=== PATIENT | male | born 1950 | race African-American/Black ===

== ENCOUNTER 2018-12-18 13:59 | Inpatient (IN) | payer MEDICARE ==
[2018-12-18] MEDS ORDERED: Zolpidem Tartrate 5 MG TAB PO PRN (15:23)
[2018-12-18] MEDS ORDERED: Acetaminophen 325 MG TAB PO PRN (15:23)
[2018-12-18] MEDS ORDERED: Ondansetron ODT 4 MG TAB PO PRN (15:23)
[2018-12-18] MEDS ORDERED: Ipratropium Bromide 2.5 ml Neb NEB PRN (15:23)
[2018-12-18] MEDS ORDERED: hydrALAZINE 20 MG/ML VIAL SLOW IVP PRN (15:59)
[2018-12-18] MEDS ORDERED: Labetalol HCl 100 MG/20 ML VIAL SLOW IVP PRN (15:59)
[2018-12-18 16:47] LABS: Troponin I 0.044 ng/mL (< 0.028)
[2018-12-18] MEDS: Mometasone/Formoterol 120 PUFF INHALER INH SCH (18:31)
[2018-12-18] MEDS: Azithromycin 500 MG in Sodium Chloride 0.9% 250 ML 250 ML IVPB SCH (19:15)
[2018-12-18] MEDS: methylPREDNISolone Sod Succ 40 MG VIAL IVP SCH ×2 (19:17→23:02)
[2018-12-18 20:06] LABS: Troponin I 0.029 ng/mL (< 0.028)
[2018-12-18] MEDS: traMADol HCl 50 MG TAB PO SCH (20:38)
[2018-12-18] MEDS ORDERED: traMADol HCl 50 MG TAB PO SCH (21:00)
[2018-12-18 21:27] VITALS: BMI 24.0
--- NOTE | 2018-12-18 22:44 | HP ---
PRIMARY CARE PHYSICIAN: Arabella Lacey MD HISTORY OF PRESENT ILLNESS: The patient was seen yesterday in [facility] when AMA went back today, was apparently treated there for shortness of breath, etc. referred here. He is very reluctant historian. He says he has no shortness of breath. He does have wheezing, chronic cough with white phlegm. No fever or chills. He does have some swelling in his ankles and that is the only history I can get out of him. He does have a history of hypertension, COPD, and there is a question of CHF on his history. CURRENT MEDICATIONS: 1. Losartan 25 mg, 12.5 mg a day. 2. Lasix 40 mg a day. 3. Tramadol 50 mg once a day. 4. Combivent Respimat inhaler p.r.n. 5. Albuterol inhaler p.r.n. ALLERGIES: NO KNOWN DRUG ALLERGIES. PAST SURGICAL HISTORY: Tonsillectomy. FAMILY HISTORY: When asked if there was any coronary artery disease in his family, said not that I know of. When I asked him if there was any hypertension in his family, he said "hell I guess." SOCIAL HISTORY: . He is full code status. He did not understand recuscitation. He has had no smoking in 10 years. He drinks socially. REVIEW OF SYSTEMS: GENERAL: No headaches, dizziness, fainting. EYES: States he has blurry vision. No double vision, flashing lights. EAR, NOSE, AND THROAT: No ear pain or drainage. No nasal bleeding. No trouble swallowing. CHEST: No chest pain, pressure chest, dyspnea on exertion. No orthopnea. RESPIRATIONS: See present illness. GASTROINTESTINAL: No nausea, vomiting, abdominal pain, diarrhea, or constipation. GENITOURINARY: No hematuria or dysuria. MUSCULOSKELETAL: No pain in his arms or legs. He does have some swelling in his legs. NEUROLOGICAL: No strokes, seizures, or focal weakness. PSYCHIATRIC: No anxiety or depression. SKIN: No bruising, bleeding, or rash. HEME/LYMPH: No tender or swollen lumps under his arms, neck, or groin. PHYSICAL EXAMINATION: GENERAL: He is an alert, appropriate, oriented. VITAL SIGNS: Blood pressure 125/71, pulse 88, respirations 18, and room air sat 89 on 2 L, 92, temperature 98. HEENT: Examination of his head, eyes, ears, nose, and throat reveals pupils equal and round with dense cataracts and bilateral arcus. Sclerae are white. Extraocular movements are intact. Tympanic membranes are clear. Nose is clear. Oral mucous membranes are wet with poor dental hygiene. CHEST: Hyper-resonant with wheezes expiratory in all lung ibrahim. HEART: Had a regular rate and rhythm without murmurs or gallops. ABDOMEN: Soft, bowel sounds are normal. There is no hepatosplenomegaly. No mass. No rebound. No bruits. EXTREMITIES reveal 1+ edema with no cyanosis or clubbing. He has pulses carotid radial femoral and dorsalis pedis pulses intact. SKIN: Warm and dry without bruises or rash. HEME/LYMPH: No tender or swollen lymph nodes in axilla, inguinal, or cervical area. NEUROLOGICAL: Cranial nerves 2 through 12 are intact. Deep tendon reflexes symmetric. IMAGING: Chest x-ray does show borderline cardiomegaly. No active infiltrates. He does have some diffuse reticulonodular things that could be pulmonary vascular congestion, reviewed by me. Radiologist mentions no evidence of heart failure. EKG, regular sinus rhythm, left ventricular hypertrophy with repolarization abnormality, reviewed by me. LABORATORY DATA: A 12/18/2018, hemoglobin 12.9, white count 6.7, and platelet count 316,000. Drug screen positive for cocaine and THC. Comprehensive metabolic profile; sodium and potassium normal, CO2 38, chloride 94, BUN 22, creatinine 1.43, blood sugar 136. Liver function tests normal. CK-MB 7.6, 7.02 separate days, CK is 377, BNP 592, 499, troponin I 0.03, 0.036. ADMITTING DIAGNOSES: 1. Acute respiratory failure with hypoxemia. 2. Chronic obstructive pulmonary disease exacerbation. 3. Demand ischemia. 4. Congestive heart failure. 5. Hypertension. 6. Cocaine and marijuana abuse. PLAN: Treatment for COPD with DuoNebs q.6 hours and q.2 p.r.n., Dulera twice a day, IV steroids, IV Zithromax. Treatment for heart failure, we will give Lasix IV now because of his edema. Order an echocardiogram. We will require further evaluation when that is available. He will be given aspirin of course. Blood pressure will require monitoring and control. Hopefully, start re-instituting his home medicines. Job ID: [id number] FRANKLYN
[2018-12-18] MEDS ORDERED: Sodium Chloride 0.9% 10 ML ONE (22:47)
[2018-12-19 05:28] LABS: #Lymphocytes 0.9 thou/uL (1.20-3.40); #Monocytes 0.2 thou/uL (0.11-0.59); #Neutrophils 5.7 thou/uL (1.40-6.50); %Basophils 0.1 % (0.0-1.0); %Eosinophils 0.2 % (0.0-10.0); %Lymphocytes 13.1 % (21.0-51.0); %Monocytes 2.2 % (0.0-10.0); %Neutrophils 84.4 % (42.0-75.0); Hemoglobin 13.6 g/dL (14.0-18.0); Mean Corpuscular HGB CONC 30.1 g/dL (32.0-36.0); Mean Corpuscular Hemoglobin 34.2 pg (27.0-31.0); Mean Platelet Volume 7.6 fL (7.4-10.4); Platelet Count 337 thou/uL (130-400); RBC Distribution Width 14.7 % (11.5-14.5); Red Blood Cell (RBC) Count 3.96 mill/uL (4.70-6.10); White Blood Cell (WBC) Count 6.7 thou/uL (4.8-10.8)
[2018-12-19 05:48] LABS: BUN (Urea Nitrogen) 24 mg/dL (8.4-25.7); Calc. Creatinine Clearance 63 mL/min (70-130); Calcium 8.7 mg/dL (7.8-10.44); Carbon Dioxide 29 mmol/L (23-31); Chloride 94 mmol/L (98-107); Estimated GFR-MDRD 62; Glucose 119 mg/dL (80-115); Potassium 5.1 mmol/L (3.5-5.1); Sodium 136 mmol/L (136-145)
[2018-12-19 05:58] LABS: Anion Gap 18 mmol/L (10-20)
[2018-12-19] MEDS: Furosemide 40 MG/4 ML VIAL SLOW IVP SCH ×2 (06:00→15:11)
[2018-12-19] MEDS: methylPREDNISolone Sod Succ 40 MG VIAL IVP SCH ×4 (06:00→23:46)
[2018-12-19] MEDS: Mometasone/Formoterol 120 PUFF INHALER INH SCH ×2 (07:19→19:24)
[2018-12-19] MEDS: Enoxaparin Sodium 40 MG/0.4 ML SYRINGE SC SCH (09:05)
[2018-12-19] MEDS: Aspirin 325 MG TAB PO SCH (09:05)
--- NOTE | 2018-12-19 13:15 | PDOC.PN ---
- Subjective Encounter Start Date: 12/19/18 Encounter Start Time: 09:30 Subjective: no chest pain, has sob and wheezing -: is amb in room on oxygen -: had to be placed back on oxygen this am - Objective Resuscitation Status - Order Detail: 12/18/18 15:08 Resuscitation Status Routine Resuscitation Status: FULL: Full Resuscitation Discussed with: did not understand question MAR Reviewed: Yes Vital Signs & Weight: Vital Signs (12 hours) Temp Pulse Resp BP Pulse Ox 12/19/18 11:45 97.8 F 90 18 128/66 100 12/19/18 07:50 98.0 F 85 20 123/67 94 L 12/19/18 07:19 89 16 12/19/18 07:08 89 16 12/19/18 04:00 98.0 F 89 20 140/80 92 L Weight Weight 187 lb 4.8 oz I&O: 12/18/18 12/19/18 12/20/18 06:59 06:59 06:59 Intake Total 320 Output Total 450 Balance -130 Result Diagrams: 12/19/18 04:44 12/19/18 04:44 Phys Exam - Physical Examination HEENT: PERRLA, moist MMs Neck: no JVD, supple Respiratory: no rales, wheezing present Cardiovascular: RRR, no significant murmur Gastrointestinal: soft, non-tender, positive bowel sounds Musculoskeletal: no edema, pulses present Neurological: non-focal, moves all 4 limbs Psychiatric: normal affect, A&O x 3 Dx/Plan (1) Acute exacerbation of CHF (congestive heart failure) Code(s): I50.9 - HEART FAILURE, UNSPECIFIED Status: Acute Qualifiers: Heart failure type: unspecified Qualified Code(s): I50.9 - Heart failure, unspecified (2) COPD exacerbation Code(s): J44.1 - CHRONIC OBSTRUCTIVE PULMONARY DISEASE W (ACUTE) EXACERBATION Status: Acute (3) Cocaine abuse Code(s): F14.10 - COCAINE ABUSE, UNCOMPLICATED Status: Acute (4) HTN (hypertension) Code(s): I10 - ESSENTIAL (PRIMARY) HYPERTENSION Status: Chronic Qualifiers: Hypertension type: essential hypertension Qualified Code(s): I10 - Essential (primary) hypertension (5) NSTEMI (non-ST elevated myocardial infarction) Code(s): I21.4 - NON-ST ELEVATION (NSTEMI) MYOCARDIAL INFARCTION Status: Acute - Plan await echo results -: is on asp, lasix, nebs, steroids, azithromycin -: cardio and pulm consultation -: says he has home oxygen but no extensions to use (nasal tongs etc) -: ambulate as tolerated in hallway, change status to inpatient * . Review of Systems - Medications/Allergies Allergies/Adverse Reactions: Allergies Allergy/AdvReac Type Severity Reaction Status Date / Time No Known Allergies Allergy Unverified 12/18/18 15:34 Medications: Current Medications Acetaminophen (Tylenol) 650 mg PO Q4H PRN PRN Reason: Headache/Fever/Mild Pain (1-3) Albuterol/Ipratropium (Duoneb) 3 ml NEB [id number] [facility] Last Admin: 12/19/18 07:08 Dose: 3 ml Aspirin (Aspirin) 325 mg PO DAILY [facility] Last Admin: 12/19/18 09:05 Dose: 325 mg Enoxaparin Sodium (Lovenox) 40 mg SC 0900 [facility] Last Admin: 12/19/18 09:05 Dose: 40 mg Furosemide (Lasix) 40 mg SLOW IVP 0600,1400 [facility] Last Admin: 12/19/18 06:00 Dose: 40 mg Hydralazine HCl (Apresoline) 10 mg SLOW IVP Q4H PRN PRN Reason: SBP > 180 and HR < 70 Azithromycin 500 mg/ Sodium (Chloride) 250 mls @ 250 mls/hr IVPB 1600 [facility] Last Admin: 12/18/18 19:15 Dose: Not Given Ipratropium [place] (Atrovent) 2.5 ml NEB Q2H PRN PRN Reason: SOB &/or Wheezing Labetalol HCl (Normodyne) 20 mg SLOW IVP Q4H PRN PRN Reason: SBP > 180 and HR >/= 70 Methylprednisolone Sodium Succinate (Solu-Medrol) 40 mg IVP Q6HR [facility] Last Admin: 12/19/18 11:48 Dose: 40 mg Mometasone Furoate/Formoterol Fumar (Dulera 100 Mcg/5 Mcg Inhaler) 0 puff INH BID-RT [facility] Last Admin: 12/19/18 07:19 Dose: 2 puff Ondansetron HCl (Zofran Odt) 4 mg PO Q6H PRN PRN Reason: Nausea/Vomiting Sodium Chloride (Flush - Normal Saline) 10 ml IVF PRN PRN PRN Reason: Saline Flush Last Admin: 12/19/18 06:00 Dose: 10 ml Tramadol HCl (Ultram) 100 mg PO HS [facility] Last Admin: 12/18/18 20:38 Dose: 100 mg Zolpidem Tartrate (Ambien) 5 mg PO HSPRN PRN PRN Reason: Insomnia
--- NOTE | 2018-12-19 13:38 | CON ---
DATE OF CONSULTATION: HISTORY OF PRESENT ILLNESS: Rei Soto is a 68-year-old gentleman, who was brought to the hospital with shortness of breath and lower extremity edema. He denies any chest pain, chills, or sweats. He has a longstanding history of tobacco abuse, quit smoking about 5 years ago of pack a day. He states on most days he is relatively active and can walk a fair distance without getting shortness of breath. 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 He has a history of asthma, congestive heart failure, and hypertension. PAST MEDICAL HISTORY: Otherwise, chronic asthma, chronic bronchitis, CHF, and hypertension. PAST SURGICAL HISTORY: Previous surgery: Tonsillectomy. SOCIAL HISTORY: The patient smokes marijuana, drinks socially. MEDICATIONS: Home medicines at this time include: 1. Nebulizer. 2. Combivent. 3. Albuterol inhaler. 4. Advair Diskus 250. 5. Cozaar 12.5. 6. Lasix 40. ALLERGIES: NONE. FAMILY HISTORY: Unremarkable. REVIEW OF SYSTEMS: Ten-point, negative. PHYSICAL EXAMINATION: VITAL SIGNS: His saturations are 100% on L, respiratory rate 18, temperature 97, pulse 98, blood pressure 120/66. He denies any difficulty breathing. CHEST: Minimal wheezing bilaterally. CARDIAC: Normal S1 and S2. No gallops. ABDOMEN: No masses. LABORATORY DATA: Creatinine is 1.38. His CK-MB is elevated. His troponin was elevated. BNP is 499. Chest x-ray shows cardiomegaly. White count 6000, H and H 13 and 43. He has cocaine and cannabinoids in his drug screen. IMPRESSION: 1. Chronic obstructive pulmonary disease exacerbation, bronchitis, asthma. 2. Congestive heart failure. 3. Cocaine and marijuana abuse. 4. Hypertension. PLAN: Pulmonary peña, he is on Dulera, which I would continue; empiric antibiotic; and steroids. Switch over to oral medication. Continue diuretics. Await input from Cardiology. Pulmonary will follow. Consultation note of 70 minutes, 50% in direct patient care. Job ID: [id number]
[2018-12-19] MEDS: Azithromycin 500 MG in Sodium Chloride 0.9% 250 ML 250 ML IVPB SCH (15:11)
--- NOTE | 2018-12-19 18:30 | NM ---
EXAM: Nuclear medicine VQ scan COMPARISON: Chest x-ray 12/18/2018 HISTORY: Shortness of breath TECHNIQUE: A VQ scan was attempted using 14.2 mCi of xenon-133. However, the patient was unable to ta ke a deeper breath. Perfusion images were obtained using 6 mCi of technetium 99m MAA. FINDINGS: Ventilation: Unable to be performed Perfusion: No small, medium, or large perfusion defects are seen. IMPRESSION: No perfusion defects seen. Low probability for pulmonary embolism.
[2018-12-19] MEDS: traMADol HCl 50 MG TAB PO SCH (20:47)
--- NOTE | 2018-12-19 21:27 | CON ---
DATE OF CONSULTATION: HISTORY OF PRESENT ILLNESS: The patient is a pleasant 68-year-old gentleman who presents for evaluation of increasing dyspnea. The patient states approximately 10 years ago in [place], he underwent a cardiac catheterization. The patient reports that he was found to have no significant coronary artery disease. The patient has a history of asthma and COPD. He has long history of tobacco abuse. The patient was in his usual state of health when he presented to his primary physician and was noted to have lower extremity swelling and increasing dyspnea. The patient denied having any chest discomfort. The patient has not had any palpitations or lightheadedness. The patient denies having PND or orthopnea. PAST MEDICAL HISTORY: Significant for; 1. COPD. 2. Asthma. 3. Hypertension. PAST SURGICAL HISTORY: He has had a tonsillectomy. SOCIAL HISTORY: He uses marijuana. He is a former smoker. He denies any use of illicit drugs. MEDICATIONS ON ADMISSION: 1. Cozaar 12.5 daily. 2. Lasix 40 daily. 3. Inhalers. ALLERGIES: NONE. FAMILY HISTORY: Unknown to the patient. REVIEW OF SYSTEMS: Ten-point system otherwise unremarkable. PHYSICAL EXAMINATION: GENERAL: This is an anxious gentleman. VITAL SIGNS: Blood pressure 128/66. NECK: Showed no jugular venous distention. LUNGS: Have diffuse wheezes throughout both lung ibrahim. HEART: Regular rate and rhythm. Normal S1, S2. No murmurs. ABDOMEN: Nondistended. EXTREMITIES: Show moderate edema. Vascular and radial pulses are 2+. LABORATORY DATA: White blood cell count 6.7, hemoglobin 13.6, hematocrit 45.1, platelets are 337. Sodium is 136, potassium 5.1, chloride 94, bicarbonate 29, BUN 24, creatinine 1.38. Troponin 0.044. His EKG revealed normal sinus rhythm with Q-waves suggestive of a previous inferior infarct and nonspecific ST-T wave abnormality. His echocardiogram reveals him to have normal left ventricular ejection fraction 50% to 55%, marked right atrial and right ventricular enlargement with evidence of pulmonary hypertension. IMPRESSION: 1. Chronic obstructive pulmonary disease. 2. Right-sided heart failure. 3. Pulmonary hypertension. 4. Type 2 myocardial infarction. 5. Hypertension. 6. Drug abuse. This gentleman presents with right-sided heart failure. The patient will undergo a V/Q scan to make sure there is no evidence of a pulmonary embolism for his elevated pulmonary pressures. I discussed the options of invasive evaluation and the patient prefers medical therapy. We will follow this patient with you through his hospitalization. Job ID: [id number]
[2018-12-20] MEDS: Furosemide 40 MG/4 ML VIAL SLOW IVP SCH (05:41)
[2018-12-20] MEDS: methylPREDNISolone Sod Succ 40 MG VIAL IVP SCH (05:42)
[2018-12-20] MEDS: Mometasone/Formoterol 120 PUFF INHALER INH SCH ×2 (06:57→18:34)
[2018-12-20 08:48] LABS: Anion Gap 13 mmol/L (10-20); BUN (Urea Nitrogen) 28 mg/dL (8.4-25.7); Calc. Creatinine Clearance 65 mL/min (70-130); Calcium 9.3 mg/dL (7.8-10.44); Carbon Dioxide 37 mmol/L (23-31); Chloride 90 mmol/L (98-107); Estimated GFR-MDRD 65; Glucose 121 mg/dL (80-115); Potassium 3.8 mmol/L (3.5-5.1); Sodium 136 mmol/L (136-145)
[2018-12-20] MEDS: Aspirin 325 MG TAB PO SCH (09:00)
[2018-12-20] MEDS ORDERED: predniSONE 20 MG TAB PO SCH (09:00)
[2018-12-20] MEDS: Enoxaparin Sodium 40 MG/0.4 ML SYRINGE SC SCH (09:00)
--- NOTE | 2018-12-20 09:45 | PDOC.PN ---
- Subjective Encounter Start Date: 12/20/18 Encounter Start Time: 09:42 Subjective: Admitted with worsening SOB and bilateral leg swelling. -: Feeling better. Off oxygen. - Objective Resuscitation Status - Order Detail: 12/18/18 15:08 Resuscitation Status Routine Resuscitation Status: FULL: Full Resuscitation Discussed with: did not understand question Vital Signs & Weight: Vital Signs (12 hours) Temp Pulse Resp BP BP Pulse Ox 12/20/18 08:55 98.1 F 97 18 136/69 97 12/20/18 06:57 92 16 12/20/18 06:46 92 16 12/20/18 04:00 98.5 F 87 18 131/70 93 L 12/20/18 00:59 89 16 92 L Weight Weight 187 lb 4.8 oz I&O: 12/19/18 12/20/18 12/21/18 06:59 06:59 06:59 Intake Total 320 1530 Output Total 450 2200 Balance -130 -670 Result Diagrams: 12/19/18 04:44 12/20/18 07:59 Phys Exam - Physical Examination Constitutional: NAD HEENT: PERRLA, moist MMs Neck: no JVD, supple Respiratory: no wheezing, no rhonchi fair air entry with some transmitted sound Cardiovascular: RRR, no rub Gastrointestinal: soft, non-tender, no distention, positive bowel sounds Musculoskeletal: pulses present moderate bilateral leg edema Neurological: non-focal, normal sensation, moves all 4 limbs Psychiatric: A&O x 3 Dx/Plan (1) Marijuana abuse Code(s): F12.10 - CANNABIS ABUSE, UNCOMPLICATED Status: Acute (2) Acute exacerbation of CHF (congestive heart failure) Code(s): I50.9 - HEART FAILURE, UNSPECIFIED Status: Acute Qualifiers: Heart failure type: right-sided Qualified Code(s): I50.813 - Acute on chronic right heart failure (3) COPD exacerbation Code(s): J44.1 - CHRONIC OBSTRUCTIVE PULMONARY DISEASE W (ACUTE) EXACERBATION Status: Acute (4) Cocaine abuse Code(s): F14.10 - COCAINE ABUSE, UNCOMPLICATED Status: Acute (5) NSTEMI (non-ST elevated myocardial infarction) Code(s): I21.4 - NON-ST ELEVATION (NSTEMI) MYOCARDIAL INFARCTION Status: Acute Comment: Type 2. (6) HTN (hypertension) Code(s): I10 - ESSENTIAL (PRIMARY) HYPERTENSION Status: Chronic Qualifiers: Hypertension type: essential hypertension Qualified Code(s): I10 - Essential (primary) hypertension (7) Moderate to severe pulmonary hypertension Code(s): I27.20 - PULMONARY HYPERTENSION, UNSPECIFIED Status: Acute (8) Moderate mitral regurgitation Code(s): I34.0 - NONRHEUMATIC MITRAL (VALVE) INSUFFICIENCY Status: Acute (9) Bilateral leg edema Code(s): R60.0 - LOCALIZED EDEMA Status: Acute - Plan Transition lasix and steroid to oral. -: Monitor patient off oxygen -: increase activity. -: Repeat renal function in the am. * .
--- NOTE | 2018-12-20 11:44 | PRG ---
DATE OF SERVICE: 12/20/2018 SUBJECTIVE: Rei Soto, this morning, is awake, alert, and responsive. He is better. OBJECTIVE: VITAL SIGNS: Saturations 97% on room air, temperature 98, pulse 97, respiratory rate 18, and blood pressure 130/69. CHEST: Decreased breath sounds. No wheezing. CARDIAC: Normal S1 and S2. . LABORATORY DATA: Creatinine is ASSESSMENT: 1. Chronic obstructive pulmonary disease. 2. Azotemia. I did not see any reason to suspect a pneumonia in this patient. Switch over to oral antibiotics. Continue PT, supportive care. Disposition as per primary care physician. Job ID: [id number]
[2018-12-20] MEDS ORDERED: Furosemide 20 MG TAB PO SCH (14:00)
[2018-12-20] MEDS ORDERED: Azithromycin 250 MG TAB PO SCH (14:45)
[2018-12-20] MEDS: traMADol HCl 50 MG TAB PO SCH (20:24)
[2018-12-21 06:10] LABS: BUN (Urea Nitrogen) 31 mg/dL (8.4-25.7); Calc. Creatinine Clearance 63 mL/min (70-130); Calcium 9.3 mg/dL (7.8-10.44); Estimated GFR-MDRD 63; Glucose 73 mg/dL (80-115)
[2018-12-21 06:19] LABS: Anion Gap 15 mmol/L (10-20); Carbon Dioxide 36 mmol/L (23-31); Chloride 92 mmol/L (98-107); Potassium 3.6 mmol/L (3.5-5.1); Sodium 139 mmol/L (136-145)
[2018-12-21] MEDS: Mometasone/Formoterol 120 PUFF INHALER INH SCH (07:36)
[2018-12-21 08:15] VITALS: BP 131/69; TEMP 98.4
[2018-12-21] MEDS: Enoxaparin Sodium 40 MG/0.4 ML SYRINGE SC SCH (08:16)
[2018-12-21] MEDS: Aspirin 325 MG TAB PO SCH (08:16)
[2018-12-21] MEDS ORDERED: Azithromycin 250 MG TAB PO SCH (09:00)
[2018-12-21] MEDS ORDERED: Furosemide 40 MG TAB PO SCH (09:00)
[2018-12-21] MEDS ORDERED: Furosemide 20 MG TAB PO SCH (09:00)
[2018-12-21] MEDS ORDERED: predniSONE 20 MG TAB PO SCH (09:00)
--- NOTE | 2018-12-22 08:14 | DIS ---
DATE OF ADMISSION: 12/19/2018 DATE OF DISCHARGE: 12/21/2018 PRIMARY CARE PHYSICIAN: Arabella Lacey MD DISCHARGE DIAGNOSES: 1. Acute respiratory failure with hypoxia. 2. Chronic obstructive pulmonary disease exacerbation. 3. Acute right heart failure. 4. Moderately severe pulmonary hypertension. 5. Moderate mitral regurgitation. 6. Bilateral leg edema. 7. Hypertension. 8. Marijuana abuse. 9. Cocaine abuse. 10. Type 2 non-ST elevation myocardial infarction. CONSULTS: 1. Pulmonology. 2. Cardiology. HOSPITAL COURSE: A 68-year-old male with known history of hypertension and COPD, who was admitted due to worsening shortness of breath and bilateral leg edema associated with cough with sputum production. The patient was found to have SpO2 of 89% on room air and subsequently was started on oxygen supplementation. Further evaluation with echocardiogram showed preserved systolic function with EF of 50 to 55. however, the patient was found to have a moderately enlarged right atrium and right ventricle as well as elevated right ventricular systolic pressure of 60, consistent with moderate pulmonary hypertension. He also was found to have moderate mitral regurgitation as well as [id number] tricuspid regurgitation. Impression of acute respiratory failure with hypoxia from CHF exacerbation and COPD exacerbation was made. The patient was treated with IV antibiotics, steroid, bronchodilators as well as diuretics with improvement in general condition. He was subsequently weaned off oxygen. Leg swelling improved. There was a concern for PE given pulmonary hypertension. The patient had a V/Q scan, which was however low probability for PE. He improved and was subsequently discharged to follow with PCP as well as Pulmonology and heat welder plastics. 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 PHYSICAL EXAMINATION: VITAL SIGNS: Temperature 98.4, pulse 95, respiratory rate 16, SpO2 of 93% on room air, and blood pressure is 131/69. GENERAL: Middle-age male, in no obvious distress. Afebrile. Anicteric. Acyanotic. HEENT: Normocephalic, atraumatic. Pupils are equal and reacting to light. Oral mucosa is moist. RESPIRATORY: Fair air entry bilaterally with some transmitted sounds. No obvious crackle or rhonchi was appreciated and there was no use of accessory muscles. CARDIOVASCULAR: Regular rhythm and rate with normal heart sounds 1 and 2. Soft systolic murmur was appreciated. GASTROINTESTINAL: Abdomen is full, soft, nontender, nondistended with normal bowel sounds. EXTREMITIES: Trace bilateral ankle edema noted. NEUROLOGIC: Conscious and alert and oriented x3 with appropriate mental status. Cranial nerves II through XII are intact. The patient is ambulant. DISCHARGE MEDICATIONS: 1. Advair Diskus 250/50 one inhalation b.i.d. 2. Lasix 40 mg p.o. daily. 3. Losartan 12.5 mg p.o. daily. 4. Tramadol 100 mg p.o. daily at bedtime. 5. Aspirin 325 mg p.o. daily. 6. Azithromycin 250 mg p.o. daily for 5 days. 7. Prednisone 40 mg p.o. daily for 5 days. 8. Albuterol sulfate ProAir 90 mcg p.r.n. for shortness of breath. 9. Ipratropium albuterol sulfate (Combivent) 1 puff inhalation q.i.d. p.r.n. for shortness of breath. 10. Acetaminophen 650 mg q.4 p.r.n. for pain. DISCHARGE DISPOSITION: Home. FOLLOWUP: 1. The patient is to follow with PCP in 5 days. 2. He is also to follow with heat welder plastics in 2 to 3 weeks and casting cleaner in 2 to 3 weeks. DISCHARGE CONDITION: Improved. TIME SPENT: This discharge took more than 35 minutes. Job ID: [id number]
== END 2018-12-21 10:56 | disposition home or self-care (01) | DRG 280 ==
LOC: ERS 13:59 → INTOOBSV 16:04 → 2NO 16:04 → OBSVTOIN 12-19 14:05
PROVIDERS: ADMIT Internal Medicine; ATTEND Internal Medicine
DX: I11.0 Hypertensive heart disease with heart failure (principal); J96.01 Acute respiratory failure with hypoxia; I21.A1 Myocardial infarction type 2; J44.1 Chronic obstructive pulmonary disease with (acute) exacerbation; I50.813 Acute on chronic right heart failure; F14.10 Cocaine abuse, uncomplicated; F12.10 Cannabis abuse, uncomplicated; I27.20 Pulmonary hypertension, unspecified; I08.1 Rheumatic disorders of both mitral and tricuspid valves; R79.89 Other specified abnormal findings of blood chemistry; Z79.899 Other long term (current) drug therapy; Z87.891 Personal history of nicotine dependence; Z79.51 Long term (current) use of inhaled steroids
CPT/HCPCS: 36415; 78582; 80048; 85025; 93306; 93798; 94640; 96365; A9540; A9558; J0456; J1650; J1940; J2920; J7050; J7512; J7620

== ENCOUNTER 2019-04-07 14:28 | Inpatient (IN) | payer MEDICARE ==
[2019-04-07] MEDS ORDERED: Dextrose 50% Abboject 50 ML SYRINGE SLOW IVP PRN (15:24)
[2019-04-07] MEDS ORDERED: Ondansetron PF 4 MG/2 ML Vial IVP PRN (15:24)
[2019-04-07] MEDS ORDERED: Dextrose 5% in Water 1,000 ML IV PRN (15:24)
[2019-04-07] MEDS ORDERED: Non-Formulary Item 1 EACH (Ipratropium/Albuterol Sulfate [Combivent Respimat] 1 PUFF) INH PRN (15:27)
[2019-04-07] MEDS ORDERED: Ketorolac Tromethamine 30 MG/ML VIAL IVP PRN (15:29)
[2019-04-07] MEDS ORDERED: Acetaminophen 1,000 MG in Premix Bag 1 BAG IVPB PRN (15:30)
[2019-04-07] MEDS ORDERED: Morphine 2 MG/ML SYRINGE SLOW IVP PRN ×2 (15:30→16:43)
[2019-04-07] MEDS ORDERED: Sodium Chloride 0.9% 1,000 ML IV SCH (15:30)
--- NOTE | 2019-04-07 15:31 | RAD ---
XR Chest 1 View Portable HISTORY: Right groin hernia COMPARISON: 12/18/2018 FINDINGS: The heart is enlarged but stable. The aorta is tortuous. There is evidence of old granuloma tous disease. No focal areas of consolidation, pneumothoraces, billy pulmonary edema or pleural effusions are seen. IMPRESSION: No radiographic evidence of acute cardiopulmonary process.
--- NOTE | 2019-04-07 15:55 | HP ---
HISTORY PRESENT ILLNESS: Mr. Soto is a 68-year-old gentleman, who come into the ER via transfer from [place] for right groin hernia. The patient reports to have right groin swelling for approximately 2 years. Swelling had not bothered him and he had not had any pain. He has been going to see doctor about right groin hernia, but because he is unfunded, so he cannot do elective surgery on right inguinal hernia. Last night, he developed right inguinal hernia pain. The pain is severe, come and go, sometimes pain shoot up to 10/10, but he denies any nausea, vomiting, or fever. He denies any shortness of breath. His last bowel was yesterday and his last meal was last night. PAST MEDICAL HISTORY: 1. Hypertension. 2. COPD. PAST SURGICAL HISTORY: Tonsillectomy. SOCIAL HISTORY: Drinks socially. Abuses marijuana daily, drug use. Smoking. The patient reports he quit smoking for 5-10 years. CURRENT MEDICATIONS: 1. Losartan 25 mg half daily. 2. Lasix 40 mg daily. 3. Tramadol 50 mg once a day. 4. Albuterol inhaler. 5. Combivent inhalation. PHYSICAL EXAMINATION: GENERAL: The patient is lying down in bed, alert and awake, in no acute distress. VITAL SIGNS: Pulse 88, blood pressure 155/94, respiratory rate 19, temperature 98.2, and O2 saturation 96% on 2L. LUNGS: Clear bilaterally. HEART: Regular rate and rhythm. ABDOMEN: Soft and nondistended. Bowel sounds present. Right inguinal hernia, incarcerated. Mild tender to palpation. Normal color. Irreducible. EXTREMITIES: Neurovascularly intact x4. NEUROLOGIC: No focal neurology deficits. DIAGNOSES: 1. Incarcerated right inguinal hernia. 2. History of hypertension. 3. Chronic obstructive pulmonary disease. PLAN: Patient's assessment and treatment plan was discussed with Dr Good. Dr. Good planned to take the patient to the OR for surgery. The patient will be n.p.o. Initiate pain control, IV fluid, and DVT and gastritis prophylaxis. Continue COPD treatment with inhaler Combivent , resume home med after surgery and after patient is on regular diet. Job ID: [id number] [facility]
[2019-04-07] MEDS ORDERED: Fentanyl 100 MCG/2 ML VIAL ONE (16:02)
[2019-04-07] MEDS ORDERED: Ondansetron PF 4 MG/2 ML Vial ONE (16:08)
[2019-04-07] MEDS ORDERED: Morphine 4 MG/ML VIAL ONE (16:08)
[2019-04-07] MEDS ORDERED: CEFAZOLIN 2 GM in Premix Bag 1 BAG IVPB SCH (16:15)
[2019-04-07] MEDS ORDERED: traMADol HCl 50 MG TAB PO PRN ×2 (16:41)
[2019-04-07] MEDS ORDERED: Ondansetron HCl/PF 4 MG/2 ML Vial IVP PRN (17:01)
[2019-04-07] MEDS: Acetaminophen 500 MG TAB PO SCH ×2 (21:37→23:32)
[2019-04-07 21:48] VITALS: BMI 24.3
[2019-04-07] MEDS: Famotidine/PF 20 mg/2ml Vial SLOW IVP SCH (21:58)
[2019-04-07] MEDS: Sodium Chloride 0.9% 1,000 ML IV SCH ×2 (21:58→23:34)
--- NOTE | 2019-04-08 00:27 | OP ---
DATE OF PROCEDURE: 04/07/2019 PREOPERATIVE DIAGNOSIS: Acute incarcerated large right inguinal hernia. POSTOPERATIVE DIAGNOSIS: Acute incarcerated right indirect inguinal hernia. OPERATION PERFORMED: Repair of large incarcerated indirect inguinal hernia with extra-large PerFix plug mesh. ANESTHESIA: General endotracheal. ESTIMATED BLOOD LOSS: Less than 10 mL. COUNTS: Sponge and instrument counts were verified as correct x2. COMPLICATIONS: None apparent at the time of operation. INDICATIONS FOR OPERATION: This is a 68-year-old man with a large right inguinal hernia, which has been present for the last 5 years. The patient reported worsening right groin pain since yesterday, which had become progressively worse to 10/10 prior to presenting to the emergency department. Clinical radiographic examination was consistent with acute incarcerated right inguinal hernia containing small and large bowel. The patient was brought to the operating room for repair of the hernia. FINDINGS: Consistent with incarcerated large indirect hernia with cecum and small bowel without any evidence of strangulation. No direct hernia was found. DESCRIPTION OF PROCEDURE: Informed consent was obtained. The patient was brought to the operating room and placed in supine position. Following general anesthesia, a Landa catheter was inserted and placed to bedside drain. Abdomen including the groin and scrotum were widely and sterilely prepped and draped in usual fashion. A right oblique incision was made using a 15 scalpel. Incision was carried through subcutaneous tissues maintaining hemostasis using cautery. The superficial vessels were divided between clamps and cauterized. Samy fascia was incised along the line of the incision. The dissection was carried down to the level of the external oblique aponeurosis. I opened the external oblique aponeurosis along the running fibers using a fresh scalpel. The cord as well as the hernia were dissected free from surrounding structures and encircled at the pubic tubercle using a Hadley drain. A large indirect hernia sac was then dissected off the cord and structures. The hernia sac was opened, and contents were reduced into the peritoneal cavity, noting no evidence of bowel ischemia. The sac was then excised circumferentially. The internal ring defect was closed using pursestring sutures of 2-0 silk under direct vision. The hernia sac was passed off the operative field for formal transmission to pathology. I then placed a plug mesh to close the internal ring, securing this to the internal oblique aponeurosis. The elliptical mesh was then brought to the operative field. The apex sutured to the pubic tubercle. The mesh was then secured to the shelving portion of the external oblique aponeurosis using a running stitch of 2-0 Prolene. The mesh was then secured medially to the internal oblique aponeurosis. Cord and structures remained under the mesh. The right testicle was pulled into the scrotal sac. Once the mesh was secured, external oblique aponeurosis was reapproximated using a running stitch of 2-0 Prolene. Deep tissues were closed in layers using interrupted sutures of 2-0 Vicryl. Skin incision was closed using a running stitch of 4-0 Monocryl suture in subcuticular fashion. Dermabond was applied over incisional closure. The patient tolerated the operation without any apparent complication and was returned to the recovery room in satisfactory condition. Job ID: [id number]
--- NOTE | 2019-04-08 03:00 | PRG ---
DATE OF SERVICE: 04/08/2019 SUBJECTIVE: The patient is currently on the surgical floor. He is postop from repair of a large incarcerated indirect inguinal hernia with extra-large PerFix plug mesh. The patient reportedly has no issues postoperatively. He tolerated a regular diet this afternoon. His pain is controlled, but has not passed gas yet. OBJECTIVE: VITAL SIGNS: Stable. The patient is afebrile. GENERAL: The patient is resting comfortably in bed. He was asleep when I entered the room, but he awakened to gentle verbal stimuli. His chief complaint is abdominal soreness. His postop dressing is clean, dry, and intact. Bowel sounds are hypoactive. ASSESSMENT AND PLAN: Status post repair of left incarcerated indirect inguinal hernia. Plan will be to continue supportive care. Transition to oral pain medications. Continue regular diet. Encourage out of bed. Continue to follow along as bowel function returns. Job ID: [id number]
[2019-04-08] MEDS: Acetaminophen 500 MG TAB PO SCH (05:08)
[2019-04-08] MEDS: Famotidine/PF 20 mg/2ml Vial SLOW IVP SCH (08:22)
[2019-04-08 08:32] VITALS: BP 115/68; TEMP 97.7
--- NOTE | 2019-04-08 11:57 | DIS ---
DATE OF ADMISSION: 04/07/2019 DATE OF DISCHARGE: 04/08/2019 DISCHARGING PHYSICIAN: Dr. Good. ADMITTING DIAGNOSIS: Acute incarcerated large right inguinal hernia. DISCHARGING DIAGNOSIS: Acute incarcerated large right inguinal hernia. OPERATION AND PROCEDURES: Repair of incarcerated large right inguinal hernia. The surgery was performed on 04/07/[address] Good. Please see separate dictation for operative report. HISTORY AND HOSPITAL COURSE: A 68-year-old man presented with long-standing large right inguinal hernia, which became painful almost 36 hours prior to presentation. Pain was progressively worse. As a result, the patient was evaluated in the emergency department. Clinical radiographic examination was consistent with acute incarcerated right large inguinal hernia, for which the patient underwent an uneventful right inguinal herniorrhaphy with mesh yesterday. Today, he is awake and alert. He denies any pain. He is tolerating diet. He has remained hemodynamically stable and afebrile since admission. He is ambulating with minimal difficulty. Examination of the wound today reveals wound, which is intact. On provocation with Valsalva maneuver, there is no evidence of hernia recurrence. Incision itself is intact, clean, and dry. He has no scrotal swelling or pain. DISCHARGE INSTRUCTIONS: The patient will be discharged home today with the following instructions; 1. He follows up with me in the Surgery [facility] in 2 weeks. 2. He is to avoid weight lifting in excess of 20 pounds until he has been seen by me. 3. He may take Tylenol 1000 mg p.o. q.6 hours p.r.n. pain alternating this with ibuprofen 400 mg p.o. q.8 hours p.r.n. pain. Additionally, he is given a prescription for tramadol 50 mg to be taken 1 to 2 p.o. q.6 hours p.r.n. pain. 4. He may apply ice pack to incisional wound as needed. 5. The patient is to avoid swimming or soaking himself in a bathtub until he has been seen by me. He may shower effective tomorrow. These instructions were given to the patient in the presence of his nurse. He indicates understanding of information given. I have answered his questions. The patient has expressed gratitude for the care rendered during this hospitalization and surgery. Job ID: [id number]
== END 2019-04-08 10:57 | disposition home or self-care (01) | DRG 352 ==
LOC: ERS 14:28 → SDC/OP 17:21 → SJJU 20:26
PROVIDERS: ADMIT Surgery; ATTEND Surgery
PROC: 0YU50JZ Supplement Right Inguinal Region with Synthetic Substitute, Open Approach (ICD-10-PCS; principal; 2019-04-07)
DX: K40.30 Unilateral inguinal hernia, with obstruction, without gangrene, not specified as recurrent (principal); I10 Essential (primary) hypertension; J44.9 Chronic obstructive pulmonary disease, unspecified; F12.10 Cannabis abuse, uncomplicated; Z79.899 Other long term (current) drug therapy
CPT/HCPCS: 36415; 71045; 86850; 86900; 86901; 88302; 93005; 94640; 96374; 96375; C1781; J2270; J2405; J3010; J7620; S0028

== ENCOUNTER 2019-06-12 18:42 | Inpatient (IN) | payer MEDICARE ==
[~2019-06-12 18:42] MED LIST: EPINEPHrine 1 MG/10 ML Abboject SYRINGE ONE
[2019-06-12 19:30] LABS: Actual Bicarbonate (HCO3a) 47.1 mEq/L (22-28); Analyzer IN Cardio ER; Base Excess (BEa) 13.8 mEq/L (-2.0 to +3.0); Calcium, Ionized 1.21 mmol/L (1.12-1.30); Carboxyhemoglobin (COHb) 1.7 gm% (0.0-3.0); Hemoglobin (Hb) 13.4 g/dL (14.0-18.0); O2 Tension (PaO2) 85.6 mmHg (> 80.0); Potassium - ABG Lab 4.19 mmol/L (3.70-5.30)
[2019-06-12 19:40] LABS: CO2 Tension 122.6 mmHg (35.0-45.0); Puncture Site RRA
[2019-06-12] MEDS ORDERED: Rocuronium Bromide 10 MG/ML (10ML VIAL) ONE (20:18)
[2019-06-12] MEDS ORDERED: Ketamine 50 MG/ML (10ML VIAL) ONE ×2 (20:18→22:39)
--- NOTE | 2019-06-12 20:49 | RAD ---
XR Chest 1 View Portable History: Intubated patient Comparison: Radiograph prior day Findings: Patient intubated endotracheal tube tip felt to be the level of the clavicles although not well seen. Enteric tube tip below diaphragm although out of field of view. Impression: Satisfactory position of the endotracheal tube.
--- NOTE | 2019-06-12 20:58 | CT ---
CT Brain WO Con History: Altered mental status Comparison: None. Findings: No acute hemorrhage or infarct. No midline shift or mass effect. Ventricular size and extra -axial CSF spaces are normal. Calvarium is intact. Paranasal sinuses and mastoids are clear. Impression: No acute intracranial abnormality.
[2019-06-12 22:48] LABS: Actual Bicarbonate (HCO3a) 42.2 mEq/L (22-28); Analyzer IN Cardio ER; Base Excess (BEa) 16.4 mEq/L (-2.0 to +3.0); CO2 Tension 55.8 mmHg (35.0-45.0); Calcium, Ionized 1.09 mmol/L (1.12-1.30); Hemoglobin (Hb) 12.6 g/dL (14.0-18.0); O2 Tension (PaO2) 291.3 mmHg (> 80.0); Potassium - ABG Lab 4.08 mmol/L (3.70-5.30)
[2019-06-12 22:51] LABS: Puncture Site RRA
[2019-06-12] MEDS ORDERED: Propofol 1,000 MG/100 ML VIAL IV ONE (23:01)
[2019-06-12] MEDS ORDERED: Norepinephrine 8 MG/0.9% NS 250 ML ONE (23:01)
[2019-06-12] MEDS ORDERED: Dextrose 5% in Water 1,000 ML IV PRN (23:18)
[2019-06-12] MEDS ORDERED: Dextrose 50% Abboject 50 ML SYRINGE SLOW IVP PRN (23:18)
--- NOTE | 2019-06-12 23:26 | RAD ---
XR Chest 1 View Portable History: Central line placement Comparison: Radiograph same day Findings: The central venous catheter with tip poorly seen although felt to be at the inferior SVC. N o pneumothorax. Endotracheal tube tip just below the level of clavicles. Enteric tube below diaphragm although out of field of view. Volume loss left lower lobe. Impression: Uncomplicated placement central venous catheter
--- NOTE | 2019-06-13 00:04 | HP ---
PRESENT COMPLAINT: Respiratory failure. HISTORY OF PRESENT ILLNESS: Charles Minaya is a 68-year-old male with past medical history of reported hypertension, presumed heart failure, COPD, who presented at [facility] emergency room because of worsening shortness of breath. Over the day, he was given Lasix as well as sublingual nitroglycerin and transferred to the emergency room here. On arrival, the patient was reportedly having worsening shortness of breath and becoming gradually somnolent. His ABG, initial, pCO2 was 55, but repeat was up to 122, requiring intubation. The patient is currently on vent. Unable to obtain history from the patient now. Sister has at bedside helping with history. They reported the patient was started on diuretics after being diagnosed with heart failure. The patient had stopped smoking after being diagnosed with COPD. He has not had any recent admission for COPD exacerbation. PAST MEDICAL HISTORY: Significant for hypertension, presumed diastolic CHF, and history of COPD. PAST SURGICAL HISTORY: None. SOCIAL HISTORY: Patient lives alone. He is . History of active tobacco use, but sister is unable to quantify amount. History of prior alcohol abuse, but currently now occasional drinker. No history of illicit drug use. FAMILY HISTORY: Significant for atrial fibrillation and coronary artery disease in the sisters. HOME MEDICATIONS: See list. ALLERGIES: NO KNOWN DRUG ALLERGIES. REVIEW OF SYSTEMS: Unable to obtain given the patient is intubated and sedated. PHYSICAL EXAMINATION: VITAL SIGNS: Current vitals, blood pressure of 115/70, pulse of 71, respiratory rate of 18, O2 saturation 96%, on vent, FiO2 of 26%. GENERAL: Average-built middle-aged male, intubated on vent and sedated, orally tubed. NECK: No JVD. No carotid bruit. RESPIRATORY: Bibasilar crepitations noted. No wheeze. CARDIOVASCULAR: S1, S2, and regular. GI: Abdomen is full, soft, and nontender. : Landa catheter in situ. EXTREMITIES: No calf tenderness. No pedal edema. NEUROLOGIC: The patient is sedated. LABORATORY DATA: Last ABG, pH of 7.2, pCO2 of 122, pO2 of 85, post Lasix dosage. IMAGING STUDIES: Head CT shows no acute intracranial abnormality. Chest x-ray shows satisfactory position of the ET tube, mild pulmonary congestive changes noted. Images reviewed by me. EKG shows normal sinus rhythm, no ST-segment changes. LVH pattern noted. Rest of lab from [facility] shows creatinine of 1.4, sodium of 140, potassium 4.1, ionized calcium of 1.2, and ammonia of 71. IMPRESSION: 1. Acute respiratory failure, likely due to combined congestive heart failure exacerbation and chronic obstructive pulmonary disease exacerbation. 2. Chronic obstructive pulmonary disease exacerbation. 3. Acute diastolic congestive heart failure exacerbation. 4. History of hypertension. 5. History of chronic tobacco use. PLAN: We will admit the patient to intensive care unit. We will manage the patient for the following; 1. Acute respiratory failure - currently on vent. We will consult Pulmonary/dockmaster. Continue vent management now. We will do fentanyl drip for sedation for now. We will obtain repeat ABG in a.m. We will do pulmonary toileting as tolerated. Adjust vent based on ABG findings. 2. COPD exacerbation. We will do DuoNeb q.4 hours for now. We will start the patient on Solu-Medrol q.6 as well as empirical antibiotics with Rocephin. 3. Presumed diastolic CHF exacerbation - start the patient on IV Lasix q.12. Follow BMP in a.m. Obtain an echocardiogram. 4. DVT prophylaxis with subcutaneous Lovenox. 5. History of chronic tobacco use. We will do nicotine patch. We will discuss cessation with the patient when more awake. 6. Advance directive discussed with sister, they wished the patient to remain full code. 7. Total time spent in review of record, discussion with patient and evaluation, greater than 70 minutes. We will do serial set of cardiac enzymes also. Job ID: [id number]
[2019-06-13] MEDS ORDERED: Propofol BOLUS 1,000 MG/100 ML VIAL IV PRN (00:06)
[2019-06-13] MEDS ORDERED: DISCONTINUE PREVIOUS NARCOTIC PAIN MEDICATIONS AND BENZODIAZEPINES FS SCH (00:06)
[2019-06-13] MEDS ORDERED: Lorazepam 2 MG/ML VIAL SLOW IVP PRN (00:06)
[2019-06-13] MEDS ORDERED: Fentanyl BOLUS 250 ML IVPB PRN (00:06)
[2019-06-13] MEDS ORDERED: Morphine 2 MG/ML SYRINGE SLOW IVP PRN (00:06)
[2019-06-13] MEDS ORDERED: Ondansetron PF 4 MG/2 ML Vial IVP PRN (00:22)
[2019-06-13] MEDS ORDERED: methylPREDNISolone Sod Succ 40 MG VIAL IVP SCH (00:30)
[2019-06-13] MEDS: cefTRIAXone\\ROCEPHIN 2 GM in Sodium Chloride 0.9% 100 ML IVPB SCH (01:08)
[2019-06-13] MEDS: Bacteriostatic Water 30 ML VIAL FS PRN ×2 (01:09→05:26)
[2019-06-13] MEDS: Nicotine 14 MG PATCH TD SCH (01:09)
[2019-06-13] MEDS: Propofol 1,000 MG/100 ML VIAL IV PRN ×4 (05:18→23:56)
[2019-06-13] MEDS: Furosemide 40 MG/4 ML VIAL SLOW IVP SCH ×2 (05:21→18:15)
[2019-06-13] MEDS: methylPREDNISolone Sod Succ 40 MG VIAL IVP SCH ×4 (05:26→23:48)
[2019-06-13 05:40] LABS: BUN (Urea Nitrogen) 33 mg/dL (8.4-25.7); Calc. Creatinine Clearance 73 mL/min (70-130); Calcium 8.7 mg/dL (7.8-10.44); Estimated GFR-MDRD 75; Glucose 96 mg/dL (80-115); Magnesium 1.6 mg/dL (1.6-2.6)
[2019-06-13 05:43] LABS: Troponin I 0.058 ng/mL (< 0.028)
[2019-06-13 05:49] LABS: Anion Gap 17 mmol/L (10-20); Carbon Dioxide 35 mmol/L (23-31); Chloride 94 mmol/L (98-107); Potassium 3.9 mmol/L (3.5-5.1); Sodium 142 mmol/L (136-145)
[2019-06-13 05:54] LABS: #Lymphocytes 0.6 thou/uL (1.20-3.40); #Monocytes 0.4 thou/uL (0.11-0.59); #Neutrophils 7.3 thou/uL (1.40-6.50); %Basophils 0.2 % (0.0-1.0); %Eosinophils 0.1 % (0.0-10.0); %Lymphocytes 7.1 % (21.0-51.0); %Monocytes 5.3 % (0.0-10.0); %Neutrophils 87.3 % (42.0-75.0); Hemoglobin 11.6 g/dL (14.0-18.0); MDiff Complete? YES; Macrocytosis SLIGHT = 6-15 cells (100X) (0-5/hpf); Mean Corpuscular HGB CONC 31.4 g/dL (32.0-36.0); Mean Corpuscular Hemoglobin 35.4 pg (27.0-31.0); Mean Platelet Volume 8.2 fL (7.4-10.4); Platelet Count 167 thou/uL (130-400); Platelet Morphology Comment Appears Adequate; Red Blood Cell (RBC) Count 3.28 mill/uL (4.70-6.10); White Blood Cell (WBC) Count 8.3 thou/uL (4.8-10.8)
[2019-06-13 07:29] LABS: Actual Bicarbonate (HCO3a) 35.1 mEq/L (22-28); Base Excess (BEa) 10.7 mEq/L (-2.0 to +3.0); CO2 Tension 45.4 mmHg (35.0-45.0); Calcium, Ionized 1.11 mmol/L (1.12-1.30); Hemoglobin (Hb) 12.8 g/dL (14.0-18.0); Potassium - ABG Lab 3.82 mmol/L (3.70-5.30); pH, Arterial 7.51 (7.35-7.45)
[2019-06-13 07:30] LABS: O2 Tension (PaO2) 50.7 mmHg (> 80.0); Puncture Site RRA
[2019-06-13] MEDS ORDERED: Prevnar 13-Val Conj/PF 0.5 ML SYRINGE IM ONE (09:00)
[2019-06-13] MEDS ORDERED: FLU VACC TS2019-20(65YR UP)/PF 180 MCG/0.5 ML SYRINGE IM ONE (09:00)
[2019-06-13] MEDS: Enoxaparin Sodium 40 MG/0.4 ML SYRINGE SC SCH (09:16)
[2019-06-13] MEDS: Famotidine/PF 20 mg/2ml Vial SLOW IVP SCH ×2 (09:17→20:39)
[2019-06-13] MEDS: Aspirin Chewable 81 MG TAB PO SCH (09:18)
--- NOTE | 2019-06-13 09:59 | PDOC.HOSPP ---
- Subjective Encounter Date: 06/13/19 - Objective Vital Signs & Weight: Vital Signs (12 hours) Temp Pulse Resp Pulse Ox 06/13/19 07:21 76 06/13/19 06:00 18 06/13/19 04:00 98.9 F 18 06/13/19 02:00 18 06/13/19 01:00 98.5 F 06/13/19 00:30 53 L 18 100 06/13/19 00:29 98.5 F 06/13/19 00:00 18 98 Weight Weight 186 lb 1.122 oz Most Recent Monitor Data Heart Rate from ECG 72 NIBP 110/60 NIBP BP-Mean 76 Respiration from ECG 10 SpO2 100 I&O: 06/12/19 06/13/19 06/14/19 06:59 06:59 06:59 Intake Total 218.6 Output Total 880 Balance -661.4 Result Diagrams: 06/13/19 05:00 06/13/19 05:00 Additional Labs: Accuchecks 06/13/19 06/13/19 05:09 00:31 POC Glucose 101 85 Hospitalist ROS - Medication Medications: Active Medications Generic Name Dose Route Start Last Admin Trade Name Freq PRN Reason Stop Dose Admin Albuterol/Ipratropium 3 ml 06/13/19 01:00 06/13/19 07:21 Duoneb NEB 3 ml [id number] LAURIE Administration Furosemide 40 mg 06/13/19 06:00 06/13/19 05:21 Lasix SLOW IVP 40 mg 0600,1400 LAURIE Administration Ceftriaxone Sodium 2 gm/ 100 mls @ 200 mls/hr 06/13/19 01:00 06/13/19 01:08 Sodium Chloride IVPB 100 mls 0100 LAURIE Administration Methylprednisolone Sodium Succinate 40 mg 06/13/19 06:00 06/13/19 05:26 Solu-Medrol IVP 40 mg Q6HR LAURIE Administration Nicotine 14 mg 06/13/19 01:00 06/13/19 01:09 Nicoderm Patch TD 14 mg Q24HR LAURIE Administration Propofol 1,000 mg 06/13/19 00:06 06/13/19 05:18 Diprivan IV 07/13/19 00:06 1,000 mg INF PRN Administration TO ACHIEVE GOAL RASS Protocol Sterile Water 1 ml 06/13/19 00:30 06/13/19 05:26 Bacteriostatic Water FS 1 ml PRN PRN Administration RECONSTITUTION - Exam ENT: normocephalic atraumatic Neck: no JVD Heart: no murmur Respiratory: CTAB, no rales Gastrointestinal: soft, non-tender, non-distended, normal bowel sounds Extremities: no cyanosis, no clubbing Skin: no rashes Neurological - other findings: NON-COMMUNICATIVE AND INTUBATED Hosp A/P (1) Acute respiratory failure Code(s): J96.00 - ACUTE RESPIRATORY FAILURE, UNSP W HYPOXIA OR HYPERCAPNIA Status: Acute Qualifiers: Respiratory failure complication: hypoxia and hypercapnia Qualified Code(s) : J96.01 - Acute respiratory failure with hypoxia; J96.02 - Acute respiratory failure with hypercapnia Plan: Continue iv steroids and nebulisations (2) Acute exacerbation of CHF (congestive heart failure) Code(s): I50.9 - HEART FAILURE, UNSPECIFIED Status: Acute Qualifiers: Heart failure type: diastolic Qualified Code(s): I50.33 - Acute on chronic diastolic (congestive) heart failure (3) COPD exacerbation Code(s): J44.1 - CHRONIC OBSTRUCTIVE PULMONARY DISEASE W (ACUTE) EXACERBATION Status: Acute (4) Cocaine abuse Code(s): F14.10 - COCAINE ABUSE, UNCOMPLICATED Status: Acute (5) Marijuana abuse Code(s): F12.10 - CANNABIS ABUSE, UNCOMPLICATED Status: Acute (6) Moderate mitral regurgitation Code(s): I34.0 - NONRHEUMATIC MITRAL (VALVE) INSUFFICIENCY Status: Acute (7) HTN (hypertension) Code(s): I10 - ESSENTIAL (PRIMARY) HYPERTENSION Status: Chronic Qualifiers: Hypertension type: essential hypertension Qualified Code(s): I10 - Essential (primary) hypertension - Plan old records reviewed/req, continue antibiotics, respiratory therapy 1.Continue respiratory support with pulmonary on board. 2.iv steroids and nebs with vent support for now. 3.Abstaining from recreational drug abuse once patient is extubated with education.
[2019-06-13] MEDS: fentaNYL Citrate/PF 2,000 MCG in Sodium Chloride 0.9% 60 ML IV SCH (12:24)
--- NOTE | 2019-06-13 23:51 | CON ---
DATE OF CONSULTATION: HISTORY OF PRESENT ILLNESS: Rei Soto is a 68-year-old male. According to the emergency department record, he presented with respiratory distress, requiring intubation. Hospital records are really quite poor regarding what happened in the emergency department. Apparently, he presented to [facility] and developed hypercarbia and somnolence, leading to intubation. PAST MEDICAL HISTORY: Remarkable for hypertension, heart failure, and COPD. SOCIAL HISTORY: He is a smoker, currently not a daily drinker. He has no history of drug use. FAMILY HISTORY: Positive for vascular disease. No reported drug. PHYSICAL EXAMINATION: VITAL SIGNS: Heart rate in the 60s, blood pressure 113/63, respiratory rates in the teens, oximetry is 98. HEAD AND NECK: Unremarkable. LUNGS: Distant clear. HEART: Regular rhythm. S1 and S2 are normal. ABDOMEN: Soft and nontender. EXTREMITIES: Without clubbing, cyanosis, or edema. LABORATORY DATA: White count 8.3, hemoglobin 11.6, platelets are 167. Sodium 142, potassium 3.9, chloride 94, bicarb 35, BUN 33, creatinine 1.18. PH 7.51, CO2 of 45, pO2 of 50. Blood gas yesterday at 7:23 p.m., 7.20, CO2 of 122 , pO2 of 85. Chest radiograph does not show much in the way of pulmonary edema. IMPRESSION: Chronic obstructive pulmonary disease exacerbation. I suspect he is chronically hypercarbic given his blood gas. I suspect most of this is a chronic obstructive pulmonary disease exacerbation. An echocardiogram was ordered, ejection fraction 40 to 45%. At this point in time, he is not weanable from mechanical ventilation. We will reassess him in the morning. CRITICAL CARE TIME: 30 minutes. Job ID: [id number] [facility]
[2019-06-14] MEDS: cefTRIAXone\\ROCEPHIN 2 GM in Sodium Chloride 0.9% 100 ML IVPB SCH (00:49)
[2019-06-14] MEDS: Nicotine 14 MG PATCH TD SCH (00:50)
[2019-06-14] MEDS: methylPREDNISolone Sod Succ 40 MG VIAL IVP SCH ×3 (05:28→17:38)
[2019-06-14] MEDS: Furosemide 40 MG/4 ML VIAL SLOW IVP SCH ×2 (05:28→13:14)
[2019-06-14] MEDS: fentaNYL Citrate/PF 2,000 MCG in Sodium Chloride 0.9% 60 ML IV SCH (05:30)
[2019-06-14] MEDS: Propofol 1,000 MG/100 ML VIAL IV PRN (07:12)
[2019-06-14 07:25] LABS: Actual Bicarbonate (HCO3a) 33.5 mEq/L (22-28); Base Excess (BEa) 7.5 mEq/L (-2.0 to +3.0); CO2 Tension 53.4 mmHg (35.0-45.0); Calcium, Ionized 1.13 mmol/L (1.12-1.30); Carboxyhemoglobin (COHb) 1.4 gm% (0.0-3.0); Hemoglobin (Hb) 12.7 g/dL (14.0-18.0); O2 Tension (PaO2) 84.8 mmHg (> 80.0); Potassium - ABG Lab 3.87 mmol/L (3.70-5.30); pH, Arterial 7.42 (7.35-7.45)
[2019-06-14 07:27] LABS: Puncture Site RRA
[2019-06-14] MEDS: Enoxaparin Sodium 40 MG/0.4 ML SYRINGE SC SCH (08:24)
[2019-06-14] MEDS: Aspirin Chewable 81 MG TAB PO SCH (08:25)
[2019-06-14] MEDS: Famotidine/PF 20 mg/2ml Vial SLOW IVP SCH ×2 (08:25→20:43)
--- NOTE | 2019-06-14 09:30 | PDOC.HOSPP ---
- Subjective Encounter Date: 06/14/19 Subjective: PATIENT NON VERBAL AND INTUBATED WITH SEDATION - Objective Vital Signs & Weight: Vital Signs (12 hours) Temp Pulse Resp Pulse Ox 06/14/19 08:00 98.1 F 15 06/14/19 07:49 97 06/14/19 07:16 56 L 06/14/19 06:00 12 06/14/19 04:00 97.7 F 12 06/14/19 02:00 12 06/14/19 00:00 97.7 F 12 06/13/19 23:24 65 12 98 06/13/19 21:57 12 Weight Admit Weight 183 lb 10.321 oz Weight 179 lb 0.246 oz Most Recent Monitor Data Heart Rate from ECG 58 NIBP 105/66 NIBP BP-Mean 79 Respiration from ECG 8 SpO2 97 I&O: 06/13/19 06/14/19 06/15/19 06:59 06:59 06:59 Intake Total 218.6 536.7 Output Total 880 3130 510 Balance -661.4 -2593.3 -510 Result Diagrams: 06/13/19 05:00 06/13/19 05:00 Additional Labs: Accuchecks 06/14/19 06/13/19 06/13/19 05:53 20:42 12:57 POC Glucose 146 H 117 H 123 H Hospitalist ROS - Review of Systems Other: PATIENT NON VERBAL AND SEDATED - Medication Medications: Active Medications Generic Name Dose Route Start Last Admin Trade Name Freq PRN Reason Stop Dose Admin Albuterol/Ipratropium 3 ml 06/13/19 01:00 06/14/19 07:15 Duoneb NEB 3 ml [id number] LAURIE Administration Aspirin 81 mg 06/13/19 09:00 06/14/19 08:25 Aspirin Chewable PO 81 mg DAILY LAURIE Administration Enoxaparin Sodium 40 mg 06/13/19 09:00 06/14/19 08:24 Lovenox SC 40 mg 0900 LAURIE Administration Famotidine 20 mg 06/13/19 09:00 06/14/19 08:25 Pepcid SLOW IVP 20 mg Q12HR LAURIE Administration Furosemide 40 mg 06/13/19 06:00 06/14/19 05:28 Lasix SLOW IVP 40 mg 0600,1400 LAURIE Administration Fentanyl Citrate 2,000 mcg/ 100 mls @ 0 mls/hr 06/12/19 20:40 06/14/19 05:30 Sodium Chloride IV 07/12/19 20:40 100 mls INF LAURIE Administration Protocol Per Protocol Ceftriaxone Sodium 2 gm/ 100 mls @ 200 mls/hr 06/13/19 01:00 06/14/19 00:49 Sodium Chloride IVPB 100 mls 0100 LAURIE Administration Lorazepam 2 mg 06/13/19 00:06 06/13/19 17:50 Ativan SLOW IVP 07/13/19 00:06 2 mg Q1H PRN Administration Breakthrough agitation Methylprednisolone Sodium Succinate 40 mg 06/13/19 06:00 06/14/19 05:28 Solu-Medrol IVP 40 mg Q6HR LAURIE Administration Nicotine 14 mg 06/13/19 01:00 06/14/19 00:50 Nicoderm Patch TD 14 mg Q24HR LAURIE Administration Propofol 1,000 mg 06/13/19 00:06 06/14/19 07:12 Diprivan IV 07/13/19 00:06 1,000 mg INF PRN Administration TO ACHIEVE GOAL RASS Protocol Sterile Water 1 ml 06/13/19 00:30 06/13/19 05:26 Bacteriostatic Water FS 1 ml PRN PRN Administration RECONSTITUTION - Exam ENT: normocephalic atraumatic Neck: symmetric, no JVD Heart: no murmur, no gallops Respiratory: no wheezes, no rales, no ronchi Gastrointestinal: soft, non-tender, non-distended, normal bowel sounds Extremities: no cyanosis, no clubbing, no edema Skin: no rashes Neurological - other findings: intubated and sedated Hosp A/P (1) Acute respiratory failure Code(s): J96.00 - ACUTE RESPIRATORY FAILURE, UNSP W HYPOXIA OR HYPERCAPNIA Status: Acute Qualifiers: Respiratory failure complication: hypoxia and hypercapnia Qualified Code(s) : J96.01 - Acute respiratory failure with hypoxia; J96.02 - Acute respiratory failure with hypercapnia Plan: awaiting weaning process per pulmonary.Fio2 of 50%.PEEP 5. (2) Acute exacerbation of CHF (congestive heart failure) Code(s): I50.9 - HEART FAILURE, UNSPECIFIED Status: Acute Qualifiers: Heart failure type: diastolic Qualified Code(s): I50.33 - Acute on chronic diastolic (congestive) heart failure Plan: awaiting ECHO evaluation. (3) COPD exacerbation Code(s): J44.1 - CHRONIC OBSTRUCTIVE PULMONARY DISEASE W (ACUTE) EXACERBATION Status: Acute Plan: Continue iv solumedrol and nebs with oxygen supplementation. (4) Cocaine abuse Code(s): F14.10 - COCAINE ABUSE, UNCOMPLICATED Status: Acute (5) Marijuana abuse Code(s): F12.10 - CANNABIS ABUSE, UNCOMPLICATED Status: Acute (6) Moderate mitral regurgitation Code(s): I34.0 - NONRHEUMATIC MITRAL (VALVE) INSUFFICIENCY Status: Acute (7) HTN (hypertension) Code(s): I10 - ESSENTIAL (PRIMARY) HYPERTENSION Status: Chronic Qualifiers: Hypertension type: essential hypertension Qualified Code(s): I10 - Essential (primary) hypertension - Plan old records reviewed/req 1.Continue respiratory support with pulmonary on board. 2.iv steroids and nebs with vent support for now. 3.Abstaining from recreational drug abuse once patient is extubated with education.Appreciate pulmonary follow up. 4.ECHO report awaited.
--- NOTE | 2019-06-14 10:40 | RAD ---
EXAM: Portable chest PROVIDED CLINICAL HISTORY: Respiratory insufficiency COMPARISON: 06/12/2019 FINDINGS: Development of patchy airspace disease in the right mid and lower lung zones. Additional significant interval change with respect to the prior examination is not apparent. IMPRESSION: As above.
--- NOTE | 2019-06-14 22:15 | PRG ---
DATE OF SERVICE: 06/14/2019 SUBJECTIVE: Rei Soto was clinically stable overnight. OBJECTIVE: VITAL SIGNS: His heart rate is in the 95 to 100 range. His respiratory rate is in the 20s, oximetry is 96, volume is 8 L a minute. Blood pressure is in the one teens systolic. LUNGS: Remarkable for distant breath sounds. HEART: Regular rhythm. ABDOMEN: Soft. EXTREMITIES: Without edema. Spontaneous breathing trial was done this morning. He tolerated this well. Chest radiograph showed no new infiltrates. LABORATORY DATA: Blood gas this morning showed a pH 7.42, CO2 of 53, and PO2 84. Sodium 137, potassium 3.8, calcium 1.13, chloride was 91. IMPRESSION: 1. Respiratory failure secondary to chronic obstructive pulmonary disease exacerbation. 2. Acute on chronic hypercarbic and hypoxemic respiratory failure. I recommended extubation. He has done well postextubation. Remained in the critical care unit for now. CRITICAL CARE TIME: 30 minutes. Job ID: [id number]
[2019-06-15] MEDS: cefTRIAXone\\ROCEPHIN 2 GM in Sodium Chloride 0.9% 100 ML IVPB SCH (00:17)
[2019-06-15] MEDS: methylPREDNISolone Sod Succ 40 MG VIAL IVP SCH ×2 (00:18→06:31)
[2019-06-15] MEDS: Nicotine 14 MG PATCH TD SCH ×2 (00:34→01:22)
[2019-06-15 06:21] LABS: Hemoglobin 12.3 g/dL (14.0-18.0); Lymphocytes 3 % (21-51); MDiff Complete? YES; Macrocytosis SLIGHT = 6-15 cells (100X) (0-5/hpf); Mean Corpuscular HGB CONC 31.8 g/dL (32.0-36.0); Mean Platelet Volume 8.3 fL (7.4-10.4); Monocytes 8 % (0-10); Neutrophil 89 % (42-75); Platelet Count 212 thou/uL (130-400); Red Blood Cell (RBC) Count 3.41 mill/uL (4.70-6.10); White Blood Cell (WBC) Count 13.7 thou/uL (4.8-10.8)
[2019-06-15 06:24] LABS: ALT (SGPT) 24 U/L (8-55); AST (SGOT) 24 U/L (5-34); Albumin 3.3 g/dL (3.4-4.8); Alkaline Phosphatase 73 U/L (40-110); BUN (Urea Nitrogen) 40 mg/dL (8.4-25.7); Bilirubin, Total 0.6 mg/dL (0.2-1.2); Calc. Creatinine Clearance 69 mL/min (70-130); Calcium 8.7 mg/dL (7.8-10.44); Estimated GFR-MDRD 74; Globulin 2.7 g/dL (2.4-3.5); Glucose 125 mg/dL (80-115)
[2019-06-15] MEDS: Furosemide 40 MG/4 ML VIAL SLOW IVP SCH (06:31)
[2019-06-15 06:33] LABS: Anion Gap 14 mmol/L (10-20); Carbon Dioxide 38 mmol/L (23-31); Chloride 93 mmol/L (98-107); Potassium 4.2 mmol/L (3.5-5.1); Sodium 141 mmol/L (136-145)
[2019-06-15] MEDS: Enoxaparin Sodium 40 MG/0.4 ML SYRINGE SC SCH (09:03)
[2019-06-15] MEDS: Aspirin Chewable 81 MG TAB PO SCH (09:03)
[2019-06-15] MEDS: Famotidine/PF 20 mg/2ml Vial SLOW IVP SCH ×2 (09:03→19:47)
--- NOTE | 2019-06-15 09:08 | PRG ---
DATE OF SERVICE: 06/15/2019 SUBJECTIVE: This morning, he is awake, alert, responsive, though appears to be somewhat encephalopathic. X-ray shows a small right-sided infiltrate, extubated yesterday. OBJECTIVE: VITAL SIGNS: His sats are 96% on 2 L, pulse 91, respiratory rate 18, and blood pressure 150/83. CHEST: Decreased breath sounds. No wheezing. CARDIAC: Normal S1, S2. No gallops. ABDOMEN: No masses. LABORATORY DATA: His white count 17,000. ASSESSMENT: 1. Respiratory failure. 2. Chronic obstructive pulmonary disease exacerbation. PLAN: To be transferred probably out of the ICU at a later time. Continue home medication. One-half hour of critical time. Job ID: [id number]
--- NOTE | 2019-06-15 09:44 | PDOC.HOSPP ---
- Subjective Encounter Date: 06/15/19 Subjective: Patient ambulating from bed to chair and on oxygen with c/o sob abd dry cough - Objective Vital Signs & Weight: Vital Signs (12 hours) Temp Pulse Resp Pulse Ox 06/15/19 07:41 96 06/15/19 07:26 91 23 H 96 06/15/19 04:00 97.6 F 06/15/19 00:00 98.2 F 06/14/19 23:04 116 H 20 98 Weight Admit Weight 183 lb 10.321 oz Weight 179 lb 7.3 oz Most Recent Monitor Data Heart Rate from ECG 84 NIBP 154/83 NIBP BP-Mean 106 Respiration from ECG 18 SpO2 97 I&O: 06/14/19 06/15/19 06/16/19 06:59 06:59 06:59 Intake Total 536.7 2217.7 60 Output Total 3130 3075 Balance -2593.3 -857.3 60 Result Diagrams: 06/15/19 05:48 06/15/19 05:48 Additional Labs: Accuchecks 06/15/19 06/14/19 06/14/19 06:03 21:37 16:09 POC Glucose 123 H 125 H 115 H 06/14/19 11:53 POC Glucose 110 Hospitalist ROS - Review of Systems Constitutional: reports: weakness Respiratory: reports: cough, shortness of breath - Medication Medications: Active Medications Generic Name Dose Route Start Last Admin Trade Name Freq PRN Reason Stop Dose Admin Albuterol/Ipratropium 3 ml 06/13/19 01:00 06/15/19 07:26 Duoneb NEB 3 ml [id number] LAURIE Administration Aspirin 81 mg 06/13/19 09:00 06/15/19 09:03 Aspirin Chewable PO 81 mg DAILY LAURIE Administration Enoxaparin Sodium 40 mg 06/13/19 09:00 06/15/19 09:03 Lovenox SC 40 mg 0900 LAURIE Administration Famotidine 20 mg 06/13/19 09:00 06/15/19 09:03 Pepcid SLOW IVP 20 mg Q12HR LAURIE Administration Levofloxacin 500 mg 06/15/19 09:00 06/15/19 09:06 Levaquin PO 06/15/19 11:00 500 mg NOW LAURIE Administration Nicotine 14 mg 06/13/19 01:00 06/15/19 01:22 Nicoderm Patch TD Not Given Q24HR LAURIE Sterile Water 1 ml 06/13/19 00:30 06/13/19 05:26 Bacteriostatic Water FS 1 ml PRN PRN Administration RECONSTITUTION - Exam Eye: PERRL, anicteric sclera ENT: normocephalic atraumatic, no oropharyngeal lesions, moist mucosa Neck: supple, symmetric, no JVD, no thyromegaly, no lymphadenopathy, no carotid bruit Heart: RRR, no murmur, no gallops, no rubs, normal peripheral pulses Respiratory: CTAB, no wheezes, no tachypnea Gastrointestinal: soft, non-tender, non-distended, normal bowel sounds, no palpable masses, no hepatomegaly, no splenomegaly, no bruit Extremities: no cyanosis, no clubbing, no edema Skin: no rashes Neurological: normal sensation to touch, no weakness, no focal deficits Musculoskeletal: no muscle wasting Psychiatric: normal affect, A&O x 3 Hosp A/P (1) Acute respiratory failure Code(s): J96.00 - ACUTE RESPIRATORY FAILURE, UNSP W HYPOXIA OR HYPERCAPNIA Status: Acute Qualifiers: Respiratory failure complication: hypoxia Qualified Code(s): J96.01 - Acute respiratory failure with hypoxia Plan: Patient s/p extubation on 06/14/2019.On [place] oxygen. (2) Acute exacerbation of CHF (congestive heart failure) Code(s): I50.9 - HEART FAILURE, UNSPECIFIED Status: Resolved Qualifiers: Heart failure type: diastolic Qualified Code(s): I50.33 - Acute on chronic diastolic (congestive) heart failure (3) COPD exacerbation Code(s): J44.1 - CHRONIC OBSTRUCTIVE PULMONARY DISEASE W (ACUTE) EXACERBATION Status: Acute (4) Cocaine abuse Code(s): F14.10 - COCAINE ABUSE, UNCOMPLICATED Status: Acute (5) Marijuana abuse Code(s): F12.10 - CANNABIS ABUSE, UNCOMPLICATED Status: Acute (6) Moderate mitral regurgitation Code(s): I34.0 - NONRHEUMATIC MITRAL (VALVE) INSUFFICIENCY Status: Acute (7) HTN (hypertension) Code(s): I10 - ESSENTIAL (PRIMARY) HYPERTENSION Status: Chronic Qualifiers: Hypertension type: essential hypertension Qualified Code(s): I10 - Essential (primary) hypertension - Plan old records reviewed/req, continue antibiotics, PT/OT, social service liaison, incentive spirometry 1.Patient s/p extubation.Ambulating from bed to chair. 2.Transitioned to oral steroids. 3.PT/OT to continue. 4.ECHO report awaited. 5.To tele when cleared by pulmonary.
--- NOTE | 2019-06-15 10:21 | RAD ---
PORTABLE CHEST: Date: 06/15/19 HISTORY: Shortness of breath, COPD. COMPARISON: Prior day's study. FINDINGS: Heart size is enlarged with atherosclerotic changes of the aorta. Some increased density in the right base since the prior exam suggesting a developing atelectasis. There has been interval removal of th e right subclavian line. The patient has been extubated with NG tube removed. This was discussed with the patient's nurse to confirm that we indeed have the correct patient as previous exam had shown al l these lines to be present. IMPRESSION: 1. Cardiomegaly. 2. Atelectatic changes in right lung base. POS: [facility]
[2019-06-15] MEDS: traMADol HCl 50 MG TAB PO PRN (19:47)
[2019-06-16] MEDS: Nicotine 14 MG PATCH TD SCH (02:47)
[2019-06-16] MEDS: predniSONE 20 MG TAB PO SCH (08:50)
[2019-06-16] MEDS: Famotidine/PF 20 mg/2ml Vial SLOW IVP SCH ×2 (08:50→21:03)
[2019-06-16] MEDS: Enoxaparin Sodium 40 MG/0.4 ML SYRINGE SC SCH (08:50)
[2019-06-16] MEDS: Aspirin Chewable 81 MG TAB PO SCH (08:50)
[2019-06-16] MEDS: Furosemide 40 MG TAB PO SCH (08:50)
[2019-06-16] MEDS: traMADol HCl 50 MG TAB PO PRN ×2 (08:59→18:32)
--- NOTE | 2019-06-16 09:52 | PRG ---
DATE OF SERVICE: 06/16/2019 SUBJECTIVE: This morning, he is better. He is complaining of leg pain. He takes tramadol at home for pain. OBJECTIVE: VITAL SIGNS: Temperature 98, pulse , respiratory rate 18, sats are 95% on 2 L, blood pressure . CHEST: No crackles. No wheezing. CARDIAC: Normal S1, S2. No gallops. NEUROLOGIC: Awake, alert, and responsive. IMPRESSION: 1. Respiratory failure. 2. Chronic obstructive pulmonary disease. 3. Diastolic dysfunction. 4. Chronic pain. PLAN: Continue PT, supportive care. Eventually home. We will follow. Job ID: [id number]
--- NOTE | 2019-06-16 12:30 | PDOC.HOSPP ---
- Subjective Encounter Date: 06/16/19 Subjective: SOB AND CONSTIPATION - Objective Vital Signs & Weight: Vital Signs (12 hours) Temp Pulse Resp BP Pulse Ox 06/16/19 11:04 97.5 F L 84 22 H 104/61 92 L 06/16/19 08:20 96.9 F L 85 18 102/55 L 98 06/16/19 07:51 81 14 95 06/16/19 03:17 98.0 F 97 18 103/59 L 92 L Weight Admit Weight 183 lb 10.321 oz Weight 183 lb 10.321 oz Most Recent Monitor Data Heart Rate from ECG 91 NIBP 122/69 NIBP BP-Mean 86 Respiration from ECG 22 SpO2 99 I&O: 06/15/19 06/16/19 06/17/19 06:59 06:59 06:59 Intake Total 2217.7 720 360 Output Total 3075 1975 Balance -857.3 -1255 360 Result Diagrams: 06/15/19 05:48 06/15/19 05:48 Additional Labs: Accuchecks 06/16/19 06/16/19 06/15/19 11:04 05:10 19:56 POC Glucose 103 76 97 06/15/19 16:15 POC Glucose 78 Hospitalist ROS - Review of Systems Respiratory: reports: shortness of breath Other: C/O CONSTIPATION - Medication Medications: Active Medications Generic Name Dose Route Start Last Admin Trade Name Freq PRN Reason Stop Dose Admin Albuterol/Ipratropium 3 ml 06/13/19 01:00 06/16/19 07:51 Duoneb NEB 3 ml [id number] LAURIE Administration Aspirin 81 mg 06/13/19 09:00 06/16/19 08:50 Aspirin Chewable PO 81 mg DAILY LAURIE Administration Enoxaparin Sodium 40 mg 06/13/19 09:00 06/16/19 08:50 Lovenox SC 40 mg 0900 LAURIE Administration Famotidine 20 mg 06/13/19 09:00 06/16/19 08:50 Pepcid SLOW IVP 20 mg Q12HR LAURIE Administration Furosemide 40 mg 06/16/19 07:30 06/16/19 08:50 Lasix PO 40 mg DAILY-AC LAURIE Administration Levofloxacin 500 mg 06/16/19 06:00 06/16/19 05:39 Levaquin PO 500 mg 0600 LAURIE Administration Nicotine 14 mg 06/13/19 01:00 06/16/19 02:47 Nicoderm Patch TD Not Given Q24HR LAURIE Prednisone 40 mg 06/16/19 08:00 06/16/19 08:50 Prednisone PO 40 mg QAM-WM LAURIE Administration Sterile Water 1 ml 06/13/19 00:30 06/13/19 05:26 Bacteriostatic Water FS 1 ml PRN PRN Administration RECONSTITUTION Tramadol HCl 50 mg 06/15/19 19:40 06/16/19 08:59 Ultram PO 50 mg Q6H PRN Administration Pain - Exam General Appearance: awake alert Eye: PERRL, anicteric sclera ENT: normocephalic atraumatic, no oropharyngeal lesions, moist mucosa Neck: supple, symmetric, no JVD, no thyromegaly, no lymphadenopathy, no carotid bruit Heart: RRR, no murmur, no gallops, no rubs, normal peripheral pulses Respiratory: CTAB, no wheezes, no rales, no ronchi, normal chest expansion, no tachypnea, normal percussion Gastrointestinal: soft, non-tender, non-distended, normal bowel sounds, no palpable masses, no hepatomegaly, no splenomegaly, no bruit Extremities: no cyanosis, no clubbing, no edema Skin: normal turgor, no lesions, no rashes Neurological: cranial nerve grossly intact, normal sensation to touch, no weakness, no focal deficits, no new deficit Musculoskeletal: normal tone, normal strength, no muscle wasting Psychiatric: normal behavior, A&O x 3 Hosp A/P (1) Acute respiratory failure Code(s): J96.00 - ACUTE RESPIRATORY FAILURE, UNSP W HYPOXIA OR HYPERCAPNIA Status: Resolved Qualifiers: Respiratory failure complication: hypoxia Qualified Code(s): J96.01 - Acute respiratory failure with hypoxia (2) Acute exacerbation of CHF (congestive heart failure) Code(s): I50.9 - HEART FAILURE, UNSPECIFIED Status: Acute Qualifiers: Heart failure type: diastolic Qualified Code(s): I50.33 - Acute on chronic diastolic (congestive) heart failure Plan: ECHO show both systolic with ef 40-45% and grade 3 diastolic dysfunction with exacerbation.have started on 2.5 mg of lisinopril today. (3) COPD exacerbation Code(s): J44.1 - CHRONIC OBSTRUCTIVE PULMONARY DISEASE W (ACUTE) EXACERBATION Status: Acute (4) Cocaine abuse Code(s): F14.10 - COCAINE ABUSE, UNCOMPLICATED Status: Acute (5) Marijuana abuse Code(s): F12.10 - CANNABIS ABUSE, UNCOMPLICATED Status: Acute (6) Moderate mitral regurgitation Code(s): I34.0 - NONRHEUMATIC MITRAL (VALVE) INSUFFICIENCY Status: Acute (7) HTN (hypertension) Code(s): I10 - ESSENTIAL (PRIMARY) HYPERTENSION Status: Chronic Qualifiers: Hypertension type: essential hypertension Qualified Code(s): I10 - Essential (primary) hypertension - Plan old records reviewed/req, respiratory therapy 1.Patient s/p extubation.Ambulating from bed to chair. 2.Transitioned to oral steroids. 3.PT/OT to continue. 4.ECHO report shows ef of 40-45% with grade diastolic dysfunction has been noted. 5.Extensive education for abstaining from recreational drugs has been given to patient.
[2019-06-16] MEDS: HumaLOG 300 UNITS/3 ML VIAL SC PRN (17:44)
[2019-06-16] MEDS: Acetaminophen 325 MG TAB PO PRN (21:04)
[2019-06-17] MEDS: traMADol HCl 50 MG TAB PO PRN ×2 (00:37→14:55)
[2019-06-17] MEDS: Nicotine 14 MG PATCH TD SCH ×2 (00:44→23:56)
--- NOTE | 2019-06-17 05:24 | PDOC.EVN ---
Event Note - Event Note Event Note: Pt had Vtach - Will check electrolytes
[2019-06-17] MEDS ORDERED: Magnesium 2 GM/50 ML 2 GM in Premix Bag 1 BAG IVPB SCH (05:45)
[2019-06-17 07:04] LABS: Albumin 3.2 g/dL (3.4-4.8); BUN (Urea Nitrogen) 29 mg/dL (8.4-25.7); BUN/Creatinine Ratio 33.33; Calc. Creatinine Clearance 96 mL/min (70-130); Calcium 8.5 mg/dL (7.8-10.44); Estimated GFR-MDRD Greater than 90; Glucose 97 mg/dL (80-115)
[2019-06-17 07:12] LABS: Phosphorus 1.8 mg/dL (2.3-4.7)
[2019-06-17 07:15] LABS: Anion Gap 12 mmol/L (10-20); Carbon Dioxide 39 mmol/L (23-31); Chloride 92 mmol/L (98-107); Potassium 3.5 mmol/L (3.5-5.1); Sodium 139 mmol/L (136-145)
[2019-06-17] MEDS: Aspirin Chewable 81 MG TAB PO SCH (08:29)
[2019-06-17] MEDS: Furosemide 40 MG TAB PO SCH (08:29)
[2019-06-17] MEDS: Enoxaparin Sodium 40 MG/0.4 ML SYRINGE SC SCH (08:29)
[2019-06-17] MEDS: predniSONE 20 MG TAB PO SCH (08:29)
[2019-06-17] MEDS: Lisinopril 2.5 MG TAB PO SCH (08:30)
[2019-06-17] MEDS ORDERED: PHOS-NAK 1 PKT PACK PO SCH ×2 (10:20→10:30)
--- NOTE | 2019-06-17 10:22 | PRG ---
DATE OF SERVICE: 06/17/2019 SUBJECTIVE: Rei Soto is doing better. OBJECTIVE: VITAL SIGNS: Temperature 98, pulse 59, saturations 98% on 2 L, blood pressure 127\76. GENERAL: He is still having significant leg pain. CHEST: Decreased breath sounds. No wheezing. CARDIAC: Normal S1, S2. No gallops. ABDOMEN: No masses. LABORATORY DATA: Lytes are normal. IMPRESSION: Status post respiratory failure, congestive heart failure, chronic pain. Continue diuretics. PT, supportive care. Disposition as per Cardiology. Job ID: [id number] MTDD
--- NOTE | 2019-06-17 10:49 | PDOC.HOSPP ---
- Subjective Encounter Date: 06/17/19 Encounter Time: 10:48 Subjective: Patient reports lightheadedness with ambulation. Denies CP, SOB, cough, N/V/D/ C. No fever or chills. States he is walking without SOB and without any oxygen. Denies History of CAD, CA, CHF or CVA. Never seen a hooker inspector before. Never had stress test or LHC. Eager to be discharged home. - Objective Vital Signs & Weight: Vital Signs (12 hours) Temp Pulse Resp BP Pulse Ox 06/17/19 08:30 89 06/17/19 08:00 98.2 F 89 18 109/64 93 L 06/17/19 07:27 82 16 84 L 06/17/19 03:23 98.8 F 86 18 110/72 92 L 06/17/19 01:24 86 16 95 Weight Admit Weight 183 lb 10.321 oz Weight 184 lb 11.2 oz Most Recent Monitor Data Heart Rate from ECG 91 NIBP 122/69 NIBP BP-Mean 86 Respiration from ECG 22 SpO2 99 I&O: 06/16/19 06/17/19 06/18/19 06:59 06:59 06:59 Intake Total 720 1340 Output Total 1975 100 Balance -1255 1240 Result Diagrams: 06/15/19 05:48 06/17/19 06:12 Additional Labs: Accuchecks 06/17/19 06/16/19 06/16/19 05:19 20:15 16:34 POC Glucose 103 89 202 H 06/16/19 11:04 POC Glucose 103 Hospitalist ROS - Medication Medications: Active Medications Generic Name Dose Route Start Last Admin Trade Name Dirk PRN Reason Stop Dose Admin Acetaminophen 650 mg 06/16/19 20:58 06/16/19 21:04 Tylenol PO 650 mg Q4H PRN Administration Headache/Fever/Mild Pain (1-3) Aspirin 81 mg 06/13/19 09:00 06/17/19 08:29 Aspirin Chewable PO 81 mg DAILY LAURIE Administration Enoxaparin Sodium 40 mg 06/13/19 09:00 06/17/19 08:29 Lovenox SC 40 mg 0900 LAURIE Administration Furosemide 40 mg 06/16/19 07:30 06/17/19 08:29 Lasix PO 40 mg DAILY-AC LAURIE Administration Insulin Human Lispro 0 units 06/12/19 23:18 06/16/19 17:44 Humalog SC 6 unit .AGGRESSIVE SLIDING PRN Administration Aggressive Correctional Scale Lactulose 30 gm 06/16/19 21:00 06/17/19 08:31 Lactulose PO Not Given BID LAURIE Levofloxacin 500 mg 06/16/19 06:00 06/17/19 05:17 Levaquin PO 500 mg 0600 LAURIE Administration Lisinopril 2.5 mg 06/17/19 09:00 06/17/19 08:30 Zestril PO 2.5 mg DAILY LAURIE Administration Nicotine 14 mg 06/13/19 01:00 06/17/19 00:44 Nicoderm Patch TD Not Given Q24HR LAURIE Sterile Water 1 ml 06/13/19 00:30 06/13/19 05:26 Bacteriostatic Water FS 1 ml PRN PRN Administration RECONSTITUTION Tramadol HCl 50 mg 06/15/19 19:40 06/17/19 00:37 Ultram PO 50 mg Q6H PRN Administration Pain - Exam General Appearance: NAD, awake alert Eye: PERRL, anicteric sclera Neck: supple Heart: RRR, no murmur, no gallops, no rubs, normal peripheral pulses Respiratory: CTAB, no wheezes, no rales, no ronchi, normal chest expansion Respiratory - other findings: Not using accessory muscles of respiration Gastrointestinal: soft, non-tender, non-distended, normal bowel sounds, no guarding, no rigidity Hosp A/P (1) Acute respiratory failure Code(s): J96.00 - ACUTE RESPIRATORY FAILURE, UNSP W HYPOXIA OR HYPERCAPNIA Status: Resolved Qualifiers: Respiratory failure complication: hypoxia and hypercapnia Qualified Code(s) : J96.01 - Acute respiratory failure with hypoxia; J96.02 - Acute respiratory failure with hypercapnia Plan: Now on room air Pulm. on board Appreciate input and assistance Pt. states he quit smoking 6 months ago and hasn't used cocaine in >4 months (2) CHF (congestive heart failure) Code(s): I50.9 - HEART FAILURE, UNSPECIFIED Status: Acute Qualifiers: Heart failure type: combined systolic and diastolic Heart failure chronicity: acute Qualified Code(s): I50.41 - Acute combined systolic ( congestive) and diastolic (congestive) heart failure Plan: ECHO with reduced EF and diastolic dysfunction with RV dysfunction Patient never had ischemia evaluation Will consult cardiology - inpatient vs outpatient ischemia eval If cleared by cardio, will DC home as patient eager to be home for Thanksgiving Has bilateral pedal edema Diuretics On lisinopril Add Toprol XL (3) Bilateral leg edema Code(s): R60.0 - LOCALIZED EDEMA Status: Acute Plan: Check venous dopplers to r/o dvt If dvt negative, compression stockings Continue diuretics (4) HTN (hypertension) Code(s): I10 - ESSENTIAL (PRIMARY) HYPERTENSION Status: Chronic Qualifiers: Hypertension type: essential hypertension Qualified Code(s): I10 - Essential (primary) hypertension Plan: Stable BP On low dose lisinopril (5) Hypophosphatemia Code(s): E83.39 - OTHER DISORDERS OF PHOSPHORUS METABOLISM Status: Acute Plan: Replace PO
[2019-06-17 12:23] LABS: #Lymphocytes 0.5 thou/uL (1.20-3.40); #Monocytes 0.5 thou/uL (0.11-0.59); #Neutrophils 7.1 thou/uL (1.40-6.50); %Basophils 0.1 % (0.0-1.0); %Eosinophils 0.3 % (0.0-10.0); %Lymphocytes 6.5 % (21.0-51.0); %Monocytes 6.6 % (0.0-10.0); %Neutrophils 86.5 % (42.0-75.0); Hemoglobin 12.2 g/dL (14.0-18.0); Mean Corpuscular HGB CONC 31.7 g/dL (32.0-36.0); Mean Corpuscular Hemoglobin 36.4 pg (27.0-31.0); Mean Platelet Volume 8.1 fL (7.4-10.4); Platelet Count 216 thou/uL (130-400); RBC Distribution Width 12.7 % (11.5-14.5); Red Blood Cell (RBC) Count 3.36 mill/uL (4.70-6.10); White Blood Cell (WBC) Count 8.2 thou/uL (4.8-10.8)
[2019-06-17 12:54] LABS: ALT (SGPT) 32 U/L (8-55); AST (SGOT) 26 U/L (5-34); Albumin 3.5 g/dL (3.4-4.8); Alkaline Phosphatase 135 U/L (40-110); BUN (Urea Nitrogen) 27 mg/dL (8.4-25.7); Bilirubin, Total 0.8 mg/dL (0.2-1.2); Calc. Creatinine Clearance 88 mL/min (70-130); Calcium 8.6 mg/dL (7.8-10.44); Estimated GFR-MDRD Greater than 90; Globulin 2.8 g/dL (2.4-3.5); Glucose 98 mg/dL (80-115); Protein, Total 6.3 g/dL (5.8-8.1)
[2019-06-17 13:04] LABS: Anion Gap 7 mmol/L (10-20); Chloride 92 mmol/L (98-107); Potassium 4.1 mmol/L (3.5-5.1); Sodium 140 mmol/L (136-145)
[2019-06-17 13:07] LABS: Carbon Dioxide 45 mmol/L (23-31)
[2019-06-17 13:19] LABS: Thyroid Stimulating Hormone 0.6759 uIU/mL (0.35-4.94)
--- NOTE | 2019-06-17 13:23 | ULT ---
Venous duplex sonogram bilateral lower extremity HISTORY: Bilateral leg pain and edema. FINDINGS: Each common femoral vein and greater saphenous junction were evaluated along with each femo ral, deep femoral, popliteal, and posterior tibial vein. There is good color and spectral Doppler flow, compression, and augmentation. IMPRESSION: No sonographic evidence of DVT within either lower extremity.
[2019-06-17] MEDS: PHOS-NAK 1 PKT PACK PO SCH (21:03)
[2019-06-17] MEDS: Acetaminophen 325 MG TAB PO PRN (21:04)
--- NOTE | 2019-06-18 00:59 | CON ---
DATE OF CONSULTATION: HISTORY OF PRESENT ILLNESS: Rei Soto is a 69-year-old black male who was evaluated in the hospital by Dr. Jones in November 2018. He had COPD exacerbation and it was felt that he had right-sided heart failure and diastolic dysfunction. He also had severe pulmonary artery hypertension. He now is admitted on 06/12, after presenting to [facility] because of worsening shortness of breath. He denies any chest discomfort. His initial pCO2 was 55, but increased to 122 requiring intubation. He eventually was weaned from the ventilator. Echocardiogram during this admission revealed ejection fraction of 40% to 45% with diastolic dysfunction. Moderately enlarged right ventricle, mild left atrial enlargement, mild right atrial enlargement, aortic sclerosis, trivial aortic regurgitation, trace tricuspid regurgitation. He also has had nonsustained ventricular tachycardia early this morning with 7 beats at approximately 180 to 190 per minute. He has episodes of paroxysmal atrial tachycardia as well. He does state that he approximately 10 years ago in [place], underwent cardiac catheterization and did not have any significant coronary artery disease. PAST MEDICAL HISTORY: Hypertension, COPD, diastolic heart failure. PAST SURGICAL HISTORY: Tonsillectomy and repair of incarcerated inguinal hernia in March 2019. MEDICATIONS: At home include: 1. Combivent one puff q.i.d. p.r.n. 2. Furosemide 40 daily. 3. Advair Diskus one inhalation b.i.d. 4. Aspirin 325 daily. 5. Albuterol p.r.n. 6. Tramadol 50 q.6 hours. 7. Cozaar 12.5 daily. ALLERGIES: NONE. SOCIAL HISTORY: He states he stopped smoking 6 to 7 months ago. In November 2018, he had a urine drug screen positive for cocaine and cannabinoids, but apparently he stopped that practice. REVIEW OF SYSTEMS: A 12-point review of systems unremarkable. PHYSICAL EXAMINATION: VITAL SIGNS: Blood pressure 115/67, pulse of 88. HEENT: PERRL. NECK: Supple. CHEST: Reveals distant breath sounds with late expiratory wheeze. CARDIOVASCULAR: S1 and S2 normal without any S3, S4, or murmurs. ABDOMEN: Normal bowel sounds without tenderness or organomegaly. EXTREMITIES: Reveal 1+ pretibial edema. NEUROLOGICAL: Grossly intact. SKIN: Warm and dry. LABORATORY DATA: EKG revealed normal sinus rhythm with left atrial enlargement. Echocardiogram during this admission as noted above revealed ejection fraction of 40% to 45%. Hemoglobin 12.2, hematocrit 38.5, white count 8200, platelets 216, 000. Most recent ABGs 3 days ago, pH 7.42, pCO2 of 53.4, pO2 of 84.8. Sodium 140, potassium 4.1, chloride 92, carbon dioxide 45, BUN 27, creatinine 0.95. BNP 580.7. TSH is normal. IMPRESSION: 1. Status post respiratory failure. 2. Chronic obstructive pulmonary disease exacerbation. 3. Drop in ejection fraction from 50%-55% to 40%-45%. 4. History of diastolic dysfunction. 5. History of pulmonary artery hypertension during last admission. 6. Hypertension. 7. Former smoker. 8. History of drug abuse with cocaine, which apparently he has stopped. 9. Nonsustained ventricular tachycardia. RECOMMENDATIONS: My biggest concern regarding Mr. Soto is his drop in ejection fraction from 50%-55% to 40%-45% and now the finding this morning of nonsustained ventricular tachycardia. With these findings, he needs to undergo cardiac catheterization. Risks of this were discussed with the patient including , myocardial infarction, dye reaction, vascular injury, CVA, transfusion, limb loss, renal loss, etc. Also risks of intervention with stent placement were discussed including , myocardial infarction, emergent CABG, restenosis, stent thrombosis, vessel perforation, etc. He has no history of gastrointestinal bleeding or stroke. He has no upcoming surgical procedures. Overall, it is recommended that a drug-eluting stent be placed if required. Would anticipate during right and left heart catheterization with question of pulmonary artery hypertension on previous noninvasive evaluation. Job ID: [id number] MTDD
[2019-06-18] MEDS: traMADol HCl 50 MG TAB PO PRN ×3 (01:00→14:52)
[2019-06-18] MEDS: AcetaZOLAMIDE 250 MG TAB PO SCH ×2 (08:30→08:49)
[2019-06-18] MEDS: Aspirin Chewable 81 MG TAB PO SCH (08:30)
[2019-06-18] MEDS: predniSONE 20 MG TAB PO SCH (08:32)
[2019-06-18] MEDS: PHOS-NAK 1 PKT PACK PO SCH (08:32)
[2019-06-18] MEDS: Enoxaparin Sodium 40 MG/0.4 ML SYRINGE SC SCH (08:32)
[2019-06-18 08:55] LABS: #Eosinphils 0.1 thou/uL (0.0-0.7); #Lymphocytes 1.5 thou/uL (1.20-3.40); #Monocytes 1.1 thou/uL (0.11-0.59); #Neutrophils 5.9 thou/uL (1.40-6.50); %Basophils 0.2 % (0.0-1.0); %Eosinophils 0.9 % (0.0-10.0); %Lymphocytes 17.5 % (21.0-51.0); %Monocytes 12.4 % (0.0-10.0); %Neutrophils 68.9 % (42.0-75.0); Hemoglobin 12.3 g/dL (14.0-18.0); Mean Corpuscular HGB CONC 30.9 g/dL (32.0-36.0); Mean Corpuscular Hemoglobin 35.8 pg (27.0-31.0); Mean Platelet Volume 8.2 fL (7.4-10.4); Platelet Count 228 thou/uL (130-400); RBC Distribution Width 12.6 % (11.5-14.5); Red Blood Cell (RBC) Count 3.44 mill/uL (4.70-6.10); White Blood Cell (WBC) Count 8.6 thou/uL (4.8-10.8)
[2019-06-18 09:17] LABS: ALT (SGPT) 31 U/L (8-55); AST (SGOT) 24 U/L (5-34); Albumin 3.5 g/dL (3.4-4.8); Alkaline Phosphatase 84 U/L (40-110); BUN (Urea Nitrogen) 26 mg/dL (8.4-25.7); Bilirubin, Total 1.2 mg/dL (0.2-1.2); Calc. Creatinine Clearance 83 mL/min (70-130); Calcium 8.6 mg/dL (7.8-10.44); Estimated GFR-MDRD Greater than 90; Globulin 2.5 g/dL (2.4-3.5); Glucose 102 mg/dL (80-115)
[2019-06-18 09:28] LABS: Anion Gap 13 mmol/L (10-20); Carbon Dioxide 39 mmol/L (23-31); Chloride 92 mmol/L (98-107); Potassium 3.9 mmol/L (3.5-5.1); Sodium 140 mmol/L (136-145)
--- NOTE | 2019-06-18 10:26 | PDOC.HOSPP ---
- Subjective Encounter Date: 06/18/19 Encounter Time: 10:00 Subjective: Patient was started on diamox this morning by Pulmonology for his bicarb level of 45. Patient reports that he is feeling extremely dizzy with the new medication and is requesting that the new medication be stopped. He also reports worsening shortness of breath. He was evaluated by cardiology yesterday and is scheduled for [facility] tomorrow. [place] CP, palpitations, cough or wheezing. No N/V/D/C. - Objective Vital Signs & Weight: Vital Signs (12 hours) Temp Pulse Resp BP BP Pulse Ox 06/18/19 07:36 97.8 F 77 20 112/63 100 06/18/19 03:22 98.4 F 83 17 118/56 L 92 L 06/17/19 23:12 82 104/60 Weight Admit Weight 183 lb 10.321 oz Weight 166 lb 1.6 oz Most Recent Monitor Data Heart Rate from ECG 91 NIBP 122/69 NIBP BP-Mean 86 Respiration from ECG 22 SpO2 99 I&O: 06/17/19 06/18/19 06/19/19 06:59 06:59 06:59 Intake Total 1340 2083 Output Total 100 Balance 1240 2083 Result Diagrams: 06/18/19 08:45 06/18/19 08:45 Additional Labs: Accuchecks 06/18/19 06/17/19 06/17/19 05:35 20:35 16:43 POC Glucose 134 H 153 H 101 06/17/19 10:48 POC Glucose 135 H Hospitalist ROS - Medication Medications: Active Medications Generic Name Dose Route Start Last Admin Trade Name Freq PRN Reason Stop Dose Admin Acetaminophen 650 mg 06/16/19 20:58 06/17/19 21:04 Tylenol PO 650 mg Q4H PRN Administration Headache/Fever/Mild Pain (1-3) Aspirin 81 mg 06/13/19 09:00 06/18/19 08:30 Aspirin Chewable PO 81 mg DAILY LAURIE Administration Enoxaparin Sodium 40 mg 06/13/19 09:00 06/18/19 08:32 Lovenox SC 40 mg 0900 LAURIE Administration Insulin Human Lispro 0 units 06/12/19 23:18 06/16/19 17:44 Humalog SC 6 unit .AGGRESSIVE SLIDING PRN Administration Aggressive Correctional Scale Levofloxacin 500 mg 06/16/19 06:00 06/18/19 05:35 Levaquin PO 500 mg 0600 LAURIE Administration Lisinopril 2.5 mg 06/17/19 09:00 06/17/19 08:30 Zestril PO 2.5 mg DAILY LAURIE Administration Metoprolol Succinate 25 mg 06/18/19 09:00 06/18/19 08:35 Toprol Xl PO 25 mg DAILY LAURIE Administration Prednisone 20 mg 06/18/19 08:00 06/18/19 08:32 Prednisone PO 20 mg QAM-WM LAURIE Administration Sodium Chloride 10 ml 06/17/19 21:00 06/18/19 08:33 Flush - Normal Saline IVF 10 ml Q12HR LAURIE Administration Sterile Water 1 ml 06/13/19 00:30 06/13/19 05:26 Bacteriostatic Water FS 1 ml PRN PRN Administration RECONSTITUTION Tramadol HCl 50 mg 06/15/19 19:40 06/18/19 01:00 Ultram PO 50 mg Q6H PRN Administration Pain - Exam General Appearance: awake alert (in mild distress) Eye: PERRL, anicteric sclera ENT: normocephalic atraumatic, no oropharyngeal lesions Neck: supple, symmetric, no thyromegaly Heart: RRR, no murmur, no gallops, normal peripheral pulses Respiratory: CTAB, no wheezes, normal chest expansion (using accessory muscles of respiration) Gastrointestinal: soft, non-tender, non-distended, normal bowel sounds Extremities: no cyanosis, no clubbing Hosp A/P (1) Acute respiratory failure Code(s): J96.00 - ACUTE RESPIRATORY FAILURE, UNSP W HYPOXIA OR HYPERCAPNIA Status: Resolved Qualifiers: Respiratory failure complication: hypoxia and hypercapnia Qualified Code(s) : J96.01 - Acute respiratory failure with hypoxia; J96.02 - Acute respiratory failure with hypercapnia (2) CHF (congestive heart failure) Code(s): I50.9 - HEART FAILURE, UNSPECIFIED Status: Acute Qualifiers: Heart failure type: combined systolic and diastolic Heart failure chronicity: acute Qualified Code(s): I50.41 - Acute combined systolic ( congestive) and diastolic (congestive) heart failure (3) Bilateral leg edema Code(s): R60.0 - LOCALIZED EDEMA Status: Acute (4) HTN (hypertension) Code(s): I10 - ESSENTIAL (PRIMARY) HYPERTENSION Status: Chronic Qualifiers: Hypertension type: essential hypertension Qualified Code(s): I10 - Essential (primary) hypertension (5) Hypophosphatemia Code(s): E83.39 - OTHER DISORDERS OF PHOSPHORUS METABOLISM Status: Acute - Plan out of bed/ambulate, DVT proph w/lovenox Hosp A/P (1) Acute respiratory failure Resolved Now on room air Pulm. on board DC Diamox due to side effects Will obtain STAT ABG If he has persistent hypercapnia, will place on NIPPV (2) CHF (congestive heart failure) ECHO with reduced EF and diastolic dysfunction with RV dysfunction Patient never had ischemia evaluation Case DW from cardiology. Patient to undergo LHC tomorrow. Appreciate input and assistance Hold lisinopril for LHC tomorrow DC diamox due to side effects Continue Toprol XL High risk due to need for inpatient LHC for new onset HFrEF (3) Bilateral leg edema Venous dopplers negative for DVT Start compression stockings (4) HTN (hypertension) Stable BP On low dose lisinopril. Hold this for LHC tomorrow. Toprol XL (5) Hypophosphatemia On PO replacement Repeat labs tomorrow
[2019-06-18 10:55] LABS: Actual Bicarbonate (HCO3a) 35.7 mEq/L (22-28); Base Excess (BEa) 7.9 mEq/L (-2.0 to +3.0); Calcium, Ionized 1.15 mmol/L (1.12-1.30); Carboxyhemoglobin (COHb) 2.1 gm% (0.0-3.0); Hemoglobin (Hb) 12.4 g/dL (14.0-18.0); O2 Tension (PaO2) 71.3 mmHg (> 80.0); Potassium - ABG Lab 3.69 mmol/L (3.70-5.30); pH, Arterial 7.35 (7.35-7.45)
[2019-06-18 10:57] LABS: CO2 Tension 66.7 mmHg (35.0-45.0)
[2019-06-18] MEDS ORDERED: Nicotine 14 MG PATCH TD PRN (11:00)
[2019-06-18 11:08] LABS: Hemoglobin 12.4 g/dL (14.0-18.0); Hypochromia SLIGHT = 6-15 cells (100X) (0-5/hpf); Lymphocytes 11 % (21-51); MDiff Complete? YES; Mean Corpuscular HGB CONC 30.8 g/dL (32.0-36.0); Mean Corpuscular Hemoglobin 35.6 pg (27.0-31.0); Mean Platelet Volume 8.1 fL (7.4-10.4); Monocytes 9 % (0-10); Neutrophil 79 % (42-75); Platelet Count 220 thou/uL (130-400); Platelet Morphology Comment Appears Adequate; RBC Distribution Width 12.6 % (11.5-14.5); Reactive Lymphocytes 1 % (0-10); Red Blood Cell (RBC) Count 3.48 mill/uL (4.70-6.10); White Blood Cell (WBC) Count 9.1 thou/uL (4.8-10.8)
[2019-06-18 12:58] LABS: Puncture Site RRA
[2019-06-18 12:59] LABS: ALV-art Gradient 44.965 (0-20)
[2019-06-18] MEDS: Acetaminophen 325 MG TAB PO PRN (13:06)
[2019-06-18] MEDS ORDERED: methylPREDNISolone Sod Succ 40 MG VIAL IVP SCH (13:39)
[2019-06-18] MEDS ORDERED: Ipratropium Bromide 2.5 ml Neb NEB SCH (14:30)
[2019-06-18] MEDS: Mag-Al 1200 mg/1200 mg/30 ML UDCUP PO PRN (14:52)
[2019-06-18] MEDS ORDERED: Furosemide 40 MG/4 ML VIAL SLOW IVP SCH (16:45)
--- NOTE | 2019-06-18 16:54 | PRG ---
DATE OF SERVICE: 06/18/2019 SUBJECTIVE: Rei Soto was transferred to the intermediate care unit today for blood gas abnormality. OBJECTIVE: VITAL SIGNS: He is afebrile. Heart rate is in the 60s, respiratory rate is 16, oximetry is 92, blood pressure 113/65. LUNGS: Distant, clear. HEART: Regular rhythm. ABDOMEN: Soft. EXTREMITIES: Without edema. LABORATORY DATA: White count 9.1, hemoglobin 12.4, platelets 220,000. Sodium 140, potassium 3.9, chloride 92, bicarb 39, BUN 26, creatinine 0.9. Blood gas; pH 7.35, CO2 of 66, PO2 71. IMPRESSION: Severe chronic obstructive pulmonary disease with recent exacerbation. He has developed a little bit of an alkalosis associated with diuresis and was given Diamox this morning. Other problems include a reduction in left ventricular systolic function with an EF of 40% to 45%. Aortic sclerosis and nonsustained ventricular tachycardia. He will remain in the intermediate care unit. He is stable at this time. There is no indication for noninvasive ventilatory support at this time. Job ID: [id number]
[2019-06-18] MEDS: methylPREDNISolone Sod Succ 40 MG VIAL IVP SCH ×2 (17:36→23:15)
[2019-06-18] MEDS: Mometasone/Formoterol 120 PUFF INHALER INH SCH (19:11)
[2019-06-18] MEDS: HumaLOG 300 UNITS/3 ML VIAL SC PRN (20:28)
[2019-06-19 04:45] LABS: #Lymphocytes 0.8 thou/uL (1.20-3.40); #Monocytes 0.2 thou/uL (0.11-0.59); #Neutrophils 7.9 thou/uL (1.40-6.50); %Basophils 0.2 % (0.0-1.0); %Eosinophils 0.1 % (0.0-10.0); %Lymphocytes 8.9 % (21.0-51.0); %Monocytes 1.8 % (0.0-10.0); Hemoglobin 12.3 g/dL (14.0-18.0); Mean Corpuscular HGB CONC 31.3 g/dL (32.0-36.0); Mean Corpuscular Hemoglobin 35.4 pg (27.0-31.0); Mean Platelet Volume 8.2 fL (7.4-10.4); Platelet Count 264 thou/uL (130-400); RBC Distribution Width 12.3 % (11.5-14.5); Red Blood Cell (RBC) Count 3.47 mill/uL (4.70-6.10); White Blood Cell (WBC) Count 8.8 thou/uL (4.8-10.8)
[2019-06-19 05:14] LABS: ALT (SGPT) 32 U/L (8-55); AST (SGOT) 20 U/L (5-34); Albumin 3.8 g/dL (3.4-4.8); Alkaline Phosphatase 96 U/L (40-110); Anion Gap 9 mmol/L (10-20); BUN (Urea Nitrogen) 31 mg/dL (8.4-25.7); Bilirubin, Total 0.6 mg/dL (0.2-1.2); Calc. Creatinine Clearance 69 mL/min (70-130); Calcium 9.2 mg/dL (7.8-10.44); Carbon Dioxide 37 mmol/L (23-31); Chloride 95 mmol/L (98-107); Estimated GFR-MDRD 82; Globulin 2.7 g/dL (2.4-3.5); Glucose 119 mg/dL (80-115); Potassium 4.6 mmol/L (3.5-5.1); Protein, Total 6.5 g/dL (5.8-8.1); Sodium 136 mmol/L (136-145)
[2019-06-19 05:15] LABS: Phosphorus 3.5 mg/dL (2.3-4.7)
[2019-06-19] MEDS: methylPREDNISolone Sod Succ 40 MG VIAL IVP SCH ×4 (06:37→23:45)
[2019-06-19] MEDS: Aspirin Chewable 81 MG TAB PO SCH (07:01)
[2019-06-19] MEDS: predniSONE 20 MG TAB PO SCH (07:05)
[2019-06-19] MEDS: Mometasone/Formoterol 120 PUFF INHALER INH SCH ×2 (07:19→19:23)
[2019-06-19] MEDS ORDERED: Heparin (Artline) 1,000 ML ONE (07:33)
[2019-06-19] MEDS ORDERED: Protamine Sulfate 50 MG/5 ML VIAL ONE (07:33)
[2019-06-19] MEDS ORDERED: Heparin 10,000 UNITS/1 ML VIAL ONE (07:33)
[2019-06-19 07:50] LABS: Actual Bicarbonate (HCO3a) 34.6 mEq/L (22-28); Base Excess (BEa) 7.1 mEq/L (-2.0 to +3.0); Calcium, Ionized 1.21 mmol/L (1.12-1.30); Carboxyhemoglobin (COHb) 1.4 gm% (0.0-3.0); Hemoglobin (Hb) 12.2 g/dL (14.0-18.0); Potassium - ABG Lab 4.38 mmol/L (3.70-5.30); pH, Arterial 7.35 (7.35-7.45)
[2019-06-19 07:53] LABS: CO2 Tension 64.2 mmHg (35.0-45.0); Puncture Site RRAD
--- NOTE | 2019-06-19 10:43 | PRG ---
DATE OF SERVICE: 06/19/2019 SUBJECTIVE: He is sitting up, feels well, has no acute complaints. OBJECTIVE: VITAL SIGNS: His temperature is 98.8, pulse 76, blood pressure 120/73, O2 saturation 92%. HEENT: Unremarkable. NECK: No adenopathy, JVD or bruits. LUNGS: Clear to auscultation. CARDIAC: S1, S2 regular. ABDOMEN: Soft. EXTREMITIES: No edema. LABORATORY DATA: White blood cell count 8.8, hematocrit 39, platelet count 264. ABG, pH of 7.35, pCO2 of 64, PO2 of 88 on 2 L. Sodium 136, potassium 4.6, chloride 95, CO2 of 37, BUN 31, creatinine 1.1, glucose 119. ASSESSMENT: 1. Severe chronic obstructive pulmonary disease with recent exacerbation. 2. Compensated respiratory acidosis. 3. Decreased left ventricular ejection fraction. PLAN: 1. From my standpoint, he can be transferred back out to the medical floor. Continue treatment of his COPD with nebulization treatments. 2. We will decrease his IV steroid dose and stop his oral prednisone for right now. Job ID: [id number]
[2019-06-19] MEDS ORDERED: Furosemide 20 MG TAB PO SCH (11:15)
--- NOTE | 2019-06-19 13:44 | PDOC.HOSPP ---
- Subjective Encounter Date: 06/19/19 Encounter Time: 12:15 Subjective: Patient reports feeling well. Reports that his dizziness is better today. His [facility] has been post poned to saturday due to his hypercapnia that is worsening. Denies headache, nausea or vomiting. He is tolerating his diet well. - Objective Vital Signs & Weight: Vital Signs (12 hours) Temp Pulse Resp Pulse Ox 06/19/19 11:17 98.7 F 06/19/19 10:42 68 17 98 06/19/19 07:34 92 L 06/19/19 07:20 98.8 F 06/19/19 07:19 61 18 97 06/19/19 03:24 97.5 F L Weight Admit Weight 183 lb 10.321 oz Weight 178 lb 8 oz Most Recent Monitor Data Heart Rate from ECG 85 NIBP 106/61 NIBP BP-Mean 76 Respiration from ECG 14 SpO2 93 I&O: 06/18/19 06/19/19 06/20/19 06:59 06:59 06:59 Intake Total 2083 848 Output Total 2300 150 Balance 2083 -1452 -150 Result Diagrams: 06/19/19 04:20 06/19/19 04:20 Additional Labs: Accuchecks 06/19/19 06/19/19 06/18/19 10:36 06:38 20:14 POC Glucose 181 H 116 H 190 H 06/18/19 16:24 POC Glucose 118 H Hospitalist ROS - Medication Medications: Active Medications Generic Name Dose Route Start Last Admin Trade Name Freq PRN Reason Stop Dose Admin Acetaminophen 650 mg 06/16/19 20:58 06/18/19 13:06 Tylenol PO 650 mg Q4H PRN Administration Headache/Fever/Mild Pain (1-3) Al Hydroxide/Mg Hydroxide 30 ml 06/18/19 14:34 06/18/19 14:52 Maalox PO 30 ml Q6H PRN Administration Gas Pain Albuterol/Ipratropium 3 ml 06/18/19 14:30 06/19/19 10:42 Duoneb NEB 3 ml [id number] LAURIE Administration Aspirin 81 mg 06/13/19 09:00 06/18/19 08:30 Aspirin Chewable PO 81 mg DAILY LAURIE Administration Enoxaparin Sodium 40 mg 06/13/19 09:00 06/18/19 08:32 Lovenox SC 40 mg 0900 LAURIE Administration Insulin Human Lispro 0 units 06/12/19 23:18 06/18/19 20:28 Humalog SC 3 unit .AGGRESSIVE SLIDING PRN Administration Aggressive Correctional Scale Levofloxacin 500 mg 06/16/19 06:00 06/19/19 06:36 Levaquin PO 500 mg 0600 LAURIE Administration Lisinopril 2.5 mg 06/17/19 09:00 06/17/19 08:30 Zestril PO 2.5 mg DAILY LAURIE Administration Methylprednisolone Sodium Succinate 20 mg 06/19/19 12:00 06/19/19 12:24 Solu-Medrol IVP 20 mg Q6HR LAURIE Administration Metoprolol Succinate 25 mg 06/18/19 09:00 06/19/19 07:03 Toprol Xl PO Not Given DAILY LAURIE Mometasone Furoate/Formoterol Fumar 2 puff 06/18/19 18:30 06/19/19 07:19 Dulera 200 Mcg/5 Mcg Inhaler INH 2 puff BID-RT LAURIE Administration Sodium Chloride 10 ml 06/17/19 21:00 06/19/19 07:22 Flush - Normal Saline IVF 10 ml Q12HR LAURIE Administration Sterile Water 1 ml 06/13/19 00:30 06/13/19 05:26 Bacteriostatic Water FS 1 ml PRN PRN Administration RECONSTITUTION Tramadol HCl 100 mg 06/18/19 14:34 06/18/19 14:52 Ultram PO 50 mg Q8H PRN Administration SEVERE pain - Exam Eye: PERRL, anicteric sclera ENT: normocephalic atraumatic, no oropharyngeal lesions Neck: supple, symmetric, no thyromegaly Heart: RRR, no murmur, no gallops, normal peripheral pulses Respiratory: CTAB, no wheezes, normal chest expansion Respiratory - other findings: reduced air entry bilaterally Gastrointestinal: soft, non-tender, non-distended, normal bowel sounds Hosp A/P (1) Acute respiratory failure Code(s): J96.00 - ACUTE RESPIRATORY FAILURE, UNSP W HYPOXIA OR HYPERCAPNIA Status: Resolved Qualifiers: Respiratory failure complication: hypoxia and hypercapnia Qualified Code(s) : J96.01 - Acute respiratory failure with hypoxia; J96.02 - Acute respiratory failure with hypercapnia (2) CHF (congestive heart failure) Code(s): I50.9 - HEART FAILURE, UNSPECIFIED Status: Acute Qualifiers: Heart failure type: combined systolic and diastolic Heart failure chronicity: acute Qualified Code(s): I50.41 - Acute combined systolic ( congestive) and diastolic (congestive) heart failure (3) Bilateral leg edema Code(s): R60.0 - LOCALIZED EDEMA Status: Acute (4) HTN (hypertension) Code(s): I10 - ESSENTIAL (PRIMARY) HYPERTENSION Status: Chronic Qualifiers: Hypertension type: essential hypertension Qualified Code(s): I10 - Essential (primary) hypertension (5) Hypophosphatemia Code(s): E83.39 - OTHER DISORDERS OF PHOSPHORUS METABOLISM Status: Resolved - Plan Hosp A/P (1)Chronic Hypercapnic respiratory failure Pulm. on board Patient being transferred out of the IMCU today per pulm. No further indication for NIPPV per pulm. Appreciate input and assistance (2) CHF (congestive heart failure) LHC on Saturday for ischemia evaluation given new onset HFrEF Continue Toprol XL Eventual ACEI/ARB High risk due to need for inpatient LHC for new onset HFrEF (3) Bilateral leg edema Venous dopplers negative for DVT Start compression stockings (4) HTN (hypertension) Stable BP Toprol XL (5) Hypophosphatemia Resolved
[2019-06-19] MEDS: Mag-Al 1200 mg/1200 mg/30 ML UDCUP PO PRN (17:31)
[2019-06-19] MEDS: traMADol HCl 50 MG TAB PO PRN (17:52)
[2019-06-20] MEDS: methylPREDNISolone Sod Succ 40 MG VIAL IVP SCH ×2 (05:39→12:16)
[2019-06-20] MEDS: Mometasone/Formoterol 120 PUFF INHALER INH SCH ×2 (07:50→18:35)
[2019-06-20] MEDS: Furosemide 40 MG TAB PO SCH (10:23)
[2019-06-20] MEDS: Aspirin Chewable 81 MG TAB PO SCH (10:24)
[2019-06-20] MEDS: Mag-Al 1200 mg/1200 mg/30 ML UDCUP PO PRN (10:34)
[2019-06-20] MEDS: Enoxaparin Sodium 40 MG/0.4 ML SYRINGE SC SCH (12:16)
[2019-06-20] MEDS: HumaLOG 300 UNITS/3 ML VIAL SC PRN (12:17)
--- NOTE | 2019-06-20 13:49 | PRG ---
DATE OF SERVICE: 06/20/2019 SUBJECTIVE: He is feeling fine, had no acute complaints. OBJECTIVE: VITAL SIGNS: Temperature 97.9, pulse 86, respirations 18, O2 saturation 92% on room air, and blood pressure 111/57. HEENT: Unremarkable. Neck: No adenopathy, JVD, or bruits. LUNGS: Clear anteriorly. CARDIAC: S1 and S2, regular. ABDOMEN: Soft. EXTREMITIES: No edema. ASSESSMENT: 1. Stable chronic obstructive pulmonary disease. 2. Decreased left ventricular ejection fraction. PLAN: I believe he is having cardiac catheterization on Saturday. His pulmonary status remains stable. We will see him less often. He will be cycled over to oral steroids. Job ID: [id number]
--- NOTE | 2019-06-20 14:55 | PDOC.HOSPP ---
- Subjective Encounter Date: 06/20/19 Encounter Time: 13:00 Subjective: Patient denies any acute events overnight. Awaiting [facility] on saturday. No CP, SOB. No N/V/D/C. - Objective Vital Signs & Weight: Vital Signs (12 hours) Temp Pulse Resp BP BP Pulse Ox 06/20/19 14:20 80 16 96 06/20/19 12:17 97.9 F 86 18 111/57 L 92 L 06/20/19 10:39 97 06/20/19 10:24 77 18 97 06/20/19 10:20 98.0 F 89 20 113/58 L 97 06/20/19 07:54 98 06/20/19 07:52 85 16 96 06/20/19 07:50 85 16 96 06/20/19 07:00 98.9 F 06/20/19 03:46 96 06/20/19 03:07 98.4 F 114/66 100 Weight Admit Weight 183 lb 10.321 oz Weight 181 lb 1 oz Most Recent Monitor Data Heart Rate from ECG 76 NIBP 114/66 NIBP BP-Mean 82 Respiration from ECG 17 SpO2 92 I&O: 06/19/19 06/20/19 06/21/19 06:59 06:59 06:59 Intake Total 848 1430 Output Total 2300 1750 Balance -1452 -320 Result Diagrams: 06/19/19 04:20 06/19/19 04:20 Additional Labs: Accuchecks 06/20/19 06/20/19 06/19/19 10:39 05:13 19:26 POC Glucose 212 H 165 H 176 H 06/19/19 16:50 POC Glucose 99 Hospitalist ROS - Medication Medications: Active Medications Generic Name Dose Route Start Last Admin Trade Name Freq PRN Reason Stop Dose Admin Acetaminophen 650 mg 06/16/19 20:58 06/18/19 13:06 Tylenol PO 650 mg Q4H PRN Administration Headache/Fever/Mild Pain (1-3) Al Hydroxide/Mg Hydroxide 30 ml 06/18/19 14:34 06/20/19 10:34 Maalox PO 30 ml Q6H PRN Administration Gas Pain Albuterol/Ipratropium 3 ml 06/18/19 14:30 06/20/19 14:20 Duoneb NEB 3 ml [id number] LAURIE Administration Aspirin 81 mg 06/13/19 09:00 06/20/19 10:24 Aspirin Chewable PO 81 mg DAILY LAURIE Administration Enoxaparin Sodium 40 mg 06/13/19 09:00 06/20/19 12:16 Lovenox SC 40 mg 0900 LAURIE Administration Furosemide 40 mg 06/20/19 07:30 06/20/19 10:23 Lasix PO 40 mg DAILY-AC LAURIE Administration Insulin Human Lispro 0 units 06/12/19 23:18 06/20/19 12:17 Humalog SC 6 unit .AGGRESSIVE SLIDING PRN Administration Aggressive Correctional Scale Levofloxacin 500 mg 06/16/19 06:00 06/20/19 05:39 Levaquin PO 500 mg 0600 LAURIE Administration Lisinopril 2.5 mg 06/17/19 09:00 06/17/19 08:30 Zestril PO 2.5 mg DAILY LAURIE Administration Metoprolol Succinate 25 mg 06/18/19 09:00 06/20/19 10:24 Toprol Xl PO 25 mg DAILY LAURIE Administration Mometasone Furoate/Formoterol Fumar 2 puff 06/18/19 18:30 06/20/19 07:50 Dulera 200 Mcg/5 Mcg Inhaler INH 2 puff BID-RT LAURIE Administration Sodium Chloride 10 ml 06/17/19 21:00 06/20/19 10:24 Flush - Normal Saline IVF 10 ml Q12HR LAURIE Administration Sodium Chloride 10 ml 06/17/19 10:23 06/20/19 12:21 Flush - Normal Saline IVF 10 ml PRN PRN Administration Saline Flush Sterile Water 1 ml 06/13/19 00:30 06/13/19 05:26 Bacteriostatic Water FS 1 ml PRN PRN Administration RECONSTITUTION Tramadol HCl 100 mg 06/18/19 14:34 06/19/19 17:52 Ultram PO 100 mg Q8H PRN Administration SEVERE pain - Exam General Appearance: NAD, awake alert ENT: normocephalic atraumatic, no oropharyngeal lesions Neck: supple, symmetric, no thyromegaly Heart: RRR, no murmur, normal peripheral pulses Respiratory: CTAB, no wheezes, no ronchi, normal chest expansion Respiratory - other findings: reduced air entry bilaterally Gastrointestinal: soft, non-tender, non-distended, normal bowel sounds Hosp A/P (1) Acute respiratory failure Code(s): J96.00 - ACUTE RESPIRATORY FAILURE, UNSP W HYPOXIA OR HYPERCAPNIA Status: Resolved Qualifiers: Respiratory failure complication: hypoxia and hypercapnia Qualified Code(s) : J96.01 - Acute respiratory failure with hypoxia; J96.02 - Acute respiratory failure with hypercapnia (2) CHF (congestive heart failure) Code(s): I50.9 - HEART FAILURE, UNSPECIFIED Status: Acute Qualifiers: Heart failure type: combined systolic and diastolic Heart failure chronicity: acute Qualified Code(s): I50.41 - Acute combined systolic ( congestive) and diastolic (congestive) heart failure (3) Bilateral leg edema Code(s): R60.0 - LOCALIZED EDEMA Status: Acute (4) HTN (hypertension) Code(s): I10 - ESSENTIAL (PRIMARY) HYPERTENSION Status: Chronic Qualifiers: Hypertension type: essential hypertension Qualified Code(s): I10 - Essential (primary) hypertension (5) Hypophosphatemia Code(s): E83.39 - OTHER DISORDERS OF PHOSPHORUS METABOLISM Status: Resolved - Plan Hosp A/P (1)Chronic Hypercapnic respiratory failure Pulm. on board No further indication for NIPPV per pulm. Appreciate input and assistance Would benefit from outpatient pulm. follow up (2) CHF (congestive heart failure) LHC on Saturday for ischemia evaluation given new onset HFrEF Continue Toprol XL Eventual ACEI/ARB High risk due to need for inpatient LHC for new onset HFrEF and risk of lethal arrhythmias (3) Bilateral leg edema Venous dopplers negative for DVT Start compression stockings Leg elevation On PO lasix (4) HTN (hypertension) Stable BP Toprol XL (5) Hypophosphatemia Resolved
--- NOTE | 2019-06-20 17:34 | PDOC.CPN ---
- Subjective Date: 06/20/19 Time: 15:00 Interval history: He is doing bete.r Breathing better. Able to lay down flat. - Review of Systems General: denies: fever/chills, weight/appetite/sleep changes, night sweats, fatigue Respiratory: denies: cough, congestion, shortness of breath, exercise intolerance Cardiovascular: denies: chest pain, palpitation, edema, paroxysmal nocturnal dyspnea, orthopnea Gastrointestinal: denies: nausea, vomiting, diarrhea, constipation, abd pain, GI bleeding Musculoskeletal: denies: pain, tenderness, stiffness, swelling, arthritis/ arthralgias Neurological: denies: numbness, syncope, seizure, weakness - Objective Allergies/Adverse Reactions: Allergies Allergy/AdvReac Type Severity Reaction Status Date / Time No Known Allergies Allergy Verified 04/07/19 21:42 Visit Medications: Current Medications Acetaminophen (Tylenol) 650 mg PO Q4H PRN PRN Reason: Headache/Fever/Mild Pain (1-3) Last Admin: 06/18/19 13:06 Dose: 650 mg Al Hydroxide/Mg Hydroxide (Maalox) 30 ml PO Q6H PRN PRN Reason: Gas Pain Last Admin: 06/20/19 10:34 Dose: 30 ml Albuterol/Ipratropium (Duoneb) 3 ml NEB [id number] PRN PRN Reason: SOB &/or Wheezing Albuterol/Ipratropium (Duoneb) 3 ml NEB [id number] LAURIE Last Admin: 06/20/19 14:20 Dose: 3 ml Aspirin (Aspirin Chewable) 81 mg PO DAILY [facility] Last Admin: 06/20/19 10:24 Dose: 81 mg Dextrose/Water (Dextrose 50%) 25 gm SLOW IVP PRN PRN PRN Reason: Hypoglycemia Enoxaparin Sodium (Lovenox) 40 mg SC 0900 [facility] Last Admin: 06/20/19 12:16 Dose: 40 mg Furosemide (Lasix) 40 mg PO DAILY-[facility] Last Admin: 06/20/19 10:23 Dose: 40 mg Glucagon (Glucagon) 1 mg IM PRN PRN PRN Reason: Hypoglycemia Dextrose/Water (D5w) 1,000 mls @ 0 mls/hr IV .Q0M PRN PRN Reason: Hypoglycemia Insulin Human Lispro (Humalog) 0 units SC .AGGRESSIVE SLIDING PRN PRN Reason: Aggressive Correctional Scale Last Admin: 06/20/19 12:17 Dose: 6 unit Levofloxacin (Levaquin) 500 mg PO 0600 [facility] Last Admin: 06/20/19 05:39 Dose: 500 mg Lisinopril (Zestril) 2.5 mg PO DAILY [facility] Last Admin: 06/17/19 08:30 Dose: 2.5 mg Metoprolol Succinate (Toprol Xl) 25 mg PO DAILY [facility] Last Admin: 06/20/19 10:24 Dose: 25 mg Mometasone Furoate/Formoterol Fumar (Dulera 200 Mcg/5 Mcg Inhaler) 2 puff INH BID-RT [facility] Last Admin: 06/20/19 07:50 Dose: 2 puff Nicotine (Nicoderm Patch) 14 mg TD Q24HR PRN PRN Reason: withdrawals Ondansetron HCl (Zofran) 4 mg IVP Q6H PRN PRN Reason: Nausea/Vomiting Prednisone (Prednisone) 20 mg PO BID [facility] Sodium Chloride (Flush - Normal Saline) 10 ml IVF Q12HR [facility] Last Admin: 06/20/19 10:24 Dose: 10 ml Sodium Chloride (Flush - Normal Saline) 10 ml IVF PRN PRN PRN Reason: Saline Flush Last Admin: 06/20/19 12:21 Dose: 10 ml Sterile Water (Bacteriostatic Water) 1 ml FS PRN PRN PRN Reason: RECONSTITUTION Last Admin: 06/13/19 05:26 Dose: 1 ml Tramadol HCl (Ultram) 100 mg PO Q8H PRN PRN Reason: SEVERE pain Last Admin: 06/19/19 17:52 Dose: 100 mg Vital Signs & Weight: Vital Signs Temp Pulse Resp BP BP Pulse Ox 06/20/19 16:00 97.9 F 73 16 131/60 93 L 06/20/19 14:20 80 16 96 06/20/19 12:17 97.9 F 86 18 111/57 L 92 L 06/20/19 10:39 97 06/20/19 10:24 77 18 97 06/20/19 10:20 98.0 F 89 20 113/58 L 97 06/20/19 07:54 98 06/20/19 07:52 85 16 96 06/20/19 07:50 85 16 96 06/20/19 07:00 98.9 F Admit Weight 183 lb 10.321 oz Weight 181 lb 1 oz - Physical Exam General: alert & oriented x3 HEENT: mucus membranes moist Neck: supple neck Cardiac: regular rate and rhythm Lungs: normal breath sounds Neuro: grossly intact Abdomen: active bowel sounds Extremities: no edema Skin: clear Musculoskeletal: no pain - Labs Result Diagrams: 06/19/19 04:20 06/19/19 04:20 Troponin/CKMB Troponin I 0.058 ng/mL (< 0.028) H 06/13/19 05:00 - Telemetry Sinus rhythms and dysrhythmias: sinus rhythm - Assessment/Plan Assessment/Plan: 1. Acute on chronic systolic heart failure. 2. COPD with acute exacerbation 3. Drop in EF now at 40-45% 4. Pulmonary HTN 5. Former smoker 6. Hx of drug use. 7. Non sustained VT PLAN: - Will need right and left heart catheterization. - Currenlty stable and should be able to undergo procedure Saturday.
[2019-06-20] MEDS: traMADol HCl 50 MG TAB PO PRN (20:08)
[2019-06-20] MEDS: predniSONE 20 MG TAB PO SCH (20:09)
[2019-06-21 04:40] LABS: Anion Gap 11 mmol/L (10-20); BUN (Urea Nitrogen) 29 mg/dL (8.4-25.7); Calc. Creatinine Clearance 80 mL/min (70-130); Carbon Dioxide 35 mmol/L (23-31); Chloride 96 mmol/L (98-107); Estimated GFR-MDRD 87; Glucose 152 mg/dL (80-115); Potassium 4.7 mmol/L (3.5-5.1); Sodium 137 mmol/L (136-145)
[2019-06-21 04:43] LABS: Mean Corpuscular HGB CONC 32.4 g/dL (32.0-36.0); Mean Corpuscular Hemoglobin 36.4 pg (27.0-31.0); Mean Platelet Volume 8.7 fL (7.4-10.4); Platelet Count 307 thou/uL (130-400); RBC Distribution Width 12.7 % (11.5-14.5); Red Blood Cell (RBC) Count 3.01 mill/uL (4.70-6.10); White Blood Cell (WBC) Count 13.3 thou/uL (4.8-10.8)
[2019-06-21 04:44] LABS: Band 3 % (5-11); Elliptocytes SLIGHT = 2-5 cells (100X) (0-1/hpf); Hypochromia SLIGHT = 6-15 cells (100X) (0-5/hpf); Lymphocytes 8 % (21-51); MDiff Complete? YES; Macrocytosis MODERATE=16-30 cells (100X) (0-5/hpf); Metamyelocyte 1 % (0-0); Monocytes 5 % (0-10); Neutrophil 81 % (42-75); Platelet Morphology Comment Appears Adequate; Reactive Lymphocytes 2 % (0-10)
[2019-06-21] MEDS: Mometasone/Formoterol 120 PUFF INHALER INH SCH ×2 (07:05→18:29)
[2019-06-21] MEDS: predniSONE 20 MG TAB PO SCH ×2 (08:11→20:13)
[2019-06-21] MEDS: Furosemide 40 MG TAB PO SCH (08:12)
[2019-06-21] MEDS: Enoxaparin Sodium 40 MG/0.4 ML SYRINGE SC SCH (08:12)
[2019-06-21] MEDS: Aspirin Chewable 81 MG TAB PO SCH (08:12)
--- NOTE | 2019-06-21 16:57 | PDOC.CPN ---
- Subjective Date: 06/21/19 Time: 16:55 Interval history: He is doing well. No chest pain, Able to lay flat. - Review of Systems General: denies: fever/chills, weight/appetite/sleep changes, night sweats, fatigue Respiratory: denies: cough, congestion, shortness of breath, exercise intolerance Cardiovascular: denies: chest pain, palpitation, edema, paroxysmal nocturnal dyspnea, orthopnea Gastrointestinal: denies: nausea, vomiting, diarrhea, constipation, abd pain, GI bleeding Musculoskeletal: denies: pain, tenderness, stiffness, swelling, arthritis/ arthralgias Neurological: denies: numbness, syncope, seizure, weakness - Objective Allergies/Adverse Reactions: Allergies Allergy/AdvReac Type Severity Reaction Status Date / Time No Known Allergies Allergy Verified 04/07/19 21:42 Visit Medications: Current Medications Acetaminophen (Tylenol) 650 mg PO Q4H PRN PRN Reason: Headache/Fever/Mild Pain (1-3) Last Admin: 06/18/19 13:06 Dose: 650 mg Al Hydroxide/Mg Hydroxide (Maalox) 30 ml PO Q6H PRN PRN Reason: Gas Pain Last Admin: 06/20/19 10:34 Dose: 30 ml Albuterol/Ipratropium (Duoneb) 3 ml NEB [id number] PRN PRN Reason: SOB &/or Wheezing Albuterol/Ipratropium (Duoneb) 3 ml NEB [id number] LAURIE Last Admin: 06/21/19 13:54 Dose: 3 ml Aspirin (Aspirin Chewable) 81 mg PO DAILY [facility] Last Admin: 06/21/19 08:12 Dose: 81 mg Dextrose/Water (Dextrose 50%) 25 gm SLOW IVP PRN PRN PRN Reason: Hypoglycemia Enoxaparin Sodium (Lovenox) 40 mg SC 0900 [facility] Last Admin: 06/21/19 08:12 Dose: 40 mg Furosemide (Lasix) 40 mg PO DAILY-AC [facility] Last Admin: 06/21/19 08:12 Dose: 40 mg Glucagon (Glucagon) 1 mg IM PRN PRN PRN Reason: Hypoglycemia Dextrose/Water (D5w) 1,000 mls @ 0 mls/hr IV .Q0M PRN PRN Reason: Hypoglycemia Insulin Human Lispro (Humalog) 0 units SC .AGGRESSIVE SLIDING PRN PRN Reason: Aggressive Correctional Scale Last Admin: 06/20/19 12:17 Dose: 6 unit Levofloxacin (Levaquin) 500 mg PO 0600 [facility] Last Admin: 06/21/19 05:28 Dose: 500 mg Lisinopril (Zestril) 2.5 mg PO DAILY [facility] Last Admin: 06/17/19 08:30 Dose: 2.5 mg Metoprolol Succinate (Toprol Xl) 25 mg PO DAILY [facility] Last Admin: 06/21/19 08:10 Dose: 25 mg Mometasone Furoate/Formoterol Fumar (Dulera 200 Mcg/5 Mcg Inhaler) 2 puff INH BID-RT [facility] Last Admin: 06/21/19 07:05 Dose: 2 puff Nicotine (Nicoderm Patch) 14 mg TD Q24HR PRN PRN Reason: withdrawals Ondansetron HCl (Zofran) 4 mg IVP Q6H PRN PRN Reason: Nausea/Vomiting Prednisone (Prednisone) 20 mg PO BID [facility] Last Admin: 06/21/19 08:11 Dose: 20 mg Sodium Chloride (Flush - Normal Saline) 10 ml IVF Q12HR [facility] Last Admin: 06/21/19 08:10 Dose: 10 ml Sodium Chloride (Flush - Normal Saline) 10 ml IVF PRN PRN PRN Reason: Saline Flush Last Admin: 06/20/19 12:21 Dose: 10 ml Sterile Water (Bacteriostatic Water) 1 ml FS PRN PRN PRN Reason: RECONSTITUTION Last Admin: 06/13/19 05:26 Dose: 1 ml Tramadol HCl (Ultram) 100 mg PO Q8H PRN PRN Reason: SEVERE pain Last Admin: 06/20/19 20:08 Dose: 100 mg Vital Signs & Weight: Vital Signs Temp Pulse Resp BP Pulse Ox 06/21/19 15:30 97.5 F L 65 20 114/60 93 L 06/21/19 13:54 73 16 95 06/21/19 12:00 98.7 F 78 27 H 103/57 L 98 06/21/19 10:23 70 18 97 06/21/19 07:04 81 18 95 Admit Weight 183 lb 10.321 oz Weight 178 lb 9.6 oz - Physical Exam General: alert & oriented x3 HEENT: mucus membranes moist Neck: supple neck Cardiac: regular rate and rhythm, no murmur Lungs: normal breath sounds Neuro: grossly intact Abdomen: active bowel sounds Extremities: no edema Skin: clear Musculoskeletal: no pain - Labs Result Diagrams: 06/21/19 03:54 06/21/19 03:54 Troponin/CKMB Troponin I 0.058 ng/mL (< 0.028) H 06/13/19 05:00 - Telemetry Sinus rhythms and dysrhythmias: sinus rhythm - Assessment/Plan Assessment/Plan: 1. Acute on chronic systolic heart failure. 2. COPD with acute exacerbation 3. Drop in EF now at 40-45% 4. Pulmonary HTN 5. Former smoker 6. Hx of drug use. 7. Non sustained VT PLAN: - Plan for right and left heart catheterization tomorrow by Dr. Jones. - Procedure discussed, risks and benefits discussed, he agrees to proceed.
[2019-06-21] MEDS ORDERED: Communication Order-Pharmacy FS SCH (17:00)
--- NOTE | 2019-06-21 19:01 | PDOC.HOSPP ---
- Subjective Encounter Date: 06/21/19 Encounter Time: 18:00 Subjective: f/u for A/C combined CHF on Lasix po. Current plan for LHC on 06/22/19. No new issues. - Objective Vital Signs & Weight: Vital Signs (12 hours) Temp Pulse Resp BP Pulse Ox 06/21/19 18:28 78 16 96 06/21/19 15:30 97.5 F L 65 20 114/60 93 L 06/21/19 13:54 73 16 95 06/21/19 12:00 98.7 F 78 27 H 103/57 L 98 06/21/19 10:23 70 18 97 06/21/19 07:04 81 18 95 Weight Admit Weight 183 lb 10.321 oz Weight 178 lb 9.6 oz Most Recent Monitor Data Heart Rate from ECG 76 NIBP 114/66 NIBP BP-Mean 82 Respiration from ECG 17 SpO2 92 I&O: 06/20/19 06/21/19 06/22/19 06:59 06:59 06:59 Intake Total 2044 945 8211 Output Total 1750 Balance -763 622 7678 Result Diagrams: 06/21/19 03:54 06/21/19 03:54 Additional Labs: Accuchecks 06/21/19 06/21/19 06/21/19 16:50 10:27 05:41 POC Glucose 155 H 102 96 06/20/19 20:10 POC Glucose 142 H Laboratory Tests 12/18/18 06/12/19 06/13/19 12:23 16:00 01:06 WBC B-Natriuretic Peptide 499.0 H 1181.7 H TSH 3rd Generation 0.6491 06/13/19 06/17/19 06/18/19 05:00 11:58 08:45 WBC 8.6 B-Natriuretic Peptide 580.7 H TSH 3rd Generation 0.6759 06/18/19 06/19/19 08:45 04:20 WBC 9.1 8.8 B-Natriuretic Peptide TSH 3rd Generation EKG Reviewed by me: Yes (Tele - SR) Hospitalist ROS - Medication Medications: Active Medications Generic Name Dose Route Start Last Admin Trade Name Freq PRN Reason Stop Dose Admin Acetaminophen 650 mg 06/16/19 20:58 06/18/19 13:06 Tylenol PO 650 mg Q4H PRN Administration Headache/Fever/Mild Pain (1-3) Al Hydroxide/Mg Hydroxide 30 ml 06/18/19 14:34 06/20/19 10:34 Maalox PO 30 ml Q6H PRN Administration Gas Pain Albuterol/Ipratropium 3 ml 06/18/19 14:30 06/21/19 18:28 Duoneb NEB 3 ml [id number] LAURIE Administration Aspirin 81 mg 06/13/19 09:00 06/21/19 08:12 Aspirin Chewable PO 81 mg DAILY LAURIE Administration Enoxaparin Sodium 40 mg 06/13/19 09:00 06/21/19 08:12 Lovenox SC 40 mg 0900 LAURIE Administration Furosemide 40 mg 06/20/19 07:30 06/21/19 08:12 Lasix PO 40 mg DAILY-AC LAURIE Administration Insulin Human Lispro 0 units 06/12/19 23:18 06/20/19 12:17 Humalog SC 6 unit .AGGRESSIVE SLIDING PRN Administration Aggressive Correctional Scale Levofloxacin 500 mg 06/16/19 06:00 06/21/19 05:28 Levaquin PO 500 mg 0600 LAURIE Administration Lisinopril 2.5 mg 06/17/19 09:00 06/17/19 08:30 Zestril PO 2.5 mg DAILY LAURIE Administration Metoprolol Succinate 25 mg 06/18/19 09:00 06/21/19 08:10 Toprol Xl PO 25 mg DAILY LAURIE Administration Mometasone Furoate/Formoterol Fumar 2 puff 06/18/19 18:30 06/21/19 18:29 Dulera 200 Mcg/5 Mcg Inhaler INH 2 puff BID-RT LAURIE Administration Prednisone 20 mg 06/20/19 21:00 06/21/19 08:11 Prednisone PO 20 mg BID LAURIE Administration Sodium Chloride 10 ml 06/17/19 21:00 06/21/19 08:10 Flush - Normal Saline IVF 10 ml Q12HR LAURIE Administration Sodium Chloride 10 ml 06/17/19 10:23 06/20/19 12:21 Flush - Normal Saline IVF 10 ml PRN PRN Administration Saline Flush Sterile Water 1 ml 06/13/19 00:30 06/13/19 05:26 Bacteriostatic Water FS 1 ml PRN PRN Administration RECONSTITUTION Tramadol HCl 100 mg 06/18/19 14:34 06/20/19 20:08 Ultram PO 100 mg Q8H PRN Administration SEVERE pain - Exam General Appearance: NAD, awake alert Eye: PERRL, anicteric sclera ENT: normocephalic atraumatic, no oropharyngeal lesions Neck: supple, symmetric, no JVD, no thyromegaly, no lymphadenopathy Heart: RRR, no murmur, no gallops, no rubs, normal peripheral pulses Respiratory: CTAB, no wheezes, no rales, no ronchi, normal chest expansion Gastrointestinal: soft, non-tender, non-distended, normal bowel sounds, no palpable masses Extremities: no cyanosis, no clubbing, no edema Skin: normal turgor, no lesions Neurological: cranial nerve grossly intact, no new deficit Musculoskeletal: normal tone, normal strength, no muscle wasting Psychiatric: normal affect, A&O x 3 Hosp A/P (1) Acute on chronic combined systolic (congestive) and diastolic (congestive) heart failure Code(s): I50.43 - ACUTE ON CHRONIC COMBINED SYSTOLIC AND DIASTOLIC HRT FAIL Status: Acute Plan: Continue Lasix 40mg po daily, plan for LHC in am to ascertain underlying cororary dz, continue Lisinopril, Metoprolol (2) Acute respiratory failure Code(s): J96.00 - ACUTE RESPIRATORY FAILURE, UNSP W HYPOXIA OR HYPERCAPNIA Status: Acute Qualifiers: Respiratory failure complication: hypoxia Qualified Code(s): J96.01 - Acute respiratory failure with hypoxia Plan: Resolving, continue O2 supplementation as clinically indicated (3) COPD exacerbation Code(s): J44.1 - CHRONIC OBSTRUCTIVE PULMONARY DISEASE W (ACUTE) EXACERBATION Status: Acute Plan: Continue Duonebs, Levaquin, Prednisone, O2 prn (4) Moderate to severe pulmonary hypertension Code(s): I27.20 - PULMONARY HYPERTENSION, UNSPECIFIED Status: Chronic Plan: LHC in am - Plan continue antibiotics, PT/OT, 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
[2019-06-21] MEDS: traMADol HCl 50 MG TAB PO PRN (20:12)
[2019-06-22] MEDS ORDERED: Sodium Chloride 0.9% 500 ML IV SCH (00:01)
[2019-06-22] MEDS: Aspirin Chewable 81 MG TAB PO SCH (05:10)
[2019-06-22] MEDS: predniSONE 20 MG TAB PO SCH ×2 (05:10→20:00)
[2019-06-22] MEDS: traMADol HCl 50 MG TAB PO PRN ×2 (05:13→19:59)
[2019-06-22] MEDS: Enoxaparin Sodium 40 MG/0.4 ML SYRINGE SC SCH (07:05)
[2019-06-22] MEDS: Mometasone/Formoterol 120 PUFF INHALER INH SCH ×2 (07:12→18:39)
[2019-06-22] MEDS: Lisinopril 2.5 MG TAB PO SCH (07:44)
[2019-06-22] MEDS: Acetaminophen 325 MG TAB PO PRN (07:58)
[2019-06-22] MEDS ORDERED: Heparin (Artline) 1,000 ML ONE (08:08)
[2019-06-22] MEDS ORDERED: Lidocaine 1% (PF) 30 ML VIAL ONE (08:08)
[2019-06-22] MEDS ORDERED: Midazolam HCl 2 mg/2 ml Vial ONE (08:49)
[2019-06-22] MEDS ORDERED: Sodium Chloride 0.9% 200 ML IV PRN (09:38)
[2019-06-22] MEDS ORDERED: Acetaminophen/Codeine 30-300mg Tablet PO PRN ×2 (09:38)
[2019-06-22] MEDS ORDERED: Nitroglycerin 0.4 MG TAB (25 Tab Bottle) SL PRN (09:38)
[2019-06-22] MEDS: Furosemide 40 MG TAB PO SCH (10:21)
--- NOTE | 2019-06-22 10:30 | PRG ---
DATE OF SERVICE: 06/22/2019 SUBJECTIVE: This morning, he is awake, alert, responsive, status post cath. No shortness of breath. OBJECTIVE: VITAL SIGNS: Sats are 97% on 2 L, temperature 97, pulse 71, respirations 13, blood pressure 122/68. CHEST: No wheezing, crackles. CARDIAC: Normal S1, S2. No gallops. ABDOMEN: No masses. IMPRESSION: 1. Congestive heart failure. 2. Coronary artery disease. 3. Asthma. PLAN: Pulmonary peña, nothing additional to offer. Continue PT, supportive care. Disposition as per Cardiology. Job ID: [id number]
[2019-06-22] MEDS ORDERED: Iopamidol 370 76% 100 ML VIAL ONE (15:05)
[2019-06-22] MEDS ORDERED: Iopamidol 370 76% 50 ML VIAL FS ONE (15:05)
--- NOTE | 2019-06-22 17:03 | PDOC.HOSPP ---
- Subjective Encounter Date: 06/22/19 Encounter Time: 17:00 Subjective: f/u s/p LHC showing occlusion of Cx with recommendations for med mgmt. Also noted EF 30-35% down from prior Echo in 06/09. No new complaints. - Objective Vital Signs & Weight: Vital Signs (12 hours) Temp Pulse Resp BP BP Pulse Ox 06/22/19 15:27 98 F 81 19 115/59 L 97 06/22/19 11:01 71 06/22/19 10:15 97.6 F 75 22 H 143/83 H 96 06/22/19 07:44 97.6 F 71 13 122/68 96 Weight Admit Weight 183 lb 10.321 oz Weight 178 lb 12.8 oz Most Recent Monitor Data Heart Rate from ECG 76 NIBP 114/66 NIBP BP-Mean 82 Respiration from ECG 17 SpO2 92 I&O: 06/21/19 06/22/19 06/23/19 06:59 06:59 06:59 Intake Total 960 2660 Output Total 500 Balance 960 2160 Result Diagrams: 06/21/19 03:54 06/21/19 03:54 Additional Labs: Accuchecks 06/22/19 06/22/19 06/22/19 16:41 10:16 07:57 POC Glucose 145 H 97 94 06/22/19 06/21/19 06/21/19 05:48 20:26 16:50 POC Glucose 84 143 H 155 H Laboratory Tests 12/18/18 06/12/19 06/13/19 12:23 16:00 01:06 WBC B-Natriuretic Peptide 499.0 H 1181.7 H TSH 3rd Generation 0.6491 06/13/19 06/17/19 06/18/19 05:00 11:58 08:45 WBC 8.6 B-Natriuretic Peptide 580.7 H TSH 3rd Generation 0.6759 06/18/19 06/19/19 08:45 04:20 WBC 9.1 8.8 B-Natriuretic Peptide TSH 3rd Generation EKG Reviewed by me: Yes (Tele - SR) Hospitalist ROS - Medication Medications: Active Medications Generic Name Dose Route Start Last Admin Trade Name Freq PRN Reason Stop Dose Admin Acetaminophen 650 mg 06/16/19 20:58 06/22/19 07:58 Tylenol PO 650 mg Q4H PRN Administration Headache/Fever/Mild Pain (1-3) Al Hydroxide/Mg Hydroxide 30 ml 06/18/19 14:34 06/20/19 10:34 Maalox PO 30 ml Q6H PRN Administration Gas Pain Albuterol/Ipratropium 3 ml 06/18/19 14:30 06/22/19 16:16 Duoneb NEB Not Given [id number] LAURIE Aspirin 81 mg 06/13/19 09:00 06/22/19 05:10 Aspirin Chewable PO 81 mg DAILY LAURIE Administration Enoxaparin Sodium 40 mg 06/13/19 09:00 06/22/19 07:05 Lovenox SC Not Given 0900 [facility] Furosemide 40 mg 06/20/19 07:30 06/22/19 10:21 Lasix PO 40 mg DAILY-AC LAURIE Administration Insulin Human Lispro 0 units 06/12/19 23:18 06/20/19 12:17 Humalog SC 6 unit .AGGRESSIVE SLIDING PRN Administration Aggressive Correctional Scale Levofloxacin 500 mg 06/16/19 06:00 06/22/19 05:09 Levaquin PO 500 mg 0600 LAURIE Administration Mometasone Furoate/Formoterol Fumar 2 puff 06/18/19 18:30 06/22/19 07:12 Dulera 200 Mcg/5 Mcg Inhaler INH 2 puff BID-RT LAURIE Administration Prednisone 20 mg 06/20/19 21:00 06/22/19 05:10 Prednisone PO 20 mg BID LAURIE Administration Sodium Chloride 10 ml 06/17/19 21:00 06/22/19 07:04 Flush - Normal Saline IVF Not Given Q12HR LAURIE Sodium Chloride 10 ml 06/17/19 10:23 06/20/19 12:21 Flush - Normal Saline IVF 10 ml PRN PRN Administration Saline Flush Sterile Water 1 ml 06/13/19 00:30 06/13/19 05:26 Bacteriostatic Water FS 1 ml PRN PRN Administration RECONSTITUTION Tramadol HCl 100 mg 06/18/19 14:34 06/22/19 05:13 Ultram PO 100 mg Q8H PRN Administration SEVERE pain - Exam General Appearance: NAD, awake alert Eye: PERRL, anicteric sclera ENT: normocephalic atraumatic, no oropharyngeal lesions Neck: supple, symmetric, no JVD, no thyromegaly Heart: RRR, no murmur, no gallops, no rubs, normal peripheral pulses Respiratory: CTAB, no wheezes, no rales, no ronchi Gastrointestinal: soft, non-tender, non-distended, normal bowel sounds, no palpable masses Extremities: no cyanosis, no clubbing, no edema Skin: normal turgor, no lesions Neurological: cranial nerve grossly intact, no new deficit Musculoskeletal: normal tone, normal strength, no muscle wasting Psychiatric: normal affect, A&O x 3 Hosp A/P (1) Acute on chronic combined systolic (congestive) and diastolic (congestive) heart failure Code(s): I50.43 - ACUTE ON CHRONIC COMBINED SYSTOLIC AND DIASTOLIC HRT FAIL Status: Acute Plan: CAD noted on C with recommendations for med mgmt, Lasix 40mg po daily, Lisinopril 5mg BID (2) Acute respiratory failure Code(s): J96.00 - ACUTE RESPIRATORY FAILURE, UNSP W HYPOXIA OR HYPERCAPNIA Status: Acute Qualifiers: Respiratory failure complication: hypoxia Qualified Code(s): J96.01 - Acute respiratory failure with hypoxia Plan: Improved, continue O2 support (3) COPD exacerbation Code(s): J44.1 - CHRONIC OBSTRUCTIVE PULMONARY DISEASE W (ACUTE) EXACERBATION Status: Acute Plan: Improved, continue Prednisone, O2, Duonebs (4) Ischemic cardiomyopathy Code(s): I25.5 - ISCHEMIC CARDIOMYOPATHY Status: Chronic Plan: EF 30-35%, LifeVest application (5) CAD (coronary artery disease) Code(s): I25.10 - ATHSCL HEART DISEASE OF [place] CORONARY ARTERY W/O ANG PCTRS Status: Chronic Plan: Continue ASA/Coreg/Lipitor (6) Moderate to severe pulmonary hypertension Code(s): I27.20 - PULMONARY HYPERTENSION, UNSPECIFIED Status: Chronic Plan: No acute surgical intervention recommended - Plan PT/OT, clinical social worker, respiratory therapy, out of bed/ambulate, DVT proph w/ SCDs Stable currently Continue O2 prn LifeVest application OOB/ambulate Continue Lasix 40mg daily
[2019-06-22] MEDS: Carvedilol 3.125 MG TAB PO SCH (17:53)
[2019-06-22] MEDS: Lisinopril 5 MG TAB PO SCH (20:00)
[2019-06-22] MEDS: Atorvastatin Calcium 40 MG TAB PO SCH (20:01)
[2019-06-22] MEDS ORDERED: Lisinopril 2.5 MG TAB PO SCH (21:00)
[2019-06-23] MEDS: Mometasone/Formoterol 120 PUFF INHALER INH SCH ×2 (06:59→19:04)
[2019-06-23] MEDS: predniSONE 20 MG TAB PO SCH ×2 (08:02→21:04)
[2019-06-23] MEDS: Spironolactone 25 MG TAB PO SCH (08:03)
[2019-06-23] MEDS: Enoxaparin Sodium 40 MG/0.4 ML SYRINGE SC SCH (08:03)
[2019-06-23] MEDS: Aspirin Chewable 81 MG TAB PO SCH (08:03)
[2019-06-23] MEDS: Carvedilol 3.125 MG TAB PO SCH ×2 (08:03→17:13)
[2019-06-23] MEDS: Furosemide 40 MG TAB PO SCH (08:03)
[2019-06-23] MEDS: Lisinopril 5 MG TAB PO SCH ×2 (08:03→21:07)
[2019-06-23] MEDS: traMADol HCl 50 MG TAB PO PRN ×2 (08:44→21:05)
[2019-06-23] MEDS: Acetaminophen 325 MG TAB PO PRN (09:11)
--- NOTE | 2019-06-23 13:40 | PRG ---
DATE OF SERVICE: 06/23/2019 SUBJECTIVE: Mr. Soto is in no distress. OBJECTIVE: VITAL SIGNS: He is afebrile. Heart rate clear. HEART: Regular ABDOMEN: Soft. IMPRESSION: 1. Coronary artery disease and congestive heart failure. He tells me LifeVest. 2. Asthma, stable. PLAN: followup. Job ID: [id number]
--- NOTE | 2019-06-23 15:53 | PDOC.HOSPP ---
- Subjective Encounter Date: 06/23/19 Encounter Time: 15:30 Subjective: f/u for CAD med mgmt. Repeat Echo showing EF 40-45% and tele showed short-run NSVT. No complaints. - Objective Vital Signs & Weight: Vital Signs (12 hours) Temp Pulse Resp BP BP Pulse Ox 06/23/19 15:20 97.9 F 76 96 H 103/55 L 96 06/23/19 14:38 80 14 06/23/19 11:21 98.0 F 66 17 112/66 97 06/23/19 10:28 80 16 06/23/19 08:03 98 98 06/23/19 08:00 98 18 06/23/19 07:52 98.1 F 76 18 123/79 98 06/23/19 07:00 70 14 Weight Admit Weight 183 lb 10.321 oz Weight 179 lb 3.2 oz Most Recent Monitor Data Heart Rate from ECG 76 NIBP 114/66 NIBP BP-Mean 82 Respiration from ECG 17 SpO2 92 I&O: 06/22/19 06/23/19 06/24/19 06:59 06:59 06:59 Intake Total 2660 2300 1000 Output Total 500 2150 1350 Balance 2160 150 -350 Result Diagrams: 06/21/19 03:54 06/21/19 03:54 Additional Labs: Accuchecks 06/23/19 06/23/19 06/22/19 10:58 05:56 20:27 POC Glucose 101 141 H 105 06/22/19 16:41 POC Glucose 145 H Laboratory Tests 12/18/18 06/12/19 06/13/19 12:23 16:00 01:06 WBC B-Natriuretic Peptide 499.0 H 1181.7 H TSH 3rd Generation 0.6491 06/13/19 06/17/19 06/18/19 05:00 11:58 08:45 WBC 8.6 B-Natriuretic Peptide 580.7 H TSH 3rd Generation 0.6759 06/18/19 06/19/19 08:45 04:20 WBC 9.1 8.8 B-Natriuretic Peptide TSH 3rd Generation Radiology Reviewed by me: Yes (Echo - EF 40-45%) EKG Reviewed by me: Yes (Tele - SR) Hospitalist ROS - Medication Medications: Active Medications Generic Name Dose Route Start Last Admin Trade Name Freq PRN Reason Stop Dose Admin Acetaminophen 650 mg 06/16/19 20:58 06/23/19 09:11 Tylenol PO 650 mg Q4H PRN Administration Headache/Fever/Mild Pain (1-3) Al Hydroxide/Mg Hydroxide 30 ml 06/18/19 14:34 06/20/19 10:34 Maalox PO 30 ml Q6H PRN Administration Gas Pain Albuterol/Ipratropium 3 ml 06/18/19 14:30 06/23/19 14:38 Duoneb NEB 3 ml [id number] LAURIE Administration Aspirin 81 mg 06/13/19 09:00 06/23/19 08:03 Aspirin Chewable PO 81 mg DAILY LAURIE Administration Atorvastatin Calcium 40 mg 06/22/19 21:00 06/22/19 20:01 Lipitor PO 40 mg HS LAURIE Administration Carvedilol 3.125 mg 06/22/19 17:00 06/23/19 08:03 Coreg PO 3.125 mg BID-WM LAURIE Administration Enoxaparin Sodium 40 mg 06/13/19 09:00 06/23/19 08:03 Lovenox SC 40 mg 0900 LAURIE Administration Insulin Human Lispro 0 units 06/12/19 23:18 06/20/19 12:17 Humalog SC 6 unit .AGGRESSIVE SLIDING PRN Administration Aggressive Correctional Scale Levofloxacin 500 mg 06/16/19 06:00 06/23/19 06:29 Levaquin PO 500 mg 0600 LAURIE Administration Lisinopril 5 mg 06/22/19 21:00 06/23/19 08:03 Zestril PO 5 mg BID LAURIE Administration Mometasone Furoate/Formoterol Fumar 2 puff 06/18/19 18:30 06/23/19 06:59 Dulera 200 Mcg/5 Mcg Inhaler INH 2 puff BID-RT LAURIE Administration Prednisone 20 mg 06/20/19 21:00 06/23/19 08:02 Prednisone PO 20 mg BID LAURIE Administration Sodium Chloride 10 ml 06/17/19 21:00 06/23/19 08:03 Flush - Normal Saline IVF 10 ml Q12HR LAURIE Administration Sodium Chloride 10 ml 06/17/19 10:23 06/20/19 12:21 Flush - Normal Saline IVF 10 ml PRN PRN Administration Saline Flush Spironolactone 25 mg 06/23/19 08:00 06/23/19 08:03 Aldactone PO 25 mg QAM-WM LAURIE Administration Sterile Water 1 ml 06/13/19 00:30 06/13/19 05:26 Bacteriostatic Water FS 1 ml PRN PRN Administration RECONSTITUTION Tramadol HCl 100 mg 06/18/19 14:34 06/23/19 08:44 Ultram PO 100 mg Q8H PRN Administration SEVERE pain - Exam General Appearance: NAD, awake alert Eye: PERRL, anicteric sclera ENT: normocephalic atraumatic, no oropharyngeal lesions Neck: supple, symmetric, no JVD, no thyromegaly, no lymphadenopathy Heart: RRR, no gallops, no rubs, normal peripheral pulses Respiratory: CTAB, no wheezes, no rales, no ronchi, normal chest expansion Gastrointestinal: soft, non-tender, non-distended, normal bowel sounds Extremities: no cyanosis, no clubbing, no edema Skin: normal turgor, no lesions Neurological: cranial nerve grossly intact, no new deficit Musculoskeletal: normal tone, normal strength Psychiatric: normal affect, A&O x 3 Hosp A/P (1) Acute on chronic combined systolic (congestive) and diastolic (congestive) heart failure Code(s): I50.43 - ACUTE ON CHRONIC COMBINED SYSTOLIC AND DIASTOLIC HRT FAIL Status: Acute Plan: Stable currently, supportive mgmt, daily weight and I/O's (2) Acute respiratory failure Code(s): J96.00 - ACUTE RESPIRATORY FAILURE, UNSP W HYPOXIA OR HYPERCAPNIA Status: Acute Qualifiers: Respiratory failure complication: hypoxia Qualified Code(s): J96.01 - Acute respiratory failure with hypoxia Plan: Resolved, continue O2 supplementation, Prednisone (3) COPD exacerbation Code(s): J44.1 - CHRONIC OBSTRUCTIVE PULMONARY DISEASE W (ACUTE) EXACERBATION Status: Acute Plan: See above, stable currently (4) Ischemic cardiomyopathy Code(s): I25.5 - ISCHEMIC CARDIOMYOPATHY Status: Chronic Plan: EF 40-45%, continue Coreg, ASA, Lisinopril (5) CAD (coronary artery disease) Code(s): I25.10 - ATHSCL HEART DISEASE OF [place] CORONARY ARTERY W/O ANG PCTRS Status: Chronic Plan: Med mgmt (6) Moderate to severe pulmonary hypertension Code(s): I27.20 - PULMONARY HYPERTENSION, UNSPECIFIED Status: Chronic - Plan social insurance analyst, respiratory therapy, out of bed/ambulate, DVT proph w/SCDs Stable currently Continue O2 prn EP evaluation pending OOB/ambulate Continue Coreg/Lisinopril Likely home in 24h
[2019-06-23] MEDS: Atorvastatin Calcium 40 MG TAB PO SCH (21:05)
[2019-06-24] MEDS ORDERED: Mometasone/Formoterol 120 PUFF INHALER ONE (07:25)
[2019-06-24] MEDS: Mometasone/Formoterol 120 PUFF INHALER INH SCH (07:50)
[2019-06-24] MEDS: Carvedilol 3.125 MG TAB PO SCH ×3 (10:15→16:44)
[2019-06-24] MEDS: predniSONE 20 MG TAB PO SCH ×2 (10:15→12:55)
[2019-06-24] MEDS: Lisinopril 5 MG TAB PO SCH ×2 (10:15→12:55)
[2019-06-24] MEDS: Spironolactone 25 MG TAB PO SCH ×2 (10:15→12:54)
[2019-06-24] MEDS: Aspirin Chewable 81 MG TAB PO SCH ×2 (10:15→12:55)
[2019-06-24 12:56] VITALS: TEMP 98
[2019-06-24] MEDS: Enoxaparin Sodium 40 MG/0.4 ML SYRINGE SC SCH (14:02)
[2019-06-24 14:15] VITALS: BMI 24.3
[2019-06-24 16:44] VITALS: BP 118/69
[2019-06-24 19:14] LABS: BUN (Urea Nitrogen) 28 mg/dL (8.4-25.7); Calc. Creatinine Clearance 80 mL/min (70-130); Chloride 95 mmol/L (98-107); Estimated GFR-MDRD 88; Glucose 185 mg/dL (80-115); Potassium 4.7 mmol/L (3.5-5.1); Sodium 138 mmol/L (136-145)
--- NOTE | 2019-06-25 06:07 | DIS ---
DATE OF ADMISSION: 06/12/2019 DATE OF DISCHARGE: 06/24/2019 DISCHARGE DIAGNOSES: 1. Acute on chronic combined systolic and diastolic congestive heart failure with ejection fraction of 40% to 45%. 2. Acute hypoxic respiratory failure, multifactorial, resolved. 3. Acute chronic obstructive pulmonary disease exacerbation, improved. 4. Ischemic cardiomyopathy with ejection fraction of 40% to 45%. 5. Coronary artery disease, medical management. 6. Moderate to severe pulmonary hypertension. CONSULTATIONS: 1. Dr. Infante with Pulmonology Service. 2. Dr. You and Dr. Bella with Cardiology Service. 3. Electrophysiology Service. PERTINENT LABORATORY AND X-RAY FINDINGS: Carbon dioxide level ranged between 35 to 45. Ammonia level 71. BNP ranged between 581 to 1182. Troponin I 0.058. Vitamin B12 level 574, folate 11, TSH 0.68. CBC showed a white blood cell count ranging between 8.6 to 13.7, hemoglobin ranged between 11.[address] of the brain without contrast dated 06/12/2019, showed no acute intracranial process. Left heart catheterization dated 06/12/2019, showed 100% stenosis of the mid circumflex and 20% stenosis of the proximal RCA. Estimated ejection fraction of 30%. 2D transthoracic echocardiogram dated 06/13/2019 showed ejection fraction of 40% to 45% with grade 2/3 diastolic dysfunction. Repeat 2D transthoracic echocardiogram dated 06/23/2019, showed ejection fraction of 40% to 45%. Diastolic dysfunction noted. Moderate to severe tricuspid regurgitation. HOSPITAL COURSE: The patient was initially admitted after presenting with increasing shortness of breath and respiratory failure in the context of chronic obstructive pulmonary disease exacerbation in conjunction with acute on chronic congestive heart failure exacerbation. The patient was placed on mechanical ventilation and admitted to the Critical Care Unit. The patient was monitored by the Pulmonology Critical Care Service remaining on mechanical ventilation for approximately 1 week. The patient was successfully extubated transitioning to the telemetry floor. The patient underwent extensive evaluation during the hospital course including cardiac evaluation with left heart catheterization, showing evidence of 100% occlusion of the circumflex with recommendations for aggressive medical therapy. The patient was also noted with depressed ejection fraction in the 40% to 45% range and placed on JOHN inhibitor and Coreg. Due to discrepancy in the overall ejection fraction, the patient was evaluated by the Electrophysiology Service after patient experienced a short run of ventricular tachycardia. Current recommendations per Electrophysiology Service are for aggressive medical management and monitor clinically on an outpatient basis. Overall, the patient has remained clinically stable during the hospital course, tolerating regular oral intake and ambulating without assistance or difficulty. I have examined the patient at the time of discharge and discussed followup instructions. The patient verbalized understanding and agreement, ready for discharge 06/24/2019. DISCHARGE MEDICATIONS: 1. ProAir Respiclick 90 mcg inhaled daily p.r.n. 2. Advair Diskus 250/50 one inhalation b.i.d. 3. Lasix 40 mg p.o. daily. 4. Combivent Respimat one puff inhaled q.i.d. p.r.n. 5. Aspirin 81 mg p.o. daily. 6. Lipitor 40 mg p.o. at bedtime. 7. Coreg 3.125 mg p.o. b.i.d. 8. Zestril 5 mg p.o. b.i.d. 9. Prednisone 20 mg p.o. daily x3 days, followed by half a tablet p.o. daily x5 days. 10. Tramadol 50 mg p.o. q.6 hours p.r.n. pain. FOLLOWUP: The patient will follow up with his primary care provider, Dr. Lacey on 06/26/2019, at 11:15 a.m. The patient will follow up with Dr. Dirk Jones and to call his office for appointment time and date. The patient will follow up with cardiac rehabilitation at [place] on 06/30/2019 at 2 p.m. CONDITION ON DISCHARGE: Stable. ACTIVITY: Ad-massiel. DIET: Heart healthy. CODE STATUS: Full. DISPOSITION: To home, 06/24/2019. TIME SPENT: Total time preparing and coordinating discharge, 32 minutes. Job ID: [id number]
--- NOTE | 2019-06-25 08:08 | CON ---
DATE OF CONSULTATION: REQUESTING PHYSICIAN: Dr. Jones. REASON FOR REQUEST: Nonsustained ventricular tachycardia. HISTORY OF PRESENT ILLNESS: Mr. Soto is a 69-year-old gentleman with a history of coronary artery disease, COPD, and hypertension, admitted to the hospital with respiratory distress. He underwent a cardiac catheterization, and during that received no particular intervention. On monitoring, he has been noted to have episodes of nonsustained ventricular tachycardia. He reports that he does not have any significant palpitations. He has had no episodes of syncope. PAST MEDICAL HISTORY: Significant for; 1. Coronary artery disease. 2. Pulmonary arterial hypertension. 3. COPD, on chronic O2. 4. History of cocaine abuse. 5. Combined systolic and diastolic congestive heart failure. MEDICATIONS: Include; 1. Losartan. 2. Lasix. 3. Tramadol. 4. Combivent inhaler. ALLERGIES: HE HAS NO ALLERGIES. FAMILY HISTORY: No early coronary artery disease or sudden cardiac . SOCIAL HISTORY: He drinks socially. He has used marijuana and cocaine in the past. REVIEW OF SYSTEMS: Reviewed. He denies nausea, vomiting, diarrhea, fever, chills, change in vision or hearing. All others were negative other than included in the HPI. PHYSICAL EXAMINATION: VITAL SIGNS: He is afebrile, pulse is 76, and blood pressure is 136/75. HEENT: Pupils are equal, round, and reactive to light and accommodation. Extraocular movements are intact. Nose has midline septums. No rhinorrhea or epistaxis. Throat is moist without erythema or exudate. NECK: Supple without lymphadenopathy or goiter. JVD at 12 cm at 50 degrees. HEART: Regular rate and rhythm without murmur, gallop, or rub. LUNGS: End-expiratory wheezes bilaterally. ABDOMEN: Soft, nontender, nondistended. Present bowel sounds. EXTREMITIES: Without cyanosis, clubbing, or edema. NEUROLOGIC: Cranial nerves 2 through 12 are grossly intact. Motor strength 5/5 throughout. DIAGNOSTIC STUDIES: Electrocardiogram, sinus rhythm with possible old inferior infarct. Cardiac catheterization revealed occluded circumflex. Previous echocardiogram revealed estimated ejection fraction of 40%. Telemetry reveals only a single episode of nonsustained ventricular tachycardia available in the chart. IMPRESSION: 1. Nonsustained ventricular tachycardia. 2. Coronary artery disease. 3. Chronic obstructive pulmonary disease. RECOMMENDATIONS: Mr. Soto has nonsustained ventricular tachycardia, estimated ejection fraction of 40% on the echo. I recommend he undergo optimization medical therapy including beta-sofia and JOHN inhibitor. He should also have his echocardiogram repeated after 3 months. If he ever has a reduction of ejection fraction to 30%, consideration can be given for ICD. Job ID: [id number]
== END 2019-06-24 17:40 | disposition home or self-care (01) | DRG 208 ==
LOC: ERS 18:42 → CCU 20:38 → 2SE 06-15 16:14 → 2NO 06-15 21:05 → IMCU/EMU 06-18 13:18 → 2NO 06-20 08:42
PROVIDERS: ADMIT Internal Medicine; ATTEND Internal Medicine
PROC: 05H533Z Insertion of Infusion Device into Right Subclavian Vein, Percutaneous Approach (ICD-10-PCS; principal; 2019-06-12)
PROC: 5A1945Z Respiratory Ventilation, 24-96 Consecutive Hours (ICD-10-PCS; 2019-06-12)
PROC: 0BH17EZ Insertion of Endotracheal Airway into Trachea, Via Natural or Artificial Opening (ICD-10-PCS; 2019-06-12)
PROC: 4A023N8 Measurement of Cardiac Sampling and Pressure, Bilateral, Percutaneous Approach (ICD-10-PCS; 2019-06-22)
PROC: B2111ZZ Fluoroscopy of Multiple Coronary Arteries using Low Osmolar Contrast (ICD-10-PCS; 2019-06-22)
PROC: B2151ZZ Fluoroscopy of Left Heart using Low Osmolar Contrast (ICD-10-PCS; 2019-06-22)
DX: J44.1 Chronic obstructive pulmonary disease with (acute) exacerbation (principal); J96.01 Acute respiratory failure with hypoxia; J96.02 Acute respiratory failure with hypercapnia; I50.43 Acute on chronic combined systolic (congestive) and diastolic (congestive) heart failure; I47.2 Ventricular tachycardia; I11.0 Hypertensive heart disease with heart failure; Z79.899 Other long term (current) drug therapy; I34.0 Nonrheumatic mitral (valve) insufficiency; F14.10 Cocaine abuse, uncomplicated; F12.10 Cannabis abuse, uncomplicated; Z87.891 Personal history of nicotine dependence; E83.39 Other disorders of phosphorus metabolism; I25.10 Atherosclerotic heart disease of native coronary artery without angina pectoris; I27.20 Pulmonary hypertension, unspecified; I25.5 Ischemic cardiomyopathy
CPT/HCPCS: 31500; 36415; 36416; 36556; 51702; 70450; 71045; 80048; 80053; 80069; 82140; 82607; 82746; 82805; 83735; 83880; 84100; 84443; 84484; 85025; 85060; 90471; 90670; 93005; 93306; 93460; 93798; 93970; 94003; 94640; 94760; 96361; 96365; 96366; 96368; 96374; 96375; 99152; 99292; C1769; G0009; J0171; J0696; J1644; J1650; J1940; J2001; J2060; J2250; J2704; J2720; J2920; J3010; J3475; J3490; J7512; J7620; Q9967; S0028

== ENCOUNTER 2019-08-05 18:26 | Inpatient (IN) | payer MEDICARE, MEDICAID ==
[2019-08-05 18:32] VITALS: BMI 25.8
[2019-08-05 19:31] LABS: Troponin I Less than 0.010 ng/mL (< 0.028)
[2019-08-05] MEDS ORDERED: Non-Formulary Item 1 EACH (Ipratropium/Albuterol Sulfate [Combivent Respimat] 1 PUFF) INH PRN (21:04)
[2019-08-05] MEDS ORDERED: Carvedilol 3.125 MG TAB PO SCH (21:15)
[2019-08-05] MEDS ORDERED: Lisinopril 5 MG TAB PO SCH (21:15)
[2019-08-05] MEDS: traMADol HCl 50 MG TAB PO PRN (21:19)
--- NOTE | 2019-08-05 21:19 | PDOC.HHP ---
Hospitalist HPI - History of Present Illness Lower extremity swelling History of Present Illness: 69/M PMH CHF, COPD (home oxygen), CAD, HTN presents for lower extremity swelling x 3-4 days. Reports feeling chills today, denies any fever. Reports chronic cough, productive at times, clear phlegm, Denies any increased SOB, TERRELL , chest pain, heart palpitations, orthopnea or PND. He was discharged from this hospital on 06/24/2019 for acute respiratory failure and COPD and CHF exacerbation, he was intubated, echocardiogram EF 40-45%, Cardiac Cath showed L CX 100% occlusion, and EP consulted for episode of Vtach. Recommendations for aggressive medical therapy, with BB and JOHN-I. Reports compliant with medications since discharge. Reports he ran out of his medications for BP today, but was able to take his morning doses. ED Course: VS BP 147/80, HR 82, RR 24, 93% RA, placed on 3L NC spO2 99-100% BNP 902 Trop negative x 2 Na 144, K 3.8, BUN 17, Creatinine 1.06 WBC 8, Hgb 11.7, Hct 40.6, Plat 253 LA 0.9 EKG NSR, PACs CXR unremarkable Given Lasix 40mg IVP Nitropaste 1" ASA 324mg Hospitalist ROS - Review of Systems Constitutional: reports: chills Respiratory: reports: cough, sputum Cardiovascular: reports: edema All other systems reviewed; all pertinent +/- noted in HPI/Subj - Medication Medications: Active Medications Generic Name Dose Route Start Last Admin Trade Name Freq PRN Reason Stop Dose Admin Albuterol/Ipratropium 3 ml 08/05/19 19:20 08/05/19 20:12 Duoneb NEB 3 ml Q2H PRN Administration SOB &/or Wheezing Hospitalist History - Past Medical History Source: patient Cardiac: reports: CAD, CHF, HTN, Hyperlipidemia Pulmonary: reports: COPD (home oxygen) Heme/Onc: reports: no pertinent history Psych: reports: Addictions (marijuana) - Past Surgical History Past Surgical History: reports: Hernia Repair, Tonsillectomy, Other (Cardiac cath 07/09) - Family History Family History: reports: cardiac disorder (atrial fibrillation and CAD) - Social History Smoking Status: Former smoker (quit 10-15 years ago) Alcohol: reports: None Drugs: reports: marijuana (daily) Living Situation: Alone Domestic Violence: Negative 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 Activity level: independent ambulation - Exam General Appearance: NAD Eye: PERRL ENT: normocephalic atraumatic Neck: supple, no JVD, no thyromegaly Heart: RRR, no murmur, no gallops, no rubs, normal peripheral pulses Respiratory: no rales, rhonchi, wheezes Gastrointestinal: soft, non-tender, non-distended, normal bowel sounds, no guarding, no rigidity Extremities - other findings: non pitting BLE edema, taught Skin: no lesions, no rashes Neurological: cranial nerve grossly intact, no focal deficits Musculoskeletal: normal tone, normal strength Psychiatric: normal affect, A&O x 3 Hospitalist Results - Labs Lab results: Troponin I Less than 0.010 ng/mL (< 0.028) 08/05/19 19:01 - EKG Interpretation EKG: NSR PACs - Radiology Interpretation Chest x-ray Status: report reviewed by wi Hospitalist H&P A/P - Problem (1) Bilateral leg edema Code(s): R60.0 - LOCALIZED EDEMA Status: Acute (2) Acute on chronic combined systolic (congestive) and diastolic (congestive) heart failure Code(s): I50.43 - ACUTE ON CHRONIC COMBINED SYSTOLIC AND DIASTOLIC HRT FAIL Status: Acute (3) CAD (coronary artery disease) Code(s): I25.10 - ATHSCL HEART DISEASE OF [place] CORONARY ARTERY W/O ANG PCTRS Status: Chronic (4) HTN (hypertension) Code(s): I10 - ESSENTIAL (PRIMARY) HYPERTENSION Status: Chronic Qualifiers: Hypertension type: essential hypertension Qualified Code(s): I10 - Essential (primary) hypertension (5) Marijuana abuse Code(s): F12.10 - CANNABIS ABUSE, UNCOMPLICATED Status: Acute - Plan Plan: Patient reports significant improvement of symptoms after IV lasix youth nutritional monitor continue IV lasix Nebs prn Supplemental oxygen NC trend troponins Daily weights. Restart home medications Consult HF disease management. Consult walking program DVT prophylaxis Check labs in AM Full Code
[2019-08-05] MEDS ORDERED: PROVENTIL INHALER 6.7 G (200 INHALATIONS) INH PRN (21:30)
[2019-08-05] MEDS ORDERED: traMADol HCl 50 MG TAB PO SCH (21:30)
[2019-08-05 23:28] LABS: Troponin I 0.032 ng/mL (< 0.028)
[2019-08-06 05:34] LABS: Anion Gap 14 mmol/L (10-20); BUN (Urea Nitrogen) 15 mg/dL (8.4-25.7); Calc. Creatinine Clearance 84 mL/min (70-130); Calcium 8.5 mg/dL (7.8-10.44); Carbon Dioxide 32 mmol/L (23-31); Chloride 99 mmol/L (98-107); Estimated GFR-MDRD 82; Glucose 144 mg/dL (80-115); Potassium 4.7 mmol/L (3.5-5.1); Sodium 140 mmol/L (136-145)
[2019-08-06 05:57] LABS: Hemoglobin 11.9 g/dL (14.0-18.0); Lymphocytes 23 % (21-51); MDiff Complete? YES; Mean Corpuscular HGB CONC 30.4 g/dL (32.0-36.0); Mean Platelet Volume 7.5 fL (7.4-10.4); Monocytes 13 % (0-10); Neutrophil 64 % (42-75); Platelet Count 295 thou/uL (130-400); Platelet Morphology Comment Appears Adequate; RBC Distribution Width 14.7 % (11.5-14.5); Red Blood Cell (RBC) Count 3.49 mill/uL (4.70-6.10); White Blood Cell (WBC) Count 8.6 thou/uL (4.8-10.8)
[2019-08-06] MEDS ORDERED: Furosemide 20 MG/2 ML VIAL SLOW IVP SCH ×2 (06:00→10:30)
[2019-08-06] MEDS ORDERED: Mometasone/Formoterol 120 PUFF INHALER INH SCH (06:30)
[2019-08-06] MEDS ORDERED: FLU VACC TS2019-20(65YR UP)/PF 180 MCG/0.5 ML SYRINGE IM ONE (09:00)
[2019-08-06] MEDS: Aspirin Chewable 81 MG TAB PO SCH (09:03)
[2019-08-06] MEDS: Lisinopril 5 MG TAB PO SCH ×2 (09:03→20:56)
[2019-08-06] MEDS: Carvedilol 3.125 MG TAB PO SCH ×2 (09:04→17:27)
[2019-08-06] MEDS: Enoxaparin Sodium 40 MG/0.4 ML SYRINGE SC SCH (09:04)
[2019-08-06 09:23] LABS: Actual Bicarbonate (HCO3a) 40.7 mEq/L (22-28); Analyzer IN Cardio OR; Base Excess (BEa) 11.5 mEq/L (-2.0 to +3.0); Calcium, Ionized 1.13 mmol/L (1.12-1.30); Carboxyhemoglobin (COHb) 1.6 gm% (0.0-3.0); Hemoglobin (Hb) 11.8 g/dL (14.0-18.0); O2 Tension (PaO2) 72.6 mmHg (> 80.0); Potassium - ABG Lab 3.59 mmol/L (3.70-5.30); pH, Arterial 7.31 (7.35-7.45)
[2019-08-06 09:52] LABS: CO2 Tension 81.9 mmHg (35.0-45.0)
[2019-08-06 09:53] LABS: Puncture Site LR
--- NOTE | 2019-08-06 10:15 | RAD ---
CHEST ONE VIEW: INDICATIONS: History of shortness of breath. COMPARISON: Prior exam dated 08/05/2019. FINDINGS: The patient is rotated, limiting the exam. There is moderate cardiomegaly and moderate pulmonary vasc ular congestion, which is stable. There is worsening air space opacity within the right infrahilar re gion, which may reflect developing pneumonia or edema. Recommend correlation. No billy pleural effusi on is evident. Calcified granuloma of the right upper lobe is stable appearing. IMPRESSION: Cardiomegaly with mild pulmonary vascular congestion persists. There is new right infrahilar air spac e opacity, which may reflect air space edema or pneumonia. Recommend correlation. Radiographic follow up to resolution is recommended. POS: TPC
--- NOTE | 2019-08-06 11:15 | CON ---
DATE OF CONSULTATION: 08/06/2019 REASON FOR CONSULTATION: Congestive heart failure and COPD. HISTORY OF PRESENT ILLNESS: Mr. Soto is a delightful 69-year-old gentleman, a patient of Dr. Rick Jones. The patient has a history of COPD and congestive heart failure. He underwent cardiac catheterization on 06/12/2019, found to have single-vessel disease with a mid occlusion of the circumflex, otherwise no obstructive stenosis. The ejection fraction was found to be 45% during that admission. The patient was admitted to the hospital this occasion with progressive trouble breathing and he was moved to the intermediate care unit due to decompensation of his pulmonary status and increasing pCO2. The patient is receiving inhaled bronchodilators, doing somewhat better now. MEDICATIONS AT HOME: 1. Furosemide 40 mg a day. 2. Carvedilol 3.125 mg twice a day. 3. Lisinopril 5 mg a day. 4. Atorvastatin 40 mg a day. 5. Aspirin 81 mg a day. REVIEW OF SYSTEMS: Really unable to give a full review of systems as he is very short of breath, receiving breathing treatments. ALLERGIES: NONE KNOWN. FAMILY HISTORY: Noncontributory. Negative for heart disease at a young age. PHYSICAL EXAMINATION: GENERAL: This is a pleasant 69-year-old gentleman, feeling somewhat better. VITAL SIGNS: Blood pressure 145/86 and pulse 84 and regular. LUNGS: Expiratory wheezing, some few rhonchi. No rales. CARDIAC: Normal S1 and normal S2. Hard to hear heart sounds. ABDOMEN: Soft and nontender. EXTREMITIES: 1 to 2+ edema, looks chronic. PERTINENT LABORATORY DATA: Hemoglobin is 11.9. Creatinine is 1.08. Chest x-ray shows mild cardiomegaly. BNP was 902.9. ASSESSMENT: 1. Difficulty breathing with combination of congestive heart failure and chronic obstructive pulmonary disease. 2. Congestive heart failure, systolic and diastolic mixed. 3. Mildly volume overloaded. 4. Chronic obstructive pulmonary disease. 5. Metabolic alkalosis, actually had a pCO2 of 81.9. PLAN: 1. Received a dose of Diamox. 2. We will hold off on Lasix the rest of the day, I just give him q.a.m. Lasix. 3. Check back to the patient later today. 4. Dr. Preciado to see him from a pulmonary standpoint. Job ID: [id number]
[2019-08-06] MEDS: methylPREDNISolone Sod Succ/PF 125 MG/2 ML VIAL IVP SCH ×2 (11:21→17:27)
[2019-08-06 14:04] LABS: Medtox Reader # READER 4; THC/Cannabinoid Screen Detected (NotDetected)
[2019-08-06 14:05] LABS: Amphetamine Not Detected (NotDetected); Barbiturates Screen Not Detected (NotDetected); Benzodiazepine Screen Not Detected (NotDetected); Cocaine Metabolite Screen Not Detected (NotDetected); Medtox Control Line Valid? VALID (VALID); Methadone Not Detected (NotDetected); Methamphetamine Not Detected (NotDetected); Opiate Screen Not Detected (NotDetected); Oxycodone Screen Not Detected (NotDetected); Phencyclidine (PCP) Not Detected (NotDetected); Tricyclic Screen Not Detected (NotDetected)
[2019-08-06] MEDS ORDERED: ALPRAZolam 0.25 MG TAB SL PRN (15:47)
--- NOTE | 2019-08-06 16:34 | CON ---
DATE OF CONSULTATION: HISTORY OF PRESENT ILLNESS: Rei Soto is a 69-year-old gentleman, who has been in this hospital several times with respiratory failure. He presents with lower extremity swelling to [place] on 08/05. Saturations are 90% on room air. His blood pressure 147/80, temperature 97, and respiratory rate 24. He became somnolent today and apparently was transferred to the MICU. On arrival, he was awake, alert, and responsive. He said he apparently ran off his medication. He wears O2 at home. Former smoker as outlined in his previous chart. Denies any chest pain, chills, or sweats. On a good day, he can barely walk 50 feet without getting markedly short of breath. PAST MEDICAL HISTORY: Diastolic dysfunction, right-sided failure, lower extremity swelling, and pulmonary hypertension. SOCIAL HISTORY: Former smoker, pack a day, quit 5 years ago. Uses marijuana from time to time. PAST SURGICAL HISTORY: Previous surgeries, previous catheterization. Surgeries , none recently. HOME MEDICATIONS: Includes; 1. Tramadol. 2. Lisinopril 5 twice a day. 3. DuoNeb. 4. Lasix 40. 5. Advair. 6. Coreg 3.125. 7. Lipitor. 8. Aspirin. ALLERGIES: NONE. REVIEW OF SYSTEMS: Ten-point negative. PHYSICAL EXAMINATION: GENERAL: Awake, alert, and responsive in the MICU. VITAL SIGNS: Temperature 98, pulse 80, respiratory rate 18, saturations are 100 % on 1 L, and blood pressure 140/85. Trace edema. CHEST: Decreased breath sounds. No wheezing. CARDIAC: Normal S1 and S2. No gallops. ABDOMEN: No masses. LABORATORY DATA: White count 8000, H and H 11 and 34, and platelet count 295. A pO2 of 72, pCO2 of 81, and pH 7.31 on 2 L. His bicarb was 32. Troponin was normal and BNP 902. ASSESSMENT: 1. Diastolic dysfunction, right-sided failure. 2. Tobacco abuse, chronic obstructive pulmonary disease. 3. encephalopathy_. PLAN: I agree with present treatment. Avoid antianxiety medication. Started steroids, neb treatment, and Diamox. We will follow. Consultation note of 70 minutes, 50% in direct patient care. Job ID: [id number] [facility]
[2019-08-06] MEDS: Mometasone/Formoterol 120 PUFF INHALER INH SCH (18:56)
[2019-08-06] MEDS: Atorvastatin Calcium 40 MG TAB PO SCH (20:55)
[2019-08-06] MEDS: traMADol HCl 50 MG TAB PO PRN ×2 (21:09→21:44)
[2019-08-07] MEDS: methylPREDNISolone Sod Succ/PF 125 MG/2 ML VIAL IVP SCH ×2 (00:58→06:42)
[2019-08-07 04:18] LABS: BUN (Urea Nitrogen) 16 mg/dL (8.4-25.7); Calc. Creatinine Clearance 96 mL/min (70-130); Calcium 8.5 mg/dL (7.8-10.44); Estimated GFR-MDRD Greater than 90; Glucose 167 mg/dL (80-115)
[2019-08-07 04:28] LABS: Anion Gap 12 mmol/L (10-20); Carbon Dioxide 37 mmol/L (23-31); Chloride 97 mmol/L (98-107); Potassium 4.4 mmol/L (3.5-5.1); Sodium 142 mmol/L (136-145)
[2019-08-07] MEDS ORDERED: PROVENTIL INHALER 6.7 G (200 INHALATIONS) INH PRN (07:00)
[2019-08-07] MEDS: Mometasone/Formoterol 120 PUFF INHALER INH SCH ×2 (07:03→19:10)
[2019-08-07] MEDS: Carvedilol 3.125 MG TAB PO SCH (08:34)
[2019-08-07] MEDS: Aspirin Chewable 81 MG TAB PO SCH (08:34)
[2019-08-07] MEDS: Lisinopril 5 MG TAB PO SCH ×2 (08:35→21:24)
[2019-08-07] MEDS: Enoxaparin Sodium 40 MG/0.4 ML SYRINGE SC SCH (08:36)
[2019-08-07] MEDS ORDERED: Furosemide 20 MG/2 ML VIAL SLOW IVP SCH (09:00)
[2019-08-07] MEDS ORDERED: methylPREDNISolone Sod Succ/PF 125 MG/2 ML VIAL IVP SCH (09:00)
[2019-08-07] MEDS ORDERED: acetaZOLAMIDE Sodium 500 MG in Sodium Chloride 0.9% 50 ML IVPB SCH (09:00)
--- NOTE | 2019-08-07 09:09 | PRG ---
DATE OF SERVICE: 08/07/2019 SUBJECTIVE: Rei Soto is a 69-year-old gentleman. This morning, he is much more awake and responsive. OBJECTIVE: VITAL SIGNS: Temperature 98.7, pulse 76, blood pressure 138/79, respiratory rate 22, saturations 91% on 1 L. GENERAL: He tried the high-flow last night. He refused to wear nasal or the facial CPAP/BiPAP mask. CHEST: Decreased breath sounds. No wheezing. CARDIAC: Normal S1, S2. No gallops. ABDOMEN: No masses. LABORATORY DATA: His bicarb on his chemistry profile is 37. I still think is due to volume contraction. ASSESSMENT: 1. Chronic obstructive pulmonary disease. 2. Hypoventilation. 3. Metabolic alkalosis. 4. Diastolic dysfunction. PLAN: His Diamox was discontinued. He is started on Lasix by Cardiology. Pulmonary will follow. He may still require intubation and vent supportive, if his condition is not improved. Long-term prognosis is guarded. Job ID: [id number]
[2019-08-07] MEDS ORDERED: Bacteriostatic Water 30 ML VIAL FS PRN (09:17)
--- NOTE | 2019-08-07 09:27 | PDOC.HOSPP ---
- Subjective Encounter Date: 08/06/19 Encounter Time: 09:00 Subjective: Patient seen and examined for SOB. Somnolent with resp distress. No new complaints. No overnight events - Objective Vital Signs & Weight: Vital Signs (12 hours) Temp Pulse Resp BP Pulse Ox 08/07/19 08:35 86 138/79 08/07/19 07:21 97 F L 08/07/19 07:05 92 L 08/07/19 07:04 86 22 H 08/07/19 04:00 98.4 F 08/07/19 03:19 94 L 08/07/19 03:15 94 L 08/07/19 00:00 98.6 F 08/06/19 22:36 92 L Weight Weight 199 lb 6.4 oz Most Recent Monitor Data Heart Rate from ECG 75 NIBP 148/80 NIBP BP-Mean 102 Respiration from ECG 13 SpO2 99 I&O: 08/06/19 08/07/19 08/08/19 06:59 06:59 06:59 Intake Total 493 1000 640 Output Total 1220 650 500 Balance -727 350 140 Result Diagrams: 08/06/19 05:39 08/07/19 03:28 Additional Labs: Laboratory Tests 08/05/19 08/06/19 22:50 09:15 Bicarbonate Actual 40.7 H ABG pH 7.31 L ABG pCO2 81.9 H* ABG O2 Sat Calc/Lissette 93.4 L Troponin I 0.032 H Radiology Reviewed by me: Yes (CXR - CHF) EKG Reviewed by me: Yes (Tele SR) Hospitalist ROS - Review of Systems ROS unobtainable: due to mental status - Medication Medications: Active Medications Generic Name Dose Route Start Last Admin Trade Name Freq PRN Reason Stop Dose Admin Albuterol/Ipratropium 3 ml 08/05/19 19:20 08/05/19 20:12 Duoneb NEB 3 ml Q2H PRN Administration SOB &/or Wheezing Albuterol/Ipratropium 3 ml 08/07/19 07:00 08/07/19 07:04 Duoneb NEB 3 ml [id number] LAURIE Administration Aspirin 81 mg 08/06/19 09:00 08/07/19 08:34 Aspirin Chewable PO 81 mg DAILY LAURIE Administration Atorvastatin Calcium 40 mg 08/06/19 21:00 08/06/19 20:55 Lipitor PO 40 mg HS LAURIE Administration Carvedilol 3.125 mg 08/06/19 08:00 08/07/19 08:34 Coreg PO 3.125 mg BID-WM LAURIE Administration Enoxaparin Sodium 40 mg 08/06/19 09:00 08/07/19 08:36 Lovenox SC Not Given 0900 LAURIE Furosemide 20 mg 08/07/19 09:00 08/07/19 08:34 Lasix SLOW IVP 20 mg DAILY LAURIE Administration Acetazolamide Sodium 500 mg/ 50 mls @ 100 mls/hr 08/07/19 09:00 08/07/19 08: 38 Sodium Chloride IVPB 08/07/19 12:00 50 mls DAILY LAURIE Administration Lisinopril 5 mg 08/06/19 09:00 08/07/19 08:35 Zestril PO 5 mg BID LAURIE Administration Mometasone Furoate/Formoterol Fumar 2 puff 08/06/19 18:30 08/07/19 07:03 Dulera 200 Mcg/5 Mcg Inhaler INH 2 puff BID-RT LAURIE Administration Sodium Chloride 10 ml 08/05/19 20:49 08/07/19 08:35 Flush - Normal Saline IVF 10 ml Q12HR PRN Administration Saline Flush Tramadol HCl 50 mg 08/05/19 21:04 08/05/19 21:19 Ultram PO 50 mg Q6H PRN Administration Moderate Pain (4-6) Tramadol HCl 100 mg 08/06/19 21:19 08/06/19 21:44 Ultram PO 100 mg HSPRN PRN Administration Pain - Exam General Appearance: NAD Heart: RRR, no gallops, no rubs, normal peripheral pulses Respiratory: no rales, normal chest expansion, rhonchi, wheezes Gastrointestinal: soft, non-tender, non-distended, normal bowel sounds Neurological: no new deficit Psychiatric: somnolent Psychiatric - other findings: Psych/Neuro - Cannot assess due to current mentation Hosp A/P - Plan DVT proph w/SCDs Acute on chronic hypoxic/hypercapneic resp failure (POA) Acute on chronic systolic/diastolic HF exacerbation COPD exacerbation (POA) CAD Type 2 RI (POA) - resolved Cannabuse abuse h/o Cocaine abuse (positive in 12/07) PLAN: Transfer to [facility] for NIPPV Cont IV Diuretics Cont Nebs Pulm/Cardio consult AM labs Cont other meds Check drug screen Change to inpt
[2019-08-07] MEDS ORDERED: Furosemide 40 MG/4 ML VIAL SLOW IVP SCH (10:15)
[2019-08-07] MEDS: methylPREDNISolone Sod Succ 40 MG VIAL IVP SCH (17:24)
[2019-08-07] MEDS: traMADol HCl 50 MG TAB PO PRN (17:35)
--- NOTE | 2019-08-07 17:44 | PDOC.HOSPP ---
- Subjective Encounter Date: 08/07/19 Encounter Time: 17:00 Subjective: Patient seen and examined for Resp failure. Refusing NIPPV. SOB improving. Mild dry cough. No other complaints. No overnight events - Objective Vital Signs & Weight: Vital Signs (12 hours) Temp Pulse Resp BP Pulse Ox 08/07/19 16:00 97.6 F 87 14 08/07/19 15:00 87 16 90 L 08/07/19 14:26 96 14 08/07/19 14:00 90 15 08/07/19 13:00 89 14 08/07/19 12:00 97.6 F 90 14 08/07/19 10:40 92 18 08/07/19 10:14 93 15 08/07/19 08:35 86 138/79 08/07/19 08:00 90 L 08/07/19 07:21 97 F L 08/07/19 07:05 92 L 08/07/19 07:04 86 22 H Weight Weight 199 lb 6.4 oz Most Recent Monitor Data Heart Rate from ECG 89 NIBP 141/79 NIBP BP-Mean 99 Respiration from ECG 0 SpO2 90 I&O: 08/06/19 08/07/19 08/08/19 06:59 06:59 06:59 Intake Total 493 1000 640 Output Total 1220 650 500 Balance -727 350 140 Result Diagrams: 08/06/19 05:39 08/07/19 03:28 Additional Labs: Laboratory Tests 08/06/19 13:35 U Cannabinoids Screen Detected H EKG Reviewed by me: Yes (Tele SR) Hospitalist ROS - Review of Systems Constitutional: denies: fever, chills, sweats, weakness, malaise, other Gastrointestinal: denies: nausea, vomiting, abdominal pain, diarrhea, constipation, melena, hematochezia, other - Medication Medications: Active Medications Generic Name Dose Route Start Last Admin Trade Name Freq PRN Reason Stop Dose Admin Albuterol/Ipratropium 3 ml 08/05/19 19:20 08/05/19 20:12 Duoneb NEB 3 ml Q2H PRN Administration SOB &/or Wheezing Albuterol/Ipratropium 3 ml 08/07/19 07:00 08/07/19 14:26 Duoneb NEB 3 ml [id number] LAURIE Administration Aspirin 81 mg 08/06/19 09:00 08/07/19 08:34 Aspirin Chewable PO 81 mg DAILY LAURIE Administration Atorvastatin Calcium 40 mg 08/06/19 21:00 08/06/19 20:55 Lipitor PO 40 mg HS LAURIE Administration Enoxaparin Sodium 40 mg 08/06/19 09:00 08/07/19 08:36 Lovenox SC Not Given 0900 LAURIE Methylprednisolone Sodium Succinate 40 mg 08/07/19 18:00 08/07/19 17:24 Solu-Medrol IVP 40 mg 0600,1800 LAURIE Administration Mometasone Furoate/Formoterol Fumar 2 puff 08/06/19 18:30 08/07/19 07:03 Dulera 200 Mcg/5 Mcg Inhaler INH 2 puff BID-RT LAURIE Administration Sodium Chloride 10 ml 08/05/19 20:49 08/07/19 08:35 Flush - Normal Saline IVF 10 ml Q12HR PRN Administration Saline Flush Tramadol HCl 50 mg 08/05/19 21:04 08/05/19 21:19 Ultram PO 50 mg Q6H PRN Administration Moderate Pain (4-6) Tramadol HCl 100 mg 08/06/19 21:19 08/07/19 17:35 Ultram PO 100 mg HSPRN PRN Administration Pain - Exam General Appearance: NAD Heart: RRR, no gallops, no rubs Respiratory: rales, rhonchi, wheezes Gastrointestinal: non-tender, non-distended Extremities: no cyanosis, no clubbing Hosp A/P - Plan DVT proph w/lovenox Acute on chronic hypoxic/hypercapneic resp failure Acute on chronic systolic/diastolic HF exacerbation COPD exacerbation CAD Type 2 [place] - resolved Cannabuse abuse h/o Cocaine abuse (positive in 12/07) PLAN: Coreg dced per Cardiology Cont IV Diuretics per Cardiology Cont Nebs Lisinopril dose increased AM labs Cont other meds HHC eval
[2019-08-07] MEDS: Atorvastatin Calcium 40 MG TAB PO SCH (21:24)
[2019-08-07] MEDS: Famotidine 20 MG TAB PO SCH (21:24)
[2019-08-08 03:50] LABS: #Basophils 0.1 thou/uL (0.0-0.2); #Lymphocytes 1.1 thou/uL (1.20-3.40); #Monocytes 0.8 thou/uL (0.11-0.59); #Neutrophils 17.8 thou/uL (1.40-6.50); %Basophils 0.3 % (0.0-1.0); %Eosinophils 0.1 % (0.0-10.0); %Lymphocytes 5.3 % (21.0-51.0); %Monocytes 3.9 % (0.0-10.0); %Neutrophils 90.5 % (42.0-75.0); Hemoglobin 10.7 g/dL (14.0-18.0); Mean Platelet Volume 7.9 fL (7.4-10.4); Platelet Count 303 thou/uL (130-400); RBC Distribution Width 14.8 % (11.5-14.5); Red Blood Cell (RBC) Count 3.07 mill/uL (4.70-6.10); White Blood Cell (WBC) Count 19.7 thou/uL (4.8-10.8)
[2019-08-08 04:13] LABS: Albumin 3.4 g/dL (3.4-4.8); Anion Gap 12 mmol/L (10-20); BUN (Urea Nitrogen) 19 mg/dL (8.4-25.7); BUN/Creatinine Ratio 17.76; Calc. Creatinine Clearance 85 mL/min (70-130); Calcium 8.8 mg/dL (7.8-10.44); Carbon Dioxide 32 mmol/L (23-31); Chloride 98 mmol/L (98-107); Estimated GFR-MDRD 83; Glucose 159 mg/dL (80-115); Phosphorus 3.2 mg/dL (2.3-4.7); Potassium 4.2 mmol/L (3.5-5.1); Sodium 138 mmol/L (136-145)
[2019-08-08] MEDS: methylPREDNISolone Sod Succ 40 MG VIAL IVP SCH (05:17)
[2019-08-08] MEDS: Mometasone/Formoterol 120 PUFF INHALER INH SCH ×2 (08:21→19:52)
[2019-08-08] MEDS: Aspirin Chewable 81 MG TAB PO SCH (09:33)
[2019-08-08] MEDS: Lisinopril 5 MG TAB PO SCH ×2 (09:33→21:00)
[2019-08-08] MEDS: Famotidine 20 MG TAB PO SCH ×2 (09:33→20:58)
[2019-08-08] MEDS: Furosemide 20 MG/2 ML VIAL SLOW IVP SCH (09:34)
[2019-08-08] MEDS: Enoxaparin Sodium 40 MG/0.4 ML SYRINGE SC SCH (09:34)
--- NOTE | 2019-08-08 15:24 | PRG ---
DATE OF SERVICE: 08/08/2019 SUBJECTIVE: Mr. Soto says he has no complaints. He is actually walking in the mchugh with Physical therapy. OBJECTIVE: VITAL SIGNS: He is afebrile. Heart rate is 72, respiratory rate 16, oximetry is 92%. LUNGS: Free of wheezes. HEART: Regular rhythm. ABDOMEN: Soft, nontender. EXTREMITIES: With only trace edema. LABORATORY DATA: White count 19.7, hemoglobin 10.7, platelets 303. Sodium 138, potassium 4.2, chloride 98, bicarb is down from 37 to 32, BUN 19, creatinine 1.07. IMPRESSION: Chronic obstructive pulmonary disease, currently clinically stable. I will take him off his IV steroids and put him on prednisone. Job ID: [id number]
[2019-08-08] MEDS: traMADol HCl 50 MG TAB PO PRN (20:59)
[2019-08-08] MEDS: Atorvastatin Calcium 40 MG TAB PO SCH (20:59)
[2019-08-09 03:59] LABS: Albumin 3.3 g/dL (3.4-4.8); Anion Gap 11 mmol/L (10-20); BUN (Urea Nitrogen) 21 mg/dL (8.4-25.7); Calc. Creatinine Clearance 85 mL/min (70-130); Calcium 8.9 mg/dL (7.8-10.44); Carbon Dioxide 31 mmol/L (23-31); Chloride 100 mmol/L (98-107); Estimated GFR-MDRD 85; Glucose 115 mg/dL (80-115); Magnesium 2.1 mg/dL (1.6-2.6); Phosphorus 3.4 mg/dL (2.3-4.7); Potassium 4.2 mmol/L (3.5-5.1); Sodium 138 mmol/L (136-145)
[2019-08-09] MEDS: Mometasone/Formoterol 120 PUFF INHALER INH SCH ×2 (08:05→19:02)
--- NOTE | 2019-08-09 08:41 | PDOC.HOSPP ---
- Subjective Encounter Date: 08/08/19 Encounter Time: 17:30 Subjective: Patient seen and examined for Resp failure. SOB improving. No new complaints. No overnight events - Objective Vital Signs & Weight: Vital Signs (12 hours) Temp Pulse Resp BP Pulse Ox 08/09/19 08:06 95 14 08/09/19 07:42 98.2 F 08/09/19 04:00 98.6 F 08/09/19 01:25 99 08/09/19 00:00 98.3 F 08/08/19 21:00 82 145/84 H Weight Weight 195 lb 14.4 oz Most Recent Monitor Data Heart Rate from ECG 91 NIBP 121/69 NIBP BP-Mean 86 Respiration from ECG 16 SpO2 93 I&O: 08/08/19 08/09/19 08/10/19 06:59 06:59 06:59 Intake Total 1540 1290 Output Total 1825 3590 150 Balance -285 -1170 -150 Result Diagrams: 08/08/19 03:12 08/09/19 03:33 EKG Reviewed by me: Yes (Tele SR) Hospitalist ROS - Review of Systems Respiratory: denies: cough, dry, shortness of breath, hemoptysis, SOB with excertion, pleuritic pain, sputum, wheezing, other Cardiovascular: denies: chest pain, palpitations, orthopnea, paroxysmal noc. dyspnea, edema, light headedness, other - Medication Medications: Active Medications Generic Name Dose Route Start Last Admin Trade Name Freq PRN Reason Stop Dose Admin Albuterol/Ipratropium 3 ml 08/05/19 19:20 08/05/19 20:12 Duoneb NEB 3 ml Q2H PRN Administration SOB &/or Wheezing Albuterol/Ipratropium 3 ml 08/07/19 07:00 08/09/19 08:06 Duoneb NEB 3 ml [id number] LAURIE Administration Aspirin 81 mg 08/06/19 09:00 08/08/19 09:33 Aspirin Chewable PO 81 mg DAILY LAURIE Administration Atorvastatin Calcium 40 mg 08/06/19 21:00 08/08/19 20:59 Lipitor PO 40 mg HS LAURIE Administration Enoxaparin Sodium 40 mg 08/06/19 09:00 08/08/19 09:34 Lovenox SC Not Given 0900 LAURIE Famotidine 20 mg 08/07/19 21:00 08/08/19 20:58 Pepcid PO 20 mg BID LAURIE Administration Furosemide 40 mg 08/08/19 09:00 08/08/19 09:34 Lasix SLOW IVP 40 mg DAILY LAURIE Administration Lisinopril 10 mg 08/07/19 21:00 08/08/19 21:00 Zestril PO 10 mg BID LAURIE Administration Mometasone Furoate/Formoterol Fumar 2 puff 08/06/19 18:30 08/09/19 08:05 Dulera 200 Mcg/5 Mcg Inhaler INH 2 puff BID-RT LAURIE Administration Sodium Chloride 10 ml 08/05/19 20:49 08/07/19 08:35 Flush - Normal Saline IVF 10 ml Q12HR PRN Administration Saline Flush Tramadol HCl 50 mg 08/05/19 21:04 08/05/19 21:19 Ultram PO 50 mg Q6H PRN Administration Moderate Pain (4-6) Tramadol HCl 100 mg 08/06/19 21:19 08/08/19 20:59 Ultram PO 100 mg HSPRN PRN Administration Pain - Exam General Appearance: NAD Heart: RRR, no gallops Respiratory: no wheezes, no rales Gastrointestinal: non-tender, non-distended Extremities: no cyanosis Neurological: no new deficit Hosp A/P - Plan DVT proph w/SCDs Acute on chronic hypoxic/hypercapneic resp failure Acute on chronic systolic/diastolic HF exacerbation COPD exacerbation CAD Type 2 [place] - resolved Cannabuse abuse h/o Cocaine abuse (positive in 12/07) PLAN: Cont IV Diuretics Cont Steroids Cont Nebs Cont Lisinopril AM labs
[2019-08-09] MEDS: predniSONE 20 MG TAB PO SCH (09:49)
[2019-08-09] MEDS: Lisinopril 5 MG TAB PO SCH ×2 (09:49→19:55)
[2019-08-09] MEDS: Furosemide 20 MG/2 ML VIAL SLOW IVP SCH ×2 (09:49→14:34)
[2019-08-09] MEDS: Aspirin Chewable 81 MG TAB PO SCH (09:50)
[2019-08-09] MEDS: Famotidine 20 MG TAB PO SCH ×2 (09:50→19:55)
[2019-08-09] MEDS: Enoxaparin Sodium 40 MG/0.4 ML SYRINGE SC SCH (09:50)
--- NOTE | 2019-08-09 12:21 | PDOC.HOSPP ---
- Subjective Encounter Date: 08/09/19 Encounter Time: 10:15 Subjective: Patient seen and examined for Resp failure. SOB improving. No CP/palpitations or syncope. No new complaints. No overnight events - Objective Vital Signs & Weight: Vital Signs (12 hours) Temp Pulse Resp Pulse Ox 08/09/19 11:14 94 16 08/09/19 11:10 98.6 F 08/09/19 09:49 95 08/09/19 08:06 95 14 08/09/19 08:00 97 08/09/19 07:42 98.2 F 08/09/19 04:00 98.6 F 08/09/19 01:25 99 Weight Weight 195 lb 14.4 oz Most Recent Monitor Data Heart Rate from ECG 91 NIBP 152/78 NIBP BP-Mean 102 Respiration from ECG 16 SpO2 93 I&O: 08/08/19 08/09/19 08/10/19 06:59 06:59 06:59 Intake Total 1540 1290 Output Total 1829 8343 873 Balance -285 -1170 -875 Result Diagrams: 08/08/19 03:12 08/09/19 03:33 EKG Reviewed by me: Yes (Tele SR) Hospitalist ROS - Review of Systems Constitutional: denies: fever, chills, sweats, weakness, malaise, other Gastrointestinal: denies: nausea, vomiting, abdominal pain, diarrhea, constipation, melena, hematochezia, other - Medication Medications: Active Medications Generic Name Dose Route Start Last Admin Trade Name Freq PRN Reason Stop Dose Admin Albuterol/Ipratropium 3 ml 08/05/19 19:20 08/05/19 20:12 Duoneb NEB 3 ml Q2H PRN Administration SOB &/or Wheezing Albuterol/Ipratropium 3 ml 08/07/19 07:00 08/09/19 11:14 Duoneb NEB 3 ml [id number] LAURIE Administration Aspirin 81 mg 08/06/19 09:00 08/09/19 09:50 Aspirin Chewable PO 81 mg DAILY LAURIE Administration Atorvastatin Calcium 40 mg 08/06/19 21:00 08/08/19 20:59 Lipitor PO 40 mg HS LAURIE Administration Enoxaparin Sodium 40 mg 08/06/19 09:00 08/09/19 09:50 Lovenox SC Not Given 0900 LAURIE Famotidine 20 mg 08/07/19 21:00 08/09/19 09:50 Pepcid PO 20 mg BID LAURIE Administration Lisinopril 10 mg 08/07/19 21:00 08/09/19 09:49 Zestril PO 10 mg BID LAURIE Administration Mometasone Furoate/Formoterol Fumar 2 puff 08/06/19 18:30 08/09/19 08:05 Dulera 200 Mcg/5 Mcg Inhaler INH 2 puff BID-RT LAURIE Administration Prednisone 40 mg 08/09/19 08:00 08/09/19 09:49 Prednisone PO 40 mg QAM-WM LAURIE Administration Sodium Chloride 10 ml 08/05/19 20:49 08/07/19 08:35 Flush - Normal Saline IVF 10 ml Q12HR PRN Administration Saline Flush Tramadol HCl 50 mg 08/05/19 21:04 08/05/19 21:19 Ultram PO 50 mg Q6H PRN Administration Moderate Pain (4-6) Tramadol HCl 100 mg 08/06/19 21:19 08/08/19 20:59 Ultram PO 100 mg HSPRN PRN Administration Pain - Exam Heart: RRR, no gallops Respiratory: no wheezes, no rales, rhonchi Gastrointestinal: soft, non-tender, normal bowel sounds Extremities: no cyanosis Hosp A/P - Plan DVT proph w/lovenox Acute on chronic hypoxic/hypercapneic resp failure Acute on chronic systolic/diastolic HF exacerbation COPD exacerbation CAD Type 2 [place] - resolved Cannabuse abuse h/o Cocaine abuse (positive in 12/07) PLAN: Cont IV Lasix - dose increased to 40 mg BID Cont Prednisone Cont Nebs Cont Lisinopril/Statins/ASA AM labs
--- NOTE | 2019-08-09 14:03 | PRG ---
DATE OF SERVICE: 08/09/2019 SUBJECTIVE: Rei Soto has no complaints. He is ambulating in the room and in the hallways without difficulty. OBJECTIVE: VITAL SIGNS: He is afebrile. Heart rate 94, respiratory rate 16, blood pressure 152/78. LUNGS: Clear. HEART: Regular rhythm. ABDOMEN: Soft. EXTREMITIES: He still has some lower extremity edema. LABORATORY DATA: Intake and outputs, negative 1170. IMPRESSION: 1. Chronic obstructive pulmonary disease, clinically stable. 2. Congestive heart failure, also clinically stable. Still with some extravascular volume in his lower extremities. PLAN: We will continue to follow as long as he is in the hospital. Job ID: [id number]
[2019-08-09] MEDS: Acetaminophen 325 MG TAB PO PRN (17:26)
[2019-08-09] MEDS: Atorvastatin Calcium 40 MG TAB PO SCH (19:55)
[2019-08-09] MEDS: traMADol HCl 50 MG TAB PO PRN (19:55)
[2019-08-10 05:32] LABS: Anion Gap 15 mmol/L (10-20); BUN (Urea Nitrogen) 26 mg/dL (8.4-25.7); Calc. Creatinine Clearance 79 mL/min (70-130); Calcium 8.8 mg/dL (7.8-10.44); Carbon Dioxide 31 mmol/L (23-31); Chloride 99 mmol/L (98-107); Estimated GFR-MDRD 78; Glucose 96 mg/dL (80-115); Sodium 141 mmol/L (136-145)
[2019-08-10] MEDS: Furosemide 20 MG/2 ML VIAL SLOW IVP SCH ×2 (06:20→13:42)
[2019-08-10] MEDS: Mometasone/Formoterol 120 PUFF INHALER INH SCH ×2 (07:34→18:33)
[2019-08-10] MEDS: Lisinopril 5 MG TAB PO SCH ×2 (07:42→19:20)
[2019-08-10] MEDS: predniSONE 20 MG TAB PO SCH (07:43)
[2019-08-10] MEDS: Multivit, Therapeutic 1 TAB PO SCH (07:43)
[2019-08-10] MEDS: Famotidine 20 MG TAB PO SCH ×2 (07:43→19:20)
[2019-08-10] MEDS: Aspirin Chewable 81 MG TAB PO SCH (07:44)
[2019-08-10] MEDS: Enoxaparin Sodium 40 MG/0.4 ML SYRINGE SC SCH (07:44)
--- NOTE | 2019-08-10 10:20 | PRG ---
DATE OF SERVICE: 08/10/2019 SUBJECTIVE: Rei Soto is a 69-year-old gentleman. This morning, he is better, awake, alert, responsive, walking in the halls. OBJECTIVE: VITAL SIGNS: Temperature 98, pulse 88, blood pressure 120/61, respirations 15, and sats are 92% on 2 L. EXTREMITIES: Trace edema. CHEST: Denies any coughing or wheezing. Decreased breath sounds. CARDIAC: Normal S1 and S2. No gallops. ABDOMEN: No masses. LABORATORY DATA: Creatinine 1.13 and bicarb is 31. ASSESSMENT: 1. Chronic obstructive pulmonary disease. 2. Right-sided congestive heart failure. PLAN: Disposition home any time. PT, supportive care. We will follow. Job ID: [id number]
[2019-08-10] MEDS: Acetaminophen 325 MG TAB PO PRN (16:54)
--- NOTE | 2019-08-10 17:51 | PDOC.HOSPP ---
- Subjective Encounter Date: 08/10/19 Encounter Time: 08:30 Subjective: Patient seen and examined for resp failure. SOB improving. No fever/chills or cough. No new complaints. No overnight events - Objective Vital Signs & Weight: Vital Signs (12 hours) Temp Pulse Resp BP BP BP Pulse Ox 08/10/19 16:00 98.2 F 82 16 110/59 L 92 L 08/10/19 11:20 97.9 F 88 16 141/64 H 96 08/10/19 11:07 88 16 08/10/19 08:00 92 L 08/10/19 07:42 98 127/61 08/10/19 07:33 88 15 08/10/19 07:30 98.0 F 98 16 127/61 92 L Weight Weight 197 lb 6.4 oz Most Recent Monitor Data Heart Rate from ECG 91 NIBP 152/78 NIBP BP-Mean 102 Respiration from ECG 16 SpO2 93 I&O: 08/09/19 08/10/19 08/11/19 06:59 06:59 06:59 Intake Total 1290 1500 Output Total 2460 3625 Balance -1170 -2125 Result Diagrams: 08/08/19 03:12 08/10/19 04:00 Hospitalist ROS - Review of Systems Eyes: denies: pain, vision change, conjunctivae inflammation, eyelid inflammation, redness, other Gastrointestinal: denies: nausea, vomiting, abdominal pain, diarrhea, constipation, melena, hematochezia, other - Medication Medications: Active Medications Generic Name Dose Route Start Last Admin Trade Name Freq PRN Reason Stop Dose Admin Acetaminophen 650 mg 08/05/19 20:49 08/10/19 16:54 Tylenol PO 650 mg Q4H PRN Administration Headache/Fever/Mild Pain (1-3) Albuterol/Ipratropium 3 ml 08/05/19 19:20 08/05/19 20:12 Duoneb NEB 3 ml Q2H PRN Administration SOB &/or Wheezing Albuterol/Ipratropium 3 ml 08/07/19 07:00 08/10/19 16:40 Duoneb NEB Not Given [id number] LAURIE Aspirin 81 mg 08/06/19 09:00 08/10/19 07:44 Aspirin Chewable PO 81 mg DAILY LAURIE Administration Atorvastatin Calcium 40 mg 08/06/19 21:00 08/09/19 19:55 Lipitor PO 40 mg HS LAURIE Administration Enoxaparin Sodium 40 mg 08/06/19 09:00 08/10/19 07:44 Lovenox SC Not Given 0900 [facility] Famotidine 20 mg 08/07/19 21:00 08/10/19 07:43 Pepcid PO 20 mg BID LAURIE Administration Furosemide 40 mg 08/09/19 14:00 08/10/19 13:42 Lasix SLOW IVP 40 mg 0600,1400 LAURIE Administration Lisinopril 10 mg 08/07/19 21:00 08/10/19 07:42 Zestril PO 10 mg BID LAURIE Administration Mometasone Furoate/Formoterol Fumar 2 puff 08/06/19 18:30 08/10/19 07:34 Dulera 200 Mcg/5 Mcg Inhaler INH 2 puff BID-RT LAURIE Administration Multivitamins 1 tab 08/10/19 09:00 08/10/19 07:43 Theragran PO 1 tab DAILY LAURIE Administration Prednisone 40 mg 08/09/19 08:00 08/10/19 07:43 Prednisone PO 40 mg QAM-WM LAURIE Administration Sodium Chloride 10 ml 08/05/19 20:49 08/07/19 08:35 Flush - Normal Saline IVF 10 ml Q12HR PRN Administration Saline Flush Tramadol HCl 50 mg 08/05/19 21:04 08/05/19 21:19 Ultram PO 50 mg Q6H PRN Administration Moderate Pain (4-6) Tramadol HCl 100 mg 08/06/19 21:19 08/09/19 19:55 Ultram PO 100 mg HSPRN PRN Administration Pain - Exam Neck: supple, no JVD Heart: RRR, no gallops Respiratory: no wheezes, rales, rhonchi Gastrointestinal: non-tender, non-distended Extremities: no cyanosis Hosp A/P - Plan DVT proph w/lovenox, DVT proph w/SCDs Acute on chronic hypoxic/hypercapneic resp failure Acute on chronic systolic/diastolic HF exacerbation COPD exacerbation CAD Type 2 OH - resolved Cannabuse abuse h/o Cocaine abuse (positive in 12/07) PLAN: Cont IV Lasix 40 mg BID Cont fluid restriction Cont Prednisone/Rachel/O2 Cont ASA/Lisinopril/Statins CBC/BMP in AM
[2019-08-10] MEDS: Atorvastatin Calcium 40 MG TAB PO SCH (19:20)
[2019-08-10] MEDS: traMADol HCl 50 MG TAB PO PRN (19:20)
[2019-08-11 04:18] LABS: #Eosinphils 0.1 thou/uL (0.0-0.7); #Lymphocytes 2.2 thou/uL (1.20-3.40); #Monocytes 1.9 thou/uL (0.11-0.59); #Neutrophils 11.3 thou/uL (1.40-6.50); %Basophils 0.1 % (0.0-1.0); %Eosinophils 0.6 % (0.0-10.0); %Lymphocytes 14.3 % (21.0-51.0); %Monocytes 11.9 % (0.0-10.0); %Neutrophils 73.1 % (42.0-75.0); Hemoglobin 10.5 g/dL (14.0-18.0); Mean Corpuscular HGB CONC 30.5 g/dL (32.0-36.0); Mean Corpuscular Hemoglobin 34.1 pg (27.0-31.0); Platelet Count 327 thou/uL (130-400); RBC Distribution Width 14.4 % (11.5-14.5); White Blood Cell (WBC) Count 15.5 thou/uL (4.8-10.8)
[2019-08-11 04:20] LABS: BUN (Urea Nitrogen) 22 mg/dL (8.4-25.7); Calc. Creatinine Clearance 92 mL/min (70-130); Calcium 8.8 mg/dL (7.8-10.44); Estimated GFR-MDRD Greater than 90; Glucose 101 mg/dL (80-115)
[2019-08-11 04:31] LABS: Chloride 96 mmol/L (98-107); Potassium 3.7 mmol/L (3.5-5.1); Sodium 142 mmol/L (136-145)
[2019-08-11 04:34] LABS: Anion Gap 14 mmol/L (10-20); Carbon Dioxide 36 mmol/L (23-31)
[2019-08-11] MEDS: Furosemide 20 MG/2 ML VIAL SLOW IVP SCH (05:44)
[2019-08-11] MEDS: Mometasone/Formoterol 120 PUFF INHALER INH SCH (07:17)
[2019-08-11 07:58] VITALS: TEMP 97.5
[2019-08-11] MEDS: Lisinopril 5 MG TAB PO SCH (08:16)
[2019-08-11] MEDS: predniSONE 20 MG TAB PO SCH (08:16)
[2019-08-11] MEDS: Aspirin Chewable 81 MG TAB PO SCH (08:17)
[2019-08-11] MEDS: Multivit, Therapeutic 1 TAB PO SCH (08:17)
[2019-08-11] MEDS: Famotidine 20 MG TAB PO SCH (08:17)
[2019-08-11] MEDS: Enoxaparin Sodium 40 MG/0.4 ML SYRINGE SC SCH (08:20)
[2019-08-11] MEDS ORDERED: AcetaZOLAMIDE 250 MG TAB PO SCH (09:00)
--- NOTE | 2019-08-11 09:04 | PRG ---
DATE OF SERVICE: 08/11/2019 SUBJECTIVE: He is awake, alert, and responsive. OBJECTIVE: VITAL SIGNS: His sats are 94% on 2 L, temperature 97, pulse 93, respirations 20, blood pressure 130/77. GENERAL: He is awake, responsive. CHEST: Decreased breath sounds. No wheezing. HEART: Normal S1, S2. No gallops. ABDOMEN: No masses. LABORATORY DATA: White count 15,000. Lytes are normal. Bicarb is 36. ASSESSMENT: 1. Acute on chronic respiratory failure. 2. Metabolic alkalosis. PLAN: Continue PT, supportive care, eventually placement. Avoid higher flow O2, maybe 1 L, at most to 1.5. He may benefit from outpatient sleep study. Job ID: [id number]
[2019-08-11] MEDS ORDERED: predniSONE 20 MG TAB PO SCH (09:15)
[2019-08-11 11:45] VITALS: BP 138/80
--- NOTE | 2019-08-11 22:17 | DIS ---
DATE OF ADMISSION: 08/06/2019 DATE OF DISCHARGE: 08/11/2019 DISCHARGE DISPOSITION: Home. The patient declined home health care. FOLLOWUP: 1. Follow up with primary care physician, Dr. Arabella Lacey in 1 week. 2. Follow up with Dr. Rick Jones in 2 weeks. 3. Follow up with Pulmonary, Dr. Preciado in 1 week. ALLERGIES: NO KNOWN DRUG ALLERGIES. DISCHARGE MEDICATIONS: 1. Prednisone taper. 2. Acetazolamide 250 mg daily for next 5 days. 3. The patient will continue all other home medications including 40 mg Lasix. INPATIENT BEVELER: 1. Cardiology, Dr. Rick Jones. 2. Pulmonary, Dr. Preciado. BRIEF HOSPITAL COURSE: The patient is a 69-year-old male with chronic hypoxic respiratory failure, on home oxygen, congestive heart failure, coronary artery disease and COPD, presented to the emergency room with shortness of breath as well as lower extremity swelling. Please refer to the history and physical for further details. The patient was admitted to the hospital with a diagnosis of acute respiratory failure secondary to CHF and COPD exacerbation. He showed good improvement with IV diuretics along with nebulizer treatment and steroids. He was evaluated by Cardiology as well as Pulmonary. His weight significantly improved to 192 pounds from 201 pounds. He has been extensively counseled on fluid restriction. His urine drug screen was positive for cannabinoid. Lifestyle modification was emphasized. He has been cleared by Pulmonary and Cardiology for discharge. LABORATORY DATA: Significant labs ABGs on 06 August 2019 showed pH of 7.31 with pCO2 81.9, pO2 of 72.6 with bicarbonate of 40.7. FINAL DIAGNOSES: 1. Ozjra-tl-iypbxix hypoxic/hypercapnic respiratory failure. 2. Oylzc-da-edkiaxn systolic/diastolic heart failure exacerbation. 3. Chronic obstructive pulmonary disease exacerbation. 4. Coronary artery disease. 5. Type 2 myocardial infarction present on admission, resolved. 6. Cannabis abuse. 7. History of cocaine abuse. 8. Metabolic alkalosis. 9. Chronic anemia. PLAN: Plan was discussed with the patient in detail. He stated understanding. Job ID: [id number]
[2019-08-12] MEDS ORDERED: Furosemide 40 MG TAB PO SCH (07:30)
[2019-08-12] MEDS ORDERED: predniSONE 20 MG TAB PO SCH (08:00)
== END 2019-08-11 15:49 | disposition home or self-care (01) | DRG 280 ==
LOC: 2SW 18:26 → OBSVTOIN 08-06 09:32 → IMCU/EMU 08-06 10:16 → ONC 08-09 15:31
PROVIDERS: ADMIT Internal Medicine; ATTEND Internal Medicine
DX: I11.0 Hypertensive heart disease with heart failure (principal); I21.A1 Myocardial infarction type 2; J96.21 Acute and chronic respiratory failure with hypoxia; J96.22 Acute and chronic respiratory failure with hypercapnia; J44.1 Chronic obstructive pulmonary disease with (acute) exacerbation; E87.3 Alkalosis; G93.40 Encephalopathy, unspecified; I50.43 Acute on chronic combined systolic (congestive) and diastolic (congestive) heart failure; I25.10 Atherosclerotic heart disease of native coronary artery without angina pectoris; F12.10 Cannabis abuse, uncomplicated; D64.9 Anemia, unspecified; Z99.81 Dependence on supplemental oxygen; Z87.891 Personal history of nicotine dependence; Z79.899 Other long term (current) drug therapy; Z79.82 Long term (current) use of aspirin; Z28.21 Immunization not carried out because of patient refusal
CPT/HCPCS: 36415; 71045; 80048; 80069; 80306; 82805; 83735; 84484; 85025; 87804; 94640; J1120; J1650; J1940; J2920; J2930; J7512; J7620

== ENCOUNTER 2019-12-29 14:41 | Inpatient (IN) | payer MEDICARE, MEDICAID, OTHER ==
[~2019-12-29 14:41] MED LIST changes: -EPINEPHrine 1 MG/10 ML Abboject SYRINGE ONE; +Iopamidol-370 76% 500 ML 1 ML ONE
[2019-12-29] MEDS ORDERED: Nitroglycerin 2% Ointment 1 INCH/1 GM Packet ONE (15:18)
[2019-12-29] MEDS ORDERED: Furosemide 40 MG/4 ML VIAL ONE (15:18)
[2019-12-29 15:44] LABS: Actual Bicarbonate (HCO3a) 35.7 mEq/L (22-28); Analyzer IN Cardio ER; Base Excess (BEa) 4.6 mEq/L (-2.0 to +3.0); Calcium, Ionized (arterial) 1.15 mmol/L (1.12-1.30); Carboxyhemoglobin (COHb) 1.4 gm% (0.0-3.0); Hemoglobin (Hb) 13.7 g/dL (14.0-18.0); O2 Tension (PaO2), arterial 82.1 mmHg (> 80.0); Potassium - ABG Lab 5.66 mmol/L (3.70-5.30)
[2019-12-29 15:46] LABS: #Lymphocytes 1.2 thou/uL (1.20-3.40); #Neutrophils 15.1 thou/uL (1.40-6.50); %Basophils 0.1 % (0.0-1.0); %Eosinophils 0.2 % (0.0-10.0); %Lymphocytes 6.4 % (21.0-51.0); %Monocytes 11.1 % (0.0-10.0); %Neutrophils 82.3 % (42.0-75.0); Hemoglobin 13.4 g/dL (14.0-18.0); Mean Corpuscular HGB CONC 29.8 g/dL (32.0-36.0); Mean Corpuscular Hemoglobin 33.5 pg (27.0-31.0); Mean Platelet Volume 8.5 fL (7.4-10.4); Platelet Count 282 thou/uL (130-400); RBC Distribution Width 14.7 % (11.5-14.5); Red Blood Cell (RBC) Count 4.01 mill/uL (4.70-6.10); White Blood Cell (WBC) Count 18.4 thou/uL (4.8-10.8)
[2019-12-29 16:00] LABS: CO2 Tension 91.5 mmHg (35.0-45.0); Puncture Site RR; pH, Arterial 7.21 (7.35-7.45)
[2019-12-29 16:07] LABS: ALT (SGPT) 132 U/L (8-55); AST (SGOT) 235 U/L (5-34); Acetaminophen Less than 6.0 mcg/mL (10.0-30.0); Albumin 3.6 g/dL (3.4-4.8); Alcohol Less than 10 mg/dL (Less than 10); Alkaline Phosphatase 195 U/L (40-110); Anion Gap 19 mmol/L (10-20); BUN (Urea Nitrogen) 67 mg/dL (8.4-25.7); Bilirubin, Total 2.4 mg/dL (0.2-1.2); CK (CPK) 279 U/L (30-200); Calc. Creatinine Clearance 0 mL/min (70-130); Calcium 8.9 mg/dL (7.8-10.44); Carbon Dioxide 28 mmol/L (23-31); Chloride 96 mmol/L (98-107); Estimated GFR-MDRD 48; Globulin 3.5 g/dL (2.4-3.5); Glucose 84 mg/dL (80-115); Lipase 50 U/L (8-78); Potassium 5.9 mmol/L (3.5-5.1); Protein, Total 7.1 g/dL (5.8-8.1); Salicylate Less than 8.0 mg/dL (15.0-30.0); Sodium 137 mmol/L (136-145)
[2019-12-29 16:10] LABS: Hypochromia SLIGHT = 6-15 cells (100X) (0-5/hpf); MDiff Complete? YES; Platelet Morphology Comment Appears Adequate; Polychromasia MODERATE = 3-4 cells (100X) (0-2/hpf); Schistocytes SLIGHT = 2-5 cells (100X) (0-1/hpf); Target Cells SLIGHT = 2-5 cells (100X) (0-1/hpf)
[2019-12-29] MEDS ORDERED: Rocuronium Bromide 10 MG/ML (10ML VIAL) ONE (16:23)
[2019-12-29 16:30] LABS: CKMB 9.2 ng/mL (0-6.6)
[2019-12-29 16:53] LABS: Actual Bicarbonate (HCO3a) 31.4 mEq/L (22-28); Analyzer IN Cardio ER; Base Excess (BEa) 3.9 mEq/L (-2.0 to +3.0); CO2 Tension 59.8 mmHg (35.0-45.0); Calcium, Ionized (arterial) 1.13 mmol/L (1.12-1.30); Carboxyhemoglobin (COHb) 1.6 gm% (0.0-3.0); Hemoglobin (Hb) 13.8 g/dL (14.0-18.0); Potassium - ABG Lab 5.05 mmol/L (3.70-5.30); pH, Arterial 7.34 (7.35-7.45)
[2019-12-29] MEDS ORDERED: Aspirin 300 MG Suppository ONE (17:11)
[2019-12-29] MEDS ORDERED: Propofol 1,000 MG/100 ML VIAL IV ONE (17:11)
--- NOTE | 2019-12-29 17:56 | CT ---
CT BRAIN WITHOUT IV CONTRAST: HISTORY: Altered mental status COMPARISON: 06/12/2019 FINDINGS: No evidence of infarct, hemorrhage, midline shift or abnormal extra axial fluid collections is seen. The ventricular size is normal and the basilar cisterns are patent. The bony calvarium is intact. There is mild mucosal disease in the paranasal sinuses. There is suggestion of a extra-axial mass in the left medial temporal lobe region. IMPRESSION: No CT evidence of acute intracranial process. Recommendation: Further evaluation with contrast-enhanced MRI of the brain would be helpful on noneme rgent basis to evaluate mass.
[2019-12-29 18:04] LABS: Bacteria/HPF None Seen HPF (None Seen); Bilirubin Negative (Negative); Blood, Urine Trace (Negative); Clarity Clear (Clear); Glucose, Urine (Dipstick) Normal (Negative); Leukocyte Negative Leu/uL (Negative); Nitrite Negative (Negative); Protein, Urine (Dipstick) Negative (Neg-Trace); RBC/HPF None Seen HPF (0-3); Squamous Epithelial 0-3 HPF (0-3); Urobilinogen Normal mg/dL (Less than 2); WBC/HPF 0-3 HPF (0-3)
[2019-12-29] MEDS ORDERED: Ventilator Sedation Protocol 1 EACH FS ONE (18:19)
[2019-12-29] MEDS ORDERED: Ondansetron PF 4 MG/2 ML Vial IVP PRN (18:19)
[2019-12-29] MEDS ORDERED: Acetaminophen 325 MG TAB PO PRN (18:19)
[2019-12-29] MEDS ORDERED: Guaifenesin DM 100-10/5 ML UDCUP PO PRN (18:19)
[2019-12-29] MEDS ORDERED: Acetaminophen 650 MG Suppository PR PRN (18:19)
[2019-12-29] MEDS ORDERED: Bisacodyl 10 MG SUPP PR PRN (18:19)
[2019-12-29 18:20] LABS: Amphetamine Not Detected (NotDetected); Barbiturates Screen Not Detected (NotDetected); Benzodiazepine Screen Not Detected (NotDetected); Cocaine Metabolite Screen Not Detected (NotDetected); Medtox Control Line Valid? VALID (VALID); Medtox Reader # READER 4; Methadone Not Detected (NotDetected); Methamphetamine Not Detected (NotDetected); Opiate Screen Not Detected (NotDetected); Oxycodone Screen Not Detected (NotDetected); Phencyclidine (PCP) Not Detected (NotDetected); THC/Cannabinoid Screen Detected (NotDetected); Tricyclic Screen Not Detected (NotDetected)
--- NOTE | 2019-12-29 18:25 | RAD ---
EXAM: CHEST ONE VIEW PORTABLE: 12/29/19 HISTORY: Hypoxemia, dyspnea. COMPARISON: 08/06/19. FINDINGS: Cardiomegaly with bilateral vascular congestion. Old granulomatous disease. Little change from 0. IMPRESSION: Stable appearing cardiomegaly and vascular congestion. Some blunting of the left costophrenic angle, possibly some left pleural effusion. No significant new process. Consider follow-up short term study. POS: RRE
[2019-12-29] MEDS ORDERED: DISCONTINUE PREVIOUS NARCOTIC PAIN MEDICATIONS AND BENZODIAZEPINES FS SCH (18:32)
[2019-12-29] MEDS ORDERED: Fentanyl BOLUS 250 ML IVPB PRN (18:32)
[2019-12-29] MEDS ORDERED: Propofol BOLUS 1,000 MG/100 ML VIAL IV PRN (18:32)
[2019-12-29] MEDS ORDERED: Morphine 2 MG/ML SYRINGE SLOW IVP PRN (18:32)
[2019-12-29] MEDS ORDERED: Levofloxacin 750 mg/D5W 250 MG in Premix Bag 1 BAG IVPB SCH (19:00)
[2019-12-29] MEDS: Lorazepam 2 MG/ML VIAL SLOW IVP PRN (19:47)
[2019-12-29] MEDS: Carvedilol 3.125 MG TAB PO SCH (19:53)
[2019-12-29] MEDS: Atorvastatin Calcium 40 MG TAB PO SCH (19:54)
[2019-12-29] MEDS: Cefepime 1 GM in Sodium Chloride 0.9% 100 ML IVPB SCH (19:54)
[2019-12-29 20:00] LABS: Puncture Site R RADIAL
[2019-12-29] MEDS: fentaNYL Citrate/PF 2,000 MCG in Sodium Chloride 0.9% 60 ML IV SCH (20:09)
--- NOTE | 2019-12-29 20:33 | RAD ---
EXAM: CHEST ONE VIEW: 12/29/19 HISTORY: Dyspnea and hypoxia. COMPARISON: 12/29/19. FINDINGS: Gastric tube place with the tip in the stomach. Cardiomegaly. Mild vascular congestion. Old granuloma tous disease. IMPRESSION: Gastric tube in place. Cardiomegaly with mild vascular congestion. POS: RRE
--- NOTE | 2019-12-29 20:47 | HP ---
REASON FOR ADMISSION: Acute respiratory failure with hypoxia and hypercarbia, severe dehydration, acute kidney injury, acute CHF exacerbation, possible sepsis , and acute metabolic encephalopathy. HISTORY OF PRESENTING ILLNESS: Please note majority of this history is obtained by talking to Dr. Oates, ER physician and the patient's sister, Ms. Fide Soto, as the patient is not oriented and is on the ventilator. The patient apparently was not himself for the last 3 days now. He has been talking out of his head per sister. He was seeing things that were not there; in fact, the patient was saying that he was staying with three other people in the house, which was not true. He thought a lady was locked up in his car, which again is not true and finally his son when he saw him this morning, he was on the floor. The patient also has been sitting in his car from 4:00 a.m. doing nothing, which was noticed on two different occasions by his granddaughter. On arrival in the ER, the patient was saturating around 90% on 4 L nasal cannula. He is not oriented and was not a candidate for noninvasive ventilation and eventually was intubated due to respiratory acidosis and acute respiratory failure to maintain airway. As far as family knows, there is no exposure to COVID-19. He had not complained of any cough or expectoration. No complaints of fever at home. PAST MEDICAL AND SURGICAL HISTORY: History of asthma, CHF, hypertension, prior cardiac catheterization, tonsillectomy. He was intubated in June of last year for something similar per sister, marijuana abuse, chronic respiratory failure on 3 L nasal cannula, likely from COPD. No history of obstructive sleep apnea. CURRENT MEDICATIONS: The patient is on; 1. Lasix 40 mg daily. 2. Ultram p.r.n. daily. 3. Combivent inhaler q.6 hourly p.r.n. 4. Lisinopril 20 mg daily. 5. Colace 100 mg daily. 6. Aspirin 81 mg daily. ALLERGIES: NO KNOWN DRUG ALLERGIES. PERSONAL HISTORY: The patient smokes marijuana and does not abuse alcohol or other drugs per sister. He ambulates by himself. He is on 3 L nasal cannula at home. FAMILY HISTORY: Mother at the age [place] 72 [place]. Father at the age of 63 [place]. CODE STATUS: Full. Power of circle beveler is his sister, Ms. Tita Soto; number to reach her is [phone]. REVIEW OF SYSTEMS: Cannot be obtained as the patient is not oriented and is currently intubated. PHYSICAL EXAMINATION: GENERAL: The patient is a 69-year-old male, who is currently on the ventilator and is intubated. He is not oriented. VITAL SIGNS: Blood pressure on arrival 160/99, pulse 120 per minute, respiratory rate 30 per minute. Pulse was 114 per minute. Saturation is 90% on 3 L nasal cannula, 100% on 30% FiO2 on the ventilator. NECK: Supple. There is elevated JVD. HEENT: Eyes; pupils are 4 mm and very sluggishly reacting to light. Oral cavity, mucous membranes are dry. He is orally intubated at present. CARDIOVASCULAR: S1 and S2 heard, S3 plus. RESPIRATORY: Air entry 1+ bilateral rales plus bilateral rhonchi plus no wheezes. ABDOMEN: Soft. Bowel sounds heard. No tenderness, rigidity, or guarding. EXTREMITIES: There is 1+ peripheral edema. There is a laceration on the right fish. VASCULAR: Peripheral pulses 1+ bilateral. No ischemic ulcerations or gangrene. CENTRAL NERVOUS SYSTEM: No gross focal deficits noted. The patient was confused on arrival and was not oriented. PSYCHIATRIC: Cannot be accurately assessed as the patient is sedated and is intubated on the ventilator. LABORATORY DATA: White count of 18, H and H 13 and 45, platelet count 282 with 82% neutrophils, 6.4% lymphocytes. D-dimer is 7.7. Blood gas on arrival showed a pH of 7.21, pCO2 of 91, pO2 82, bicarb is 35 on the blood gas, potassium 5.9, serum bicarb 28, BUN 67, creatinine 1.7. Total bilirubin 2.4. Lactic acid was 2.7. AST 235 , ALT 132, alkaline phosphatase 195. Ammonia was 41. CK level is 279, CK-MB 9.2, troponin I 0.04. BNP of 2143. Albumin is 3.6. TSH 0.45. Lipase is 50. Urine drug screen is positive for cannabinoids. Plasma alcohol less than 10. CT brain shows no acute intracranial process. There is a suggestion of extra-axial mass in the left medial temporal lobe region. Chest x-ray done shows cardiomegaly, pulmonary vascular congestion. CLINICAL IMPRESSION AND PLAN: The patient will be admitted to ICU for acute respiratory failure with hypoxia and hypercarbia, acute congestive heart failure exacerbation, acute metabolic encephalopathy, acute kidney injury, and possible sepsis. A COVID-19 PCR has been obtained in the ER. Blood cultures and urine cultures will be obtained. He will be empirically placed on cefepime and Levaquin. He will be on Lasix 40 mg IV at 6:00 a.m. and 2:00 p.m. he will be closely monitored for further worsening of his renal function. He will be on steroids and DuoNeb q.6 hourly. We will continue his aspirin and Coreg on a small dose. I have spoken to Dr. Preciado for Pulmonology consultation. The patient had a CT angio chest done. We will follow up on that. Echo with 2D Doppler for LV function will be obtained. We will also obtain COVID-19 markers and serial troponins as well. I have given complete updates to the patient's sister, Ms. Fide Soto. Job ID: [id number] [facility]
--- NOTE | 2019-12-29 20:51 | CT ---
CTA OF THE CHEST WITH CONTRAST: 12/29/19 HISTORY: Patient was found sitting on the floor with altered mental status. Swollen left eye. Amnesia of event s. TECHNIQUE: Multiple contiguous axial images were obtained in a CTA of the chest with contrast per pulmonary embo lism protocol. 3D oblique MIP reformats and direct coronal reformats were performed. FINDINGS: Global cardiomegaly is seen. The pulmonary arteries are well opacified without filling defects to sug gest pulmonary emboli. No hilar or mediastinal lymphadenopathy are seen. There is an endotracheal tube with tip in the position above the sage. An NG tube is seen in the st omach. Emphysematous changes are seen in the lungs. This is more prominent in the lung apices. Scattered gra nulomas are seen in the right lung. No suspicious pulmonary nodules or focal infiltrates are seen. No pneumothorax or pleural effusion are seen. Diffuse soft tissue anasarca is seen. The visualized subdiaphragmatic structures are unremarkable. A small amount of ascites is seen adjacent to the liver. The bones are unremarkable. IMPRESSION: 1. No evidence of acute intrathoracic abnormality. 2. Emphysema. 3. No evidence of pulmonary thromboembolism. POS: EAA
[2019-12-29 21:13] LABS: Troponin I 0.059 ng/mL (< 0.028)
[2019-12-29 22:43] LABS: Lactic Acid 2.8 mmol/L (0.5-2.2)
[2019-12-29] MEDS: Propofol 1,000 MG/100 ML VIAL IV PRN (23:33)
[2019-12-29] MEDS ORDERED: methylPREDNISolone Sod Succ/PF 125 MG/2 ML VIAL IVP SCH (23:59)
[2019-12-30 02:00] LABS: Troponin I 0.177 ng/mL (< 0.028)
[2019-12-30 04:43] LABS: ALT (SGPT) 109 U/L (8-55); AST (SGOT) 137 U/L (5-34); Albumin 2.9 g/dL (3.4-4.8); Alkaline Phosphatase 145 U/L (40-110); Anion Gap 16 mmol/L (10-20); BUN (Urea Nitrogen) 67 mg/dL (8.4-25.7); Bilirubin, Total 1.3 mg/dL (0.2-1.2); Calc. Creatinine Clearance 54 mL/min (70-130); Calcium 8.5 mg/dL (7.8-10.44); Carbon Dioxide 33 mmol/L (23-31); Chloride 96 mmol/L (98-107); Estimated GFR-MDRD 55; Globulin 3.1 g/dL (2.4-3.5); Glucose 98 mg/dL (80-115); Magnesium 2.1 mg/dL (1.6-2.6); Sodium 140 mmol/L (136-145)
[2019-12-30 05:02] LABS: Band 3 % (5-11); Hemoglobin 13.1 g/dL (14.0-18.0); Lymphocytes 4 % (21-51); MDiff Complete? YES; Macrocytosis SLIGHT = 6-15 cells (100X) (0-5/hpf); Mean Corpuscular Hemoglobin 33.4 pg (27.0-31.0); Mean Platelet Volume 8.3 fL (7.4-10.4); Monocytes 2 % (0-10); Myelocyte 1 % (0-0); Neutrophil 90 % (42-75); Platelet Count 260 thou/uL (130-400); Polychromasia SLIGHT = 2-3 cells (100X) (0-2/hpf); RBC Distribution Width 14.7 % (11.5-14.5); Red Blood Cell (RBC) Count 3.92 mill/uL (4.70-6.10); Schistocytes SLIGHT = 2-5 cells (100X) (0-1/hpf); Target Cells SLIGHT = 2-5 cells (100X) (0-1/hpf); White Blood Cell (WBC) Count 13.9 thou/uL (4.8-10.8)
[2019-12-30] MEDS: methylPREDNISolone Sod Succ 40 MG VIAL IVP SCH ×5 (05:24→23:29)
[2019-12-30] MEDS: Propofol 1,000 MG/100 ML VIAL IV PRN ×2 (05:38→18:20)
[2019-12-30] MEDS ORDERED: Furosemide 40 MG/4 ML VIAL SLOW IVP SCH (06:00)
[2019-12-30 08:01] LABS: Actual Bicarbonate (HCO3a) 31.9 mEq/L (22-28); Base Excess (BEa) 8.1 mEq/L (-2.0 to +3.0); CO2 Tension 41.1 mmHg (35.0-45.0); Calcium, Ionized (arterial) 1.12 mmol/L (1.12-1.30); Hemoglobin (Hb) 13.6 g/dL (14.0-18.0); O2 Tension (PaO2), arterial 66.6 mmHg (> 80.0); Potassium - ABG Lab 4.82 mmol/L (3.70-5.30); pH, Arterial 7.51 (7.35-7.45)
[2019-12-30] MEDS: Mometasone 200 MCG/Formoterol 5 MCG 120 PUFF INHALER INH SCH ×2 (08:01→19:13)
[2019-12-30 08:02] LABS: Puncture Site RRA
[2019-12-30 08:03] LABS: ALV-art Gradient 95.925 (0-20)
[2019-12-30] MEDS: Carvedilol 3.125 MG TAB PO SCH ×2 (08:20→20:26)
[2019-12-30] MEDS: Cefepime 1 GM in Sodium Chloride 0.9% 100 ML IVPB SCH ×2 (08:20→20:27)
[2019-12-30] MEDS: Aspirin Chewable 81 MG TAB PO SCH (08:20)
[2019-12-30] MEDS: Enoxaparin Sodium 30 MG/0.3 ML SYRINGE SC SCH (08:20)
[2019-12-30] MEDS ORDERED: Prevnar 13-Val Conj/PF 0.5 ML SYRINGE IM ONE (09:00)
[2019-12-30] MEDS: Sodium Chloride 0.9% 1,000 ML IV SCH (09:29)
[2019-12-30] MEDS: Albumin 25% 25 GM/100 ML BOT IVPB SCH ×3 (11:57→23:29)
--- NOTE | 2019-12-30 12:24 | CON ---
DATE OF CONSULTATION: HISTORY OF PRESENT ILLNESS: Mr. Soto is a 69-year-old black male, who was admitted for acute respiratory failure. He was noted to be hypoxemic and was subsequently intubated and placed on ventilator support. We are now being consulted for his acute kidney injury. REVIEW OF SYSTEMS: Per history, the patient with confusion and shortness of breath. Denies any fever or chills at that time. PAST MEDICAL HISTORY: Includes COPD, history of systolic/diastolic dysfunction, longstanding hypertension. Chronic pain. History of hyperlipidemia. PAST SURGICAL HISTORY: Included recent status post intubation, status post cardiac cath. SOCIAL HISTORY: The patient has occasional alcohol intake. He lives in the [place] area. He is a smoker. No IV drug abuse. Sedentary lifestyle. History of occasional marijuana use. FAMILY HISTORY: No family history of ESRD. History of peripheral vascular disease. ALLERGIES: NO KNOWN DRUG ALLERGIES. TRAUMA: None. IMMUNIZATION: Up-to-date. HOSPITALIZATIONS: Please see past medical history. PHYSICAL EXAMINATION: VITAL SIGNS: Blood pressure is noted at 137/70, heart rate 96, respiratory rate 16, O2 saturation 95%. GENERAL: The patient is sedated and intubated on ventilator support. SKIN: Adequate turgor. HEENT: He has a pinkish conjunctivae. Anicteric sclerae. NECK: No neck mass. No carotid bruits. No JVD. CHEST: No deformities. LUNGS: Decreased breath sounds. HEART: Normal sinus rhythm. No murmur. No gallops or rubs. ABDOMEN: Globular, soft, nontender. No masses. EXTREMITIES: No edema. No deformities. NEUROLOGIC: The patient is sedated. No tremors noted. MEDICATIONS: Medications of December 30, 2019; 1. Atorvastatin 40 mg tablet at bedtime. 2. Aspirin 81 mg tablet once a day. 3. Carvedilol 3.125 mg p.o. b.i.d. 4. Cefepime 1 g IV q.12 hours. 5. Lovenox 30 mg subcu daily. 6. Fentanyl drip. 7. Levaquin 250 mg IV daily. 8. Methylprednisolone 20 mg IV q.6. Normal saline at 50 mL/h. LABORATORY DATA: Laboratories of December 30, 2019; the white count is 13.9 with hemoglobin 13.1. The sodium is 140, potassium 5, chloride 96, carbon dioxide 33, BUN 67, creatinine 1.53, glucose 98, calcium 8.5. AST 137, ALT 109, alkaline phosphatase 145. Chest x-ray, increased lung markings. CT scan of the chest and thorax-no acute intrathoracic abnormality noted. ASSESSMENT AND PLAN: 1. Acute respiratory failure-consider the possibility of chronic obstructive pulmonary disease exacerbation. Currently intubated. Pulmonary is following. 2. Acute kidney injury, consider hemodynamically-mediated dysfunction. Please note that urinalysis done on December 29, 2019, was relatively benign. My bias is to at least give some albumin infusion at 25 g IV q.6 hours for one day. In addition, I would suggest we continue to hold off his lisinopril. I do not see any indication for any emergent hemodialysis. Overall continue supportive care. Please note, this patient is also being ruled out for COVID-19 infection. Thank you for the consult. We will continue to follow. Job ID: [id number]
--- NOTE | 2019-12-30 12:32 | CON ---
DATE OF CONSULTATION: HISTORY OF PRESENT ILLNESS: Rei Soto is a 69-year-old gentleman, who apparently had some mental status change falling down with longstanding history of respiratory failure, CHF. Apparently, he had a history of head injury. His CT of head was negative. CT of chest was also negative. Sats on 2 L is 94%. PCO2 is 91, pH 7.2. He is placed on BiPAP fell again, not mentally able to tolerate BiPAP so he was intubated to protect his airways. PAST MEDICAL HISTORY: 1. Hypertension. 2. COPD. 3. Asthma. 4. CHF. 5. Hernia. 6. Probably sleep apnea. PAST SURGICAL HISTORY: Cath, tonsils, appendix. In previous medical records, he was seen by us in early July with a diagnosis of [id number] respiratory failure. SOCIAL HISTORY: He is a pack a day smoker, quit 5 years ago, marijuana abuse. HOME MEDICATIONS: Include; 1. Tramadol. 2. Prednisone. 3. Vitamin. 4. Zestril 5. 5. DuoNeb. 6. Lasix 40. 7. Advair. 8. Pepcid. 9. . 10. Lipitor 40. 11. Aspirin. 12. Diamox. He is now on Dulera, steroids, Lasix, neb treatments. PHYSICAL EXAMINATION: CHEST: No wheezing. No crackles. CARDIAC: Normal S1, S2. No gallops. ABDOMEN: No masses. NEUROLOGIC: He is sedated. LABORATORY DATA: His white count is 13,000, H and H of 13 and 43, platelet count is normal. PO2 is 66, pCO2 (marker 1:49 - accidentally removed QA marker) , 16, 30%. Creatinine is 1.53, slightly elevated. BUN is 67. ASSESSMENT AND PLAN: Diastolic dysfunction, respiratory failure, chronic obstructive pulmonary disease, hypoventilation syndrome. Hold diuretics for the time being in order. Minimize sedation. Empiric antibiotics. We will try and wean off in the next 24 to 48 hours. TIME SPENT: This is a 45-minute critical care time. Job ID: [id number]
[2019-12-30] MEDS ORDERED: Sodium Chloride 0.9% (PF) 10 ML VIAL FS PRN (12:59)
--- NOTE | 2019-12-30 13:16 | PDOC.HOSPP ---
- Subjective Encounter Date: 12/30/19 Encounter Time: 11:15 Subjective: on vent, is off sedation and trying to wean - Objective Vital Signs & Weight: Vital Signs (12 hours) Temp Pulse Resp BP Pulse Ox 12/30/19 12:00 98.6 F 14 12/30/19 10:00 98.6 F 15 12/30/19 09:54 93 12/30/19 08:01 94 12/30/19 08:00 93 L 12/30/19 06:00 16 12/30/19 04:07 91 118/62 12/30/19 04:00 98.8 F 16 12/30/19 02:00 16 Weight Admit Weight 180 lb Weight 180 lb 3.2 oz Most Recent Monitor Data Heart Rate from ECG 94 NIBP 142/85 NIBP BP-Mean 104 Respiration from ECG 17 SpO2 94 I&O: 12/29/19 12/30/19 12/31/19 06:59 06:59 06:59 Intake Total 345 200 Output Total 1125 1420 Balance -780 -1220 Result Diagrams: 12/30/19 04:11 12/30/19 04:11 Additional Labs: Accuchecks 12/29/19 15:22 POC Glucose 90 Hospitalist ROS - Medication Medications: Active Medications Generic Name Dose Route Start Last Admin Trade Name Freq PRN Reason Stop Dose Admin Albumin Human 25 gm 12/30/19 12:00 12/30/19 11:57 Albumin 25% IVPB 12/31/19 12:01 25 gm Q6HR LAURIE Administration Albuterol/Ipratropium 3 ml 12/29/19 19:00 12/30/19 08:01 Duoneb NEB 3 ml [id number] LAURIE Administration Aspirin 81 mg 12/30/19 09:00 12/30/19 08:20 Aspirin Chewable PO 81 mg DAILY LAURIE Administration Atorvastatin Calcium 40 mg 12/29/19 21:00 12/29/19 19:54 Lipitor PO 40 mg HS LAURIE Administration Carvedilol 3.125 mg 12/29/19 21:00 12/30/19 08:20 Coreg PO 3.125 mg BID LAURIE Administration Enoxaparin Sodium 30 mg 12/30/19 09:00 12/30/19 08:20 Lovenox SC 30 mg 0900 LAURIE Administration Cefepime HCl 1 gm/ Sodium 100 mls @ 200 mls/hr 12/29/19 21:00 12/30/19 08:20 Chloride IVPB 100 mls Q12HR LAURIE Administration Fentanyl Citrate 2,000 mcg/ 100 mls @ 0 mls/hr 12/29/19 18:32 12/29/19 20:09 Sodium Chloride IV 01/28/20 18:32 100 mls INF LAURIE Administration Protocol Per Protocol Levofloxacin 250 mg/ Device 50 mls @ 33.333 mls/hr 12/29/19 20:00 12/29/19 19 :47 IVPB 50 mls 2000 LAURIE Administration Sodium Chloride 1,000 mls @ 50 mls/hr 12/30/19 09:30 12/30/19 09:29 Normal Saline 0.9% IV 1,000 mls .Q20H LAURIE Administration Lorazepam 2 mg 12/29/19 18:32 12/29/19 19:47 Ativan SLOW IVP 01/28/20 18:32 2 mg Q1H PRN Administration Breakthrough agitation Methylprednisolone Sodium Succinate 20 mg 12/29/19 23:59 12/30/19 11:57 Solu-Medrol IVP 20 mg Q6HR LAURIE Administration Mometasone Furoate/Formoterol Fumar 2 puff 12/30/19 06:30 12/30/19 08:01 Dulera 200 Mcg/5 Mcg Inhaler INH 2 puff BID-RT LAURIE Administration Propofol 1,000 mg 12/29/19 18:32 12/30/19 05:38 Diprivan IV 01/28/20 18:32 1,000 mg INF PRN Administration TO ACHIEVE GOAL RASS Protocol - Exam Eye: PERRL, anicteric sclera ENT: no oropharyngeal lesions, dry oral mucosa Neck: supple, no JVD Heart: RRR, no gallops Respiratory: no wheezes, rales, rhonchi Gastrointestinal: soft, non-tender, non-distended, normal bowel sounds Extremities: no cyanosis, no edema Neurological: cranial nerve grossly intact, no focal deficits Hosp A/P (1) Acute respiratory failure Code(s): J96.00 - ACUTE RESPIRATORY FAILURE, UNSP W HYPOXIA OR HYPERCAPNIA Status: Acute Qualifiers: Respiratory failure complication: hypoxia and hypercapnia Qualified Code(s) : J96.01 - Acute respiratory failure with hypoxia; J96.02 - Acute respiratory failure with hypercapnia (2) Acute on chronic combined systolic (congestive) and diastolic (congestive) heart failure Code(s): I50.43 - ACUTE ON CHRONIC COMBINED SYSTOLIC AND DIASTOLIC HRT FAIL Status: Acute (3) Acute metabolic encephalopathy Code(s): G93.41 - METABOLIC ENCEPHALOPATHY Status: Acute (4) ARASELI (acute kidney injury) Code(s): N17.9 - ACUTE KIDNEY FAILURE, UNSPECIFIED Status: Acute (5) Marijuana abuse Code(s): F12.10 - CANNABIS ABUSE, UNCOMPLICATED Status: Chronic (6) CAD (coronary artery disease) Code(s): I25.10 - ATHSCL HEART DISEASE OF [place] CORONARY ARTERY W/O ANG PCTRS Status: Chronic Qualifiers: Coronary Disease-Associated Artery/Lesion type: [place] artery [place] vs. transplanted heart: [place] heart (7) HTN (hypertension) Code(s): I10 - ESSENTIAL (PRIMARY) HYPERTENSION Status: Chronic Qualifiers: Hypertension type: essential hypertension - Plan await covid 19 pcr resut is weaning, off sedation, need to see if he wakes up fully on cefepime, levaquin, nebs, steroids is off lasix now, getting alb infusions hemostable
[2019-12-30] MEDS: Lorazepam 2 MG/ML VIAL SLOW IVP PRN (16:22)
[2019-12-30] MEDS: Pantoprazole 40 MG VIAL IVP SCH (20:26)
[2019-12-30] MEDS: Atorvastatin Calcium 40 MG TAB PO SCH (20:26)
[2019-12-31 03:42] LABS: #Lymphocytes 0.6 thou/uL (1.20-3.40); #Monocytes 0.6 thou/uL (0.11-0.59); #Neutrophils 10.6 thou/uL (1.40-6.50); %Eosinophils 0.2 % (0.0-10.0); %Monocytes 5.1 % (0.0-10.0); %Neutrophils 89.6 % (42.0-75.0); Hemoglobin 12.6 g/dL (14.0-18.0); Mean Corpuscular Hemoglobin 33.8 pg (27.0-31.0); Mean Platelet Volume 8.7 fL (7.4-10.4); Platelet Count 261 thou/uL (130-400); RBC Distribution Width 15.2 % (11.5-14.5); Red Blood Cell (RBC) Count 3.74 mill/uL (4.70-6.10); White Blood Cell (WBC) Count 11.8 thou/uL (4.8-10.8)
[2019-12-31 04:07] LABS: ALT (SGPT) 74 U/L (8-55); AST (SGOT) 60 U/L (5-34); Albumin 3.6 g/dL (3.4-4.8); Alkaline Phosphatase 118 U/L (40-110); Anion Gap 12 mmol/L (10-20); BUN (Urea Nitrogen) 54 mg/dL (8.4-25.7); Bilirubin, Total 1.4 mg/dL (0.2-1.2); Calc. Creatinine Clearance 61 mL/min (70-130); Carbon Dioxide 34 mmol/L (23-31); Chloride 100 mmol/L (98-107); Estimated GFR-MDRD 64; Globulin 2.9 g/dL (2.4-3.5); Glucose 136 mg/dL (80-115); Potassium 4.6 mmol/L (3.5-5.1); Protein, Total 6.5 g/dL (5.8-8.1); Sodium 141 mmol/L (136-145)
[2019-12-31] MEDS: Sodium Chloride 0.9% 1,000 ML IV SCH (05:28)
[2019-12-31] MEDS: fentaNYL Citrate/PF 2,000 MCG in Sodium Chloride 0.9% 60 ML IV SCH (05:28)
[2019-12-31] MEDS: Albumin 25% 25 GM/100 ML BOT IVPB SCH ×4 (05:34→23:59)
[2019-12-31] MEDS: methylPREDNISolone Sod Succ 40 MG VIAL IVP SCH ×4 (05:34→23:59)
[2019-12-31] MEDS: Propofol 1,000 MG/100 ML VIAL IV PRN (06:46)
[2019-12-31] MEDS: Mometasone 200 MCG/Formoterol 5 MCG 120 PUFF INHALER INH SCH ×2 (07:28→18:44)
--- NOTE | 2019-12-31 07:43 | RAD ---
Chest one view HISTORY: Dyspnea. Intubated. Follow-up. COMPARISON: 12/29/2019. FINDINGS: Cardiac silhouette is now partially obscured by dense opacity throughout the collapsed left lower lobe. There is leftward shift of mediastinum and hyperinflation of the left upper lobe and right lung. Endotracheal catheter and nasogastric tube are in good radiographic position. No evidence of pneumothorax. Calcified granulomata are consistent with healed granulomatous disease. IMPRESSION : Interval complete collapse left lower lobe. Other findings are stable.
[2019-12-31 08:02] LABS: Actual Bicarbonate (HCO3a) 34.7 mEq/L (22-28); Calcium, Ionized (arterial) 1.16 mmol/L (1.12-1.30); Carboxyhemoglobin (COHb) 1.5 gm% (0.0-3.0); Hemoglobin (Hb) 11.7 g/dL (14.0-18.0); Potassium - ABG Lab 4.31 mmol/L (3.70-5.30); pH, Arterial 7.43 (7.35-7.45)
[2019-12-31 08:08] LABS: O2 Tension (PaO2), arterial 58.7 mmHg (> 80.0); Puncture Site L.R
[2019-12-31] MEDS: Enoxaparin Sodium 30 MG/0.3 ML SYRINGE SC SCH (08:34)
[2019-12-31] MEDS: Aspirin Chewable 81 MG TAB PO SCH (08:34)
[2019-12-31] MEDS: Carvedilol 3.125 MG TAB PO SCH (08:34)
[2019-12-31] MEDS: Cefepime 1 GM in Sodium Chloride 0.9% 100 ML IVPB SCH ×2 (08:34→21:37)
[2019-12-31] MEDS ORDERED: DC Sedation Protocol FS ONE (09:03)
--- NOTE | 2019-12-31 09:56 | PRG ---
DATE OF SERVICE: 12/31/2019 SUBJECTIVE: This morning, the patient's sedation was withheld, a little bit more responsive, still slightly encephalopathic. OBJECTIVE: VITAL SIGNS: Temperature 98, blood pressure 150/84, pulse respiratory rate 18. CHEST: Bilateral rhonchi, crackles. CARDIAC: Normal S1, S2. No gallops. ABDOMEN: No masses. LABORATORY DATA: White count 11,000, H and H 12 and 40, platelet count 261. His pO2 was only 58, pCO2 rate 10, 30%, PEEP of 5. Creatinine 1.3, BUN 54. Liver function slightly elevated, bilirubin 1.4, AST 60. X-ray shows cardiomegaly, but no obvious acute infiltrates were seen. IMPRESSION: 1. Respiratory failure, encephalopathy, underlying chronic obstructive pulmonary disease. 2. Advanced age. 3. Echo, 6 months ago, showed his ejection fraction was mildly decreased. 4. Probably, has underlying sleep apnea, we think. PLAN: Hold sedation. We will probably wean and extubate. Aggressive neb treatments. Supportive care, PT. Eventually, he may need placement. Job ID: [id number]
[2019-12-31] MEDS ORDERED: Albumin 25% 25 GM/100 ML BOT IVPB ONE (10:13)
[2019-12-31] MEDS ORDERED: Diltiazem HCl 125 MG, Admixture Fee 1 EACH in Sodium Chloride 0.9% 100 ML IVPB SCH (12:45)
--- NOTE | 2019-12-31 12:51 | PDOC.HOSPP ---
- Subjective Encounter Date: 12/31/19 Encounter Time: 11:20 Subjective: got extubated this am not oriented, a bit somnolent - Objective Vital Signs & Weight: Vital Signs (12 hours) Temp Pulse Resp BP Pulse Ox 12/31/19 12:43 152 H 12/31/19 12:00 98.7 F 12/31/19 10:36 92 29 H 95 12/31/19 08:00 98.6 F 12/31/19 07:50 15 98 12/31/19 07:29 78 141/78 H 12/31/19 07:28 77 15 95 12/31/19 06:00 15 12/31/19 04:00 98.7 F 15 12/31/19 02:11 78 140/77 12/31/19 02:00 15 Weight Admit Weight 180 lb Weight 178 lb 1.6 oz Most Recent Monitor Data Heart Rate from ECG 152 NIBP 146/117 NIBP BP-Mean 126 Respiration from ECG 21 SpO2 85 I&O: 12/30/19 12/31/19 01/01/20 06:59 06:59 06:59 Intake Total 345 2046 594 Output Total 1125 3340 395 Balance -780 -1294 199 Result Diagrams: 12/31/19 03:18 12/31/19 03:18 Hospitalist ROS - Medication Medications: Active Medications Generic Name Dose Route Start Last Admin Trade Name Freq PRN Reason Stop Dose Admin Albumin Human 25 gm 12/31/19 12:00 12/31/19 10:50 Albumin 25% IVPB 01/01/20 12:01 25 gm Q6HR LAURIE Administration Albuterol/Ipratropium 3 ml 12/31/19 11:00 12/31/19 10:36 Duoneb NEB 3 ml [id number] LAURIE Administration Aspirin 81 mg 12/30/19 09:00 12/31/19 08:34 Aspirin Chewable PO 81 mg DAILY LAURIE Administration Atorvastatin Calcium 40 mg 12/29/19 21:00 12/30/19 20:26 Lipitor PO 40 mg HS LAURIE Administration Diltiazem HCl 10 mg 12/31/19 12:45 12/31/19 12:43 Cardizem Inj SLOW IVP 12/31/19 15:00 10 mg NOW LAURIE Administration Enoxaparin Sodium 30 mg 12/30/19 09:00 12/31/19 08:34 Lovenox SC 30 mg 0900 LAURIE Administration Cefepime HCl 1 gm/ Sodium 100 mls @ 200 mls/hr 12/29/19 21:00 12/31/19 08:34 Chloride IVPB 100 mls Q12HR LAURIE Administration Levofloxacin 250 mg/ Device 50 mls @ 33.333 mls/hr 12/29/19 20:00 12/30/19 19 :43 IVPB 50 mls 2000 LAURIE Administration Sodium Chloride 1,000 mls @ 50 mls/hr 12/30/19 09:30 12/31/19 05:28 Normal Saline 0.9% IV 1,000 mls .Q20H LAURIE Administration Methylprednisolone Sodium Succinate 20 mg 12/29/19 23:59 12/31/19 10:59 Solu-Medrol IVP 20 mg Q6HR LAURIE Administration Mometasone Furoate/Formoterol Fumar 2 puff 12/30/19 06:30 12/31/19 07:28 Dulera 200 Mcg/5 Mcg Inhaler INH 2 puff BID-RT LAURIE Administration Pantoprazole Sodium 40 mg 12/30/19 21:00 12/30/19 20:26 Protonix IVP 40 mg 2100 LAURIE Administration - Exam General Appearance: ill appearing Eye: PERRL, anicteric sclera ENT: no oropharyngeal lesions, dry oral mucosa Neck: supple, no JVD Heart: RRR, no murmur Respiratory: no wheezes, no rales, rhonchi Gastrointestinal: soft, non-tender, non-distended, normal bowel sounds Extremities: no cyanosis, no edema Hosp A/P (1) Acute respiratory failure Code(s): J96.00 - ACUTE RESPIRATORY FAILURE, UNSP W HYPOXIA OR HYPERCAPNIA Status: Acute Qualifiers: Respiratory failure complication: hypoxia and hypercapnia Qualified Code(s) : J96.01 - Acute respiratory failure with hypoxia; J96.02 - Acute respiratory failure with hypercapnia (2) Acute on chronic combined systolic (congestive) and diastolic (congestive) heart failure Code(s): I50.43 - ACUTE ON CHRONIC COMBINED SYSTOLIC AND DIASTOLIC HRT FAIL Status: Acute (3) Acute metabolic encephalopathy Code(s): G93.41 - METABOLIC ENCEPHALOPATHY Status: Acute (4) ARASELI (acute kidney injury) Code(s): N17.9 - ACUTE KIDNEY FAILURE, UNSPECIFIED Status: Acute (5) Marijuana abuse Code(s): F12.10 - CANNABIS ABUSE, UNCOMPLICATED Status: Chronic (6) CAD (coronary artery disease) Code(s): I25.10 - ATHSCL HEART DISEASE OF [place] CORONARY ARTERY W/O ANG PCTRS Status: Chronic Qualifiers: Coronary Disease-Associated Artery/Lesion type: [place] artery [place] vs. transplanted heart: [place] heart (7) HTN (hypertension) Code(s): I10 - ESSENTIAL (PRIMARY) HYPERTENSION Status: Chronic Qualifiers: Hypertension type: essential hypertension - Plan covid 19 pcr is -ve still encephalopathic, watch for airway on cefepime, levaquin, nebs, steroids is off lasix now, getting alb infusions prelim cultures are -ve hemostable
[2019-12-31] MEDS ORDERED: Amiodarone HCl 150 MG in Dextrose 5% in Water 100 ML IVPB SCH (15:45)
[2019-12-31] MEDS: Amiodarone HCl 450 MG in Dextrose 5% in Water 250 ML IVPB SCH (15:55)
[2019-12-31] MEDS ORDERED: Lorazepam 2 MG/ML VIAL ONE (16:40)
[2019-12-31] MEDS ORDERED: Lorazepam 2 MG/ML VIAL SLOW IVP SCH (17:15)
[2019-12-31] MEDS ORDERED: ALPRAZolam 0.5 MG TAB PO PRN (17:30)
[2019-12-31] MEDS ORDERED: ALPRAZolam 0.5 MG TAB PO SCH (17:30)
[2019-12-31] MEDS ORDERED: Digoxin 0.5 MG/2 ML AMP SLOW IVP SCH ×2 (18:30→19:30)
--- NOTE | 2019-12-31 21:10 | PRG ---
DATE OF SERVICE: 12/31/2019 SUBJECTIVE: Mr. [place] is a 69-year-old black male, who was admitted for acute respiratory failure secondary to COPD exacerbation. He was ruled out for COVID- 19 infection. We are following him up for his acute kidney injury. He has been extubated. In addition, a cardiac echo was done today on December 31, 2019, and an EF of 40-45% was noted. We are following up this patient for the acute kidney injury. He has received albumin infusion with slight improvement of the creatinine from 1.53 to most recent value of 1.35. I will continue the albumin infusion for another day or for another four doses. OBJECTIVE: VITAL SIGNS: Blood pressure is 108/79, heart rate is 102, respiratory rate 20, O2 saturation 97%. GENERAL: The patient is awake, but somewhat confused, but not in distress. SKIN: Adequate turgor. HEENT: He has pinkish conjunctivae. Anicteric sclerae. NECK: No neck mass. No carotid bruits. No JVD. CHEST: No deformities. LUNGS: Decreased breath sounds. HEART: Normal sinus rhythm. No murmur. No gallops or rubs. ABDOMEN: Globular, soft, nontender. No masses. EXTREMITIES: No edema. No deformities. MEDICATIONS: Medications of December 31, 2019, reviewed. LABORATORY DATA: December 31, 2019, white count 11.8, hemoglobin 12.6, sodium 141, potassium 4.6, chloride 100, carbon dioxide 34, BUN 54, creatinine 1.35, glucose 136, AST 60, ALT 74, alkaline phosphatase 118. Albumin 3.6. ASSESSMENT AND PLAN: Acute kidney injury - superimposed hemodynamically- mediated dysfunction, improving renal function with volume repletion. We will continue one more day of albumin infusion at 25 g IV q.6. Creatinine is improving. There is no indication for any emergent hemodialysis with this patient. We will recheck basic metabolic panel and CBC in a.m. Agree with current management. Job ID: [id number] MTDD
[2019-12-31] MEDS ORDERED: Digoxin 0.25 MG TAB PO SCH (21:30)
[2019-12-31] MEDS: Amlodipine 5 MG TAB PO SCH (21:36)
[2019-12-31] MEDS: Atorvastatin Calcium 40 MG TAB PO SCH (21:36)
[2019-12-31] MEDS: Pantoprazole 40 MG VIAL IVP SCH (21:37)
[2020-01-01] MEDS: Amiodarone HCl 450 MG in Dextrose 5% in Water 250 ML IVPB SCH ×2 (00:08→14:41)
[2020-01-01] MEDS: methylPREDNISolone Sod Succ 40 MG VIAL IVP SCH ×3 (05:07→20:28)
[2020-01-01] MEDS: Albumin 25% 25 GM/100 ML BOT IVPB SCH ×2 (05:07→12:55)
[2020-01-01] MEDS: Sodium Chloride 0.9% 1,000 ML IV SCH ×2 (05:09→20:29)
[2020-01-01 05:51] LABS: Band 2 % (5-11); Hemoglobin 11.7 g/dL (14.0-18.0); Hypochromia SLIGHT = 6-15 cells (100X) (0-5/hpf); Lymphocytes 5 % (21-51); MDiff Complete? YES; Macrocytosis SLIGHT = 6-15 cells (100X) (0-5/hpf); Mean Corpuscular HGB CONC 29.2 g/dL (32.0-36.0); Mean Corpuscular Hemoglobin 32.8 pg (27.0-31.0); Mean Platelet Volume 7.9 fL (7.4-10.4); Monocytes 5 % (0-10); Neutrophil 88 % (42-75); Platelet Count 280 thou/uL (130-400); Platelet Morphology Comment Appears Adequate; RBC Distribution Width 14.5 % (11.5-14.5); Red Blood Cell (RBC) Count 3.58 mill/uL (4.70-6.10)
[2020-01-01 05:55] LABS: ALT (SGPT) 63 U/L (8-55); AST (SGOT) 40 U/L (5-34); Albumin 4.3 g/dL (3.4-4.8); Alkaline Phosphatase 94 U/L (40-110); BUN (Urea Nitrogen) 51 mg/dL (8.4-25.7); Bilirubin, Total 1.6 mg/dL (0.2-1.2); Calc. Creatinine Clearance 65 mL/min (70-130); Calcium 9.1 mg/dL (7.8-10.44); Estimated GFR-MDRD 67; Globulin 2.8 g/dL (2.4-3.5); Glucose 143 mg/dL (80-115); Protein, Total 7.1 g/dL (5.8-8.1)
[2020-01-01 06:04] LABS: Anion Gap 13 mmol/L (10-20); Carbon Dioxide 35 mmol/L (23-31); Chloride 97 mmol/L (98-107); Sodium 140 mmol/L (136-145)
[2020-01-01] MEDS: Mometasone 200 MCG/Formoterol 5 MCG 120 PUFF INHALER INH SCH ×2 (07:12→18:46)
--- NOTE | 2020-01-01 08:18 | RAD ---
SINGLE VIEW OF THE CHEST: COMPARISON: 12/31/2019. HISTORY: Ventilated patient with respiratory failure. FINDINGS: A single view of the chest shows an enlarged but stable cardiomediastinal silhouette. The endotrache al tube and NG tube have been removed. There is slight opacity above the right hemidiaphragm which m ay represent atelectasis or an infiltrate. Retrocardiac opacity is stable. IMPRESSION: Bibasilar atelectasis versus infiltrates. POS: EAA
[2020-01-01] MEDS: Digoxin 0.125 MG TAB PO SCH (08:57)
[2020-01-01] MEDS: Enoxaparin Sodium 30 MG/0.3 ML SYRINGE SC SCH (08:57)
[2020-01-01] MEDS: Aspirin Chewable 81 MG TAB PO SCH (08:57)
[2020-01-01] MEDS: Cefepime 1 GM in Sodium Chloride 0.9% 100 ML IVPB SCH ×2 (09:00→20:28)
--- NOTE | 2020-01-01 09:24 | PRG ---
DATE OF SERVICE: 01/01/2020 SUBJECTIVE: This morning, he remains in the ICU, is still very encephalopathic. OBJECTIVE: VITAL SIGNS: Pulse 87, respiratory rate 25, saturations 95% on 4 L, and blood pressure . CHEST: Bilateral rhonchi and crackles. CARDIAC: Normal S1, S2. No gallops. ABDOMEN: No masses. LABORATORY DATA: White count 17,000. Creatinine is 1.29, BUN 51. ASSESSMENT: Respiratory failure, congestive heart failure, encephalopathy, renal failure. We are trying to minimize any sedative medication. X-rays show bilateral pleural effusions, left greater than right. He is still full code, getting steroid and neb treatments and amiodarone. Empiric antibiotics and steroids. I am concerned about the deescalate antibiotics. One-half hour of critical care time. Job ID: [id number]
--- NOTE | 2020-01-01 12:04 | PDOC.HOSPP ---
- Subjective Encounter Date: 01/01/20 Encounter Time: 08:45 Subjective: awakens to touch, not oriented is on precedex drip to keep him calm - Objective Vital Signs & Weight: Vital Signs (12 hours) Temp Pulse Resp Pulse Ox 01/01/20 10:33 89 30 H 94 L 01/01/20 08:57 87 01/01/20 08:00 97.7 F 98 01/01/20 07:11 87 25 H 94 L 01/01/20 04:00 97.5 F L Weight Admit Weight 180 lb Weight 184 lb 1.376 oz Most Recent Monitor Data Heart Rate from ECG 83 NIBP 123/77 NIBP BP-Mean 82 Respiration from ECG 20 SpO2 69 I&O: 12/31/19 01/01/20 01/02/20 06:59 06:59 06:59 Intake Total 2046 3626.7 90 Output Total 3340 1572 290 Balance -1294 2054.7 -200 Result Diagrams: 01/01/20 05:15 01/01/20 05:15 Hospitalist ROS - Medication Medications: Active Medications Generic Name Dose Route Start Last Admin Trade Name Freq PRN Reason Stop Dose Admin Albuterol/Ipratropium 3 ml 12/31/19 11:00 01/01/20 10:33 Duoneb NEB 3 ml [id number] LAURIE Administration Amlodipine Besylate 5 mg 12/31/19 21:00 12/31/19 21:36 Norvasc PO 5 mg HS LAURIE Administration Aspirin 81 mg 12/30/19 09:00 01/01/20 08:57 Aspirin Chewable PO 81 mg DAILY LAURIE Administration Atorvastatin Calcium 40 mg 12/29/19 21:00 12/31/19 21:36 Lipitor PO 40 mg HS LAURIE Administration Digoxin 0.125 mg 01/01/20 09:00 01/01/20 08:57 Lanoxin PO 0.125 mg QAM LAURIE Administration Enoxaparin Sodium 30 mg 12/30/19 09:00 01/01/20 08:57 Lovenox SC 30 mg 0900 LAURIE Administration Cefepime HCl 1 gm/ Sodium 100 mls @ 200 mls/hr 12/29/19 21:00 01/01/20 09:00 Chloride IVPB 100 mls Q12HR LAURIE Administration Sodium Chloride 1,000 mls @ 50 mls/hr 12/30/19 09:30 01/01/20 05:09 Normal Saline 0.9% IV 1,000 mls .Q20H LAURIE Administration Amiodarone HCl 450 mg/ 259 mls @ 0 mls/hr 12/31/19 15:45 01/01/20 00:08 Miscellaneous Medication 1 IVPB 259 mls each/ Dextrose/Water INF LAURIE Administration Protocol As Directed Dexmedetomidine HCl 200 mcg/ 50 mls @ 0 mls/hr 12/31/19 17:30 01/01/20 07:25 Sodium Chloride IVPB 50 mls INF LAURIE Administration Protocol Titrate Methylprednisolone Sodium Succinate 20 mg 01/01/20 09:00 01/01/20 09:01 Solu-Medrol IVP 20 mg BID LAURIE Administration Mometasone Furoate/Formoterol Fumar 2 puff 12/30/19 06:30 01/01/20 07:12 Dulera 200 Mcg/5 Mcg Inhaler INH 2 puff BID-RT LAURIE Administration Pantoprazole Sodium 40 mg 12/30/19 21:00 12/31/19 21:37 Protonix IVP 40 mg 2100 LAURIE Administration - Exam General Appearance: ill appearing Eye: PERRL, anicteric sclera ENT: no oropharyngeal lesions, dry oral mucosa Neck: supple, no JVD Heart: RRR, no murmur Respiratory: no wheezes, no rales, rhonchi Gastrointestinal: soft, non-tender, non-distended, normal bowel sounds Extremities: no cyanosis, no edema Neurological: cranial nerve grossly intact, no focal deficits Hosp A/P (1) Acute respiratory failure Code(s): J96.00 - ACUTE RESPIRATORY FAILURE, UNSP W HYPOXIA OR HYPERCAPNIA Status: Acute Qualifiers: Respiratory failure complication: hypoxia and hypercapnia Qualified Code(s) : J96.01 - Acute respiratory failure with hypoxia; J96.02 - Acute respiratory failure with hypercapnia (2) Acute on chronic combined systolic (congestive) and diastolic (congestive) heart failure Code(s): I50.43 - ACUTE ON CHRONIC COMBINED SYSTOLIC AND DIASTOLIC HRT FAIL Status: Acute (3) Acute metabolic encephalopathy Code(s): G93.41 - METABOLIC ENCEPHALOPATHY Status: Acute (4) ARASELI (acute kidney injury) Code(s): N17.9 - ACUTE KIDNEY FAILURE, UNSPECIFIED Status: Acute (5) Marijuana abuse Code(s): F12.10 - CANNABIS ABUSE, UNCOMPLICATED Status: Chronic (6) CAD (coronary artery disease) Code(s): I25.10 - ATHSCL HEART DISEASE OF [place] CORONARY ARTERY W/O ANG PCTRS Status: Chronic Qualifiers: Coronary Disease-Associated Artery/Lesion type: [place] artery [place] vs. transplanted heart: [place] heart (7) HTN (hypertension) Code(s): I10 - ESSENTIAL (PRIMARY) HYPERTENSION Status: Chronic Qualifiers: Hypertension type: essential hypertension - Plan covid 19 pcr is -ve still encephalopathic, watch for airway on cefepime, nebs, steroids is off lasix, got alb infusions yesterday prelim blood cultures are -ve, sputum is growing strep pneumo hemostable, prognosis guarded
[2020-01-01 13:13] VITALS: BMI 24.3
[2020-01-01] MEDS: Pantoprazole 40 MG VIAL IVP SCH (20:28)
[2020-01-01] MEDS: Amlodipine 5 MG TAB PO SCH (20:28)
[2020-01-01] MEDS: Atorvastatin Calcium 40 MG TAB PO SCH (20:29)
[2020-01-02 05:01] LABS: #Lymphocytes 0.8 thou/uL (1.20-3.40); #Monocytes 0.7 thou/uL (0.11-0.59); #Neutrophils 10.5 thou/uL (1.40-6.50); %Basophils 0.1 % (0.0-1.0); %Eosinophils 0.4 % (0.0-10.0); %Lymphocytes 6.7 % (21.0-51.0); %Monocytes 5.6 % (0.0-10.0); %Neutrophils 87.2 % (42.0-75.0); Hemoglobin 12.7 g/dL (14.0-18.0); Mean Corpuscular HGB CONC 29.1 g/dL (32.0-36.0); Mean Corpuscular Hemoglobin 32.8 pg (27.0-31.0); Mean Platelet Volume 8.1 fL (7.4-10.4); Platelet Count 266 thou/uL (130-400); RBC Distribution Width 14.2 % (11.5-14.5); Red Blood Cell (RBC) Count 3.88 mill/uL (4.70-6.10); White Blood Cell (WBC) Count 12.1 thou/uL (4.8-10.8)
[2020-01-02 05:08] LABS: BUN (Urea Nitrogen) 47 mg/dL (8.4-25.7); Calc. Creatinine Clearance 78 mL/min (70-130); Calcium 9.2 mg/dL (7.8-10.44); Estimated GFR-MDRD 83; Glucose 133 mg/dL (80-115)
[2020-01-02] MEDS: Amiodarone HCl 450 MG in Dextrose 5% in Water 250 ML IVPB SCH (05:14)
[2020-01-02 05:19] LABS: Anion Gap 12 mmol/L (10-20); Carbon Dioxide 33 mmol/L (23-31); Chloride 101 mmol/L (98-107); Potassium 5.4 mmol/L (3.5-5.1); Sodium 141 mmol/L (136-145)
[2020-01-02] MEDS: Mometasone 200 MCG/Formoterol 5 MCG 120 PUFF INHALER INH SCH ×2 (08:06→18:37)
--- NOTE | 2020-01-02 08:23 | RAD ---
Exam: Chest one view HISTORY:Respiratory distress. Ventilated patient. Comparison: 01/01/2020 FINDINGS: Cardiac silhouette:Persistent cardiomegaly Aorta: Unremarkable Pulmonary vessels: Normal Costophrenic angles: Clear LUNGS: Persistent parenchymal changes the lung bases. Stable emphysematous changes lung apices. Pneumothorax: None Osseous abnormalities: None IMPRESSION: No significant interval change.
[2020-01-02] MEDS: methylPREDNISolone Sod Succ 40 MG VIAL IVP SCH ×2 (08:57→21:08)
[2020-01-02] MEDS: Cefepime 1 GM in Sodium Chloride 0.9% 100 ML IVPB SCH ×2 (08:57→21:05)
[2020-01-02] MEDS: Enoxaparin Sodium 30 MG/0.3 ML SYRINGE SC SCH (08:58)
[2020-01-02] MEDS: Digoxin 0.125 MG TAB PO SCH (08:58)
[2020-01-02] MEDS: Aspirin Chewable 81 MG TAB PO SCH (08:58)
--- NOTE | 2020-01-02 09:18 | PDOC.CPN ---
- Subjective Date: 01/02/20 Time: 11:00 Interval history: No complaints He woudl like to go home Still on IV CCB No CP and improved SOB present - Objective Allergies/Adverse Reactions: Allergies Allergy/AdvReac Type Severity Reaction Status Date / Time No Known Allergies Allergy Verified 08/05/19 19:29 Visit Medications: Current Medications Acetaminophen (Tylenol) 650 mg PO Q4H PRN PRN Reason: Headache/Fever/Mild Pain (1-3) Acetaminophen (Tylenol) 650 mg [place] Q4H PRN PRN Reason: Headache/Fever/Mild Pain (1-3) Albuterol/Ipratropium (Duoneb) 3 ml NEB [id number] [facility] Last Admin: 01/02/20 08:06 Dose: 3 ml Amlodipine Besylate (Norvasc) 5 mg PO HS [facility] Last Admin: 01/01/20 20:28 Dose: 5 mg Aspirin (Aspirin Chewable) 81 mg PO DAILY [facility] Last Admin: 01/02/20 08:58 Dose: 81 mg Atorvastatin Calcium (Lipitor) 40 mg PO HS [facility] Last Admin: 01/01/20 20:29 Dose: 40 mg Bisacodyl (Dulcolax) 10 mg [place] DAILYPRN PRN PRN Reason: Constipation Digoxin (Lanoxin) 0.125 mg PO QAM [facility] Last Admin: 01/02/20 08:58 Dose: 0.125 mg Enoxaparin Sodium (Lovenox) 30 mg SC 0900 [facility] Last Admin: 01/02/20 08:58 Dose: 30 mg Guaifenesin/Dextromethorphan (Robitussin Dm) 15 ml PO Q4H PRN PRN Reason: Cough Cefepime HCl 1 gm/ Sodium (Chloride) 100 mls @ 200 mls/hr IVPB Q12HR [facility] Last Admin: 01/02/20 08:57 Dose: 100 mls Sodium Chloride (Normal Saline 0.9%) 1,000 mls @ 50 mls/hr IV .Q20H [facility] Last Admin: 01/01/20 20:29 Dose: 1,000 mls Amiodarone HCl 450 mg/Miscellaneous Medication 1 each/ Dextrose/Water 259 mls @ 0 mls/hr IVPB INF LAURIE; Protocol Last Admin: 01/02/20 05:14 Dose: 259 mls Dexmedetomidine HCl 200 mcg/ (Sodium Chloride) 50 mls @ 0 mls/hr IVPB INF LAURIE; Protocol Last Admin: 01/02/20 00:11 Dose: 50 mls Methylprednisolone Sodium Succinate (Solu-Medrol) 20 mg IVP BID LAURIE Last Admin: 01/02/20 08:57 Dose: 20 mg Mometasone Furoate/Formoterol Fumar (Dulera 200 Mcg/5 Mcg Inhaler) 2 puff INH BID-RT LAURIE Last Admin: 01/02/20 08:06 Dose: 2 puff Ondansetron HCl (Zofran) 4 mg IVP Q6H PRN PRN Reason: Nausea/Vomiting Pantoprazole Sodium (Protonix) 40 mg IVP 2100 LAURIE Last Admin: 01/01/20 20:28 Dose: 40 mg Sodium Chloride (Normal Saline Pf) 10 ml FS PRN PRN PRN Reason: RECONSTITUTION Vital Signs & Weight: Vital Signs Temp Pulse Resp Pulse Ox 01/02/20 08:58 85 01/02/20 08:06 109 H 20 100 01/02/20 08:00 97.7 F 01/02/20 04:00 98.1 F 01/02/20 00:00 98.0 F Admit Weight 180 lb Weight 183 lb 6.793 oz - Physical Exam General: alert & oriented x3 Neck: no masses Cardiac: regular rate, regular rhythm, tachycardia Lungs: normal exam Neuro: grossly intact - Labs Result Diagrams: 01/03/20 03:43 01/03/20 03:43 Troponin/CKMB CK-MB (CK-2) 9.2 ng/mL (0-6.6) H* 12/29/19 15:25 Troponin I 0.177 ng/mL (< 0.028) H 12/30/19 01:21 - Assessment/Plan Assessment/Plan: CHF Respiratory failure encephalopathy CAD HTN Aflutter 01/01 REC Sputum (+ strep pneumon) off IV CCB Contiue digoxin EP consult next week? Pt remains tachycardic
--- NOTE | 2020-01-02 11:55 | PDOC.HOSPP ---
- Subjective Encounter Date: 01/02/20 Encounter Time: 08:45 Subjective: awakens easily, is off precedex this am not oriented - Objective Vital Signs & Weight: Vital Signs (12 hours) Temp Pulse Resp Pulse Ox 01/02/20 08:58 85 01/02/20 08:06 109 H 20 100 01/02/20 08:00 97.7 F 100 01/02/20 04:00 98.1 F 01/02/20 00:00 98.0 F Weight Admit Weight 180 lb Weight 183 lb 6.793 oz Most Recent Monitor Data Heart Rate from ECG 115 NIBP 104/84 NIBP BP-Mean 90 Respiration from ECG 15 SpO2 97 I&O: 01/01/20 01/02/20 01/03/20 06:59 06:59 06:59 Intake Total 3626.7 2497.4 Output Total 1572 1820 240 Balance 2054.7 677.4 -240 Result Diagrams: 01/02/20 04:24 01/02/20 03:30 Hospitalist ROS - Medication Medications: Active Medications Generic Name Dose Route Start Last Admin Trade Name Freq PRN Reason Stop Dose Admin Albuterol/Ipratropium 3 ml 12/31/19 11:00 01/02/20 08:06 Duoneb NEB 3 ml [id number] LAURIE Administration Amlodipine Besylate 5 mg 12/31/19 21:00 01/01/20 20:28 Norvasc PO 5 mg HS LAURIE Administration Aspirin 81 mg 12/30/19 09:00 01/02/20 08:58 Aspirin Chewable PO 81 mg DAILY LAURIE Administration Atorvastatin Calcium 40 mg 12/29/19 21:00 01/01/20 20:29 Lipitor PO 40 mg HS LAURIE Administration Digoxin 0.125 mg 01/01/20 09:00 01/02/20 08:58 Lanoxin PO 0.125 mg QAM LAURIE Administration Enoxaparin Sodium 30 mg 12/30/19 09:00 01/02/20 08:58 Lovenox SC 30 mg 0900 LAURIE Administration Cefepime HCl 1 gm/ Sodium 100 mls @ 200 mls/hr 12/29/19 21:00 01/02/20 08:57 Chloride IVPB 100 mls Q12HR LAURIE Administration Sodium Chloride 1,000 mls @ 50 mls/hr 12/30/19 09:30 01/01/20 20:29 Normal Saline 0.9% IV 1,000 mls .Q20H LAURIE Administration Amiodarone HCl 450 mg/ 259 mls @ 0 mls/hr 12/31/19 15:45 01/02/20 05:14 Miscellaneous Medication 1 IVPB 259 mls each/ Dextrose/Water INF LAURIE Administration Protocol As Directed Dexmedetomidine HCl 200 mcg/ 50 mls @ 0 mls/hr 12/31/19 17:30 01/02/20 00:11 Sodium Chloride IVPB 50 mls INF LAURIE Administration Protocol Titrate Methylprednisolone Sodium Succinate 20 mg 01/01/20 09:00 01/02/20 08:57 Solu-Medrol IVP 20 mg BID LAURIE Administration Mometasone Furoate/Formoterol Fumar 2 puff 12/30/19 06:30 01/02/20 08:06 Dulera 200 Mcg/5 Mcg Inhaler INH 2 puff BID-RT LAURIE Administration Pantoprazole Sodium 40 mg 12/30/19 21:00 01/01/20 20:28 Protonix IVP 40 mg 2100 LAURIE Administration - Exam General Appearance: ill appearing Eye: PERRL, anicteric sclera ENT: no oropharyngeal lesions, moist mucosa Neck: supple, no JVD Heart: RRR, no murmur Respiratory: no wheezes, no rales, rhonchi Gastrointestinal: soft, non-tender, non-distended, normal bowel sounds Extremities: no cyanosis, 1+ LE edema Neurological: cranial nerve grossly intact, no focal deficits Hosp A/P (1) Acute respiratory failure Code(s): J96.00 - ACUTE RESPIRATORY FAILURE, UNSP W HYPOXIA OR HYPERCAPNIA Status: Acute Qualifiers: Respiratory failure complication: hypoxia and hypercapnia Qualified Code(s) : J96.01 - Acute respiratory failure with hypoxia; J96.02 - Acute respiratory failure with hypercapnia (2) Acute on chronic combined systolic (congestive) and diastolic (congestive) heart failure Code(s): I50.43 - ACUTE ON CHRONIC COMBINED SYSTOLIC AND DIASTOLIC HRT FAIL Status: Acute (3) Acute metabolic encephalopathy Code(s): G93.41 - METABOLIC ENCEPHALOPATHY Status: Acute (4) ARASELI (acute kidney injury) Code(s): N17.9 - ACUTE KIDNEY FAILURE, UNSPECIFIED Status: Acute (5) Marijuana abuse Code(s): F12.10 - CANNABIS ABUSE, UNCOMPLICATED Status: Chronic (6) CAD (coronary artery disease) Code(s): I25.10 - ATHSCL HEART DISEASE OF [place] CORONARY ARTERY W/O ANG PCTRS Status: Chronic Qualifiers: Coronary Disease-Associated Artery/Lesion type: [place] artery [place] vs. transplanted heart: [place] heart (7) HTN (hypertension) Code(s): I10 - ESSENTIAL (PRIMARY) HYPERTENSION Status: Chronic Qualifiers: Hypertension type: essential hypertension (8) Atrial fibrillation with RVR Code(s): I48.91 - UNSPECIFIED ATRIAL FIBRILLATION Status: Acute - Plan covid 19 pcr is -ve still encephalopathic, watch for airway got extubated on 12/31/2019 on cefepime, nebs, steroids, amiodarone drip is off lasix, got alb infusions 12/31/2019 blood cultures are -ve, sputum is growing strep pneumo hemostable, prognosis guarded
--- NOTE | 2020-01-02 12:49 | PRG ---
DATE OF SERVICE: 01/02/2020 SUBJECTIVE: Rei Soto does not remember the last 4 days. He is much more cooperative today. OBJECTIVE: VITAL SIGNS: Heart rate is 111, blood pressure 113/76, respiratory rates in the teens, and oximetry is in the high 90s. LUNGS: Clear. HEART: Regular rhythm. S1 and S2 are normal. ABDOMEN: Soft and nontender. EXTREMITIES: Without edema. IMAGING STUDIES: Chest radiograph still shows mild edema at the lung bases. IMPRESSION: 1. Encephalopathy, improved. 2. Congestive heart failure. 3. [id number] kidney disease. He is very weak and apparently has been falling at home. If he is transferred to the ICU, he probably needs a sitter to make sure he does not climb out of bed. I am not sure he is reliable enough to operate a call button at this point. We will continue to follow. Job ID: [id number]
[2020-01-02] MEDS: Sodium Chloride 0.9% 1,000 ML IV SCH (18:56)
[2020-01-02] MEDS: Amlodipine 5 MG TAB PO SCH (21:05)
[2020-01-02] MEDS: Atorvastatin Calcium 40 MG TAB PO SCH (21:05)
[2020-01-02] MEDS: Pantoprazole 40 MG VIAL IVP SCH (22:40)
[2020-01-03 04:24] LABS: Anion Gap 13 mmol/L (10-20); BUN (Urea Nitrogen) 53 mg/dL (8.4-25.7); Calc. Creatinine Clearance 72 mL/min (70-130); Calcium 9.1 mg/dL (7.8-10.44); Carbon Dioxide 26 mmol/L (23-31); Chloride 101 mmol/L (98-107); Estimated GFR-MDRD 77; Glucose 106 mg/dL (80-115); Potassium 5.1 mmol/L (3.5-5.1); Sodium 135 mmol/L (136-145)
[2020-01-03 04:39] LABS: Band 3 % (5-11); Elliptocytes SLIGHT = 2-5 cells (100X) (0-1/hpf); Hemoglobin 12.9 g/dL (14.0-18.0); Hypochromia SLIGHT = 6-15 cells (100X) (0-5/hpf); Lymphocytes 5 % (21-51); MDiff Complete? YES; Macrocytosis MODERATE=16-30 cells (100X) (0-5/hpf); Mean Corpuscular HGB CONC 29.6 g/dL (32.0-36.0); Mean Corpuscular Hemoglobin 32.6 pg (27.0-31.0); Metamyelocyte 2 % (0-0); Monocytes 4 % (0-10); Neutrophil 86 % (42-75); Platelet Count 268 thou/uL (130-400); Platelet Morphology Comment Appears Adequate; RBC Distribution Width 14.4 % (11.5-14.5); Red Blood Cell (RBC) Count 3.95 mill/uL (4.70-6.10); White Blood Cell (WBC) Count 15.9 thou/uL (4.8-10.8)
[2020-01-03] MEDS: Mometasone 200 MCG/Formoterol 5 MCG 120 PUFF INHALER INH SCH ×2 (06:45→19:14)
[2020-01-03] MEDS: methylPREDNISolone Sod Succ 40 MG VIAL IVP SCH ×2 (09:06→20:17)
[2020-01-03] MEDS: Cefepime 1 GM in Sodium Chloride 0.9% 100 ML IVPB SCH ×2 (09:07→20:45)
[2020-01-03] MEDS: Enoxaparin Sodium 30 MG/0.3 ML SYRINGE SC SCH (09:07)
[2020-01-03] MEDS: Digoxin 0.125 MG TAB PO SCH (09:07)
[2020-01-03] MEDS: Aspirin Chewable 81 MG TAB PO SCH (09:08)
--- NOTE | 2020-01-03 10:32 | PDOC.HOSPP ---
- Subjective Encounter Date: 01/03/20 Encounter Time: 09:45 Subjective: awake, oriented well this morning ate his breakfast has cough - Objective Vital Signs & Weight: Vital Signs (12 hours) Temp Pulse Resp BP Pulse Ox 01/03/20 09:07 117 H 01/03/20 08:55 113 H 121/59 L 93 L 01/03/20 08:10 97.1 F L 117 H 18 134/80 92 L 01/03/20 06:45 103 H 18 01/03/20 06:35 103 H 18 01/03/20 04:00 99.1 F 114 H 16 129/81 92 L 01/03/20 00:00 119 H 106/64 Weight Admit Weight 180 lb Weight 189 lb 13.088 oz Most Recent Monitor Data Heart Rate from ECG 122 NIBP 106/67 NIBP BP-Mean 80 Respiration from ECG 26 SpO2 100 I&O: 01/02/20 01/03/20 01/04/20 06:59 06:59 06:59 Intake Total 2497.4 1200 Output Total 1820 1570 Balance 677.4 -370 Result Diagrams: 01/03/20 03:43 01/03/20 03:43 Hospitalist ROS - Medication Medications: Active Medications Generic Name Dose Route Start Last Admin Trade Name Freq PRN Reason Stop Dose Admin Albuterol/Ipratropium 3 ml 12/31/19 11:00 01/03/20 06:35 Duoneb NEB 3 ml [id number] LAURIE Administration Amlodipine Besylate 5 mg 12/31/19 21:00 01/02/20 21:05 Norvasc PO 5 mg HS LAURIE Administration Aspirin 81 mg 12/30/19 09:00 01/03/20 09:08 Aspirin Chewable PO 81 mg DAILY LAURIE Administration Atorvastatin Calcium 40 mg 12/29/19 21:00 01/02/20 21:05 Lipitor PO 40 mg HS LAURIE Administration Digoxin 0.125 mg 01/01/20 09:00 01/03/20 09:07 Lanoxin PO 0.125 mg QAM LAURIE Administration Enoxaparin Sodium 30 mg 12/30/19 09:00 01/03/20 09:07 Lovenox SC 30 mg 0900 LAURIE Administration Cefepime HCl 1 gm/ Sodium 100 mls @ 200 mls/hr 12/29/19 21:00 01/03/20 09:07 Chloride IVPB 100 mls Q12HR LAURIE Administration Sodium Chloride 1,000 mls @ 50 mls/hr 12/30/19 09:30 01/02/20 18:56 Normal Saline 0.9% IV Not Given .Q20H LAURIE Amiodarone HCl 450 mg/ 259 mls @ 0 mls/hr 12/31/19 15:45 01/02/20 05:14 Miscellaneous Medication 1 IVPB 259 mls each/ Dextrose/Water INF LAURIE Administration Protocol As Directed Methylprednisolone Sodium Succinate 20 mg 01/01/20 09:00 01/03/20 09:06 Solu-Medrol IVP 20 mg BID LAURIE Administration Mometasone Furoate/Formoterol Fumar 2 puff 12/30/19 06:30 01/03/20 06:45 Dulera 200 Mcg/5 Mcg Inhaler INH 2 puff BID-RT LAURIE Administration Pantoprazole Sodium 40 mg 12/30/19 21:00 01/02/20 22:40 Protonix IVP Not Given 2100 LAURIE - Exam General Appearance: awake alert Eye: PERRL, anicteric sclera ENT: no oropharyngeal lesions, moist mucosa Neck: supple, no JVD Heart: no murmur, irregular Respiratory: no wheezes, no rales, rhonchi Gastrointestinal: soft, non-tender, non-distended, normal bowel sounds Extremities: no cyanosis, no edema Neurological: cranial nerve grossly intact, no focal deficits Hosp A/P (1) Acute respiratory failure Code(s): J96.00 - ACUTE RESPIRATORY FAILURE, UNSP W HYPOXIA OR HYPERCAPNIA Status: Acute Qualifiers: Respiratory failure complication: hypoxia and hypercapnia Qualified Code(s) : J96.01 - Acute respiratory failure with hypoxia; J96.02 - Acute respiratory failure with hypercapnia (2) Acute on chronic combined systolic (congestive) and diastolic (congestive) heart failure Code(s): I50.43 - ACUTE ON CHRONIC COMBINED SYSTOLIC AND DIASTOLIC HRT FAIL Status: Acute (3) Acute metabolic encephalopathy Code(s): G93.41 - METABOLIC ENCEPHALOPATHY Status: Acute (4) ARASELI (acute kidney injury) Code(s): N17.9 - ACUTE KIDNEY FAILURE, UNSPECIFIED Status: Acute (5) Marijuana abuse Code(s): F12.10 - CANNABIS ABUSE, UNCOMPLICATED Status: Chronic (6) CAD (coronary artery disease) Code(s): I25.10 - ATHSCL HEART DISEASE OF [place] CORONARY ARTERY W/O ANG PCTRS Status: Chronic Qualifiers: Coronary Disease-Associated Artery/Lesion type: [place] artery [place] vs. transplanted heart: [place] heart (7) HTN (hypertension) Code(s): I10 - ESSENTIAL (PRIMARY) HYPERTENSION Status: Chronic Qualifiers: Hypertension type: essential hypertension (8) Atrial fibrillation with RVR Code(s): I48.91 - UNSPECIFIED ATRIAL FIBRILLATION Status: Acute - Plan covid 19 pcr is -ve encephalopathy is clearing up, is almost fully oriented this am got extubated on 12/31/2019 on cefepime, nebs, steroids, amiodarone drip is off lasix, got alb infusions 12/31/2019 blood cultures are -ve, sputum is growing strep pneumo hemostable, prognosis guarded deconditioning, PT eval and ambulate as tolerated incentive spirometry, humidified O2.
[2020-01-03] MEDS ORDERED: Furosemide 40 MG/4 ML VIAL SLOW IVP SCH (10:45)
[2020-01-03] MEDS: Amiodarone HCl 450 MG in Dextrose 5% in Water 250 ML IVPB SCH (11:01)
--- NOTE | 2020-01-03 11:26 | PDOC.CPN ---
- Subjective Date: 01/03/20 Time: 11:21 Interval history: Remains tachy. No overnight events. - Review of Systems General: denies: fever/chills, weight/appetite/sleep changes, night sweats, fatigue - Objective Allergies/Adverse Reactions: Allergies Allergy/AdvReac Type Severity Reaction Status Date / Time No Known Allergies Allergy Verified 08/05/19 19:29 Visit Medications: Current Medications Acetaminophen (Tylenol) 650 mg PO Q4H PRN PRN Reason: Headache/Fever/Mild Pain (1-3) Acetaminophen (Tylenol) 650 mg [place] Q4H PRN PRN Reason: Headache/Fever/Mild Pain (1-3) Albuterol/Ipratropium (Duoneb) 3 ml NEB [id number] [facility] Last Admin: 01/03/20 10:10 Dose: 3 ml Amlodipine Besylate (Norvasc) 5 mg PO HS [facility] Last Admin: 01/02/20 21:05 Dose: 5 mg Aspirin (Aspirin Chewable) 81 mg PO DAILY [facility] Last Admin: 01/03/20 09:08 Dose: 81 mg Atorvastatin Calcium (Lipitor) 40 mg PO HS [facility] Last Admin: 01/02/20 21:05 Dose: 40 mg Bisacodyl (Dulcolax) 10 mg [place] DAILYPRN PRN PRN Reason: Constipation Digoxin (Lanoxin) 0.125 mg PO QAM [facility] Last Admin: 01/03/20 09:07 Dose: 0.125 mg Enoxaparin Sodium (Lovenox) 30 mg SC 0900 [facility] Last Admin: 01/03/20 09:07 Dose: 30 mg Furosemide (Lasix) 40 mg SLOW IVP NOW [facility] Stop: 01/03/20 12:45 Last Admin: 01/03/20 11:01 Dose: 40 mg Guaifenesin/Dextromethorphan (Robitussin Dm) 15 ml PO Q4H PRN PRN Reason: Cough Cefepime HCl 1 gm/ Sodium (Chloride) 100 mls @ 200 mls/hr IVPB Q12HR [facility] Last Admin: 01/03/20 09:07 Dose: 100 mls Amiodarone HCl 450 mg/Miscellaneous Medication 1 each/ Dextrose/Water 259 mls @ 0 mls/hr IVPB INF LAURIE; Protocol Last Admin: 01/03/20 11:01 Dose: 259 mls Methylprednisolone Sodium Succinate (Solu-Medrol) 20 mg IVP BID [facility] Last Admin: 01/03/20 09:06 Dose: 20 mg Mometasone Furoate/Formoterol Fumar (Dulera 200 Mcg/5 Mcg Inhaler) 2 puff INH BID-RT [facility] Last Admin: 01/03/20 06:45 Dose: 2 puff Ondansetron HCl (Zofran) 4 mg IVP Q6H PRN PRN Reason: Nausea/Vomiting Pantoprazole Sodium (Protonix) 40 mg IVP 2100 [facility] Last Admin: 01/02/20 22:40 Dose: Not Given Sodium Chloride (Normal Saline Pf) 10 ml FS PRN PRN PRN Reason: RECONSTITUTION Vital Signs & Weight: Vital Signs Temp Pulse Resp BP Pulse Ox 01/03/20 10:10 110 H 20 01/03/20 09:07 117 H 01/03/20 08:55 113 H 121/59 L 93 L 01/03/20 08:10 97.1 F L 117 H 18 134/80 92 L 01/03/20 06:45 103 H 18 01/03/20 06:35 103 H 18 01/03/20 04:00 99.1 F 114 H 16 129/81 92 L 01/03/20 00:00 119 H 106/64 Admit Weight 180 lb Weight 189 lb 13.088 oz - Labs Result Diagrams: 01/03/20 03:43 01/03/20 03:43 Troponin/CKMB CK-MB (CK-2) 9.2 ng/mL (0-6.6) H* 12/29/19 15:25 Troponin I 0.177 ng/mL (< 0.028) H 12/30/19 01:21
--- NOTE | 2020-01-03 15:11 | PRG ---
DATE OF SERVICE: 01/03/2020 SUBJECTIVE: Rei Stoo is in no distress. He says he is doing better. He is finishing his lunch. OBJECTIVE: VITAL SIGNS: He is afebrile, heart rate is 94, respiratory rate is 18, oximetry is 97, and blood pressure 130/62. LUNGS: Clear. HEART: Regular rhythm. ABDOMEN: Soft. IMPRESSION: Overall, he is stable on the telemetry unit. Job ID: [id number]
[2020-01-03] MEDS: Pantoprazole 40 MG VIAL IVP SCH (20:16)
[2020-01-03] MEDS: Enoxaparin Sodium 80 MG/0.8 ML SYRINGE SC SCH (20:16)
[2020-01-03] MEDS: Amlodipine 5 MG TAB PO SCH (20:17)
[2020-01-03] MEDS: Atorvastatin Calcium 40 MG TAB PO SCH (20:18)
[2020-01-04] MEDS: Amiodarone HCl 450 MG in Dextrose 5% in Water 250 ML IVPB SCH ×2 (01:13→15:43)
[2020-01-04 03:58] LABS: Band 7 % (5-11); Hemoglobin 13.7 g/dL (14.0-18.0); Lymphocytes 7 % (21-51); MDiff Complete? YES; Mean Corpuscular HGB CONC 32.1 g/dL (32.0-36.0); Metamyelocyte 3 % (0-0); Monocytes 5 % (0-10); Neutrophil 78 % (42-75); Platelet Count 199 thou/uL (130-400); Platelet Morphology Comment Appears Adequate; RBC Distribution Width 14.4 % (11.5-14.5); Red Blood Cell (RBC) Count 3.92 mill/uL (4.70-6.10); White Blood Cell (WBC) Count 17.5 thou/uL (4.8-10.8)
[2020-01-04 04:08] LABS: Anion Gap 13 mmol/L (10-20); BUN (Urea Nitrogen) 45 mg/dL (8.4-25.7); Calc. Creatinine Clearance 76 mL/min (70-130); Calcium 8.8 mg/dL (7.8-10.44); Carbon Dioxide 28 mmol/L (23-31); Chloride 101 mmol/L (98-107); Estimated GFR-MDRD 78; Glucose 120 mg/dL (80-115); Potassium 5.2 mmol/L (3.5-5.1); Sodium 137 mmol/L (136-145)
[2020-01-04] MEDS: Mometasone 200 MCG/Formoterol 5 MCG 120 PUFF INHALER INH SCH ×2 (06:58→18:13)
[2020-01-04] MEDS: Aspirin Chewable 81 MG TAB PO SCH (08:08)
[2020-01-04] MEDS: Digoxin 0.125 MG TAB PO SCH (08:09)
[2020-01-04] MEDS: methylPREDNISolone Sod Succ 40 MG VIAL IVP SCH (08:09)
[2020-01-04] MEDS: Enoxaparin Sodium 80 MG/0.8 ML SYRINGE SC SCH ×2 (08:10→20:57)
[2020-01-04] MEDS: Cefepime 1 GM in Sodium Chloride 0.9% 100 ML IVPB SCH (08:10)
--- NOTE | 2020-01-04 11:18 | PRG ---
DATE OF SERVICE: 01/04/2020 SUBJECTIVE: Rei Soto is a 69-year-old gentleman, this morning is no longer encephalopathic. He is less short of breath. OBJECTIVE: VITAL SIGNS: Temperature 98, pulse rate 103, saturations are 92% on 3L, and blood pressure 163/79. CHEST: Decreased breath sounds bilaterally. CARDIAC: Normal S1 and S2. No gallops. ABDOMEN: No masses. LABORATORY DATA: His creatinine is 1.13, BUN is 45. White count 17,000. His sputum grew Streptococcus pneumoniae, sensitive to all antibiotics. ASSESSMENT: 1. Streptococcus pneumoniae, probably colonization. 2. Congestive heart failure. 3. Severe deconditioning. 4. Cardiomyopathy. 5. Bilateral pleural effusion. 6. Azotemia. PLAN: He appears to have improved renal peña. Switch him to po__ steroids. Eventually placement. Job ID: [id number] [facility]
[2020-01-04] MEDS: traMADol HCl 50 MG TAB PO PRN ×2 (13:37→21:02)
--- NOTE | 2020-01-04 13:37 | PDOC.HOSPP ---
- Subjective Encounter Date: 01/04/20 Encounter Time: 11:30 Subjective: Patient seen and examined for resp failure. No CP or SOB. No new complaints. No overnight events - Objective Vital Signs & Weight: Vital Signs (12 hours) Temp Pulse Resp BP Pulse Ox 01/04/20 12:23 88 18 98 01/04/20 08:10 147/70 H 01/04/20 08:09 103 H 01/04/20 08:00 95 01/04/20 07:10 97.6 F 103 H 18 178/86 H 95 01/04/20 06:59 92 L 01/04/20 06:58 60 20 92 L 01/04/20 03:28 98.4 F 89 18 163/79 H 95 Weight Admit Weight 180 lb Weight 184 lb 12.8 oz Most Recent Monitor Data Heart Rate from ECG 122 NIBP 106/67 NIBP BP-Mean 80 Respiration from ECG 26 SpO2 100 I&O: 01/03/20 01/04/20 01/05/20 06:59 06:59 06:59 Intake Total 1200 1076 Output Total 1570 4900 Balance -370 -5384 Result Diagrams: 01/04/20 03:38 01/04/20 03:38 Additional Labs: Accuchecks 01/03/20 16:48 POC Glucose 96 EKG Reviewed by me: Yes (Layla santiago) Hospitalist ROS - Review of Systems Respiratory: denies: cough, dry, shortness of breath, hemoptysis, SOB with excertion, pleuritic pain, sputum, wheezing, other Cardiovascular: denies: chest pain, palpitations, orthopnea, paroxysmal noc. dyspnea, edema, light headedness, other - Medication Medications: Active Medications Generic Name Dose Route Start Last Admin Trade Name Freq PRN Reason Stop Dose Admin Albuterol/Ipratropium 3 ml 12/31/19 11:00 01/04/20 12:23 Duoneb NEB 3 ml [id number] LAURIE Administration Amlodipine Besylate 5 mg 12/31/19 21:00 01/03/20 20:17 Norvasc PO 5 mg HS LAURIE Administration Aspirin 81 mg 12/30/19 09:00 01/04/20 08:08 Aspirin Chewable PO 81 mg DAILY LAURIE Administration Atorvastatin Calcium 40 mg 12/29/19 21:00 01/03/20 20:18 Lipitor PO 40 mg HS LAURIE Administration Digoxin 0.125 mg 01/01/20 09:00 01/04/20 08:09 Lanoxin PO 0.125 mg QAM LAURIE Administration Enoxaparin Sodium 80 mg 01/03/20 20:00 01/04/20 08:10 Lovenox SC 80 mg 899,1999 LAURIE Administration Amiodarone HCl 450 mg/ 259 mls @ 0 mls/hr 12/31/19 15:45 01/04/20 01:13 Miscellaneous Medication 1 IVPB 259 mls each/ Dextrose/Water INF LAURIE Administration Protocol As Directed Mometasone Furoate/Formoterol Fumar 2 puff 12/30/19 06:30 01/04/20 06:58 Dulera 200 Mcg/5 Mcg Inhaler INH 2 puff BID-RT LAURIE Administration - Exam General Appearance: NAD Neck: supple, no JVD Heart: RRR, no gallops Respiratory: no wheezes, rhonchi Gastrointestinal: non-tender, non-distended, normal bowel sounds Extremities: no cyanosis, no clubbing Hosp A/P - Plan DVT proph w/lovenox Acute on chronic hypoxic hypercapneic resp failure - POA Acute on chronic systolic/diastolic HF - POA COPD exacerbation - POA ARASELI on CKD 3 with hyperkalemia - POA Toxic Metabolic Encephalopathy - POA Aflutter with RVR - on Amiodarone drip Abn LFTs prob due to passive hepatic congestion B/L Pleural effusion CAD HTN GERD Cannabis abuse Physical deconditioning Chronic low back pain PLAN: PT/OT Cont Digoxin/Amio drip Cont Nebs PRN Prednisone taper AM labs Check LFTs in AM Change PPI to PO Cont other meds as above
[2020-01-04] MEDS: Atorvastatin Calcium 40 MG TAB PO SCH (20:57)
[2020-01-04] MEDS: Amlodipine 5 MG TAB PO SCH (20:58)
--- NOTE | 2020-01-04 21:00 | CON ---
DATE OF CONSULTATION: 01/04/2020 REASON FOR CONSULTATION: Atrial arrhythmia management. HISTORY OF PRESENT ILLNESS: Mr. Soto is a 69-year-old gentleman, who presented to [facility] and was having altered mental status for at least 3 days. He was found to be in acute respiratory failure with hypoxia and hypercarbia. He was also severely dehydrated and acute kidney injury was seen. He was intubated transiently due to his respiratory failure. He was admitted on December 28. On December 30, he was seen to go into atrial fibrillation and was started on an IV amiodarone drip, which has subsequently organized his arrhythmia into atrial flutter. He was on DVT prophylactic Lovenox until January 02 and then was transitioned to weight based Lovenox dosing as CVA prophylaxis for atrial arrhythmias. He was also extubated on 12/30. He is being treated for pneumonia with cultures growing Streptococcus pneumoniae. Blood cultures have been negative. Urine culture was negative. The patient has since been transferred to telemetry, where he is required continued IV amiodarone and digoxin for management of his atrial fibrillation and flutter. LFTs were elevated, likely due to congestion, and are being tracked, but do trend downward. Mr. Soto is sitting comfortably in the edge of his bed, in no apparent distress at the time of the exam, he is alert and oriented, but a very poor historian of recent events. He denies any heart racing, palpitations, chest pain, chest pressure, syncope, near syncope, stroke, or stroke-like symptoms. His biggest complaint currently is arthritic knee pain. REVIEW OF SYSTEMS: A 12-point review of systems is otherwise unremarkable and as per HPI. HOME MEDICATION LIST: 1. Advair b.i.d. 2. Pepcid 20 mg b.i.d. 3. Coreg 3.125 mg b.i.d. 4. Lipitor 40 mg at bedtime. 5. Aspirin 81 mg daily. 6. Albuterol inhaler p.r.n. 7. Tylenol 650 mg p.r.n. 8. Diamox 250 mg daily. 9. Ultram 50 mg q.6 p.r.n. 10. Prednisone 20 mg q.a.m. 11. Multivitamin daily. 12. Lisinopril 5 mg b.i.d. 13. Combivent q.i.d. p.r.n. 14. Lasix 40 mg daily. ALLERGIES: NO KNOWN DRUG ALLERGIES. PAST MEDICAL HISTORY: 1. COPD. 2. Cardiomyopathy. 3. Coronary artery disease, single vessel with mild occlusion of the circumflex by left heart catheterization on 06/12/2019, LVEF was 30% by left heart catheterization. 4. Nonsustained ventricular tachycardia. 5. Echocardiogram following heart catheterization in May 2019 showed EF 40% to 45%. FAMILY HISTORY: Positive for atrial fibrillation. Negative for sudden cardiac . SOCIAL HISTORY: Denies alcohol or tobacco. Positive for marijuana. Power of managing attorney is his sister, Ms. Tita Soto, phone #[phone]. OBJECTIVE: VITAL SIGNS: Heart rate is 97, blood pressure 147/70, respirations 18, oxygen 98% on 3 L via nasal cannula, temperature 97.6. GENERAL: The patient is alert and oriented to person and place. He is a poor historian and does not appear to have a good grasp on the recent events that have transpired or what brought him into the hospital. HEENT: He is normocephalic and atraumatic. Sclerae are anicteric. EOMs are intact. Oral mucosa is moist and pink with poor dentition. NECK: Supple without jugular venous distention. CARDIOVASCULAR: Heart rate is irregularly irregular, slightly rapid. LUNGS: Clear in the upper ibrahim, diminished in the bases. Respirations are even and unlabored with good bilateral excursion. ABDOMEN: Soft and nontender without palpable masses. EXTREMITIES: Warm and dry to touch, well perfused without clubbing, cyanosis, or edema. NEUROLOGIC: Grossly intact. Nonfocal. Gait was not assessed, though the patient was sitting independently at the of the bed. Hepatojugular reflux is negative. DATABASE: Hematology; WBC 17.5, hemoglobin 13.7, platelet count is 199. Chemistry; potassium 5.2, creatinine 1.13. Liver enzymes at high limit of normal, but trending down. TSH 0.3. Magnesium 2.1 on 12/29. Echocardiogram on 12/31/2019, EF 40% to 45%, moderately dilated left atrium, markedly enlarged right atrium, severely enlarged right ventricle. Left ventricular size is normal. Moderate to severe tricuspid regurgitation. Right ventricular systolic pressure is markedly elevated with dilation of the IVC. Telemetry and EKGs initially show sinus rhythm. On 12/30, he converted into atrial fibrillation. IV amiodarone was initiated and rhythm appears to have organized into atrial flutter, which is typical appearing at times, possibly has multiple atrial circuits. Chest x-ray on 01/02/2020, cardiomegaly, no pneumothorax. Costophrenic angles are clear. No significant findings. IMPRESSION: 1. Atrial fibrillation and atrial flutter, newly diagnosed, rate controlled on IV amiodarone and digoxin. 2. Acute respiratory failure with recent intubation, extubated on 12/31/2019. 3. Congestive heart failure with a mildly reduced ejection fraction of 40% to 45%. 4. Mild coronary artery disease, nonobstructive by left heart catheterization in May 2019. 5. Chronic kidney disease, stage 3 with hyperkalemia. 6. Anticoagulation on weight-based Lovenox, starting 01/03/2020. 7. Acute on chronic systolic/diastolic heart failure. 8. Bilateral pleural effusions. 9. Hypertension. PLAN AND RECOMMENDATIONS: Mr. Soto, I find is in atrial flutter currently with variable AV conduction. At times, it does appear to have a typical cavotricuspid isthmus dependent morphology to its waveform. At other times, it is less organized and initially presented as atrial fibrillation. It is very likely that he has multiple atrial arrhythmia circuits present. He is on amiodarone. He does not appear to be horribly symptomatic and he is not reporting any shortness of breath, fatigue, or dyspnea on exertion, though it is not clear if he has been out of bed, walking, or moving very much. He is a poor historian overall at this point. We discussed treatment options for atrial fibrillation including rate control, antiarrhythmic therapy, cardioversion, and/or ablation. We discussed how these can be used in combinations for short-term and long-term management of atrial arrhythmias. He appears to be recovering fairly well from his recent events. He does not appear to be in significant fluid overload by physical exam. His BNP from 6 days ago was over 2000 and no repeat has been checked. It would not be unreasonable to consider a TATIANA-guided cardioversion or possibly a flutter ablation during this hospitalization to restore sinus rhythm. His anticoagulation is just recently started and a TATIANA would be required to rule out intracardiac thrombus prior to buddhist of sinus rhythm. Long-term, he may require continued antiarrhythmic therapy. He does have some degree of cardiomyopathy and coronary artery disease, and class 1C medications would not be a good option for him. With his chronic kidney disease, sotalol and Tikosyn are not options. Multaq or amiodarone could be a consideration long-term. He will also require continued oral anticoagulation. Mr. Soto is considering these options. Thank you for allowing me to participate in the care of this patient. Job ID: [id number]
[2020-01-05 04:32] LABS: Hemoglobin 13.3 g/dL (14.0-18.0); Hypochromia SLIGHT = 6-15 cells (100X) (0-5/hpf); Lymphocytes 8 % (21-51); MDiff Complete? YES; Mean Corpuscular HGB CONC 30.8 g/dL (32.0-36.0); Mean Corpuscular Hemoglobin 33.7 pg (27.0-31.0); Mean Platelet Volume 8.2 fL (7.4-10.4); Monocytes 14 % (0-10); Neutrophil 78 % (42-75); Platelet Count 251 thou/uL (130-400); Platelet Morphology Comment Appears Adequate; RBC Distribution Width 14.1 % (11.5-14.5); Red Blood Cell (RBC) Count 3.94 mill/uL (4.70-6.10); White Blood Cell (WBC) Count 18.2 thou/uL (4.8-10.8)
[2020-01-05 04:33] LABS: ALT (SGPT) 40 U/L (8-55); AST (SGOT) 21 U/L (5-34); Albumin 3.8 g/dL (3.4-4.8); Alkaline Phosphatase 110 U/L (40-110); Anion Gap 10 mmol/L (10-20); BUN (Urea Nitrogen) 33 mg/dL (8.4-25.7); Bilirubin, Total 1.1 mg/dL (0.2-1.2); Calc. Creatinine Clearance 83 mL/min (70-130); Calcium 9.1 mg/dL (7.8-10.44); Carbon Dioxide 34 mmol/L (23-31); Chloride 99 mmol/L (98-107); Estimated GFR-MDRD 89; Globulin 2.7 g/dL (2.4-3.5); Glucose 80 mg/dL (80-115); Potassium 4.7 mmol/L (3.5-5.1); Protein, Total 6.5 g/dL (5.8-8.1); Sodium 138 mmol/L (136-145)
[2020-01-05] MEDS: Amiodarone HCl 450 MG in Dextrose 5% in Water 250 ML IVPB SCH (06:28)
[2020-01-05] MEDS: Mometasone 200 MCG/Formoterol 5 MCG 120 PUFF INHALER INH SCH ×2 (06:41→19:10)
[2020-01-05] MEDS: Aspirin Chewable 81 MG TAB PO SCH (07:55)
[2020-01-05] MEDS: predniSONE 20 MG TAB PO SCH (07:55)
[2020-01-05] MEDS: Enoxaparin Sodium 80 MG/0.8 ML SYRINGE SC SCH (07:56)
--- NOTE | 2020-01-05 10:14 | PDOC.EP ---
- Subjective Date: 01/05/20 Time: 08:00 Interval History: asymptomatic with atrial fibrillation. Has been ambulating in the room with a cyst. Denies any heart racing, palpitations, shortness of breath, dyspnea on exertion, fatigue, or near-syncope. He feels well - Objective Allergies/Adverse Reactions: Allergies Allergy/AdvReac Type Severity Reaction Status Date / Time No Known Allergies Allergy Verified 08/05/19 19:29 Current Medications Acetaminophen (Tylenol) 650 mg PO Q4H PRN PRN Reason: Headache/Fever/Mild Pain (1-3) Last Admin: 01/04/20 14:53 Dose: 650 mg Acetaminophen (Tylenol) 650 mg [place] Q4H PRN PRN Reason: Headache/Fever/Mild Pain (1-3) Albuterol/Ipratropium (Duoneb) 3 ml NEB [id number] Last Admin: 01/05/20 06:39 Dose: 3 ml Amiodarone HCl (Cordarone) 400 mg PO BID [facility] Amlodipine Besylate (Norvasc) 5 mg PO HS [facility] Last Admin: 01/04/20 20:58 Dose: 5 mg Apixaban (Eliquis) 5 mg PO BID [facility] Aspirin (Aspirin Chewable) 81 mg PO DAILY [facility] Last Admin: 01/05/20 07:55 Dose: 81 mg Atorvastatin Calcium (Lipitor) 40 mg PO HS [facility] Last Admin: 01/04/20 20:57 Dose: 40 mg Bisacodyl (Dulcolax) 10 mg [place] DAILYPRN PRN PRN Reason: Constipation Guaifenesin/Dextromethorphan (Robitussin Dm) 15 ml PO Q4H PRN PRN Reason: Cough Levofloxacin (Levaquin) 500 mg PO 0600 [facility] Stop: 01/10/20 06:01 Last Admin: 01/05/20 06:28 Dose: 500 mg Mometasone Furoate/Formoterol Fumar (Dulera 200 Mcg/5 Mcg Inhaler) 2 puff INH BID-RT [facility] Last Admin: 01/05/20 06:41 Dose: 2 puff Ondansetron HCl (Zofran) 4 mg IVP Q6H PRN PRN Reason: Nausea/Vomiting Pantoprazole Sodium (Protonix) 40 mg PO DAILY [facility] Last Admin: 01/05/20 07:56 Dose: 40 mg Prednisone (Prednisone) 20 mg PO QAM-WM LAURIE Last Admin: 01/05/20 07:55 Dose: 20 mg Sodium Chloride (Normal Saline Pf) 10 ml FS PRN PRN PRN Reason: RECONSTITUTION Sodium Chloride (Flush - Normal Saline) 10 ml IVF PRN PRN PRN Reason: Saline Flush Tramadol HCl (Ultram) 50 mg PO Q6H PRN PRN Reason: Moderate Pain (4-6) Last Admin: 01/04/20 21:02 Dose: 50 mg Vitamin A/Vitamin D (Vitamin A & D Ointment) 0 gm TOP PRN PRN PRN Reason: Rash/Topical Irritation Vital Signs & Weight: Vital Signs Temp Pulse Resp BP Pulse Ox 01/05/20 07:10 97.9 F 93 16 161/79 H 94 L 01/05/20 06:42 94 L 01/05/20 06:41 104 H 20 94 L 01/05/20 06:39 105 H 20 94 L 01/05/20 04:00 98.0 F 80 18 143/85 H 97 01/05/20 00:00 100 20 134/89 Admit Weight 180 lb Weight 184 lb 1.376 oz I/O: I/O 01/04/20 01/05/20 01/06/20 06:59 06:59 06:59 Intake Total 1076 1412 Output Total 4900 2970 Balance -7044 -0625 - Quality Measures Condition: Atrial Fibrillation/Flutter (hx or current) - Physical Exam General: alert & oriented x3, appears well, no apparent distress, speech clear, affect appropriate HEENT: mucus membranes moist, normocephaly Neck: supple neck, midline trachea, no JVD/HJR, no masses, no bruit, no lymphadenopathy, no thromegaly Cardiology: PMI nondisplaced, irregularly irregular Lungs: clear to auscultation, no wheeze, rales, rhonchi Neurology: cranial nerve 2-12 intact, grossly intact, no lateralizing findings Abdomen: unremarkable, no pulsations/bruits Extremities: dry, strong pulses, warm - Chadsvasc Risk factors Congestive heart failure: 1 Age 65-74: 1 Vascular disease: 1 Risk Score: 3 - Labs Result Diagrams: 01/05/20 03:56 01/05/20 03:56 - EKG Interpretation EKG Method: Telemetry EKG shows: Atrial fibrillation, Typical atrial flutter - Assessment/Plan Assessment/Plan: 1. atrial arrhythmias, starting 12/31/2019 2. cardiomyopathy, mildly reduced ejection fraction 40- 45% 3. recent respiratory failure 4. leukocytosis 5. elevated chads Vasc score, Lovenox started 01/03/2020 Continue Oral amiodarone loading taper. digoxin was discontinued for rate control and to avoid potentiating affects with amiodarone. appears to have both typical CTI dependent flutter as well as left atrial circuit by review of telemetry and EKGs. Ablation of his right-sided atrial flutter was offered which she declined. He prefers medical management at this time. He is agreeable to a TATIANA guided cardioversion which was discussed with his photographer assistant. long-term he will require oral anticoagulation as well. If novel agents are financially not an option I would recommend beginning warfarin loading while he is still hospitalized and on Lovenox.
--- NOTE | 2020-01-05 11:11 | PRG ---
DATE OF SERVICE: SUBJECTIVE: This morning, he is awake, alert, and responsive. He was seen by EPS today. OBJECTIVE: VITAL SIGNS: Temperature 97, pulse 93, respirations 16, sats 93% on room air, blood pressure 160/79. CHEST: Decreased breath sounds without any wheezing. CARDIAC: Normal S1 and S2. No gallops. ABDOMEN: No masses. ASSESSMENT: Bilateral pleural effusion, congestive heart failure, cardiomyopathy. PLAN: Continue cardiac care, PT and supportive care. Avoid sedation. We will follow. Job ID: [id number] [id number]
--- NOTE | 2020-01-05 12:35 | PQF ---
KARRIE ORTIZ MALIK MD [id number] CLINICAL DOCUMENTATION IMPROVEMENT CLARIFICATION FORM: ICD-10 Updated PLEASE DO AN ADDENDUM TO THE PROGRESS NOTE WITH ANY DOCUMENTATION UPDATES OR ADDITIONS AND CARRY THROUGH TO DC SUMMARY. THANK YOU. DATE: 01/05/2020 ATTN: Dr. Mobley Please exercise your independent, professional judgment in responding to the clarification form. Clinical indicators are provided on the bottom of this form for your review Please check appropriate box(s) to clarify if the following diagnosis has been ruled in or ruled out: PNEUMONIA [ ] Ruled in diagnosis [ ] Continue to treat [ ] Resolved [ x ] Ruled out diagnosis [ ] Improving [ ] Cannot rule out diagnosis [ ] Other diagnosis [ ] Unable to determine In addition, please specify: Present on Admission (POA): [ ] Yes [ ] No [ ] Unable to determine For continuity of documentation, please document condition throughout progress notes and discharge summary. Thank You. CLINICAL INDICATORS - SIGNS / SYMPTOMS / LABS / RESULTS AND LOCATION IN MR *H&P 12/28 ([facility]): * Acute respiratory failure with hypoxia and hypercarbia ... acute CHF exacerbation, possible sepsis, and acute metabolic encephalopathy. * Vital signs: BP on arrival 160/99, pulse 120 per minute, RR 30 per minute, Pulse was 114 per minute. Saturation is 90% on 3L NC, 100% on 30% FiO2 on the ventilator * White count of 18 ... Lactic acid was 2.7 * Chest x-ray done shows cardiomegaly, pulmonary vascular congestion. * He will be empirically placed on cefepime and Levaquin. *Chest X-ray 12/30 ([facility]): Impression Interval collapse left lower lobe. Other findings stable. *Chest X-ray 12/31 ([facility]): Impression: Bibasilar atelectasis versus infiltrates *Chest X-ray 01/01 ([facility]): Impression: No significant interval change. *PN 12/31 ([facility]): COVID 19 pcr is -ve ... still encephalopathic, watch for airway ... on cefepime, nebs, steroids ... prelim blood cultures are -ve, sputum is growing strep pneumo. *PN 01/03 ([facility]): Streptococcus pneumoniae, probably colonization. *Consultation 01/03 ([facility]): He is being treated for pneumonia with cultures growing Streptococcus pneumoniae. RISK FACTORS / RESULTS AND LOCATION IN MR *H&P 12/28 ([facility]): History of asthma ... Chronic respiratory failure on 3 L NC, likely from COPD. TREATMENTS / RESULTS AND LOCATION IN MR *Microbiology ([facility]): Sputum Culture 12/29, Blood Culture x2 12/28 *H&P 12/28 ([facility]): ICU ... empirically placed on cefepime and Levaquin. .... steroids and DuoNeb q.6 hourly. ... Pulmonary Consultation ... COVID-19 markers *Chest X-Ray ([facility]): 12/28, 12/30, 12/31, 01/01 ThanksLourdes (This form is maintained as a part of the permanent medical record) 2015 [employer]. All Rights Reserved Lourdes Still RN, CDS [email or web address] cell phone: [phone] [facility]
--- NOTE | 2020-01-05 15:09 | PDOC.HOSPP ---
- Subjective Encounter Date: 01/05/20 Encounter Time: 13:00 Subjective: Patient seen and examined for resp failure. No CP/SOB/wheezing. No new complaints. No overnight events - Objective Vital Signs & Weight: Vital Signs (12 hours) Temp Pulse Pulse Pulse Resp BP BP 01/05/20 14:38 96 20 01/05/20 11:25 106 H 123 H 145/80 H 01/05/20 11:10 98.1 F 91 16 145/80 H 01/05/20 10:40 121 H 20 01/05/20 08:00 01/05/20 07:10 97.9 F 93 16 161/79 H 01/05/20 06:42 01/05/20 06:41 104 H 20 01/05/20 06:39 105 H 20 01/05/20 04:00 98.0 F 80 18 143/85 H Pulse Ox Pulse Ox Pulse Ox 01/05/20 14:38 93 L 01/05/20 11:25 81 L 92 L 01/05/20 11:10 95 01/05/20 10:40 75 L 01/05/20 08:00 94 L 01/05/20 07:10 94 L 01/05/20 06:42 94 L 01/05/20 06:41 94 L 01/05/20 06:39 94 L 01/05/20 04:00 97 Weight Admit Weight 180 lb Weight 184 lb 1.376 oz Most Recent Monitor Data Heart Rate from ECG 122 NIBP 106/67 NIBP BP-Mean 80 Respiration from ECG 26 SpO2 100 I&O: 01/04/20 01/05/20 01/06/20 06:59 06:59 06:59 Intake Total 1076 1412 Output Total 3597 2240 Balance -3505 -5776 Result Diagrams: 01/05/20 03:56 01/05/20 03:56 EKG Reviewed by me: Yes (Tele Aflutter) Hospitalist ROS - Review of Systems Constitutional: denies: fever, chills, sweats, weakness, malaise, other - Medication Medications: Active Medications Generic Name Dose Route Start Last Admin Trade Name Freq PRN Reason Stop Dose Admin Acetaminophen 650 mg 12/29/19 18:19 01/04/20 14:53 Tylenol PO 650 mg Q4H PRN Administration Headache/Fever/Mild Pain (1-3) Albuterol/Ipratropium 3 ml 12/31/19 11:00 01/05/20 14:38 Duoneb NEB 3 ml [id number] LAUIRE Administration Amlodipine Besylate 5 mg 12/31/19 21:00 01/04/20 20:58 Norvasc PO 5 mg HS LAURIE Administration Aspirin 81 mg 12/30/19 09:00 01/05/20 07:55 Aspirin Chewable PO 81 mg DAILY LAURIE Administration Atorvastatin Calcium 40 mg 12/29/19 21:00 01/04/20 20:57 Lipitor PO 40 mg HS LAURIE Administration Levofloxacin 500 mg 01/05/20 06:00 01/05/20 06:28 Levaquin PO 01/10/20 06:01 500 mg 0600 LAURIE Administration Mometasone Furoate/Formoterol Fumar 2 puff 12/30/19 06:30 01/05/20 06:41 Dulera 200 Mcg/5 Mcg Inhaler INH 2 puff BID-RT LAURIE Administration Pantoprazole Sodium 40 mg 01/05/20 09:00 01/05/20 07:56 Protonix PO 40 mg DAILY LAURIE Administration Prednisone 20 mg 01/05/20 08:00 01/05/20 07:55 Prednisone PO 20 mg QAM-WM LAURIE Administration Tramadol HCl 50 mg 01/04/20 13:09 01/04/20 21:02 Ultram PO 50 mg Q6H PRN Administration Moderate Pain (4-6) - Exam General Appearance: NAD Heart: RRR, no gallops Respiratory: no rales, rhonchi Gastrointestinal: soft, non-tender, normal bowel sounds Extremities: no cyanosis, no clubbing Hosp A/P - Plan Acute on chronic hypoxic hypercapneic resp failure Acute on chronic systolic/diastolic HF COPD exacerbation ARASELI on CKD 3 with hyperkalemia Toxic Metabolic Encephalopathy Aflutter with RVR - on Amiodarone loading Abn LFTs prob due to passive hepatic congestion B/L Pleural effusion CAD HTN GERD Cannabis abuse Physical deconditioning Chronic low back pain PLAN: Cont Amio loading started on Eliquis Cont Prednisone taper Cont other meds as above Cont Nebs TATIANA-CV in AM AM labs
--- NOTE | 2020-01-05 17:41 | EKG ---
Test Reason : ROUTINE Blood Pressure : / mmHG Vent. Rate : 101 BPM Atrial Rate : 242 BPM P-R Int : 000 ms QRS Dur : 096 ms QT Int : 344 ms P-R-T Axes : 000 036 110 degrees QTc Int : 446 ms Atrial flutter with variable A-V block with premature ventricular or aberrantly conducted complexes Nonspecific ST and T wave abnormality Abnormal ECG When compared with ECG of 01-JAN-2020 09:14, Atrial flutter has replaced Atrial fibrillation Non-specific change in ST segment in Lateral leads Nonspecific T wave abnormality, worse in Inferior leads Confirmed by DR. Isaak JC (3) on 01/05/2020 5:40:49 PM Referred By: PEYMAN RODRIGUEZ Confirmed By:DR. Isaak JC
[2020-01-05 18:08] LABS: Hemoglobin 13.3 g/dL (14.0-18.0); Platelet Count 245 thou/uL (130-400)
[2020-01-05] MEDS: traMADol HCl 50 MG TAB PO PRN (18:17)
[2020-01-05 18:34] LABS: Calc. Creatinine Clearance 85 mL/min (70-130); Estimated GFR-MDRD Greater than 90
[2020-01-05] MEDS: Amlodipine 5 MG TAB PO SCH (21:44)
[2020-01-05] MEDS: Amiodarone 200 MG TAB PO SCH (21:45)
[2020-01-05] MEDS: Apixaban 5 MG TAB PO SCH (21:45)
[2020-01-05] MEDS: Atorvastatin Calcium 40 MG TAB PO SCH (21:45)
[2020-01-06 05:26] LABS: Anion Gap 10 mmol/L (10-20); BUN (Urea Nitrogen) 29 mg/dL (8.4-25.7); Calc. Creatinine Clearance 80 mL/min (70-130); Calcium 9.4 mg/dL (7.8-10.44); Carbon Dioxide 37 mmol/L (23-31); Chloride 98 mmol/L (98-107); Estimated GFR-MDRD 86; Glucose 80 mg/dL (80-115); Potassium 4.4 mmol/L (3.5-5.1); Sodium 141 mmol/L (136-145)
[2020-01-06 05:45] LABS: #Lymphocytes 1.1 thou/uL (1.20-3.40); #Monocytes 1.3 thou/uL (0.11-0.59); %Basophils 0.2 % (0.0-1.0); %Eosinophils 0.3 % (0.0-10.0); %Lymphocytes 7.9 % (21.0-51.0); %Monocytes 9.5 % (0.0-10.0); %Neutrophils 82.1 % (42.0-75.0); Mean Corpuscular HGB CONC 29.9 g/dL (32.0-36.0); Mean Corpuscular Hemoglobin 33.4 pg (27.0-31.0); Mean Platelet Volume 8.6 fL (7.4-10.4); Platelet Count 232 thou/uL (130-400); RBC Distribution Width 14.1 % (11.5-14.5); Red Blood Cell (RBC) Count 3.58 mill/uL (4.70-6.10); White Blood Cell (WBC) Count 13.3 thou/uL (4.8-10.8)
[2020-01-06] MEDS: Mometasone 200 MCG/Formoterol 5 MCG 120 PUFF INHALER INH SCH ×2 (06:57→18:42)
[2020-01-06] MEDS ORDERED: PROPOFOL 0 ML ONE (08:04)
[2020-01-06] MEDS: Apixaban 5 MG TAB PO SCH ×2 (10:19→21:53)
[2020-01-06] MEDS: Amiodarone 200 MG TAB PO SCH ×2 (10:19→21:52)
[2020-01-06] MEDS: predniSONE 20 MG TAB PO SCH (10:19)
[2020-01-06] MEDS: Aspirin Chewable 81 MG TAB PO SCH (10:20)
--- NOTE | 2020-01-06 10:26 | PRG ---
DATE OF SERVICE: 01/06/2020 SUBJECTIVE: This morning, he is awake, responsive. He went for TATIANA and cardioversion, malfunctioning machine, he is to go back later. OBJECTIVE: VITAL SIGNS: Temperature 97, pulse 101, respirations 17, saturations 96% on nasal O2, blood pressure 131/68. CHEST: Decreased breath sounds. No wheezing. CARDIAC: Normal S1, S2. No gallops. ABDOMEN: No masses. LABORATORY DATA: Unremarkable. White count is normal. ASSESSMENT: Supraventricular tachycardia, congestive heart failure, chronic obstructive pulmonary disease, encephalopathy. PLAN: Continue PT, cardiac care, neb treatments. We will follow. Job ID: [id number]
--- NOTE | 2020-01-06 10:39 | PDOC.EP ---
- Subjective Date: 01/06/20 Time: 10:37 Interval History: Follow up for atrial fibrillation management. NPO for TATIANA/CV today. Transitioned to eliquis. no evident bleeding reported by patient. - Review of Systems Constitutional: denies: chills, fever, weakness Respiratory: denies: cough, shortness of breath, wheezing Cardiology: denies: chest pain, edema, heart racing, light headedness, palpitations, passing out Gastrointestinal: denies: abdominal pain, constipation, diarrhea - Objective Allergies/Adverse Reactions: Allergies Allergy/AdvReac Type Severity Reaction Status Date / Time No Known Allergies Allergy Verified 08/05/19 19:29 Current Medications Acetaminophen (Tylenol) 650 mg PO Q4H PRN PRN Reason: Headache/Fever/Mild Pain (1-3) Last Admin: 01/04/20 14:53 Dose: 650 mg Acetaminophen (Tylenol) 650 mg OK Q4H PRN PRN Reason: Headache/Fever/Mild Pain (1-3) Albuterol/Ipratropium (Duoneb) 3 ml NEB [id number] COUNTS INCLUDE 234 BEDS AT THE [facility] Last Admin: 01/06/20 10:26 Dose: 3 ml Amiodarone HCl (Cordarone) 400 mg PO BID COUNTS INCLUDE 234 BEDS AT THE [facility] Last Admin: 01/06/20 10:19 Dose: 400 mg Amlodipine Besylate (Norvasc) 5 mg PO [facility] Last Admin: 01/05/20 21:44 Dose: 5 mg Apixaban (Eliquis) 5 mg PO BID COUNTS INCLUDE 234 BEDS AT THE [facility] Last Admin: 01/06/20 10:19 Dose: 5 mg Aspirin (Aspirin Chewable) 81 mg PO DAILY COUNTS INCLUDE 234 BEDS AT THE [facility] Last Admin: 01/06/20 10:20 Dose: 81 mg Atorvastatin Calcium (Lipitor) 40 mg PO HS COUNTS INCLUDE 234 BEDS AT THE [facility] Last Admin: 01/05/20 21:45 Dose: 40 mg Bisacodyl (Dulcolax) 10 mg OK DAILYPRN PRN PRN Reason: Constipation Guaifenesin/Dextromethorphan (Robitussin Dm) 15 ml PO Q4H PRN PRN Reason: Cough Levofloxacin (Levaquin) 500 mg PO 0600 COUNTS INCLUDE 234 BEDS AT THE [facility] Stop: 01/10/20 06:01 Last Admin: 01/06/20 05:57 Dose: 500 mg Mometasone Furoate/Formoterol Fumar (Dulera 200 Mcg/5 Mcg Inhaler) 2 puff INH BID-RT COUNTS INCLUDE 234 BEDS AT THE [facility] Last Admin: 01/06/20 06:57 Dose: 2 puff Ondansetron HCl (Zofran) 4 mg IVP Q6H PRN PRN Reason: Nausea/Vomiting Pantoprazole Sodium (Protonix) 40 mg PO DAILY COUNTS INCLUDE 234 BEDS AT THE [facility] Last Admin: 01/06/20 10:19 Dose: 40 mg Prednisone (Prednisone) 20 mg PO QAM-WM COUNTS INCLUDE 234 BEDS AT THE [facility] Last Admin: 01/06/20 10:19 Dose: 20 mg Sodium Chloride (Normal Saline Pf) 10 ml FS PRN PRN PRN Reason: RECONSTITUTION Sodium Chloride (Flush - Normal Saline) 10 ml IVF PRN PRN PRN Reason: Saline Flush Tramadol HCl (Ultram) 50 mg PO Q6H PRN PRN Reason: Moderate Pain (4-6) Last Admin: 01/05/20 18:17 Dose: 50 mg Vitamin A/Vitamin D (Vitamin A & D Ointment) 0 gm TOP PRN PRN PRN Reason: Rash/Topical Irritation Vital Signs & Weight: Vital Signs Temp Pulse Resp BP Pulse Ox 01/06/20 10:26 89 20 89 L 01/06/20 10:10 98.1 F 93 16 131/71 97 01/06/20 07:42 97.3 F L 101 H 17 131/68 96 01/06/20 07:00 87 L 01/06/20 06:59 107 H 20 87 L 01/06/20 06:57 107 H 20 86 L 01/06/20 04:00 97.8 F 99 20 130/73 94 L 01/06/20 00:00 90 20 Admit Weight 180 lb Weight 184 lb 4.903 oz I/O: I/O 01/05/20 01/06/20 01/07/20 06:59 06:59 06:59 Intake Total 1412 1008 Output Total 0110 700 Balance -2338 308 - Quality Measures Condition: Atrial Fibrillation/Flutter (hx or current) CV meds: Eliquis: Yes - Physical Exam General: alert & oriented x3, appears well, no apparent distress, speech clear, affect appropriate HEENT: mucus membranes moist, normocephaly, EOMI, PERRL Neck: supple neck, midline trachea, no thromegaly Cardiology: irregularly irregular Lungs: clear to auscultation, normal breath sounds, no wheeze, rales, rhonchi Neurology: cranial nerve 2-12 intact, grossly intact Abdomen: unremarkable, active bowel sounds, no hepatosplenomegaly Extremities: dry, strong pulses, warm - Labs Result Diagrams: 01/06/20 04:32 01/06/20 04:32 - EKG Interpretation EKG Method: Telemetry EKG shows: Typical atrial flutter - Assessment/Plan Assessment/Plan: 1. atrial arrhythmias, starting 12/31/2019 - AFib and typical atrial flutter seen 2. cardiomyopathy, mildly reduced ejection fraction 40- 45% 3. recent respiratory failure 4. leukocytosis 5. elevated chads Vasc score - Lovenox started 01/03/2020 then transitioned to eliquis 5mg BID on 01/04 Remains in typical atrial flutter, rate controlled 80-100bpm. Plan for TATIANA/CV today. Patient declines flutter ablation and prefers medication for treatment. Continue OAC. Continue amiodarone loading taper. LFTs stable on 01/04. Monitor for bradycardia post CV Possible taper: 400bid x 7 days or until DC, then 200mg BID x 7 days, then 200mg po daily thereafter.
[2020-01-06] MEDS ORDERED: Mag-Al Plus 1200 MG/1200 MG/120 MG/30 ML UDCUP PO PRN (15:06)
--- NOTE | 2020-01-06 19:30 | EKG ---
Test Reason : RHYTHM COMFIRMATION Blood Pressure : / mmHG Vent. Rate : 088 BPM Atrial Rate : 238 BPM P-R Int : 000 ms QRS Dur : 088 ms QT Int : 328 ms P-R-T Axes : 090 048 088 degrees QTc Int : 396 ms Atrial flutter with variable A-V block Inferior infarct possible Nonspecific ST-T changes Abnormal ECG When compared with ECG of 04-JAN-2020 22:54, ST elevation now present in Inferior leads Confirmed by DR. Isaak JC (3) on 01/06/2020 7:30:43 PM Referred By: MILA Confirmed By:DR. Isaak JC
[2020-01-06] MEDS: traMADol HCl 50 MG TAB PO PRN (21:50)
[2020-01-06] MEDS: Simethicone Chewable 80 MG TAB PO SCH ×2 (21:51)
[2020-01-06] MEDS: Atorvastatin Calcium 40 MG TAB PO SCH (21:53)
[2020-01-06] MEDS: Amlodipine 5 MG TAB PO SCH (21:53)
--- NOTE | 2020-01-06 23:42 | PDOC.HOSPP ---
- Subjective Encounter Date: 01/06/20 Encounter Time: 11:30 Subjective: Patient seen and examined for resp failure/atrial arrhythmia. No CP. No new complaints. No overnight events - Objective Vital Signs & Weight: Vital Signs (12 hours) Temp Pulse Resp BP BP Pulse Ox 01/06/20 21:53 98 123/70 01/06/20 18:42 100 20 92 L 01/06/20 18:41 100 16 92 L 01/06/20 16:00 98.8 F 92 24 H 125/65 94 L 01/06/20 15:38 98.8 F 92 24 H 125/65 94 L 01/06/20 15:03 94 20 92 L Weight Admit Weight 181 lb 1.6 oz Weight 184 lb 4.903 oz Most Recent Monitor Data Heart Rate from ECG 122 NIBP 106/67 NIBP BP-Mean 80 Respiration from ECG 26 SpO2 100 I&O: 01/05/20 01/06/20 01/07/20 06:59 06:59 06:59 Intake Total 1412 1008 594 Output Total 3750 700 300 Balance -2338 308 294 Result Diagrams: 01/07/20 04:08 01/06/20 04:32 EKG Reviewed by me: Yes (Tele Aflutter) Hospitalist ROS - Review of Systems Respiratory: denies: cough, dry, shortness of breath, hemoptysis, SOB with excertion, pleuritic pain, sputum, wheezing, other Cardiovascular: denies: chest pain, palpitations, orthopnea, paroxysmal noc. dyspnea, edema, light headedness, other Gastrointestinal: denies: nausea, vomiting, abdominal pain, diarrhea, constipation, melena, hematochezia, other - Medication Medications: Active Medications Generic Name Dose Route Start Last Admin Trade Name Freq PRN Reason Stop Dose Admin Acetaminophen 650 mg 12/29/19 18:19 01/04/20 14:53 Tylenol PO 650 mg Q4H PRN Administration Headache/Fever/Mild Pain (1-3) Al Hydroxide/Mg Hydroxide 30 ml 01/06/20 15:06 01/06/20 16:50 Maalox Plus PO 30 ml DAILY PRN Administration Dyspepsia Albuterol/Ipratropium 3 ml 12/31/19 11:00 01/06/20 18:41 Duoneb NEB 3 ml [id number] LAURIE Administration Amiodarone HCl 400 mg 01/05/20 21:00 01/06/20 21:52 Cordarone PO 400 mg BID LAURIE Administration Amlodipine Besylate 5 mg 12/31/19 21:00 01/06/20 21:53 Norvasc PO 5 mg HS LAURIE Administration Apixaban 5 mg 01/05/20 21:00 01/06/20 21:53 Eliquis PO 5 mg BID LAURIE Administration Aspirin 81 mg 12/30/19 09:00 01/06/20 10:20 Aspirin Chewable PO 81 mg DAILY LAURIE Administration Atorvastatin Calcium 40 mg 12/29/19 21:00 01/06/20 21:53 Lipitor PO 40 mg HS LAURIE Administration Levofloxacin 500 mg 01/05/20 06:00 01/06/20 05:57 Levaquin PO 01/10/20 06:01 500 mg 0600 LAURIE Administration Mometasone Furoate/Formoterol Fumar 2 puff 12/30/19 06:30 01/06/20 18:42 Dulera 200 Mcg/5 Mcg Inhaler INH 2 puff BID-RT LAURIE Administration Pantoprazole Sodium 40 mg 01/05/20 09:00 01/06/20 10:19 Protonix PO 40 mg DAILY LAURIE Administration Prednisone 20 mg 01/05/20 08:00 01/06/20 10:19 Prednisone PO 20 mg QAM-WM LAURIE Administration Simethicone 80 mg 01/06/20 19:00 01/06/20 21:51 Mylicon Chewable PO 80 mg PCHS LAURIE Administration Tramadol HCl 50 mg 01/04/20 13:09 01/06/20 21:50 Ultram PO 50 mg Q6H PRN Administration Moderate Pain (4-6) - Exam General Appearance: NAD Heart: no gallops, no rubs, irregular Respiratory: no wheezes, no ronchi Gastrointestinal: non-tender, non-distended, normal bowel sounds Extremities: no cyanosis, no clubbing Neurological: no new deficit Hosp A/P - Plan DVT proph w/SCDs Acute on chronic hypoxic hypercapneic resp failure Acute on chronic systolic/diastolic HF COPD exacerbation ARASELI on CKD 3 with hyperkalemia Toxic Metabolic Encephalopathy Aflutter with RVR - on Amiodarone loading Abn LFTs prob due to passive hepatic congestion B/L Pleural effusion CAD HTN GERD Cannabis abuse Physical deconditioning Chronic low back pain PLAN: Cont oral Amiodarone with Eliquis - no evidence of bleeding Cont Prednisone with nebs Cont other meds as above TATIANA-CV scheduled for AM - not done today due to technical issues AM labs
[2020-01-07 04:49] LABS: #Eosinphils 0.1 thou/uL (0.0-0.7); #Lymphocytes 0.9 thou/uL (1.20-3.40); #Monocytes 1.2 thou/uL (0.11-0.59); %Basophils 0.1 % (0.0-1.0); %Eosinophils 0.4 % (0.0-10.0); %Lymphocytes 5.9 % (21.0-51.0); %Monocytes 8.1 % (0.0-10.0); %Neutrophils 85.4 % (42.0-75.0); Hemoglobin 11.7 g/dL (14.0-18.0); Mean Corpuscular HGB CONC 30.9 g/dL (32.0-36.0); Mean Corpuscular Hemoglobin 34.2 pg (27.0-31.0); Mean Platelet Volume 8.8 fL (7.4-10.4); Platelet Count 210 thou/uL (130-400); White Blood Cell (WBC) Count 15.2 thou/uL (4.8-10.8)
[2020-01-07] MEDS: Mometasone 200 MCG/Formoterol 5 MCG 120 PUFF INHALER INH SCH (06:51)
[2020-01-07] MEDS: Apixaban 5 MG TAB PO SCH (09:20)
[2020-01-07] MEDS: Amiodarone 200 MG TAB PO SCH (09:20)
[2020-01-07] MEDS: Aspirin Chewable 81 MG TAB PO SCH (09:21)
[2020-01-07] MEDS: predniSONE 20 MG TAB PO SCH (09:21)
[2020-01-07] MEDS: Simethicone Chewable 80 MG TAB PO SCH ×2 (09:21→14:44)
--- NOTE | 2020-01-07 09:50 | PRG ---
DATE OF SERVICE: 01/07/2020 SUBJECTIVE: Rei Soto this morning still remains confused but less short of breath. OBJECTIVE: VITAL SIGNS: Temperature 97, pulse 85, respiratory rate 20, saturations are 92% on 2 L, blood pressure 134/80. CHEST: No wheezing, no crackles. CARDIAC: Normal S1, S2. No gallops. ABDOMEN: No masses. LABORATORY DATA: White count . ASSESSMENT: Supraventricular tachycardia, scheduled for TATIANA and cardioversion; chronic obstructive pulmonary disease; bilateral pleural effusion; encephalopathy. PLAN: From pulmonary standpoint of view, he is stable. Once his cardiac status is stabilized, he could be discharged home any time. Job ID: [id number]
[2020-01-07] MEDS ORDERED: PROPOFOL 40 ML ONE (11:57)
--- NOTE | 2020-01-07 12:51 | OP ---
DATE OF PROCEDURE: 01/07/2020 PROCEDURE PERFORMED: Electrical cardioversion. INDICATION: A 69-year-old gentleman with atrial flutter. DESCRIPTION OF PROCEDURE: The patient was taken to the PACU. The patient was sedated by Anesthesiology. The patient was shocked with 50 joules synchronized electricity. The patient converted to normal sinus rhythm. IMPRESSION: Successful electrical cardioversion. Job ID: [id number]
--- NOTE | 2020-01-07 12:52 | PDOC.EP ---
- Subjective Date: 01/07/20 Time: 08:00 Interval History: follow-up for atrial fibrillation. Javier guided cardioversion was postponed yesterday but is once again scheduled for today. Patient voices no complaints despite ongoing arrhythmias. At this point he is asymptomatic reporting no shortness of breath, heart racing, palpitations, fatigue, dyspnea on exertion, and or fluid retention/edema - Objective Allergies/Adverse Reactions: Allergies Allergy/AdvReac Type Severity Reaction Status Date / Time No Known Allergies Allergy Verified 08/05/19 19:29 Current Medications Vital Signs & Weight: Vital Signs Temp Pulse Resp BP BP Pulse Ox 01/07/20 11:24 88 18 01/07/20 10:54 97.3 F L 91 23 H 120/73 93 L 01/07/20 08:00 92 L 01/07/20 07:30 97.6 F 85 20 134/83 92 L 01/07/20 06:53 97 01/07/20 06:52 84 16 97 01/07/20 04:15 97.7 F 99 16 141/62 H 95 Admit Weight 181 lb 1.6 oz Weight 184 lb 1.376 oz I/O: I/O 01/06/20 01/07/20 01/08/20 06:59 06:59 06:59 Intake Total 1008 944 Output Total 700 975 Balance 308 -31 - Quality Measures Condition: Atrial Fibrillation/Flutter (hx or current) CV meds: Eliquis: Yes - Physical Exam General: alert & oriented x3, appears well, no apparent distress, speech clear, affect appropriate HEENT: mucus membranes moist, normocephaly Neck: supple neck, midline trachea, no JVD/HJR Cardiology: no murmur, irregularly irregular Lungs: clear to auscultation Neurology: cranial nerve 2-12 intact, grossly intact, no lateralizing findings Abdomen: unremarkable, active bowel sounds, HJR negative - Chadsvasc Risk factors Congestive heart failure: 1 Hypertension: 1 Age 65-74: 1 Vascular disease: 1 Risk Score: 4 - Labs Result Diagrams: 01/07/20 04:08 01/06/20 04:32 - EKG Interpretation EKG Method: Telemetry EKG shows: Atypical atrial flutter - Assessment/Plan Assessment/Plan: 1. atrial arrhythmias, starting 12/31/2019 - AFib and typical atrial flutter seen 2. cardiomyopathy, mildly reduced ejection fraction 40- 45% 3. recent respiratory failure 4. leukocytosis 5. elevated chads Vasc score - Lovenox started 01/03/2020 then transitioned to eliquis 5mg BID on 01/04 Remains in atrial flutter , rate controlled 80-100bpm. JAVIER/CV couldn't be done yesterday but is planned for today. Patient declines flutter ablation and prefers medication for treatment. Continue OAC. Continue amiodarone loading taper. LFTs stable on 01/04. Monitor for bradycardia post CV
[2020-01-07] MEDS ORDERED: PROPOFOL 200 MG/20 ML VIAL ONE (15:45)
[2020-01-07 16:00] VITALS: BP 120/57; TEMP 97.8
--- NOTE | 2020-01-07 16:59 | OP ---
DATE OF PROCEDURE: 01/07/2020 PROCEDURE PERFORMED: Transesophageal echocardiogram. INDICATION: Typical atrial flutter. DESCRIPTION OF PROCEDURE: The patient was taken to the PACU. The patient was sedated by Anesthesiology. Transesophageal probe was placed into the distal esophagus and stomach. Echocardiographic images were obtained. The transesophageal probe was removed. FINDINGS: 1. Normal left ventricular systolic function. 2. Moderate left atrial enlargement. 3. Severe right atrial enlargement. 4. The right ventricle is markedly enlarged. 5. Wlopekis-tv-dksgew tricuspid regurgitation. 6. Moderate mitral regurgitation. 7. Mild tricuspid regurgitation. 8. No thrombus noted in the left atrium or left atrial appendage. 9. Atherosclerotic debris in the descending aorta. IMPRESSION: No formed thrombus in the left atrium or left atrial appendage. Job ID: [id number]
--- NOTE | 2020-01-07 18:12 | EKG ---
Test Reason : POST TATIANA CARDIOVERSI Blood Pressure : / mmHG Vent. Rate : 079 BPM Atrial Rate : 079 BPM P-R Int : 146 ms QRS Dur : 098 ms QT Int : 386 ms P-R-T Axes : 082 052 059 degrees QTc Int : 442 ms Normal sinus rhythm Possible Left atrial enlargement Possible Inferior infarct (cited on or before 06-JAN-2020) Nonspecific ST-T changes Abnormal ECG When compared with ECG of 06-JAN-2020 09:28, Sinus rhythm has replaced Atrial flutter Serial changes of evolving Inferior infarct Present Confirmed by DR. Isaak JC ([id number]) on 01/07/2020 6:12:11 PM Referred By: MILA Confirmed By:DR. Isaak JC
--- NOTE | 2020-01-07 20:23 | DIS ---
DATE OF ADMISSION: 12/29/2019 DATE OF DISCHARGE: 01/07/2020 DISCHARGE DISPOSITION: To group home facility. ALLERGIES: NO KNOWN DRUG ALLERGIES. FOLLOWUP: 1. Follow up with primary care physician, Dr. Lacey in 1 week. 2. Follow up with Cardiology, Dr. Jones, and Electrophysiology, Dr. Andrea as scheduled. 3. Basic metabolic profile after 1 week is recommended. 4. Primary care physician advised to follow. The patient was seen and examined on the day of discharge. Denies any new complaints. No chest pain, shortness of breath, or palpitations reported. DISCHARGE MEDICATIONS: 1. Levaquin 500 mg daily for next 3 more days. 2. Prednisone taper. 3. Amiodarone taper. 4. Amlodipine 5 mg at bedtime. 5. Eliquis 5 mg b.i.d. 6. All other home medications were left unchanged. The patient was seen and examined on the day of discharge. Denies any new complaints. Vital signs showed temperature 97.3, pulse rate of 91, respiration of 18, O2 saturation 97% on 2 L nasal cannula, blood pressure of 120/73. BRIEF HOSPITAL COURSE: The patient is a 69-year-old male with congestive heart failure, chronic respiratory failure, on home oxygen, presented to the hospital with shortness of breath. He was placed on mechanical ventilation. His O2 saturation was around 90% on 4 L nasal cannula. He was confused and failed noninvasive positive-pressure ventilation. His COVID-19 was negative. He showed good improvement with diuretics, with antibiotics, and nebulizer treatment. He was evaluated by multiple consultants including Cardiology, Pulmonary, Electrophysiology. He was found to have atrial flutter for which he was placed on Cardizem drip. He also received digoxin. Later on, he was started on amiodarone drip. Amiodarone drip has been changed to oral taper. He underwent TATIANA cardioversion today. The patient has been cleared by Cardiology and Electrophysiology for discharge. FINAL DIAGNOSES: 1. Teogt-cx-wyudnhv hypoxic and hypercapnic respiratory failure, requiring mechanical ventilation. 2. Fspaw-at-lgkgqeb systolic/diastolic heart failure. 3. Chronic obstructive pulmonary disease exacerbation. 4. Acute kidney injury on chronic kidney disease stage 3 with hyperkalemia. 5. Toxic metabolic encephalopathy on admission. 6. Atrial flutter with rapid ventricular response, status post TATIANA cardioversion. 7. Abnormal LFTs secondary to passive hepatic congestion. 8. Bilateral pleural effusion. 9. Coronary artery disease. 10. Hypertension. 11. Gastroesophageal reflux disease. 12. Cannabis abuse. 13. Physical deconditioning. 14. Chronic low back pain. DIAGNOSTIC TESTS: ABGs showed pH of 7.21 with pCO2 of 91.5, bicarbonate 35.7 with pO2 of 82.1. Creatinine on admission was 1.71 and at discharge was 1.04. Potassium on admission was 5.9, and at discharge was 4.4. COVID-19 was negative. Urine drug screen was positive for cannabinoid. LFTs on admission showed total bilirubin 2.4 with AST 235, ALT 132, alkaline phosphatase 195. BNP was 2143. TIME SPENT: Time coordinating the discharge of this patient was 36 minutes. Job ID: [id number]
--- NOTE | 2020-01-09 14:48 | EKG ---
Test Reason : HYPOXIA Blood Pressure : / mmHG Vent. Rate : 094 BPM Atrial Rate : 094 BPM P-R Int : 138 ms QRS Dur : 098 ms QT Int : 374 ms P-R-T Axes : 081 056 031 degrees QTc Int : 467 ms Normal sinus rhythm Possible Left atrial enlargement Possible Inferior infarct , age undetermined Abnormal ECG Confirmed by HUMBERTO TURPIN, DESTINEY ([id number]), food expeditor SHMUEL MCKEON ([id number]) on 01/09/2020 2:47:49 PM Referred By: HUMBERTO Confirmed By:DESTINEY PAUL MD
== END 2020-01-07 18:01 | DRG 208 ==
LOC: ERS 14:41 → CCU 18:39 → 2NO 01-02 16:02
PROVIDERS: ADMIT Internal Medicine; ATTEND Internal Medicine
PROC: 5A1945Z Respiratory Ventilation, 24-96 Consecutive Hours (ICD-10-PCS; principal; 2019-12-29)
PROC: 0BH18EZ Insertion of Endotracheal Airway into Trachea, Via Natural or Artificial Opening Endoscopic (ICD-10-PCS; 2019-12-29)
PROC: 5A2204Z Restoration of Cardiac Rhythm, Single (ICD-10-PCS; 2020-01-07)
PROC: B24BZZ4 Ultrasonography of Heart with Aorta, Transesophageal (ICD-10-PCS; 2020-01-07)
DX: J96.21 Acute and chronic respiratory failure with hypoxia (principal); I50.43 Acute on chronic combined systolic (congestive) and diastolic (congestive) heart failure; G92 Toxic encephalopathy; N17.9 Acute kidney failure, unspecified; I42.9 Cardiomyopathy, unspecified; J44.1 Chronic obstructive pulmonary disease with (acute) exacerbation; I13.0 Hypertensive heart and chronic kidney disease with heart failure and stage 1 through stage 4 chronic kidney disease, or unspecified chronic kidney disease; I47.1 Supraventricular tachycardia; I48.3 Typical atrial flutter; J96.22 Acute and chronic respiratory failure with hypercapnia; Z20.828 Contact with and (suspected) exposure to other viral communicable diseases; E86.0 Dehydration; F12.10 Cannabis abuse, uncomplicated; N18.3 Chronic kidney disease, stage 3 (moderate); R53.81 Other malaise; K76.1 Chronic passive congestion of liver; I25.10 Atherosclerotic heart disease of native coronary artery without angina pectoris; G89.29 Other chronic pain; M54.5 Low back pain; K21.9 Gastro-esophageal reflux disease without esophagitis; I48.91 Unspecified atrial fibrillation; E87.5 Hyperkalemia; Z90.89 Acquired absence of other organs; Z79.82 Long term (current) use of aspirin; Z87.891 Personal history of nicotine dependence
CPT/HCPCS: 31500; 36415; 36416; 70450; 71045; 71275; 80048; 80053; 80306; 80307; 81003; 81015; 82140; 82550; 82553; 82728; 82805; 83605; 83615; 83690; 83735; 83880; 84443; 84484; 85025; 85379; 86140; 87040; 87070; 87077; 87086; 87186; 87205; 87635; 92960; 93005; 93010; 93312; 93798; 94002; 94003; 94640; 94660; 94760; 96365; 96374; 96375; 99292; C9113; J0282; J0692; J1160; J1650; J1940; J1956; J2060; J2704; J2920; J2930; J3010; J3490; J7070; J7512; J7620; P9047; Q9967; U0003

== ENCOUNTER 2020-03-21 10:20 | Inpatient (IN) | payer MEDICARE, MEDICAID, OTHER ==
--- NOTE | 2020-03-21 11:10 | RAD ---
EXAM: Single view of the chest HISTORY: Low hemoglobin and weakness COMPARISON: 01/02/2020 FINDINGS: Single view of the chest shows an enlarged but stable cardiomediastinal silhouette. Athero sclerotic calcifications are seen in the aorta. Scattered multifocal mixed opacities are seen, more prominent in the lung bases. Degenerative changes are seen in the spine. IMPRESSION: Stable exam
[2020-03-21 11:18] LABS: Mean Corpuscular HGB CONC 28.2 g/dL (32.0-36.0); Mean Corpuscular Volume 92.2 fL (78.0-98.0); Mean Platelet Volume 7.8 fL (7.4-10.4); Platelet Count 505 thou/uL (130-400); RBC Distribution Width 20.8 % (11.5-14.5); Red Blood Cell (RBC) Count 1.54 mill/uL (4.70-6.10); Reflex for Review?? YES; White Blood Cell (WBC) Count 9.5 thou/uL (4.8-10.8)
[2020-03-21 11:39] LABS: ALT (SGPT) 19 U/L (8-55); AST (SGOT) 49 U/L (5-34); Albumin 3.8 g/dL (3.4-4.8); Alkaline Phosphatase 104 U/L (40-110); Anion Gap 15 mmol/L (10-20); BUN (Urea Nitrogen) 23 mg/dL (8.4-25.7); Bilirubin, Total 0.4 mg/dL (0.2-1.2); CK (CPK) 216 U/L (30-200); Calc. Creatinine Clearance 0 mL/min (70-130); Carbon Dioxide 31 mmol/L (23-31); Chloride 99 mmol/L (98-107); Estimated GFR-MDRD 58; Glucose 98 mg/dL (80-115); Potassium 4.8 mmol/L (3.5-5.1); Protein, Total 6.8 g/dL (5.8-8.1); Sodium 140 mmol/L (136-145)
[2020-03-21 11:46] LABS: #Eosinphils 0.1 thou/uL (0.0-0.7); #Lymphocytes 1.5 thou/uL (1.20-3.40); #Monocytes 1.4 thou/uL (0.11-0.59); #Neutrophils 6.5 thou/uL (1.40-6.50); %Eosinophils 1.2 % (0.0-10.0); %Lymphocytes 15.9 % (21.0-51.0); %Monocytes 14.3 % (0.0-10.0); %Neutrophils 68.6 % (42.0-75.0); Bite Cells SLIGHT = 2-5 cells (100X) (0-1/hpf); Hypochromia MODERATE=16-30 cells (100X) (0-5/hpf); MDiff Complete? YES; Platelet Morphology Comment Appears Increased; Polychromasia SLIGHT = 2-3 cells (100X) (0-2/hpf); Schistocytes MODERATE= 6-15 cells (100X) (0-1/hpf)
[2020-03-21 12:00] LABS: Fibrinogen 364 mg/dL (253-463)
[2020-03-21 12:01] LABS: INR-International Normal Ratio 1.3; PTT 32.2 sec (22.9-36.1); Prothrombin Time 15.9 sec (12.0-14.7)
[2020-03-21 12:08] LABS: D-Dimer Test Less than 0.27 *mcg/mL (0.27-0.43)
[2020-03-21 12:33] LABS: Iron 20 ug/dL (65-175); Iron Binding Capacity, Total 534 mcg/dL (261-462)
[2020-03-21 12:41] LABS: Reticulocyte Count 8.3 % (0.5-1.5)
[2020-03-21] MEDS ORDERED: Acetaminophen 325 MG TAB PO PRN ×2 (14:57→18:37)
[2020-03-21] MEDS ORDERED: Calcium Carbonate 500 MG ChewTAB PO PRN (14:57)
[2020-03-21] MEDS ORDERED: Sodium Chloride 0.9% 1,000 ML IV SCH ×2 (15:00→18:41)
[2020-03-21] MEDS: Pantoprazole 40 MG VIAL IVP SCH (18:13)
[2020-03-21] MEDS ORDERED: Artificial Tear Sol 15 ML BOT EA EYE PRN (18:37)
[2020-03-21] MEDS ORDERED: Simethicone Chewable 80 MG TAB PO PRN (18:37)
[2020-03-21] MEDS ORDERED: GoLYTELY 4,000 ml Bottle PO SCH (19:15)
--- NOTE | 2020-03-21 19:28 | HP ---
PRIMARY CARE PHYSICIAN: Dr. Lacey. CHIEF COMPLAINT: Generalized weakness. HISTORY OF PRESENT ILLNESS: Patient is a 69-year-old, male with paroxysmal atrial fibrillation, on anticoagulation, was sent to the emergency room for above complaints. Over the last 1 week, patient has been feeling lightheaded and dizzy. He also gets short of breath on mtjw-lu-fplfqeae exertion. There was no chest pain, palpitations, or syncope reported. He also reports having dark stool over the last month or so. No hematemesis, abdominal pain, or weight loss reported. He was found to have a hemoglobin of 4.0 at the nursing facility. He was referred to the emergency room for evaluation. PAST MEDICAL HISTORY: 1. Paroxysmal atrial fibrillation, on anticoagulation. 2. Chronic systolic/diastolic heart failure. 3. COPD. 4. Chronic kidney disease, stage 3. 5. History of atrial flutter requiring cardioversion. 6. Coronary artery disease. 7. Hypertension. 8. GERD. 9. History of cannabis abuse. 10. Chronic low back pain. PAST SURGICAL HISTORY: 1. TATIANA cardioversion. 2. History of mechanical intubation. 3. Cardiac catheterization. 4. Tonsillectomy. ALLERGIES: THE PATIENT DENIES ANY DRUG ALLERGIES. CURRENT HOME MEDICATION: 1. Amiodarone 200 mg daily. 2. Amlodipine 5 mg daily. 3. Aspirin 81 mg daily. 4. Eliquis 5 mg b.i.d. 5. Lipitor 20 mg daily. 6. Breo Ellipta 100/25 daily. 7. Combivent twice a day. 8. Pepcid 20 mg daily. 9. Lasix 40 mg daily. 10. Nebulizer treatments. 11. Lyrica 25 mg at bedtime. 12. Tramadol as needed. SOCIAL HISTORY: Patient currently lives at a nursing facility. Drinks alcohol socially. Denies any smoking. Abuses cannabis on a daily basis. FAMILY HISTORY: Negative for GI malignancy. Heart disease runs in his family. CODE STATUS: Full code. His sister, Tita Soto, is the decision maker. REVIEW OF SYSTEMS: All other review of systems was reviewed and was found negative. PHYSICAL EXAMINATION: VITAL SIGNS: Temperature 98.2, respirations of 18, pulse rate of 81, blood pressure of 119/52, and O2 saturation 99% on room air. GENERAL: A 69-year-old male, in no apparent distress. Denies any pain. HEENT: Head, atraumatic and normocephalic. Sclerae anicteric. Pale conjunctivae. No oral lesion. NECK: Supple. No JVD appreciated. No carotid bruit. LUNGS: Clear to auscultation bilaterally. No wheezing, rales, or rhonchi. HEART: S1 and S2 present. Regular rate and rhythm. No rubs or gallops. ABDOMEN: Soft, nontender. Bowel sounds present. No rebound or guarding. No costovertebral angle tenderness. EXTREMITIES: No edema or calf tenderness. NEUROLOGIC: Grossly nonfocal. Moves all 4 extremities. PSYCHIATRY: Alert, awake, and oriented x3. SKIN: Warm and dry. LYMPH NODES: No palpable lymph nodes in the neck. PERIPHERAL VASCULAR: Radial pulses palpable bilaterally. MUSCULOSKELETAL: No joint swelling or tenderness. LABORATORY FINDINGS: 1. CBC showed WBC 9.5 with hemoglobin 4, hematocrit 14.2, and platelet of 505. 2. D-dimer was negative. 3. Creatinine 1.46, baseline creatinine 1.0; BUN 23; sodium 140; and potassium 4.8. 4. Troponin x1 was negative. 5. Magnesium 2.0. IMAGING STUDIES: Chest x-ray by my review was negative for infiltrate. EKG: EKG by my review showed sinus rhythm with nonspecific ST-T wave changes. IMPRESSION: 1. Acute on chronic anemia suspected due to gastrointestinal bleeding. 2. Paroxysmal atrial fibrillation, on anticoagulation. 3. Coronary artery disease, on aspirin. 4. Hypertension. 5. Gastroesophageal reflux disease. 6. Cannabis abuse. 7. Chronic low back pain. 8. Chronic obstructive pulmonary disease. 9. Chronic systolic/diastolic heart failure, compensated. Ejection fraction on recent echo was 40% to 45% with uwxxprse-nr-uaxcmh tricuspid regurgitation. 10. Acute kidney injury on chronic kidney disease, stage 3. PLAN: Patient will be monitored on the telemetry unit. Troponin was negative. Gastroenterology will be consulted. We will start on IV PPIs. Reticulocyte will be checked. Admission COVID-19 screening. Patient is currently receiving blood transfusion. We will recheck hemoglobin tonight. We will transfuse one more unit, if hemoglobin is below 7. We will check orthostatic vitals. Patient will require 2 to 3 days for stabilization. We will start him on clear liquid diet for possible EGD/colonoscopy. Fall precautions. Patient understands the above plan of care. Job ID: [id number]
[2020-03-21 20:33] LABS: Hemoglobin 4.7 g/dL (14.0-18.0)
[2020-03-21] MEDS: Pregabalin 25 MG CAP PO SCH (21:48)
[2020-03-21] MEDS: Milk Of Magnesia 30 ML UDCUP PO SCH (21:49)
[2020-03-21] MEDS: Atorvastatin Calcium 20 MG TAB PO SCH (21:49)
[2020-03-21] MEDS: Amlodipine 5 MG TAB PO SCH (21:49)
[2020-03-21] MEDS: Polyethylene Glycol 3350 17 GM Packet PO SCH (21:50)
[2020-03-21] MEDS: traMADol HCl 50 MG TAB PO PRN (21:52)
--- NOTE | 2020-03-22 01:28 | CON ---
DATE OF CONSULTATION: 03/21/2020 REASON FOR CONSULTATION: Severe anemia, iron deficiency anemia. CONSULTING PROVIDER: Felton Mobley MD HISTORY OF PRESENT ILLNESS: The patient is a 69-year-old male with past medical history of asthma, questionable COPD, congestive heart failure, hypertension, coronary artery disease, and tobacco abuse and marijuana abuse, presenting with complaints of weakness. Per chart review, the patient was recently discharged from [facility] in December 2019, after being diagnosed with atrial flutter and underwent cardiac ablation/cardioversion during that hospitalization. He was subsequently discharged on Eliquis as part of treatment for this particular condition. Shortly after his discharge from the hospital, the patient did notice that he had increased frequency of dark semi-solid to hard solid stools that were dark brown in coloration rather than dark black. This was again associated with hard and harder to pass stools that did require significant straining in order to facilitate defecation. However over the last few weeks, the patient has been describing increasing weakness and shortness of breath at both rest and exertion, which then prompted him to come back to [facility] for further evaluation. While evaluated in the ER, he was noted to have a significantly decreased hemoglobin and hematocrit, raising concern for possible bleeding or etiology of this significant anemia. Upon further questioning the patient, he does state that he has lost approximately 20 pounds over the last 1 to 2 months unintentionally but otherwise he denies any nausea, vomiting, fevers, chills, hematemesis, melena, hematochezia, dysphagia, odynophagia, diarrhea, constipation, or NSAID use. Upon speaking with the patient, he has never underwent upper endoscopy or colonoscopy before. REVIEW OF SYSTEMS: A 10-category review of systems was obtained with all responses negative except for the pertinent positives as listed in HPI. PAST MEDICAL HISTORY: As per HPI. PAST SURGICAL HISTORY: Tonsillectomy, appendectomy, cardiac catheterization. FAMILY HISTORY: Denies any GI malignancies. SOCIAL HISTORY: Smokes approximately 1 pack per day, but quit five years ago. He does engage in marijuana use and does drink alcohol socially. OUTPATIENT MEDICATIONS: Reviewed. ALLERGIES: NO KNOWN DRUG ALLERGIES. PHYSICAL EXAMINATION: VITAL SIGNS: Temperature 98.4, pulse 91, blood pressure 120/59, respiratory rate 18, saturating 93% on 3 L nasal cannula. GENERAL: The patient was lying in bed, in no acute distress. Alert and oriented x4. No conversational dyspnea noted. HEENT: Normocephalic, atraumatic. NECK: Supple. No JVD or scleral icterus noted. CARDIOVASCULAR: Regular rate and rhythm with no discernible murmurs, gallops, or rubs. RESPIRATORY: Clear to auscultation bilaterally with no discernible wheezes or rales. ABDOMEN: Normoactive bowel sounds. Soft, nondistended, mild tenderness to palpation in the midepigastric region. EXTREMITIES: No cyanosis, clubbing, or edema. LABORATORY DATA: CBC with a white blood cell count of 9.5, hemoglobin 4, hematocrit 14.2, platelets 505, MCV 92, RDW 20.8, retic count 8.3%. INR 1.3. Chemistry with a sodium of 140, potassium 4.8, chloride 99, CO2 of 31, BUN 23, creatinine 1.46, glucose 98. AST 49, ALT 19, alkaline phosphatase 104, total bilirubin 0.4. Iron 20, ferritin 21, TIBC 534, CK 216, and albumin 3.8. IMAGING DATA: Chest x-ray obtained on March 21, 2020, showed stable cardiomegaly and cardiomediastinal silhouette. Scattered multifocal mixed opacities were seen more prone in the lung base, but again stable when compared to prior exam. ASSESSMENT AND PLAN: The patient is a 69-year-old male with past medical history of asthma, congestive heart failure, hypertension, coronary artery disease, chronic obstructive pulmonary disease, marijuana abuse, and recent diagnosis of atrial flutter status post ablation/cardioversion on anticoagulation, presenting with symptomatic anemia. Symptomatic anemia. The patient is presenting with a recent hospitalization, where the patient was diagnosed with atrial flutter and underwent ablation/cardioversion and ultimately placed on anticoagulation with Eliquis. Since discharge from the hospital, his hemoglobin has dropped approximately seven points without any overt evidence of gastrointestinal bleeding. His MCV is normal, but the remainder of his iron indices and CBC are abnormal with an elevated RDW, elevated retic count and iron indices consistent with iron deficiency anemia. At this point with his significantly decreased H and H and evidence of iron deficiency anemia, it could potentially be due to GI blood loss, especially in light of never having had a screening colonoscopy in the past with Americans at increased risk for colorectal cancer. At this time, the differential could include esophagitis, gastritis, duodenitis, peptic ulcer disease, arteriovenous malformation, Dieulafoy lesion, and/or GI neoplasm. RECOMMENDATIONS: 1. Would continue to trend his H and H and transfuse as necessary to maintain an H and H of 7/. 2. Continue to monitor clinically for signs of active GI bleeding. 3. Would avoid any NSAIDs or anticoagulation for the time being in light of possible GI bleeding. 4. Would place the patient on a clear liquid diet today with GoLYTELY prep tonight in anticipation of EGD and colonoscopy tomorrow. 5. Would make the patient n.p.o. in anticipation for both EGD and colonoscopy for intraluminal evaluation of the GI tract. We will continue to follow. Please call with any questions. Job ID: [id number]
[2020-03-22] MEDS: Pantoprazole 40 MG VIAL IVP SCH ×2 (03:15→16:30)
[2020-03-22 04:39] LABS: #Eosinphils 0.1 thou/uL (0.0-0.7); #Lymphocytes 1.6 thou/uL (1.20-3.40); #Monocytes 1.3 thou/uL (0.11-0.59); #Neutrophils 6.2 thou/uL (1.40-6.50); %Basophils 0.5 % (0.0-1.0); %Eosinophils 1.5 % (0.0-10.0); %Lymphocytes 17.6 % (21.0-51.0); %Neutrophils 66.5 % (42.0-75.0); Hemoglobin 6.3 g/dL (14.0-18.0); Mean Corpuscular HGB CONC 30.6 g/dL (32.0-36.0); Mean Corpuscular Hemoglobin 28.6 pg (27.0-31.0); Mean Corpuscular Volume 93.4 fL (78.0-98.0); Mean Platelet Volume 7.5 fL (7.4-10.4); Platelet Count 455 thou/uL (130-400); RBC Distribution Width 14.9 % (11.5-14.5); Red Blood Cell (RBC) Count 2.22 mill/uL (4.70-6.10); White Blood Cell (WBC) Count 9.3 thou/uL (4.8-10.8)
[2020-03-22 05:16] LABS: ALT (SGPT) 15 U/L (8-55); AST (SGOT) 22 U/L (5-34); Albumin 3.6 g/dL (3.4-4.8); Alkaline Phosphatase 100 U/L (40-110); Anion Gap 13 mmol/L (10-20); BUN (Urea Nitrogen) 19 mg/dL (8.4-25.7); Bilirubin, Total 1.1 mg/dL (0.2-1.2); Calc. Creatinine Clearance 72 mL/min (70-130); Calcium 8.9 mg/dL (7.8-10.44); Carbon Dioxide 33 mmol/L (23-31); Chloride 99 mmol/L (98-107); Estimated GFR-MDRD 72; Globulin 2.9 g/dL (2.4-3.5); Glucose 87 mg/dL (80-115); Potassium 4.1 mmol/L (3.5-5.1); Protein, Total 6.5 g/dL (5.8-8.1); Sodium 141 mmol/L (136-145)
[2020-03-22] MEDS: Mometasone 100 MCG/Formoterol 5 MCG 120 PUFF INHALER INH SCH ×2 (07:03→19:42)
[2020-03-22] MEDS: Amiodarone 200 MG TAB PO SCH (07:45)
[2020-03-22] MEDS: Multivit, Therapeutic 1 TAB PO SCH (07:45)
[2020-03-22] MEDS: Polyethylene Glycol 3350 17 GM Packet PO SCH (07:46)
[2020-03-22] MEDS: Milk Of Magnesia 30 ML UDCUP PO SCH (07:46)
[2020-03-22 08:03] LABS: SARS-CoV-2 NAA Rapid Test Not Detected (NotDetected)
[2020-03-22] MEDS ORDERED: PROPOFOL 200 MG/20 ML VIAL ONE (09:57)
[2020-03-22 12:31] LABS: Hemoglobin 7.1 g/dL (14.0-18.0)
[2020-03-22] MEDS ORDERED: Ketamine 50 MG/ML (10ML VIAL) ONE (14:40)
[2020-03-22] MEDS ORDERED: Ondansetron HCl/PF 4 MG/2 ML Vial IVP PRN (15:32)
[2020-03-22] MEDS ORDERED: Promethazine HCl 25 MG/ML VIAL SLOW IVP PRN (15:32)
[2020-03-22] MEDS ORDERED: Promethazine HCl 25 MG/ML VIAL IM PRN (15:32)
[2020-03-22] MEDS ORDERED: Iron, Sodium Ferric Gluconate 250 MG in Sodium Chloride 0.9% 250 ML 250 ML IVPB SCH (17:00)
--- NOTE | 2020-03-22 17:06 | PDOC.HOSPP ---
- Subjective Encounter Date: 03/22/20 Encounter Time: 10:00 Subjective: Patient seen and examined for severe anemia with hemoglobin of around 4. Lightheadedness is improving. Denies any syncope, chest pain or palpitations. No new episodes of GI bleeding. - Objective Vital Signs & Weight: Vital Signs (12 hours) Temp Pulse Pulse Resp BP BP Pulse Ox 03/22/20 11:15 98.9 F 74 20 110/56 L 95 03/22/20 07:40 98.1 F 74 18 138/65 98 03/22/20 07:04 95 03/22/20 07:03 84 16 95 03/22/20 07:02 84 16 95 03/22/20 05:55 98.7 F 88 14 112/53 L Weight Admit Weight 192 lb 14.4 oz Weight 192 lb 14.4 oz I&O: 03/21/20 03/22/20 03/23/20 06:59 06:59 06:59 Intake Total 350 350 Balance 350 350 Result Diagrams: 03/22/20 12:19 03/22/20 04:25 Additional Labs: Laboratory Tests 03/21/20 03/21/20 03/21/20 10:42 10:42 10:42 Hgb 4.0 L* Iron 20 L TIBC 534 H Ferritin 21.05 L 03/21/20 03/22/20 03/22/20 20:17 04:25 12:19 Hgb 4.7 L* 6.3 L 7.1 L Iron TIBC Ferritin Laboratory Tests 03/21/20 10:40 Retic Count 8.3 H Radiology Reviewed by me: Yes (Chest x-ray negative for infiltrate) EKG Reviewed by me: Yes (Sinus rhythm on telemetry) Hospitalist ROS - Review of Systems Respiratory: denies: cough, dry, shortness of breath, hemoptysis, SOB with excertion, pleuritic pain, sputum, wheezing, other Cardiovascular: denies: chest pain, palpitations, orthopnea, paroxysmal noc. dyspnea, edema, light headedness, other - Medication Medications: Active Medications Generic Name Dose Route Start Last Admin Trade Name Freq PRN Reason Stop Dose Admin Albuterol/Ipratropium 3 ml 03/22/20 06:30 03/22/20 07:02 Duoneb NEB 3 ml BID-RT LAURIE Administration Amiodarone HCl 200 mg 03/22/20 09:00 03/22/20 07:45 Cordarone PO 200 mg DAILY LAURIE Administration Amlodipine Besylate 5 mg 03/21/20 21:00 03/21/20 21:49 Norvasc PO 5 mg HS LAURIE Administration Atorvastatin Calcium 20 mg 03/21/20 21:00 03/21/20 21:49 Lipitor PO 20 mg HS LAURIE Administration Mometasone Furoate/Formoterol Fumar 2 puff 03/22/20 06:30 03/22/20 07:03 Dulera 100 Mcg/5 Mcg Inhaler INH 2 puff BID-RT LAURIE Administration Multivitamins 1 tab 03/22/20 09:00 03/22/20 07:45 Theragran PO 1 tab DAILY LAURIE Administration Polyethylene Glycol 17 gm 03/21/20 21:00 03/22/20 07:46 Miralax PO Not Given BID LAURIE Pregabalin 25 mg 03/21/20 21:00 03/21/20 21:48 Lyrica PO 25 mg HS LAURIE Administration Tramadol HCl 50 mg 03/21/20 18:37 03/21/20 21:52 Ultram PO 50 mg Q4H PRN Administration Moderate Pain (4-6) - Exam General Appearance: NAD Neck: supple, no JVD, no thyromegaly, no lymphadenopathy Heart: RRR, no gallops, no rubs, normal peripheral pulses Respiratory: no wheezes, no rales, no ronchi, normal chest expansion Gastrointestinal: soft, non-distended, normal bowel sounds, no guarding, no rigidity Extremities: no cyanosis, no clubbing Neurological: no new deficit Psychiatric: normal affect, A&O x 3 Hosp A/P - Plan DVT proph w/SCDs 1. Acute on chronic anemia suspected due to gastrointestinal bleeding. 2. Paroxysmal atrial fibrillation, on anticoagulation. 3. Coronary artery disease, on aspirin. 4. Hypertension. 5. Gastroesophageal reflux disease. 6. Cannabis abuse. 7. Chronic low back pain. 8. Chronic obstructive pulmonary disease. 9. Chronic systolic/diastolic heart failure, compensated. Ejection fraction on recent echo was 40% to 45% with wwvynrmv-ev-[id number] tricuspid regurgitation. 10. Acute kidney injury on chronic kidney disease, stage 3. PLAN: 03/22 Patient received total of 3 units of PRBC. Continue IV PPIs. Reticulocyte was elevated. Continue telemetry monitoring. EGD and colonoscopy today. GI input appreciated. Anticoagulation on hold. Patient understands the risk associated with holding anticoagulation. Will start iron infusion. Continue amlodipine with holding parameters. Continue n.p.o.
[2020-03-22] MEDS: traMADol HCl 50 MG TAB PO PRN (17:17)
--- NOTE | 2020-03-22 18:20 | OP ---
DATE OF PROCEDURE: 03/22/2020 PROCEDURES PERFORMED: 1. Esophagogastroduodenoscopy. 2. Colonoscopy with snare polypectomy. PREMEDICATION: Given by Anesthesiology Department. PREPROCEDURE DIAGNOSIS: Severe iron deficiency anemia. POSTPROCEDURE DIAGNOSES: 1. Normal upper endoscopy. 2. Transverse and sigmoid polyps, status post polypectomy. Otherwise, normal colon exam. DESCRIPTION OF PROCEDURE: Written consents were obtained prior to procedure. After adequate sedation, the forward-viewing endoscope was advanced down the stomach under direct vision to the third portion of duodenum. The third and second portions appeared normal. The bulb appeared normal. Erick gland hyperplasia was seen within the duodenal bulb. The pylorus was patent. The gastric antrum, body, fundus, and cardia all appeared normal. The distal, mid, and upper esophagus appeared normal. The patient was then repositioned for colon exam. Digital examination was normal. The endoscope was advanced to the cecum. The quality of the bowel prep was good. The cecum including the appendiceal orifice and ileocecal valve were visualized and appeared normal. The ascending colon and hepatic flexure appeared normal. In the distal transverse colon, a 4 mm semi pedunculated polyp was noted and was removed with cold snare. However, the polyp was lost and not retrieved. The splenic flexure and descending colon appeared normal. In the rectosigmoid colon, a 4 mm sessile polyp was noted and was removed with cold snare and retrieved. Scattered very small diminutive polyps were noted in the rectosigmoid area. Retroflexion was normal. The patient tolerated the procedure well. ASSESSMENT: 1. No apparent source of bleeding on upper endoscopy and colonoscopy. 2. Normal upper endoscopy, two polyps removed in the colon, otherwise normal exam. RECOMMENDATION: 1. Outpatient small-bowel capsule endoscopy. 2. Continue to hold [employer] until small-bowel evaluation. Job ID: [id number]
[2020-03-22] MEDS: Amlodipine 5 MG TAB PO SCH (20:18)
[2020-03-22] MEDS: Famotidine 20 MG TAB PO SCH (20:19)
[2020-03-22] MEDS: Pregabalin 25 MG CAP PO SCH (20:19)
[2020-03-22] MEDS: Atorvastatin Calcium 20 MG TAB PO SCH (20:19)
[2020-03-23] MEDS: traMADol HCl 50 MG TAB PO PRN ×2 (03:20→09:41)
[2020-03-23 04:50] LABS: ALT (SGPT) 14 U/L (8-55); AST (SGOT) 17 U/L (5-34); Albumin 3.3 g/dL (3.4-4.8); Alkaline Phosphatase 99 U/L (40-110); Anion Gap 11 mmol/L (10-20); BUN (Urea Nitrogen) 18 mg/dL (8.4-25.7); Bilirubin, Total 0.6 mg/dL (0.2-1.2); Calc. Creatinine Clearance 67 mL/min (70-130); Calcium 8.3 mg/dL (7.8-10.44); Carbon Dioxide 31 mmol/L (23-31); Chloride 103 mmol/L (98-107); Estimated GFR-MDRD 66; Globulin 2.4 g/dL (2.4-3.5); Glucose 128 mg/dL (80-115); Potassium 4.3 mmol/L (3.5-5.1); Protein, Total 5.7 g/dL (5.8-8.1); Sodium 141 mmol/L (136-145)
[2020-03-23 05:09] LABS: Eosinophils 2 % (0-10); Hemoglobin 6.5 g/dL (14.0-18.0); Hypochromia SLIGHT = 6-15 cells (100X) (0-5/hpf); Lymphocytes 7 % (21-51); MDiff Complete? YES; Mean Corpuscular HGB CONC 30.3 g/dL (32.0-36.0); Mean Corpuscular Hemoglobin 28.6 pg (27.0-31.0); Mean Corpuscular Volume 94.3 fL (78.0-98.0); Mean Platelet Volume 7.2 fL (7.4-10.4); Monocytes 14 % (0-10); Neutrophil 77 % (42-75); Platelet Count 345 thou/uL (130-400); Polychromasia SLIGHT = 2-3 cells (100X) (0-2/hpf); RBC Distribution Width 14.8 % (11.5-14.5); Red Blood Cell (RBC) Count 2.28 mill/uL (4.70-6.10); White Blood Cell (WBC) Count 10.9 thou/uL (4.8-10.8)
[2020-03-23] MEDS: Mometasone 100 MCG/Formoterol 5 MCG 120 PUFF INHALER INH SCH ×2 (06:39→19:23)
[2020-03-23] MEDS: Multivit, Therapeutic 1 TAB PO SCH (09:41)
[2020-03-23] MEDS: Amiodarone 200 MG TAB PO SCH ×2 (09:41→09:46)
[2020-03-23] MEDS: Famotidine 20 MG TAB PO SCH ×2 (09:43→21:17)
--- NOTE | 2020-03-23 16:00 | PRG ---
DATE OF SERVICE: 03/23/2020 SUBJECTIVE: Mr. Soto had no bleeding overnight. He did receive a unit of blood today. His hemoglobin had gone from 4 to 4.7 and 6.3 to 7.1 yesterday, then 6.5 this morning. The unit of blood was just 4. In talking with him, he has been eating well. He denies abdominal pain. He did not really see any overt bleeding. He does state he scratched his bottom though when he had a hard stool and he had to digitalize to get it out and he bled for a few days after that first red and black. As far as his weight loss, he attributes that to decrease in the swelling he had with his heart and his fluid pills. OBJECTIVE: VITAL SIGNS: Temperature 98, , blood pressure 121/85. ABDOMEN: Soft, nontender. There is no rebound or guarding. EXTREMITIES: No clubbing, cyanosis, or edema. LABORATORY DATA: White count 10, hemoglobin 6.5, MCV 95, platelet count 345. BUN and creatinine are 18 and 1.31, albumin is 3, protein 5.7. ASSESSMENT: Anemia with iron of 20, ferritin 21 on admission. This began after he was started on anticoagulation for atrial fibrillation. The upper and lower endoscopies were negative yesterday. Maybe he lost blood from trauma from his hard stool and digitalization. I suspect his weight loss is related to his diuresis and improvement in cardiac function. RECOMMENDATIONS: CT scan of abdomen and pelvis tomorrow to make sure no small bowel tumors or masses. If this is negative, he can go home. If his hemoglobin remained stable on aspirin, stay off the other blood thinners and get an outpatient capsule endoscopy in the next week or so with Dr. Juarez. Job ID: [id number]
--- NOTE | 2020-03-23 18:04 | PDOC.HOSPP ---
- Subjective Encounter Date: 03/23/20 Encounter Time: 14:00 Subjective: Patient seen and examined for GI bleeding. Symptomatically feels better. No new episodes of hematemesis or melena. No chest pain, shortness of breath or palpitations. - Objective Vital Signs & Weight: Vital Signs (12 hours) Temp Pulse Pulse Resp BP BP BP 03/23/20 15:20 98.1 F 72 22 H 106/59 L 03/23/20 13:55 98.1 F 76 17 121/58 L 03/23/20 12:00 98.4 F 76 18 121/76 03/23/20 11:00 97.9 F 73 73 19 112/58 L 112/58 L 03/23/20 10:35 98.2 F 67 67 16 109/58 L 109/58 L 03/23/20 09:50 108/58 L 113/57 L 03/23/20 09:41 03/23/20 08:49 98.2 F 76 16 107/57 L 03/23/20 06:41 79 16 03/23/20 06:39 77 16 BP Pulse Ox 03/23/20 15:20 98 03/23/20 13:55 97 03/23/20 12:00 96 03/23/20 11:00 96 03/23/20 10:35 96 03/23/20 09:50 117/55 L 03/23/20 09:41 97 03/23/20 08:49 97 03/23/20 06:41 94 L 03/23/20 06:39 93 L Weight Admit Weight 192 lb 14.4 oz Weight 192 lb 14.4 oz I&O: 03/22/20 03/23/20 03/24/20 06:59 06:59 06:59 Intake Total 350 1080 0 Balance 350 1080 0 Result Diagrams: 03/24/20 04:07 03/24/20 04:07 EKG Reviewed by me: Yes (Sinus rhythm on telemetry) Hospitalist ROS - Review of Systems ENT: denies: ear pain, ear discharge, nose pain, nose discharge, nose congestion , mouth pain, mouth swelling, throat pain, throat swelling, other Respiratory: denies: cough, dry, shortness of breath, hemoptysis, SOB with excertion, pleuritic pain, sputum, wheezing, other - Medication Medications: Active Medications Generic Name Dose Route Start Last Admin Trade Name Freq PRN Reason Stop Dose Admin Albuterol/Ipratropium 3 ml 03/22/20 06:30 03/23/20 06:41 Duoneb NEB 3 ml BID-RT LAURIE Administration Amiodarone HCl 200 mg 03/22/20 09:00 03/23/20 09:46 Cordarone PO 200 mg DAILY LAURIE Administration Amlodipine Besylate 5 mg 03/21/20 21:00 03/22/20 20:18 Norvasc PO Not Given HS LAURIE Atorvastatin Calcium 20 mg 03/21/20 21:00 03/22/20 20:19 Lipitor PO 20 mg HS LAURIE Administration Famotidine 20 mg 03/22/20 21:00 03/23/20 09:43 Pepcid PO 20 mg BID LAURIE Administration Mometasone Furoate/Formoterol Fumar 2 puff 03/22/20 06:30 03/23/20 06:39 Dulera 100 Mcg/5 Mcg Inhaler INH 2 puff BID-RT LAURIE Administration Multivitamins 1 tab 03/22/20 09:00 03/23/20 09:41 Theragran PO 1 tab DAILY LAURIE Administration Pregabalin 25 mg 03/21/20 21:00 03/22/20 20:19 Lyrica PO 25 mg HS LAURIE Administration Simethicone 80 mg 03/21/20 18:37 03/23/20 11:21 Mylicon Chewable PO 80 mg PCHS PRN Administration Abdominal Distention Tramadol HCl 50 mg 03/21/20 18:37 03/23/20 09:41 Ultram PO 50 mg Q4H PRN Administration Moderate Pain (4-6) - Exam General Appearance: NAD Neck: supple, no JVD Heart: RRR, no gallops Respiratory: no wheezes, no ronchi Gastrointestinal: soft, non-tender, normal bowel sounds Extremities: no cyanosis Neurological: no new deficit Psychiatric: A&O x 3 Hosp A/P - Plan DVT proph w/SCDs 1. Acute on chronic anemia suspected due to gastrointestinal bleeding. 2. Paroxysmal atrial fibrillation - Anticoagulation on hold due to Severe anemia 3. Coronary artery disease, on aspirin. 4. Hypertension. 5. Gastroesophageal reflux disease. 6. Cannabis abuse. 7. Chronic low back pain. 8. Chronic obstructive pulmonary disease. 9. Chronic systolic/diastolic heart failure, compensated. Ejection fraction on recent echo was 40% to 45% with [id number] tricuspid regurgitation. 10. Acute kidney injury on chronic kidney disease, stage 3. PLAN: 03/23 Patient received 1 more unit of PRBC today (total 4 units PRBC). He also received IVIG yesterday. Case discussed with gastroenterology. Anticoagulation and aspirin on hold. A CT scan of the abdomen tomorrow. A.m. labs. Continue other medications as above. 03/22 Patient received total of 3 units of PRBC. Continue IV PPIs. Reticulocyte was elevated. Continue telemetry monitoring. EGD and colonoscopy today. GI input appreciated. Anticoagulation on hold. Patient understands the risk associated with holding anticoagulation. Will start iron infusion. Continue amlodipine with holding parameters. Continue n.p.o.
[2020-03-23] MEDS: Atorvastatin Calcium 20 MG TAB PO SCH (21:17)
[2020-03-23] MEDS: Pregabalin 25 MG CAP PO SCH (21:18)
[2020-03-23] MEDS: Amlodipine 5 MG TAB PO SCH (21:18)
[2020-03-24 04:02] VITALS: BMI 24.3
[2020-03-24 04:48] LABS: #Basophils 0.1 thou/uL (0.0-0.2); #Eosinphils 0.2 thou/uL (0.0-0.7); #Lymphocytes 1.8 thou/uL (1.20-3.40); #Monocytes 1.4 thou/uL (0.11-0.59); #Neutrophils 6.8 thou/uL (1.40-6.50); %Basophils 0.7 % (0.0-1.0); %Eosinophils 1.8 % (0.0-10.0); %Lymphocytes 17.5 % (21.0-51.0); %Monocytes 13.6 % (0.0-10.0); %Neutrophils 66.5 % (42.0-75.0); Hemoglobin 7.8 g/dL (14.0-18.0); Mean Corpuscular HGB CONC 29.9 g/dL (32.0-36.0); Mean Corpuscular Hemoglobin 28.8 pg (27.0-31.0); Mean Corpuscular Volume 96.1 fL (78.0-98.0); Mean Platelet Volume 7.7 fL (7.4-10.4); Platelet Count 408 thou/uL (130-400); Red Blood Cell (RBC) Count 2.72 mill/uL (4.70-6.10); White Blood Cell (WBC) Count 10.3 thou/uL (4.8-10.8)
[2020-03-24 04:54] LABS: Anion Gap 12 mmol/L (10-20); BUN (Urea Nitrogen) 13 mg/dL (8.4-25.7); Calc. Creatinine Clearance 77 mL/min (70-130); Calcium 8.8 mg/dL (7.8-10.44); Carbon Dioxide 32 mmol/L (23-31); Chloride 102 mmol/L (98-107); Estimated GFR-MDRD 79; Glucose 80 mg/dL (80-115); Potassium 4.3 mmol/L (3.5-5.1); Sodium 142 mmol/L (136-145)
[2020-03-24] MEDS: Mometasone 100 MCG/Formoterol 5 MCG 120 PUFF INHALER INH SCH ×2 (07:07→18:57)
--- NOTE | 2020-03-24 11:41 | CT ---
CT abdomen and pelvis with IV contrast HISTORY: GI bleed. Abdomen pain. COMPARISON: 04/07/2019. FINDINGS: Mild parenchymal scarring at the lung bases. Tiny calcified granuloma at the right lung bas e is stable. Old healed left lower rib fractures. Solid organs of the abdomen are intact. A 1.4 cm cyst is apparent at the inferior pole of the left ki dney. 0.9 cm cyst immediately adjacent to an area of parenchymal scarring along the lateral aspect of the superior pole left kidney. Fusiform dilatation of the lower abdominal aorta, measuring up to 3.2 cm on today's study, is stable. Each common iliac artery is 1.7 cm diameter. There is calcification throughout the arterial structures. No evidence of bowel obstruction or inflammation. No mass or area of abnormal enhancement. Degenerative changes throughout the lumbar spine. IMPRESSION : No acute gastroenterologic abnormalities demonstrated. Small fusiform lower abdominal aortic aneurysm is stable.
[2020-03-24] MEDS: Famotidine 20 MG TAB PO SCH (12:19)
[2020-03-24] MEDS: Multivit, Therapeutic 1 TAB PO SCH (12:19)
[2020-03-24] MEDS: Amiodarone 200 MG TAB PO SCH (12:19)
[2020-03-24] MEDS: traMADol HCl 50 MG TAB PO PRN (12:23)
[2020-03-24] MEDS ORDERED: Iopamidol 370 76% 100 ML VIAL ONE (13:43)
[2020-03-24 19:27] VITALS: BP 112/55; TEMP 98.1
--- NOTE | 2020-03-25 07:08 | DIS ---
DATE OF ADMISSION: 03/21/2020 DATE OF DISCHARGE: 03/24/2020 DISCHARGE DISPOSITION: Home. FOLLOWUP: 1. Follow up with primary care physician, Dr. Lacey in 1 week. 2. Follow up with Gastroenterology in 1 week. ALLERGY: No known drug allergies. DISCHARGE MEDICATIONS: Eliquis was discontinued. All other home medications were left unchanged. The patient was seen and examined on the day of discharge. Denies any new complaints. No nausea, vomiting, or GI bleeding reported. BRIEF HOSPITAL COURSE: The patient is a 69-year-old male with atrial fibrillation, on anticoagulation, presented to the hospital with generalized weakness on 21 March 2020. Please refer to the history and physical for further details. The patient was admitted to the hospital with a diagnosis of severe anemia suspected due to GI bleeding. His hemoglobin on admission was 4.0 with hematocrit of 14.2. He was also iron deficient with iron of 20, TIBC 534, and ferritin of 21. He received total of 4 units of PRBC. His hemoglobin has stabilized at 7.8. He underwent EGD and colonoscopy this admission. EGD was normal. Colonoscopy showed transverse and sigmoid polyps, status post snare polypectomy. He was advised to follow up with GI for biopsy report. He underwent a CT scan of the abdomen per GI recommendation today, that was negative for acute pathology. It showed small fusiform lower abdominal aortic aneurysm, which is stable. His vital signs are stable. Orthostatic vitals were negative. Anticoagulation has been discontinued per GI recommendation. He understands the risk associated with discontinuation of anticoagulation. FINAL DIAGNOSES: 1. Acute on chronic anemia suspected due to gastrointestinal bleeding. 2. Iron deficiency anemia. 3. Paroxysmal atrial fibrillation. Anticoagulation discontinued due to severe anemia. 4. Coronary artery disease. 5. Hypertension. 6. Gastroesophageal reflux disease. 7. Cannabis abuse. 8. Chronic low back pain. 9. Chronic obstructive pulmonary disease. 10. Chronic systolic/diastolic heart failure. 11. Acute kidney injury on chronic kidney disease stage 3, improved. 12. Thrombocytosis, probably due to iron deficiency. The patient understands the above plan of care. Job ID: [id number]
== END 2020-03-24 19:55 | disposition home health service (06) | DRG 378 ==
LOC: ERS 10:20 → 2NO 12:39
PROVIDERS: ADMIT Internal Medicine; ATTEND Internal Medicine
PROC: 30233N1 Transfusion of Nonautologous Red Blood Cells into Peripheral Vein, Percutaneous Approach (ICD-10-PCS; 2020-03-21)
PROC: 0DJ08ZZ Inspection of Upper Intestinal Tract, Via Natural or Artificial Opening Endoscopic (ICD-10-PCS; principal; 2020-03-22)
PROC: 0DBN8ZZ Excision of Sigmoid Colon, Via Natural or Artificial Opening Endoscopic (ICD-10-PCS; 2020-03-22)
PROC: 0DBL8ZZ Excision of Transverse Colon, Via Natural or Artificial Opening Endoscopic (ICD-10-PCS; 2020-03-22)
DX: K92.2 Gastrointestinal hemorrhage, unspecified (principal); N17.9 Acute kidney failure, unspecified; I13.0 Hypertensive heart and chronic kidney disease with heart failure and stage 1 through stage 4 chronic kidney disease, or unspecified chronic kidney disease; I50.42 Chronic combined systolic (congestive) and diastolic (congestive) heart failure; Z20.828 Contact with and (suspected) exposure to other viral communicable diseases; D50.9 Iron deficiency anemia, unspecified; I48.0 Paroxysmal atrial fibrillation; I25.10 Atherosclerotic heart disease of native coronary artery without angina pectoris; K21.9 Gastro-esophageal reflux disease without esophagitis; F12.10 Cannabis abuse, uncomplicated; G89.29 Other chronic pain; M54.5 Low back pain; K63.5 Polyp of colon; J44.9 Chronic obstructive pulmonary disease, unspecified; I71.4 Abdominal aortic aneurysm, without rupture; N18.3 Chronic kidney disease, stage 3 (moderate); D47.3 Essential (hemorrhagic) thrombocythemia; Z79.01 Long term (current) use of anticoagulants; Z90.49 Acquired absence of other specified parts of digestive tract; Z79.82 Long term (current) use of aspirin; Z87.891 Personal history of nicotine dependence
CPT/HCPCS: 36415; 36430; 71045; 74177; 80048; 80053; 82550; 82728; 83540; 83550; 83735; 84484; 85025; 85046; 85060; 85379; 85384; 85610; 85730; 86850; 86900; 86901; 87635; 88305; 93005; 94640; 94760; C9113; J2704; J2916; J7050; J7620; P9016; Q9967; U0002; U0003

== ENCOUNTER 2020-05-23 10:11 | Inpatient (IN) | payer MEDICARE, MEDICAID ==
[2020-05-23] MEDS ORDERED: cefTRIAXone\\ROCEPHIN 2 GM VIAL ONE (11:10)
[2020-05-23] MEDS ORDERED: Azithromycin 250 MG TAB ONE (11:10)
[2020-05-23] MEDS ORDERED: Magnesium 2 GM/50 ML BAG (IN WATER) ONE (11:10)
--- NOTE | 2020-05-23 11:41 | RAD ---
Chest AP view INDICATION: History of labored breathing, dyspnea and cough COMPARISON: Prior exam dated March 21, 2020 FINDINGS: Lungs: There is bilateral perihilar airspace disease. There is more prominent left lower lobe airspa ce consolidation. Cardiac silhouette: There is moderate cardiomegaly Pulmonary vasculature: There is moderate pulmonary vascular congestion. Pleural spaces: There is a small left pleural effusion and tiny right pleural effusion. Upper abdomen: No abnormality seen. Osseous structures: No acute osseous abnormality. Additional findings: None. IMPRESSION: Findings suspicious for [id number] CHF. Increased airspace opacity left lower lobe may be related to subsegmental volume loss; however, pneum onia cannot be entirely excluded. Recommend correlation with a two-view chest radiograph.
[2020-05-23 11:54] LABS: Actual Bicarbonate (HCO3a) 36.8 mEq/L (22-28); Analyzer IN Cardio ER; CO2 Tension 69.7 mmHg (35.0-45.0); Calcium, Ionized (arterial) 1.07 mmol/L (1.12-1.30); Carboxyhemoglobin (COHb) 0.5 gm% (0.0-3.0); Hemoglobin (Hb) 10.5 g/dL (14.0-18.0); Potassium - ABG Lab 4.44 mmol/L (3.70-5.30); pH, Arterial 7.34 (7.35-7.45)
[2020-05-23 11:55] LABS: O2 Tension (PaO2), arterial 54.4 mmHg (> 80.0); Puncture Site LBA
[2020-05-23 12:00] LABS: ALV-art Gradient 571.475 mmHg (0-20)
[2020-05-23] MEDS ORDERED: Furosemide 40 MG/4 ML VIAL ONE (12:00)
[2020-05-23] MEDS ORDERED: Azithromycin 500 MG VIAL ONE (12:00)
[2020-05-23 12:14] LABS: Hemoglobin 10.1 g/dL (14.0-18.0); Mean Corpuscular HGB CONC 30.5 g/dL (32.0-36.0); Mean Corpuscular Hemoglobin 30.4 pg (27.0-31.0); Mean Corpuscular Volume 99.8 fL (78.0-98.0); Mean Platelet Volume 8.9 fL (7.4-10.4); Platelet Count 310 thou/uL (130-400); RBC Distribution Width 19.7 % (11.5-14.5); Red Blood Cell (RBC) Count 3.32 mill/uL (4.70-6.10); White Blood Cell (WBC) Count 9.6 thou/uL (4.8-10.8)
[2020-05-23 12:24] LABS: SARS-CoV-2 NAA Rapid Test DETECTED (NotDetected)
[2020-05-23 12:25] LABS: ALT (SGPT) 446 U/L (8-55); AST (SGOT) 370 U/L (5-34); Albumin 3.8 g/dL (3.4-4.8); Alkaline Phosphatase 130 U/L (40-110); Anion Gap 18 mmol/L (10-20); BUN (Urea Nitrogen) 63 mg/dL (8.4-25.7); Bilirubin, Total 1.2 mg/dL (0.2-1.2); Calc. Creatinine Clearance 0 mL/min (70-130); Calcium 8.5 mg/dL (7.8-10.44); Carbon Dioxide 30 mmol/L (23-31); Chloride 94 mmol/L (98-107); Estimated GFR-MDRD 47; Globulin 3.8 g/dL (2.4-3.5); Glucose 98 mg/dL (80-115); Potassium 4.7 mmol/L (3.5-5.1); Protein, Total 7.6 g/dL (5.8-8.1); Sodium 137 mmol/L (136-145)
[2020-05-23 12:32] LABS: Anisocytosis SLIGHT = 6-15 cells (100X) (0-5/hpf); Band 1 % (5-11); Elliptocytes SLIGHT = 2-5 cells (100X) (0-1/hpf); Hypochromia MODERATE=16-30 cells (100X) (0-5/hpf); Lymphocytes 3 % (21-51); MDiff Complete? YES; Monocytes 6 % (0-10); Neutrophil 89 % (42-75); Nucleated RBC 1 % (0); Platelet Morphology Comment Appears Adequate; Poikilocytosis SLIGHT = 6-15 cells (100X) (0-5/hpf); Schistocytes SLIGHT = 2-5 cells (100X) (0-1/hpf); Target Cells SLIGHT = 2-5 cells (100X) (0-1/hpf)
[2020-05-23 12:44] LABS: CKMB 7.9 ng/mL (0-6.6)
[2020-05-23] MEDS ORDERED: Enoxaparin Sodium 60 MG/0.6 ML SYRINGE ONE (13:21)
[2020-05-23] MEDS ORDERED: Enoxaparin Sodium 30 MG/0.3 ML SYRINGE ONE ×2 (13:21→13:22)
[2020-05-23] MEDS ORDERED: Acetaminophen 325 MG TAB PO PRN (13:35)
[2020-05-23] MEDS ORDERED: Senokot S 8.6-50 MG TAB PO PRN (13:35)
[2020-05-23] MEDS ORDERED: Iopamidol-370 76% 500 ML 1 ML ONE (13:45)
--- NOTE | 2020-05-23 15:03 | CT ---
CT PULMONARY ANGIOGRAM WITH IV CONTRAST AND 3D POSTPROCESSING: Date: 05/23/2020 HISTORY: Dyspnea. Hypoxia. COMPARISON: 12/29/2019. FINDINGS: No filling defects are seen in the pulmonary arterial vasculature to suggest pulmonary embolism. Ther e are vascular calcifications without evidence of aneurysmal dilatation of the thoracic aorta. No ple ural or pericardial effusions are noted. The heart is enlarged. Emphysematic changes are again seen. Calcified granuloma in the right upper lobe is again noted. There is consolidation in the left lower lobe. Mild patchy infiltrate/consolidation is seen in the right lung base. There are mild degenerativ e changes in the spine. Bilateral gynecomastia is present. There may be a tiny amount of fluid adjace nt to the anterior aspect of the liver on the upper abdominal tomograms. IMPRESSION: 1. No CT evidence of pulmonary embolism. 2. Pneumonia. POS: AH
[2020-05-23 15:06] LABS: CRP (Inflammatory) 13.64 mg/dL (= or < 0.5); Magnesium 3.1 mg/dL (1.6-2.6)
[2020-05-23] MEDS ORDERED: Bacteriostatic Water 30 ML VIAL FS PRN (15:15)
[2020-05-23 15:24] LABS: Actual Bicarbonate (HCO3a) 35.5 mEq/L (22-28); Analyzer IN Cardio ER; Base Excess (BEa) 6.5 mEq/L (-2.0 to +3.0); Calcium, Ionized (arterial) 1.08 mmol/L (1.12-1.30); Carboxyhemoglobin (COHb) 0.5 gm% (0.0-3.0); Hemoglobin (Hb) 11.4 g/dL (14.0-18.0); O2 Tension (PaO2), arterial 90.6 mmHg (> 80.0); pH, Arterial 7.28 (7.35-7.45)
[2020-05-23 15:27] LABS: Puncture Site LBA
[2020-05-23] MEDS ORDERED: Ketamine 50 MG/ML (10ML VIAL) ONE (15:42)
[2020-05-23] MEDS ORDERED: Succinylcholine 200 MG/10 ml SYRINGE FS ONE (15:43)
[2020-05-23] MEDS ORDERED: Fentanyl 100 MCG/2 ML VIAL ONE ×3 (16:06→16:37)
[2020-05-23] MEDS ORDERED: fentaNYL Citrate/PF 2,000 MCG in Sodium Chloride 0.9% 60 ML IV SCH (16:30)
[2020-05-23 16:39] LABS: Troponin I 0.076 ng/mL (< 0.028)
[2020-05-23] MEDS ORDERED: Propofol 1,000 MG/100 ML VIAL IV ONE ×2 (16:45→22:31)
[2020-05-23] MEDS ORDERED: Lactated Ringer's 1,000 ML IV SCH (16:45)
[2020-05-23 17:24] LABS: Actual Bicarbonate (HCO3a) 28.6 mEq/L (22-28); Analyzer IN Cardio ER; Base Excess (BEa) 2.9 mEq/L (-2.0 to +3.0); CO2 Tension 48.7 mmHg (35.0-45.0); Calcium, Ionized (arterial) 1.04 mmol/L (1.12-1.30); Carboxyhemoglobin (COHb) 0.1 gm% (0.0-3.0); Hemoglobin (Hb) 10.5 g/dL (14.0-18.0); O2 Tension (PaO2), arterial 98.2 mmHg (> 80.0); Potassium - ABG Lab 4.98 mmol/L (3.70-5.30); Puncture Site LRA; pH, Arterial 7.39 (7.35-7.45)
[2020-05-23 17:31] LABS: ALV-art Gradient 268.725 mmHg (0-20)
--- NOTE | 2020-05-23 17:44 | RAD ---
Frontal radiograph chest: 05/23/2020 4:27 PM COMPARISON: 05/23/2020 11:29 AM HISTORY: Evaluate chest following intubation FINDINGS: There is an endotracheal tube projecting over the tracheal air column approximately 6.5 cm proximal to the sage. Just to the left of the endotracheal tube there is a nasogastric tube with its side-port just below the level of the clavicles, distal tip terminating over the region of the pr oximal left mainstem bronchus. This could be within the trachea or mid esophagus. This distinction cannot be made on the basis of this examination. Increased linear interstitial density noted with upper lobe emphysematous change. Dense opacity in th e left base present with obscuration of the left hemidiaphragm suggesting left lower lobe consolidation. IMPRESSION: Endotracheal tube in place. Nasogastric tube overlying the midline mediastinum as above. Worsening dense consolidative change within the left base. Results called to Dr. Garcia at 5:40 PM 05/23/2020
[2020-05-23] MEDS ORDERED: methylPREDNISolone Sod Succ 40 MG VIAL IVP SCH (18:00)
[2020-05-23] MEDS ORDERED: Mometasone 100 MCG/Formoterol 5 MCG 120 PUFF INHALER INH SCH (18:30)
[2020-05-23 18:47] LABS: Troponin I 0.076 ng/mL (< 0.028)
[2020-05-23] MEDS ORDERED: methylPREDNISolone Sod Succ 40 MG VIAL ONE (18:55)
--- NOTE | 2020-05-23 20:01 | HP ---
CHIEF COMPLAINT: Shortness of breath. HISTORY OF PRESENT ILLNESS: The patient is 69-year-old male, who is a [facility] resident, who was sent from the [facility] today who was noted to be more short of breath and also was noted to be hypoxic. He was noted to have an oxygen saturations in the 60s. I am unable to receive or get any history from the patient. I did try the patient's family and the voice one is not set up, so I was unable to talk to them either. In the ED, the patient was put on BiPAP. When I was told by the ER physician was that the patient initially was noted to have oxygen saturation in the 60s, he was put on a face mask by EMS and then that was tried to transition over to nasal cannula; however, it was unsuccessful. Based on his ABG at this time, BiPAP was started on this patient by the ER physician. PAST MEDICAL HISTORY: 1. Paroxysmal atrial fibrillation, on anticoagulation. 2. Chronic kidney disease, stage 3. 3. History of atrial flutter requiring cardioversion. 4. CAD. 5. Hypertension. 6. GERD. 7. Cannabis use. 8. Chronic lower back pain. 9. COPD. SURGICAL HISTORY: 1. TATIANA, cardioversion. 2. Cardiac catheterization. 3. Tonsillectomy. 4. History of mechanical intubation. ALLERGIES: PER NOTES, NO ALLERGIES ON ANY MEDICATION. MEDICATIONS: Per the list: 1. Amiodarone 200 mg daily. 2. Amlodipine 5 mg daily. 3. Aspirin 81 mg daily. 4. Eliquis 5 mg b.i.d. 5. Lipitor 20 mg daily. 6. Breo 100/25 daily. 7. Pepcid 20 mg daily. 8. Lasix 40 mg daily. 9. Lyrica 25 mg daily. SOCIAL HISTORY: He lives in a [facility]. Drinks socially. Denies any smoking history, however, cannabis use on daily basis. FAMILY HISTORY: Negative for GI malignancy and heart disease runs in his family. CODE STATUS: Per previous records, he was a full code. REVIEW OF SYSTEMS: Unable to obtain. PHYSICAL EXAMINATION: VITAL SIGNS: As of the following; temperature of 98.5, respirations 22, saturations 100% on BiPAP, blood pressure 119/61, heart rate 78. GENERAL: He is awake, arousable, follows some commands. CV: S1 and S2 present. Rate controlled. Regular. LUNGS: Clear to auscultation. ABDOMEN: Soft and nontender. Bowel sounds are present x2. EXTREMITIES: +1 lower extremity edema. SKIN: No cuts, lesions, or bruises noted. NEUROVASCULAR: Again, he wakes up; however, he follows a few commands, not all of them. LABORATORY RESULTS: As of the following. His troponin was 0.096, CK-MB of 7.9. WBCs of 9.6, hemoglobin of 10.1, hematocrit of 33.1, he has bands of 1. His COVID was positive. BNP of 1054. Sodium of 137, potassium of 4.7, BUN of 53, creatinine 1.77. His LFTs are elevated. D-dimer also was elevated. His pH was 7.34 with pCO2 of 69.7 with pO2 of 54.4. ASSESSMENT AND PLAN: The patient is a very pleasant 69-year-old male, who presents to the hospital with complaints of shortness of breath. 1. Acute hypoxic respiratory failure and hypercapnic respiratory failure, most likely secondary to chronic obstructive pulmonary disease exacerbation and also COVID pneumonia. We will start the patient on steroids. The patient is currently on BiPAP. We will also start him on prophylactic antibiotics for now. We will check inflammatory markers. I did try to call the family, no response. We will recheck an ABG to make sure the patient is progressing well and not declining. 2. Elevated LFTs. We will check right upper quadrant ultrasound. 3. Atrial fibrillation, currently rate controlled. He is actually normal sinus. I will continue his home medication. I will continue his Eliquis. 4. Mildly elevated troponin, most likely demand related, most likely secondary to his shortness of breath and through his pneumonia, we will trend it. No ST elevations or depressions. I did review his previous EKG, which was unchanged. 5. Acute kidney injury. We will continue to follow along. His BUN is 63 with a creatinine of 1.77 with an elevated BNP. We will monitor for now. Maybe we will need to start him on some gentle hydration. The patient did have an echocardiogram, but this was in December 2019, which indicated an ejection fraction of 40% to 45% with severely enlarged right ventricle cavity and markedly elevated right ventricular systolic heart failure and [id number] tricuspid regurgitation. The patient at baseline most likely has a right-sided failure. 6. Deep venous thrombosis prophylaxis. The patient is already on Eliquis, which I will continue. His CTA that was done indicated no pulmonary embolism, but did indicate pneumonia and a calcified granuloma in the right upper lobe. Also, Pulmonology will be consulted. The patient will be admitted into the IM. Job ID: [id number]
[2020-05-23] MEDS ORDERED: Atorvastatin Calcium 20 MG TAB PO SCH (21:00)
[2020-05-23] MEDS ORDERED: Famotidine/PF 20 mg/2ml Vial SLOW IVP SCH (21:00)
[2020-05-23 22:22] VITALS: BMI 26.3
[2020-05-23] MEDS ORDERED: Famotidine/PF 20 mg/2ml Vial ONE (22:40)
[2020-05-23] MEDS ORDERED: Enoxaparin Sodium 100 MG/ML SYRINGE SC SCH (22:45)
[2020-05-23] MEDS ORDERED: Cefepime 2 GM in Sodium Chloride 0.9% 100 ML IVPB SCH (23:00)
[2020-05-24] MEDS ORDERED: Amiodarone 200 MG TAB PO SCH (09:00)
[2020-05-24] MEDS ORDERED: Enoxaparin Sodium 100 MG/ML SYRINGE SC SCH (09:00)
[2020-05-24] MEDS ORDERED: Aspirin Chewable 81 MG TAB PO SCH (09:00)
--- NOTE | 2020-05-24 23:43 | EKG ---
Test Reason : Blood Pressure : / mmHG Vent. Rate : 048 BPM Atrial Rate : 048 BPM P-R Int : 136 ms QRS Dur : 104 ms QT Int : 566 ms P-R-T Axes : 078 016 056 degrees QTc Int : 505 ms Marked sinus bradycardia Possible Left atrial enlargement Possible Inferior infarct , age undetermined Prolonged QT Abnormal ECG Confirmed by Audra JUNIOR ([id number]) on 05/24/2020 11:42:59 PM Referred By: Clarke Confirmed By:Audra JUNIOR
--- NOTE | 2020-05-30 07:04 | PQF ---
CLINICAL DOCUMENTATION CLARIFICATION FORM: Dear : Malorie Mir MD Date / Time: 05/30/2020 Please exercise your independent, professional judgment in responding to the clarification form. Clinical indicators are provided on the bottom of this form for your review Please check appropriate box(es): HEART FAILURE: A. ACUITY [ ] Acute [ ] Acute on Chronic [ ] Chronic B. TYPE: [ ] Systolic / HFrEF [ ] Diastolic / HFpEF [ ] Combined Systolic / Diastolic [ ] Hypertensive Heart and Kidney disease [ ] Hypertensive Heart Disease [ ] Hypertensive Kidney Disease [ ] Other diagnosis (Please specify if any) [ ] Unable to determine In addition, please specify: Present on Admission (POA): [ ] Yes [ ] No [ ] Unable to determine Physician Signature: Date/Time: For continuity of documentation, please document condition throughout progress notes and discharge summary. Thank You. To be completed by CDI/Coding staff for physician review: Present Clinical Indicators - Signs / Symptoms / Labs Results and Location in Medical Record [x] Ejection Fraction = 40 to 45 % H&P on 05/23 [x] Dyspnea, Hypoxia H&P on 05/23 [x] CHF Exacerbation ED provider report on 05/23 [x] Peripheral edema Lower extremity edema - H&P on 05/23 [x] Elevated BNP BNP 1054.6 H - Laboratory on 05/23 [ ] JVD [x] Orthopnea / SOB / dyspnea SOB - H&P on 05/23 [x] There is a small left pleural effusion and tiny right pleural effusion Chest x ray on 05/23 [x] CXR results- Finding suspicious for mild to moderate CHF Chest x ray on 05/23 [ ] Arrhythmia--tachycardia Present Risk Factors Results and Location in Medical Record [x] History of CAD/ischemic heart disease H&P on 05/23 [x] CKD Hypertension ED provider report on 05/23 [ ] History of SC Present Treatments Results and Location in Medical Record [ ] Administration of JOHN / ARB / BB [ ] Cardiac monitoring / telemetry/ECHO [x] Furosemide 40 mg PO Medication on 05/23 [ ] Oxygen [ ] AICD [ ] Cardiology Consult CDS/Fill Technician Signature: AAS Phone #: Date/Time: 05/30/2020 This is a permanent part of the Medical Record [facility]
== END 2020-05-24 00:16 | disposition short-term general hospital (02) | DRG 208 ==
LOC: ERS 10:11 → ERHOLD 13:52
PROVIDERS: ADMIT Internal Medicine; ATTEND Internal Medicine
PROC: 0BH17EZ Insertion of Endotracheal Airway into Trachea, Via Natural or Artificial Opening (ICD-10-PCS; principal; 2020-05-23)
PROC: 5A1935Z Respiratory Ventilation, Less than 24 Consecutive Hours (ICD-10-PCS; 2020-05-23)
DX: U07.1 COVID-19 (principal); J12.89 Other viral pneumonia; J96.01 Acute respiratory failure with hypoxia; J96.02 Acute respiratory failure with hypercapnia; J44.0 Chronic obstructive pulmonary disease with (acute) lower respiratory infection; J44.1 Chronic obstructive pulmonary disease with (acute) exacerbation; I13.0 Hypertensive heart and chronic kidney disease with heart failure and stage 1 through stage 4 chronic kidney disease, or unspecified chronic kidney disease; N17.9 Acute kidney failure, unspecified; N18.30 Chronic kidney disease, stage 3 unspecified; K21.9 Gastro-esophageal reflux disease without esophagitis; I48.0 Paroxysmal atrial fibrillation; G89.29 Other chronic pain; M54.9 Dorsalgia, unspecified; R79.89 Other specified abnormal findings of blood chemistry; R77.8 Other specified abnormalities of plasma proteins; Z90.49 Acquired absence of other specified parts of digestive tract; Z79.899 Other long term (current) drug therapy; Z79.82 Long term (current) use of aspirin; Z79.01 Long term (current) use of anticoagulants; I50.9 Heart failure, unspecified; F12.90 Cannabis use, unspecified, uncomplicated
CPT/HCPCS: 36415; 71045; 71275; 80053; 82553; 82728; 82805; 83615; 83735; 83880; 84484; 85025; 85379; 86140; 87040; 93005; 94660; J0456; J0696; J1650; J1940; J2250; J2704; J2920; J3010; J3475; J3490; S0028; U0002

== ENCOUNTER 2021-01-10 00:08 | Inpatient (IN) | payer MEDICARE, MEDICAID ==
[2021-01-10 03:53] LABS: Actual Bicarbonate (HCO3a) 39.7 mEq/L (22-28); Calcium, Ionized (arterial) 1.13 mmol/L (1.12-1.30); Carboxyhemoglobin (COHb) 1.5 gm% (0.0-3.0); Hemoglobin (Hb) 13.9 g/dL (14.0-18.0); Potassium - ABG Lab 4.44 mmol/L (3.70-5.30); pH, Arterial 7.36 (7.35-7.45)
[2021-01-10] MEDS ORDERED: Ondansetron PF 4 MG/2 ML Vial IVP PRN (04:14)
[2021-01-10] MEDS ORDERED: Ondansetron ODT 4 MG TAB PO PRN (04:14)
[2021-01-10] MEDS ORDERED: Acetaminophen 650 MG Suppository PR PRN (04:14)
[2021-01-10] MEDS ORDERED: methylPREDNISolone Sod Succ 40 MG VIAL IVP SCH ×2 (04:30→09:00)
[2021-01-10 05:09] LABS: Amphetamine Not Detected (NotDetected); Barbiturates Screen Not Detected (NotDetected); Benzodiazepine Screen Not Detected (NotDetected); Cocaine Metabolite Screen Not Detected (NotDetected); Medtox Control Line Valid? VALID (VALID); Medtox Reader # READER 4; Methadone Not Detected (NotDetected); Methamphetamine Not Detected (NotDetected); Opiate Screen Not Detected (NotDetected); Oxycodone Screen Not Detected (NotDetected); Phencyclidine (PCP) Not Detected (NotDetected); THC/Cannabinoid Screen Detected (NotDetected); Tricyclic Screen Not Detected (NotDetected)
[2021-01-10] MEDS: Azithromycin 500 MG in Sodium Chloride 0.9% 250 ML 250 ML IVPB SCH (05:19)
[2021-01-10 07:05] LABS: #Monocytes 0.1 thou/uL (0.11-0.59); #Neutrophils 9.4 thou/uL (1.40-6.50); %Basophils 0.3 % (0.0-1.0); %Eosinophils 0.2 % (0.0-10.0); %Lymphocytes 9.6 % (21.0-51.0); %Monocytes 0.6 % (0.0-10.0); %Neutrophils 89.3 % (42.0-75.0); Mean Corpuscular HGB CONC 30.5 g/dL (32.0-36.0); Mean Corpuscular Hemoglobin 34.6 pg (27.0-31.0); Mean Platelet Volume 8.3 fL (7.4-10.4); Platelet Count 337 thou/uL (130-400); RBC Distribution Width 13.7 % (11.5-14.5); Red Blood Cell (RBC) Count 3.77 mill/uL (4.70-6.10); White Blood Cell (WBC) Count 10.5 thou/uL (4.8-10.8)
[2021-01-10] MEDS ORDERED: Sodium Chloride 0.9% 500 ML IV SCH (07:15)
[2021-01-10 07:33] LABS: BUN (Urea Nitrogen) 19 mg/dL (8.4-25.7); Calc. Creatinine Clearance 70 mL/min (70-130); Calcium 9.4 mg/dL (7.8-10.44); Glucose 137 mg/dL (80-115)
[2021-01-10 07:44] LABS: MDiff Complete? YES; Macrocytosis MODERATE=16-30 cells (100X) (0-5/hpf); Platelet Morphology Comment Appears Adequate; Polychromasia MODERATE = 3-4 cells (100X) (0-2/hpf)
[2021-01-10 08:23] LABS: Chloride 96 mmol/L (98-107); Potassium 4.3 mmol/L (3.5-5.1); Sodium 142 mmol/L (136-145)
[2021-01-10 08:24] LABS: Anion Gap 15 mmol/L (10-20); Carbon Dioxide 35 mmol/L (23-31)
[2021-01-10] MEDS ORDERED: Enoxaparin Sodium 40 MG/0.4 ML SYRINGE SC SCH (09:00)
[2021-01-10] MEDS: traMADol HCl 50 MG TAB PO PRN (18:10)
[2021-01-10] MEDS ORDERED: Simethicone Chewable 80 MG TAB PO PRN (18:59)
[2021-01-10] MEDS: cefTRIAXone\\ROCEPHIN 1 GM in Sodium Chloride 0.9% 100 ML IVPB SCH (20:25)
[2021-01-10] MEDS: Atorvastatin Calcium 20 MG TAB PO SCH (20:27)
[2021-01-10] MEDS: Amlodipine 5 MG TAB PO SCH (20:28)
[2021-01-11 04:06] LABS: Anion Gap 13 mmol/L (10-20); BUN (Urea Nitrogen) 21 mg/dL (8.4-25.7); Calc. Creatinine Clearance 78 mL/min (70-130); Calcium 9.2 mg/dL (7.8-10.44); Carbon Dioxide 33 mmol/L (23-31); Chloride 97 mmol/L (98-107); Glucose 85 mg/dL (80-115); Magnesium 2.2 mg/dL (1.6-2.6); Potassium 4.5 mmol/L (3.5-5.1); Sodium 138 mmol/L (136-145)
[2021-01-11 04:52] LABS: #Lymphocytes 1.2 thou/uL (1.20-3.40); #Monocytes 1.5 thou/uL (0.11-0.59); #Neutrophils 7.9 thou/uL (1.40-6.50); %Basophils 0.3 % (0.0-1.0); %Eosinophils 0.1 % (0.0-10.0); %Lymphocytes 11.5 % (21.0-51.0); %Monocytes 14.3 % (0.0-10.0); %Neutrophils 73.9 % (42.0-75.0); Hemoglobin 12.3 g/dL (14.0-18.0); MDiff Complete? YES; Mean Corpuscular HGB CONC 30.2 g/dL (32.0-36.0); Mean Corpuscular Hemoglobin 34.4 pg (27.0-31.0); Mean Platelet Volume 8.1 fL (7.4-10.4); Platelet Count 341 thou/uL (130-400); RBC Distribution Width 13.8 % (11.5-14.5); RBC Morphology Normal; Red Blood Cell (RBC) Count 3.56 mill/uL (4.70-6.10); White Blood Cell (WBC) Count 10.7 thou/uL (4.8-10.8)
[2021-01-11] MEDS: Azithromycin 500 MG in Sodium Chloride 0.9% 250 ML 250 ML IVPB SCH (04:57)
[2021-01-11] MEDS: Mometasone 200 MCG/Formoterol 5 MCG 120 PUFF INHALER INH SCH ×2 (07:03→19:42)
[2021-01-11] MEDS ORDERED: Aspirin Chewable 81 MG TAB PO SCH (09:00)
[2021-01-11] MEDS: methylPREDNISolone Sod Succ 40 MG VIAL IVP SCH (10:08)
[2021-01-11] MEDS: Amiodarone 200 MG TAB PO SCH (10:08)
[2021-01-11] MEDS: Furosemide 40 MG TAB PO SCH (10:08)
[2021-01-11] MEDS ORDERED: Iopamidol 370 76% 100 ML VIAL ONE (10:17)
[2021-01-11] MEDS ORDERED: Magnevist 469MG/ML 20 ML VIAL ONE (10:32)
[2021-01-11] MEDS: traMADol HCl 50 MG TAB PO PRN ×2 (12:42→20:39)
[2021-01-11] MEDS: Gabapentin 100 MG CAP PO SCH ×2 (16:45→20:37)
[2021-01-11] MEDS: cefTRIAXone\\ROCEPHIN 1 GM in Sodium Chloride 0.9% 100 ML IVPB SCH (20:36)
[2021-01-11] MEDS: Atorvastatin Calcium 20 MG TAB PO SCH (20:37)
[2021-01-11] MEDS: Amlodipine 5 MG TAB PO SCH (22:23)
[2021-01-12 04:20] LABS: Anion Gap 14 mmol/L (10-20); BUN (Urea Nitrogen) 16 mg/dL (8.4-25.7); Calc. Creatinine Clearance 85 mL/min (70-130); Calcium 8.9 mg/dL (7.8-10.44); Carbon Dioxide 34 mmol/L (23-31); Chloride 95 mmol/L (98-107); Glucose 135 mg/dL (80-115); Sodium 139 mmol/L (136-145)
[2021-01-12] MEDS: Azithromycin 500 MG in Sodium Chloride 0.9% 250 ML 250 ML IVPB SCH (04:38)
[2021-01-12 05:40] LABS: Hemoglobin 12.3 g/dL (14.0-18.0); Lymphocytes 11 % (21-51); MDiff Complete? YES; Macrocytosis SLIGHT = 6-15 cells (100X) (0-5/hpf); Mean Corpuscular HGB CONC 31.8 g/dL (32.0-36.0); Mean Platelet Volume 8.7 fL (7.4-10.4); Monocytes 8 % (0-10); Neutrophil 81 % (42-75); Platelet Count 318 thou/uL (130-400); RBC Distribution Width 13.7 % (11.5-14.5); Red Blood Cell (RBC) Count 3.42 mill/uL (4.70-6.10); White Blood Cell (WBC) Count 9.7 thou/uL (4.8-10.8)
[2021-01-12] MEDS: Mometasone 200 MCG/Formoterol 5 MCG 120 PUFF INHALER INH SCH ×2 (07:39→18:39)
[2021-01-12] MEDS: Gabapentin 100 MG CAP PO SCH ×3 (09:09→20:22)
[2021-01-12] MEDS: Aspirin Chewable 81 MG TAB PO SCH (09:09)
[2021-01-12] MEDS: Amiodarone 200 MG TAB PO SCH (09:09)
[2021-01-12] MEDS: traMADol HCl 50 MG TAB PO PRN ×3 (09:10→21:13)
[2021-01-12] MEDS: Furosemide 40 MG TAB PO SCH (09:10)
[2021-01-12] MEDS: methylPREDNISolone Sod Succ 40 MG VIAL IVP SCH (09:12)
[2021-01-12] MEDS: Atorvastatin Calcium 20 MG TAB PO SCH (20:23)
[2021-01-12] MEDS: Amlodipine 5 MG TAB PO SCH (20:23)
[2021-01-12] MEDS: Apixaban 5 MG TAB PO SCH (20:23)
[2021-01-12] MEDS: cefTRIAXone\\ROCEPHIN 1 GM in Sodium Chloride 0.9% 100 ML IVPB SCH (20:24)
[2021-01-13] MEDS: Azithromycin 500 MG in Sodium Chloride 0.9% 250 ML 250 ML IVPB SCH (05:02)
[2021-01-13 05:31] LABS: #Lymphocytes 1.2 thou/uL (1.20-3.40); #Monocytes 1.3 thou/uL (0.11-0.59); #Neutrophils 9.4 thou/uL (1.40-6.50); %Basophils 0.2 % (0.0-1.0); %Eosinophils 0.2 % (0.0-10.0); %Lymphocytes 10.4 % (21.0-51.0); %Monocytes 10.6 % (0.0-10.0); %Neutrophils 78.6 % (42.0-75.0); Hemoglobin 12.1 g/dL (14.0-18.0); Mean Corpuscular HGB CONC 31.1 g/dL (32.0-36.0); Mean Corpuscular Hemoglobin 34.9 pg (27.0-31.0); Mean Platelet Volume 8.1 fL (7.4-10.4); Platelet Count 303 thou/uL (130-400); RBC Distribution Width 13.8 % (11.5-14.5); Red Blood Cell (RBC) Count 3.48 mill/uL (4.70-6.10); White Blood Cell (WBC) Count 11.9 thou/uL (4.8-10.8)
[2021-01-13 05:35] VITALS: BMI 28.8
[2021-01-13 05:46] LABS: Anion Gap 10 mmol/L (10-20); BUN (Urea Nitrogen) 18 mg/dL (8.4-25.7); Calc. Creatinine Clearance 95 mL/min (70-130); Calcium 8.6 mg/dL (7.8-10.44); Carbon Dioxide 37 mmol/L (23-31); Chloride 94 mmol/L (98-107); Glucose 95 mg/dL (80-115); Potassium 4.3 mmol/L (3.5-5.1); Sodium 137 mmol/L (136-145)
[2021-01-13] MEDS: Mometasone 200 MCG/Formoterol 5 MCG 120 PUFF INHALER INH SCH ×2 (06:33→19:38)
[2021-01-13] MEDS: Gabapentin 100 MG CAP PO SCH ×3 (09:07→20:38)
[2021-01-13] MEDS: Aspirin Chewable 81 MG TAB PO SCH (09:07)
[2021-01-13] MEDS: Furosemide 40 MG TAB PO SCH (09:08)
[2021-01-13] MEDS: Apixaban 5 MG TAB PO SCH ×2 (09:08→20:38)
[2021-01-13] MEDS: Amiodarone 200 MG TAB PO SCH (09:09)
[2021-01-13] MEDS: methylPREDNISolone Sod Succ 40 MG VIAL IVP SCH (09:09)
[2021-01-13] MEDS: Doxycycline 100 MG CAP PO SCH ×2 (10:18→20:39)
[2021-01-13] MEDS ORDERED: Polyethylene Glycol 3350 17 GM Packet PO SCH (14:45)
[2021-01-13] MEDS: traMADol HCl 50 MG TAB PO PRN ×2 (17:23→23:04)
[2021-01-13] MEDS: Acetaminophen 325 MG TAB PO PRN (17:24)
[2021-01-13] MEDS: Atorvastatin Calcium 20 MG TAB PO SCH (20:39)
[2021-01-13] MEDS: Amlodipine 5 MG TAB PO SCH (20:39)
[2021-01-13] MEDS: Senokot S 8.6-50 MG TAB PO SCH (20:42)
[2021-01-14] MEDS: traMADol HCl 50 MG TAB PO PRN ×3 (06:02→21:30)
[2021-01-14] MEDS: Mometasone 200 MCG/Formoterol 5 MCG 120 PUFF INHALER INH SCH ×2 (06:57→20:48)
[2021-01-14] MEDS: Polyethylene Glycol 3350 17 GM Packet PO SCH (09:24)
[2021-01-14] MEDS: Senokot S 8.6-50 MG TAB PO SCH ×2 (09:25→21:29)
[2021-01-14] MEDS: Amiodarone 200 MG TAB PO SCH (09:25)
[2021-01-14] MEDS: Aspirin Chewable 81 MG TAB PO SCH (09:25)
[2021-01-14] MEDS: Apixaban 5 MG TAB PO SCH ×2 (09:25→21:28)
[2021-01-14] MEDS: predniSONE 20 MG TAB PO SCH (09:25)
[2021-01-14] MEDS: Doxycycline 100 MG CAP PO SCH ×2 (09:25→21:27)
[2021-01-14] MEDS: Furosemide 40 MG TAB PO SCH (09:26)
[2021-01-14] MEDS: Gabapentin 100 MG CAP PO SCH ×3 (09:26→21:29)
[2021-01-14] MEDS: Acetaminophen 325 MG TAB PO PRN (14:31)
[2021-01-14] MEDS: Amlodipine 5 MG TAB PO SCH (21:28)
[2021-01-14] MEDS: Atorvastatin Calcium 20 MG TAB PO SCH (21:28)
[2021-01-15] MEDS: Mometasone 200 MCG/Formoterol 5 MCG 120 PUFF INHALER INH SCH ×2 (06:58→19:17)
[2021-01-15] MEDS: Aspirin Chewable 81 MG TAB PO SCH (08:24)
[2021-01-15] MEDS: Amiodarone 200 MG TAB PO SCH (08:24)
[2021-01-15] MEDS: Doxycycline 100 MG CAP PO SCH ×2 (08:24→20:57)
[2021-01-15] MEDS: Apixaban 5 MG TAB PO SCH ×2 (08:24→20:56)
[2021-01-15] MEDS: predniSONE 20 MG TAB PO SCH (08:24)
[2021-01-15] MEDS: traMADol HCl 50 MG TAB PO PRN ×3 (08:25→20:58)
[2021-01-15] MEDS: Furosemide 40 MG TAB PO SCH (08:25)
[2021-01-15] MEDS: Gabapentin 100 MG CAP PO SCH ×3 (08:25→20:57)
[2021-01-15] MEDS: Senokot S 8.6-50 MG TAB PO SCH ×2 (08:25→20:57)
[2021-01-15] MEDS: Polyethylene Glycol 3350 17 GM Packet PO SCH (08:36)
[2021-01-15] MEDS: Amlodipine 5 MG TAB PO SCH (20:57)
[2021-01-15] MEDS: Atorvastatin Calcium 20 MG TAB PO SCH (20:57)
[2021-01-16] MEDS: traMADol HCl 50 MG TAB PO PRN ×2 (03:42→09:29)
[2021-01-16 05:57] LABS: CO2 Tension 72.5 mmHg (35.0-45.0); O2 Tension (PaO2), arterial 56.6 mmHg (> 80.0); Puncture Site RRA
[2021-01-16] MEDS: Gabapentin 100 MG CAP PO SCH (07:40)
[2021-01-16] MEDS: Aspirin Chewable 81 MG TAB PO SCH (07:40)
[2021-01-16] MEDS: Senokot S 8.6-50 MG TAB PO SCH (07:41)
[2021-01-16] MEDS: Apixaban 5 MG TAB PO SCH (07:41)
[2021-01-16] MEDS: Furosemide 40 MG TAB PO SCH (07:41)
[2021-01-16] MEDS: predniSONE 20 MG TAB PO SCH (07:41)
[2021-01-16] MEDS: Amiodarone 200 MG TAB PO SCH (07:41)
[2021-01-16] MEDS: Polyethylene Glycol 3350 17 GM Packet PO SCH (07:42)
[2021-01-16] MEDS: Mometasone 200 MCG/Formoterol 5 MCG 120 PUFF INHALER INH SCH (08:18)
[2021-01-16] MEDS: Doxycycline 100 MG CAP PO SCH (09:29)
[2021-01-16 11:39] VITALS: BP 131/68; TEMP 98.1
== END 2021-01-16 15:13 | disposition home health service (06) | DRG 189 ==
LOC: IMCU/EMU 01:41 → SURG A 01-12 21:49
PROVIDERS: ADMIT Student in an Organized Health Care Education/Training Program; ATTEND Internal Medicine
PROC: 5A09357 Assistance with Respiratory Ventilation, Less than 24 Consecutive Hours, Continuous Positive Airway Pressure (ICD-10-PCS; principal; 2021-01-10)
DX: J96.21 Acute and chronic respiratory failure with hypoxia (principal); G93.6 Cerebral edema; G93.41 Metabolic encephalopathy; I42.9 Cardiomyopathy, unspecified; J44.1 Chronic obstructive pulmonary disease with (acute) exacerbation; I50.32 Chronic diastolic (congestive) heart failure; J45.901 Unspecified asthma with (acute) exacerbation; J96.22 Acute and chronic respiratory failure with hypercapnia; F12.10 Cannabis abuse, uncomplicated; D32.0 Benign neoplasm of cerebral meninges; D63.8 Anemia in other chronic diseases classified elsewhere; E78.5 Hyperlipidemia, unspecified; I11.0 Hypertensive heart disease with heart failure; I48.0 Paroxysmal atrial fibrillation; K21.9 Gastro-esophageal reflux disease without esophagitis; G62.9 Polyneuropathy, unspecified; Z86.16 Personal history of COVID-19; N19 Unspecified kidney failure; Z79.82 Long term (current) use of aspirin; Z79.51 Long term (current) use of inhaled steroids; Z79.899 Other long term (current) drug therapy
CPT/HCPCS: 36415; 36600; 70450; 70496; 70544; 70553; 80048; 80306; 82805; 83735; 83880; 84100; 85025; 94640; A9579; J0456; J0696; J1650; J2920; J3490; J7050; J7512; J7620; Q9967

== ENCOUNTER 2021-08-22 13:22 | Inpatient (IN) | payer MEDICARE, MEDICAID ==
[2021-08-22 16:41] VITALS: BMI 25.8
[2021-08-22] MEDS ORDERED: Acetaminophen 325 MG TAB PO PRN (22:03)
[2021-08-22] MEDS ORDERED: Albuterol Sulfate 2.5 mg/3 ml Neb NEB PRN (22:11)
[2021-08-22] MEDS ORDERED: traMADol HCl 50 MG TAB PO SCH (22:30)
[2021-08-22] MEDS ORDERED: Gabapentin 300 MG CAP PO SCH (23:45)
[2021-08-23] MEDS ORDERED: Azithromycin 500 MG in Sodium Chloride 0.9% 250 ML 250 ML IVPB SCH (08:00)
[2021-08-23] MEDS ORDERED: Furosemide 40 MG/4 ML VIAL SLOW IVP SCH (09:00)
[2021-08-23] MEDS: Ferrous Sulfate 325 MG TAB PO SCH (09:45)
[2021-08-23] MEDS: Aspirin Chewable 81 MG TAB PO SCH (09:45)
[2021-08-23] MEDS: Amiodarone 200 MG TAB PO SCH (09:45)
[2021-08-23] MEDS ORDERED: traMADol HCl 50 MG TAB PO PRN (10:46)
[2021-08-23] MEDS: Azithromycin 500 MG in Sodium Chloride 0.9% 250 ML 250 ML IVPB SCH (11:38)
[2021-08-23] MEDS ORDERED: Simethicone Chewable 80 MG TAB PO PRN (14:25)
[2021-08-23] MEDS ORDERED: predniSONE 20 MG TAB PO SCH (14:30)
[2021-08-23 14:47] LABS: #Lymphocytes 0.9 thou/uL (1.20-3.40); #Monocytes 1.4 thou/uL (0.11-0.59); #Neutrophils 8.1 thou/uL (1.40-6.50); %Basophils 0.2 % (0.0-1.0); %Lymphocytes 8.2 % (21.0-51.0); %Monocytes 13.1 % (0.0-10.0); %Neutrophils 78.4 % (42.0-75.0); Hemoglobin 8.7 g/dL (14.0-18.0); Mean Corpuscular HGB CONC 30.4 g/dL (32.0-36.0); Mean Corpuscular Hemoglobin 33.8 pg (27.0-31.0); Mean Platelet Volume 6.7 fL (7.4-10.4); Platelet Count 336 thou/uL (130-400); RBC Distribution Width 15.1 % (11.5-14.5); Red Blood Cell (RBC) Count 2.57 mill/uL (4.70-6.10); White Blood Cell (WBC) Count 10.3 thou/uL (4.8-10.8)
[2021-08-23 15:03] LABS: Anisocytosis SLIGHT = 6-15 cells (100X) (0-5/hpf); Hypochromia SLIGHT = 6-15 cells (100X) (0-5/hpf); MDiff Complete? YES; Macrocytosis MODERATE=16-30 cells (100X) (0-5/hpf); Platelet Morphology Comment Appears Adequate; Polychromasia SLIGHT = 2-3 cells (100X) (0-2/hpf)
[2021-08-23 15:12] LABS: BUN (Urea Nitrogen) 22 mg/dL (8.4-25.7); Calc. Creatinine Clearance 68 mL/min (70-130); Calcium 8.9 mg/dL (7.8-10.44); Glucose 98 mg/dL (80-115)
[2021-08-23 15:27] LABS: Chloride 93 mmol/L (98-107); Potassium 4.5 mmol/L (3.5-5.1); Sodium 140 mmol/L (136-145)
[2021-08-23 15:30] LABS: Anion Gap 17 mmol/L (10-20); Carbon Dioxide 35 mmol/L (23-31)
[2021-08-23] MEDS: Arformoterol 15 MCG/2 ML NEB NEB SCH (18:56)
[2021-08-23] MEDS: Budesonide 0.5 MG/2 ML NEB NEB SCH (18:56)
[2021-08-23] MEDS: Senokot S 8.6-50 MG TAB PO SCH (20:59)
[2021-08-23] MEDS: Gabapentin 300 MG CAP PO SCH (20:59)
[2021-08-23] MEDS: Amlodipine 5 MG TAB PO SCH (21:00)
[2021-08-23] MEDS: Atorvastatin Calcium 20 MG TAB PO SCH (21:00)
[2021-08-23] MEDS: traMADol HCl 50 MG TAB PO SCH (21:00)
[2021-08-23] MEDS ORDERED: Apixaban 5 MG TAB PO SCH (21:00)
[2021-08-24 05:22] LABS: #Lymphocytes 0.6 thou/uL (1.20-3.40); #Monocytes 0.8 thou/uL (0.11-0.59); #Neutrophils 8.1 thou/uL (1.40-6.50); %Basophils 0.1 % (0.0-1.0); %Eosinophils 0.1 % (0.0-10.0); %Lymphocytes 6.6 % (21.0-51.0); %Monocytes 7.9 % (0.0-10.0); %Neutrophils 85.3 % (42.0-75.0); Hemoglobin 8.5 g/dL (14.0-18.0); Mean Corpuscular HGB CONC 29.8 g/dL (32.0-36.0); Mean Corpuscular Hemoglobin 33.2 pg (27.0-31.0); Mean Platelet Volume 6.4 fL (7.4-10.4); Platelet Count 339 thou/uL (130-400); RBC Distribution Width 15.1 % (11.5-14.5); Red Blood Cell (RBC) Count 2.56 mill/uL (4.70-6.10); White Blood Cell (WBC) Count 9.5 thou/uL (4.8-10.8)
[2021-08-24 05:47] LABS: BUN (Urea Nitrogen) 20 mg/dL (8.4-25.7); Calc. Creatinine Clearance 71 mL/min (70-130); Calcium 8.8 mg/dL (7.8-10.44); Glucose 152 mg/dL (80-115); Iron 19 ug/dL (65-175); Iron Binding Capacity, Total 351 mcg/dL (261-462)
[2021-08-24 05:56] LABS: Anion Gap 15 mmol/L (10-20); Carbon Dioxide 36 mmol/L (23-31); Chloride 95 mmol/L (98-107); Potassium 4.5 mmol/L (3.5-5.1); Sodium 141 mmol/L (136-145)
[2021-08-24] MEDS: Arformoterol 15 MCG/2 ML NEB NEB SCH ×2 (06:24→19:00)
[2021-08-24] MEDS: Budesonide 0.5 MG/2 ML NEB NEB SCH ×2 (06:29→19:00)
[2021-08-24] MEDS: Ferrous Sulfate 325 MG TAB PO SCH (10:01)
[2021-08-24] MEDS: Polyethylene Glycol 3350 17 GM Packet PO SCH (10:01)
[2021-08-24] MEDS: Senokot S 8.6-50 MG TAB PO SCH ×2 (10:01→20:41)
[2021-08-24] MEDS: Aspirin Chewable 81 MG TAB PO SCH (10:02)
[2021-08-24] MEDS: Amiodarone 200 MG TAB PO SCH (10:02)
[2021-08-24] MEDS: predniSONE 20 MG TAB PO SCH (10:02)
[2021-08-24] MEDS: Azithromycin 500 MG in Sodium Chloride 0.9% 250 ML 250 ML IVPB SCH (11:33)
[2021-08-24] MEDS: Gabapentin 300 MG CAP PO SCH (20:39)
[2021-08-24] MEDS: traMADol HCl 50 MG TAB PO SCH (20:39)
[2021-08-24] MEDS: Amlodipine 5 MG TAB PO SCH (20:40)
[2021-08-24] MEDS: Atorvastatin Calcium 20 MG TAB PO SCH (20:41)
[2021-08-25] MEDS: Arformoterol 15 MCG/2 ML NEB NEB SCH ×2 (07:23→18:35)
[2021-08-25] MEDS: Budesonide 0.5 MG/2 ML NEB NEB SCH ×2 (07:23→18:34)
[2021-08-25] MEDS: Aspirin Chewable 81 MG TAB PO SCH (09:08)
[2021-08-25] MEDS: predniSONE 20 MG TAB PO SCH (09:08)
[2021-08-25] MEDS: Ascorbic Acid 500 mg Chewable Tablet PO SCH (09:08)
[2021-08-25] MEDS: Polyethylene Glycol 3350 17 GM Packet PO SCH (09:08)
[2021-08-25] MEDS: Amiodarone 200 MG TAB PO SCH (09:08)
[2021-08-25] MEDS: Ferrous Gluconate 324 MG TAB PO SCH (09:09)
[2021-08-25] MEDS: Senokot S 8.6-50 MG TAB PO SCH ×2 (09:09→20:21)
[2021-08-25] MEDS: Gabapentin 300 MG CAP PO SCH (20:19)
[2021-08-25] MEDS: traMADol HCl 50 MG TAB PO SCH (20:19)
[2021-08-25] MEDS: Amlodipine 5 MG TAB PO SCH (20:20)
[2021-08-25] MEDS: Atorvastatin Calcium 20 MG TAB PO SCH (20:21)
[2021-08-26] MEDS: Arformoterol 15 MCG/2 ML NEB NEB SCH (07:36)
[2021-08-26] MEDS: Budesonide 0.5 MG/2 ML NEB NEB SCH (07:37)
[2021-08-26] MEDS: predniSONE 20 MG TAB PO SCH (08:32)
[2021-08-26] MEDS: Ferrous Gluconate 324 MG TAB PO SCH (08:32)
[2021-08-26] MEDS: Amiodarone 200 MG TAB PO SCH (08:32)
[2021-08-26] MEDS: Ascorbic Acid 500 mg Chewable Tablet PO SCH (08:32)
[2021-08-26] MEDS: Senokot S 8.6-50 MG TAB PO SCH (08:33)
[2021-08-26] MEDS: Polyethylene Glycol 3350 17 GM Packet PO SCH (08:33)
[2021-08-26] MEDS: Aspirin Chewable 81 MG TAB PO SCH (08:33)
[2021-08-26 11:18] VITALS: BP 123/56; TEMP 97.9
== END 2021-08-26 14:00 | disposition home health service (06) | DRG 291 ==
LOC: 2NO 13:22
PROVIDERS: ADMIT Internal Medicine; ATTEND Family Medicine
DX: I13.0 Hypertensive heart and chronic kidney disease with heart failure and stage 1 through stage 4 chronic kidney disease, or unspecified chronic kidney disease (principal); J96.21 Acute and chronic respiratory failure with hypoxia; I50.43 Acute on chronic combined systolic (congestive) and diastolic (congestive) heart failure; J44.1 Chronic obstructive pulmonary disease with (acute) exacerbation; N18.30 Chronic kidney disease, stage 3 unspecified; D53.9 Nutritional anemia, unspecified; K21.9 Gastro-esophageal reflux disease without esophagitis; I48.0 Paroxysmal atrial fibrillation; K59.00 Constipation, unspecified; D50.9 Iron deficiency anemia, unspecified; I25.10 Atherosclerotic heart disease of native coronary artery without angina pectoris; Z99.81 Dependence on supplemental oxygen; Z79.899 Other long term (current) drug therapy; Z79.82 Long term (current) use of aspirin; Z79.01 Long term (current) use of anticoagulants; Z98.890 Other specified postprocedural states; Z90.89 Acquired absence of other organs; Z87.891 Personal history of nicotine dependence
CPT/HCPCS: 36415; 71275; 80048; 82274; 82607; 82746; 83540; 83550; 85025; 87070; 87077; 87186; 87205; 93306; 93798; 93880; 94640; 97139; J0456; J1940; J1956; J7050; J7512; J7620; J7626

== ENCOUNTER 2022-08-27 11:34 | Inpatient (IN) | payer MEDICARE, MEDICAID ==
[2022-08-27] MEDS ORDERED: Azithromycin 500 MG VIAL ONE (11:57)
[2022-08-27] MEDS ORDERED: cefTRIAXone\\ROCEPHIN 1 GM VIAL ONE (11:57)
[2022-08-27 12:17] LABS: Hemoglobin 10.8 g/dL (14.0-18.0); Mean Corpuscular Hemoglobin 34.8 pg (27.0-31.0); Mean Platelet Volume 7.3 fL (7.4-10.4); Platelet Count 244 10x3/uL (130-400); Red Blood Cell (RBC) Count 3.11 mill/uL (4.70-6.10); White Blood Cell (WBC) Count 4.9 10x3/uL (4.8-10.8)
[2022-08-27 12:33] LABS: ALT (SGPT) 11 U/L (8-55); AST (SGOT) 22 U/L (5-34); Albumin 3.9 g/dL (3.4-4.8); Alkaline Phosphatase 109 U/L (40-110); Anion Gap 13 mmol/L (10-20); BUN (Urea Nitrogen) 19 mg/dL (8.4-25.7); Bilirubin, Total 0.8 mg/dL (0.2-1.2); CK (CPK) 585 U/L (30-200); Calc. Creatinine Clearance 0 mL/min (70-130); Calcium 9.2 mg/dL (7.8-10.44); Carbon Dioxide 35 mmol/L (23-31); Chloride 93 mmol/L (98-107); Estimated GFR 53; Globulin 3.4 g/dL (2.4-3.5); Glucose 108 mg/dL (83-110); Lipase 23 U/L (8-78); Potassium 4.5 mmol/L (3.5-5.1); Protein, Total 7.3 g/dL (5.8-8.1); Sodium 136 mmol/L (136-145)
[2022-08-27 12:36] LABS: Band 3 % (5-11); Lymphocytes 20 % (21-51); MDiff Complete? YES; Macrocytosis SLIGHT = 6-15 cells (100X) (0-5/hpf); Monocytes 14 % (0-10); Neutrophil 62 % (42-75); Platelet Morphology Comment Appears Adequate; Polychromasia SLIGHT = 2-3 cells (100X) (0-2/hpf)
[2022-08-27 13:00] LABS: CKMB 4.1 ng/mL (0-6.6)
[2022-08-27 13:15] LABS: Bacteria/HPF 2+ HPF (None Seen); Bilirubin Negative (Negative); Blood, Urine Trace (Negative); Clarity Clear (Clear); Glucose, Urine (Dipstick) Normal (Negative); Ketone, Urine Negative (Negative); Leukocyte Negative Leu/uL (Negative); Nitrite Negative (Negative); Protein, Urine (Dipstick) 50 mg/dL (Neg-Trace); RBC/HPF 0-3 HPF (0-3); Specific Gravity, Urine 1.017 (1.002-1.036); Squamous Epithelial 0-3 HPF (0-3); Urobilinogen Normal mg/dL (Less than 2); WBC/HPF 0-3 HPF (0-3); pH, Urine 5.5 (5.0-9.0)
[2022-08-27 14:24] LABS: SARS-CoV-2 NAA Rapid Test DETECTED (NotDetected)
[2022-08-27] MEDS ORDERED: Sodium Chloride 0.9% 1,000 ML IV SCH (15:15)
[2022-08-27] MEDS ORDERED: Ipratropium/Albuterol 3 ML NEB NEB PRN (15:18)
[2022-08-27] MEDS ORDERED: Acetaminophen 650 MG Suppository PR PRN (15:19)
[2022-08-27] MEDS ORDERED: Albuterol 200 PUFF (6.7GM INHALER) INH PRN (15:19)
[2022-08-27 16:03] VITALS: BMI 31.6
[2022-08-27] MEDS ORDERED: Ipratropium/Albuterol 3 ML NEB IPPB SCH (18:30)
[2022-08-27] MEDS ORDERED: Ipratropium/Albuterol 3 ML NEB NEB SCH (19:00)
[2022-08-27] MEDS: Albuterol 200 PUFF (6.7GM INHALER) INH SCH ×2 (21:22→23:16)
[2022-08-27] MEDS: Benzonatate 100 MG CAP PO PRN (21:23)
[2022-08-27] MEDS: Apixaban 5 MG TAB PO SCH (21:23)
[2022-08-28] MEDS ORDERED: Scopolamine 1.5 mg/72 hour Patch TD SCH (01:30)
[2022-08-28] MEDS ORDERED: Sterile Water 10 ML VIAL FS PRN (02:15)
[2022-08-28] MEDS ORDERED: OLANZapine 10 MG VIAL IM SCH (02:15)
[2022-08-28] MEDS ORDERED: Lorazepam 2 MG/ML VIAL SLOW IVP SCH (03:45)
[2022-08-28] MEDS ORDERED: Lorazepam 2 MG/ML VIAL ONE (03:47)
[2022-08-28 03:54] LABS: Actual Bicarbonate (HCO3a) 36.1 mEq/L (22-28); Base Excess (BEa) 6.7 mEq/L (-2.0 to +3.0); Carboxyhemoglobin (COHb) 0.5 gm% (0.0-3.0); Hemoglobin (Hb) 11.7 g/dL (14.0-18.0); O2 Tension (PaO2), arterial 105.6 mmHg (> 70.0); pH, Arterial 7.27 (7.35-7.45)
[2022-08-28 03:56] LABS: Puncture Site RRA
[2022-08-28] MEDS: Albuterol 200 PUFF (6.7GM INHALER) INH SCH ×5 (04:15→23:44)
[2022-08-28 07:05] LABS: Hemoglobin 11.6 g/dL (14.0-18.0); Mean Corpuscular HGB CONC 31.7 g/dL (32.0-36.0); Mean Corpuscular Hemoglobin 34.3 pg (27.0-31.0); Mean Platelet Volume 7.2 fL (7.4-10.4); Platelet Count 251 10x3/uL (130-400); Red Blood Cell (RBC) Count 3.37 mill/uL (4.70-6.10); White Blood Cell (WBC) Count 5.3 10x3/uL (4.8-10.8)
[2022-08-28 07:20] LABS: ALT (SGPT) 11 U/L (8-55); AST (SGOT) 25 U/L (5-34); Alkaline Phosphatase 103 U/L (40-110); Bilirubin, Direct 0.2 mg/dL (0.1-0.3); Bilirubin, Total 0.6 mg/dL (0.2-1.2); CRP (Inflammatory) 3.42 mg/dL (= or < 0.5); Lactic Acid 0.7 mmol/L (0.5-2.2); Protein, Total 7.3 g/dL (5.8-8.1)
[2022-08-28 07:28] LABS: ALT (SGPT) 12 U/L (8-55); AST (SGOT) 25 U/L (5-34); Albumin 4.1 g/dL (3.4-4.8); Alkaline Phosphatase 107 U/L (40-110); Anion Gap 11 mmol/L (10-20); BUN (Urea Nitrogen) 23 mg/dL (8.4-25.7); Bilirubin, Total 0.7 mg/dL (0.2-1.2); Calc. Creatinine Clearance 89 mL/min (70-130); Calcium 9.4 mg/dL (7.8-10.44); Carbon Dioxide 37 mmol/L (23-31); Chloride 94 mmol/L (98-107); Estimated GFR 65; Globulin 3.4 g/dL (2.4-3.5); Glucose 105 mg/dL (83-110); Magnesium 2.1 mg/dL (1.6-2.6); Potassium 5.1 mmol/L (3.5-5.1); Protein, Total 7.5 g/dL (5.8-8.1); Sodium 137 mmol/L (136-145)
[2022-08-28 09:00] LABS: Band 2 % (5-11); Eosinophils 1 % (0-10); Lymphocytes 8 % (21-51); MDiff Complete? YES; Monocytes 22 % (0-10); Neutrophil 67 % (42-75); Platelet Morphology Comment Appears Adequate; Polychromasia SLIGHT = 2-3 cells (100X) (0-2/hpf)
[2022-08-28] MEDS ORDERED: Dexamethasone 10 MG/ML VIAL SLOW IVP SCH (09:00)
[2022-08-28] MEDS: Apixaban 5 MG TAB PO SCH ×2 (13:15→21:25)
[2022-08-28] MEDS: Amiodarone 200 MG TAB PO SCH (13:15)
[2022-08-28] MEDS: cefTRIAXone\\ROCEPHIN 1 GM in Sodium Chloride 0.9% 100 ML IVPB SCH (13:18)
[2022-08-28] MEDS: methylPREDNISolone Sod Succ 40 MG VIAL IVP SCH ×2 (13:18→18:12)
[2022-08-28] MEDS: Ipratropium/Albuterol 3 ML NEB NEB SCH ×4 (14:43→21:52)
[2022-08-29] MEDS: Ipratropium/Albuterol 3 ML NEB NEB SCH ×6 (00:02→22:30)
[2022-08-29] MEDS: methylPREDNISolone Sod Succ 40 MG VIAL IVP SCH ×4 (00:41→17:22)
[2022-08-29] MEDS: Albuterol 200 PUFF (6.7GM INHALER) INH SCH ×6 (02:30→22:35)
[2022-08-29 04:54] LABS: #Lymphocytes 0.4 thou/uL (1.20-3.40); #Monocytes 0.2 thou/uL (0.11-0.59); #Neutrophils 3.5 thou/uL (1.40-6.50); %Eosinophils 0.1 % (0.0-10.0); %Lymphocytes 10.6 % (21.0-51.0); %Monocytes 4.4 % (0.0-10.0); %Neutrophils 84.9 % (42.0-75.0); Anion Gap 14 mmol/L (10-20); BUN (Urea Nitrogen) 32 mg/dL (8.4-25.7); Calc. Creatinine Clearance 92 mL/min (70-130); Calcium 9.4 mg/dL (7.8-10.44); Carbon Dioxide 33 mmol/L (23-31); Chloride 95 mmol/L (98-107); Estimated GFR 67; Glucose 126 mg/dL (83-110); Hemoglobin 11.4 g/dL (14.0-18.0); Mean Corpuscular HGB CONC 32.3 g/dL (32.0-36.0); Mean Corpuscular Hemoglobin 35.1 pg (27.0-31.0); Mean Platelet Volume 8.5 fL (7.4-10.4); Platelet Count 207 10x3/uL (130-400); Potassium 5.2 mmol/L (3.5-5.1); RBC Distribution Width 11.9 % (11.5-14.5); Red Blood Cell (RBC) Count 3.25 mill/uL (4.70-6.10); Sodium 137 mmol/L (136-145); White Blood Cell (WBC) Count 4.1 10x3/uL (4.8-10.8)
[2022-08-29] MEDS: Amiodarone 200 MG TAB PO SCH (08:51)
[2022-08-29] MEDS: Apixaban 5 MG TAB PO SCH ×2 (08:51→21:15)
[2022-08-29] MEDS ORDERED: Pantoprazole 40 MG VIAL IVP SCH (09:00)
[2022-08-29] MEDS: cefTRIAXone\\ROCEPHIN 1 GM in Sodium Chloride 0.9% 100 ML IVPB SCH (11:12)
[2022-08-29] MEDS ORDERED: guaiFENesin/DM ER PO SCH (17:00)
[2022-08-30] MEDS: Ipratropium/Albuterol 3 ML NEB NEB SCH ×6 (02:13→21:42)
[2022-08-30] MEDS: Albuterol 200 PUFF (6.7GM INHALER) INH SCH ×6 (02:14→21:42)
[2022-08-30] MEDS: methylPREDNISolone Sod Succ 40 MG VIAL IVP SCH ×4 (02:34→17:59)
[2022-08-30 04:10] LABS: #Lymphocytes 0.7 thou/uL (1.20-3.40); #Monocytes 0.9 thou/uL (0.11-0.59); %Basophils 0.4 % (0.0-1.0); %Eosinophils 0.1 % (0.0-10.0); %Lymphocytes 9.7 % (21.0-51.0); %Monocytes 11.1 % (0.0-10.0); %Neutrophils 78.7 % (42.0-75.0); Hemoglobin 11.2 g/dL (14.0-18.0); Mean Corpuscular Hemoglobin 34.4 pg (27.0-31.0); Mean Platelet Volume 8.2 fL (7.4-10.4); Platelet Count 228 10x3/uL (130-400); Red Blood Cell (RBC) Count 3.27 mill/uL (4.70-6.10); White Blood Cell (WBC) Count 7.7 10x3/uL (4.8-10.8)
[2022-08-30 04:32] LABS: Anion Gap 13 mmol/L (10-20); BUN (Urea Nitrogen) 36 mg/dL (8.4-25.7); Calc. Creatinine Clearance 77 mL/min (70-130); Calcium 9.5 mg/dL (7.8-10.44); Carbon Dioxide 35 mmol/L (23-31); Chloride 95 mmol/L (98-107); Estimated GFR 57; Glucose 109 mg/dL (83-110); Potassium 4.3 mmol/L (3.5-5.1); Sodium 139 mmol/L (136-145)
[2022-08-30] MEDS: Amiodarone 200 MG TAB PO SCH (07:42)
[2022-08-30] MEDS: guaiFENesin/DM ER PO SCH ×2 (07:42→22:29)
[2022-08-30] MEDS: Apixaban 5 MG TAB PO SCH ×2 (07:42→22:28)
[2022-08-30] MEDS: cefTRIAXone\\ROCEPHIN 1 GM in Sodium Chloride 0.9% 100 ML IVPB SCH (13:36)
[2022-08-31] MEDS: methylPREDNISolone Sod Succ 40 MG VIAL IVP SCH ×2 (00:05→06:47)
[2022-08-31] MEDS: Albuterol 200 PUFF (6.7GM INHALER) INH SCH ×2 (01:33→07:25)
[2022-08-31] MEDS: Ipratropium/Albuterol 3 ML NEB NEB SCH ×5 (01:33→19:14)
[2022-08-31 06:43] LABS: #Lymphocytes 0.4 thou/uL (1.20-3.40); #Monocytes 0.7 thou/uL (0.11-0.59); #Neutrophils 7.1 thou/uL (1.40-6.50); %Basophils 0.1 % (0.0-1.0); %Eosinophils 0.1 % (0.0-10.0); %Lymphocytes 4.9 % (21.0-51.0); %Monocytes 8.2 % (0.0-10.0); %Neutrophils 86.7 % (42.0-75.0); Hemoglobin 11.9 g/dL (14.0-18.0); Mean Corpuscular HGB CONC 31.2 g/dL (32.0-36.0); Mean Corpuscular Hemoglobin 33.6 pg (27.0-31.0); Platelet Count 247 10x3/uL (130-400); RBC Distribution Width 12.1 % (11.5-14.5); Red Blood Cell (RBC) Count 3.54 mill/uL (4.70-6.10); White Blood Cell (WBC) Count 8.2 10x3/uL (4.8-10.8)
[2022-08-31 07:03] LABS: Anion Gap 14 mmol/L (10-20); BUN (Urea Nitrogen) 31 mg/dL (8.4-25.7); Calc. Creatinine Clearance 80 mL/min (70-130); Calcium 9.8 mg/dL (7.8-10.44); Carbon Dioxide 36 mmol/L (23-31); Chloride 96 mmol/L (98-107); Estimated GFR 61; Glucose 120 mg/dL (83-110); Potassium 4.3 mmol/L (3.5-5.1); Sodium 142 mmol/L (136-145)
[2022-08-31] MEDS: guaiFENesin/DM ER PO SCH ×2 (08:03→21:06)
[2022-08-31] MEDS: Apixaban 5 MG TAB PO SCH ×2 (08:04→21:05)
[2022-08-31] MEDS: Amiodarone 200 MG TAB PO SCH (08:04)
[2022-08-31] MEDS: predniSONE 20 MG TAB PO SCH (09:30)
[2022-08-31] MEDS: cefTRIAXone\\ROCEPHIN 1 GM in Sodium Chloride 0.9% 100 ML IVPB SCH (13:44)
[2022-08-31] MEDS: Atorvastatin Calcium 20 MG TAB PO SCH (21:06)
[2022-08-31] MEDS: Tamsulosin HCl 0.4 MG CAP PO SCH (21:06)
[2022-08-31] MEDS: Acetaminophen 325 MG TAB PO PRN (21:06)
[2022-08-31] MEDS: Gabapentin 300 MG CAP PO SCH (21:06)
[2022-08-31] MEDS: Ipratropium/Albuterol Sulfate 4 GM AER IH SCH (22:32)
[2022-09-01] MEDS: Ipratropium/Albuterol Sulfate 4 GM AER IH SCH ×6 (02:21→23:45)
[2022-09-01] MEDS: Amiodarone 200 MG TAB PO SCH (09:55)
[2022-09-01] MEDS: Ferrous Sulfate 325 MG TAB PO SCH (09:55)
[2022-09-01] MEDS: predniSONE 20 MG TAB PO SCH (09:55)
[2022-09-01] MEDS: Gabapentin 300 MG CAP PO SCH ×2 (09:55→21:14)
[2022-09-01] MEDS: Apixaban 5 MG TAB PO SCH ×2 (09:56→21:15)
[2022-09-01] MEDS: guaiFENesin/DM ER PO SCH ×2 (09:56→21:15)
[2022-09-01] MEDS: Polyethylene Glycol 3350 17 GM Packet PO SCH (09:57)
[2022-09-01] MEDS: Lidocaine 5% Patch TD SCH (11:21)
[2022-09-01] MEDS: cefTRIAXone\\ROCEPHIN 1 GM in Sodium Chloride 0.9% 100 ML IVPB SCH (11:23)
[2022-09-01] MEDS: Atorvastatin Calcium 20 MG TAB PO SCH (21:14)
[2022-09-01] MEDS: Cefuroxime 250 MG TAB PO SCH (21:14)
[2022-09-01] MEDS: Tamsulosin HCl 0.4 MG CAP PO SCH (21:15)
[2022-09-01] MEDS: Transdermal Patch Removal TOP SCH (21:33)
[2022-09-02] MEDS: Ipratropium/Albuterol Sulfate 4 GM AER IH SCH ×6 (04:58→22:48)
[2022-09-02 06:45] LABS: Mean Corpuscular HGB CONC 31.9 g/dL (32.0-36.0); Mean Corpuscular Hemoglobin 35.2 pg (27.0-31.0); Platelet Count 173 10x3/uL (130-400); RBC Distribution Width 11.9 % (11.5-14.5); Red Blood Cell (RBC) Count 3.12 mill/uL (4.70-6.10); White Blood Cell (WBC) Count 21.4 10x3/uL (4.8-10.8)
[2022-09-02 06:56] LABS: Anion Gap 13 mmol/L (10-20); BUN (Urea Nitrogen) 38 mg/dL (8.4-25.7); Calc. Creatinine Clearance 69 mL/min (70-130); Carbon Dioxide 32 mmol/L (23-31); Chloride 99 mmol/L (98-107); Estimated GFR 51; Glucose 116 mg/dL (83-110); Potassium 4.4 mmol/L (3.5-5.1); Sodium 140 mmol/L (136-145)
[2022-09-02 08:43] LABS: Band 10 % (5-11); Lymphocytes 4 % (21-51); MDiff Complete? YES; Macrocytosis MODERATE=16-30 cells (100X) (0-5/hpf); Metamyelocyte 2 % (0-0); Monocytes 9 % (0-10); Neutrophil 75 % (42-75); Ovalocytes SLIGHT = 2-5 cells (100X) (0-1/hpf); Platelet Morphology Comment Appears Adequate; Schistocytes SLIGHT = 2-5 cells (100X) (0-1/hpf); Tear Drops SLIGHT = 2-5 cells (100X) (0-1/hpf)
[2022-09-02] MEDS: guaiFENesin/DM ER PO SCH ×2 (08:51→20:05)
[2022-09-02] MEDS: Gabapentin 300 MG CAP PO SCH ×2 (08:51→20:05)
[2022-09-02] MEDS: predniSONE 20 MG TAB PO SCH (08:51)
[2022-09-02] MEDS: Ferrous Sulfate 325 MG TAB PO SCH (08:51)
[2022-09-02] MEDS: Polyethylene Glycol 3350 17 GM Packet PO SCH (08:51)
[2022-09-02] MEDS: Cefuroxime 250 MG TAB PO SCH (08:51)
[2022-09-02] MEDS: Apixaban 5 MG TAB PO SCH ×2 (08:51→20:04)
[2022-09-02] MEDS: Amiodarone 200 MG TAB PO SCH (08:51)
[2022-09-02] MEDS: Lidocaine 5% Patch TD SCH (11:20)
[2022-09-02 11:25] LABS: Troponin I 0.049 ng/mL (< 0.028)
[2022-09-02 11:37] LABS: Actual Bicarbonate (HCO3a) 38.8 mEq/L (22-28); Analyzer IN Cardio ER; Base Excess (BEa) 8.5 mEq/L (-2.0 to +3.0); Calcium, Ionized (arterial) 1.22 mmol/L (1.12-1.30); Carboxyhemoglobin (COHb) 0.8 gm% (0.0-3.0); Hemoglobin (Hb) 12.3 g/dL (14.0-18.0); Potassium - ABG Lab 4.65 mmol/L (3.70-5.30); pH, Arterial 7.26 (7.35-7.45)
[2022-09-02 12:45] LABS: CO2 Tension 89.4 mmHg (35.0-45.0); O2 Tension (PaO2), arterial 50.4 mmHg (> 70.0)
[2022-09-02 12:46] LABS: Puncture Site LRA
[2022-09-02] MEDS: Cefepime 1 GM in Sodium Chloride 0.9% 100 ML IVPB SCH (14:04)
[2022-09-02] MEDS ORDERED: Ipratropium/Albuterol 3 ML NEB ONE (14:18)
[2022-09-02] MEDS: VANCOMYCIN 2 GRAM/500 ML BAG 2 GM in Premix Bag 1 BAG IVPB SCH (14:59)
[2022-09-02] MEDS: methylPREDNISolone Sod Succ 40 MG VIAL IVP SCH ×2 (17:31→23:07)
[2022-09-02] MEDS: Atorvastatin Calcium 20 MG TAB PO SCH (20:04)
[2022-09-02] MEDS: Tamsulosin HCl 0.4 MG CAP PO SCH (20:05)
[2022-09-02] MEDS ORDERED: VANCOMYCIN 1.25 GM/250 ML BAG IVPB SCH (21:00)
[2022-09-02] MEDS: Transdermal Patch Removal TOP SCH (21:03)
[2022-09-03] MEDS: Cefepime 1 GM in Sodium Chloride 0.9% 100 ML IVPB SCH ×2 (00:02→11:29)
[2022-09-03] MEDS: Ipratropium/Albuterol Sulfate 4 GM AER IH SCH ×6 (02:39→21:56)
[2022-09-03] MEDS: methylPREDNISolone Sod Succ 40 MG VIAL IVP SCH ×4 (05:07→23:03)
[2022-09-03] MEDS: Gabapentin 300 MG CAP PO SCH ×2 (07:16→20:18)
[2022-09-03] MEDS: Amiodarone 200 MG TAB PO SCH (07:16)
[2022-09-03] MEDS: Apixaban 5 MG TAB PO SCH ×2 (07:17→20:18)
[2022-09-03] MEDS: Polyethylene Glycol 3350 17 GM Packet PO SCH ×2 (07:18→11:30)
[2022-09-03] MEDS: Ferrous Sulfate 325 MG TAB PO SCH (07:18)
[2022-09-03] MEDS: guaiFENesin/DM ER PO SCH ×2 (07:24→20:18)
[2022-09-03] MEDS: Acetaminophen 325 MG TAB PO PRN (07:25)
[2022-09-03] MEDS: Benzonatate 100 MG CAP PO PRN (07:25)
[2022-09-03] MEDS: VANCOMYCIN 2 GRAM/500 ML BAG 2 GM in Premix Bag 1 BAG IVPB SCH (15:46)
[2022-09-03] MEDS: Senokot S 8.6-50 MG TAB PO SCH (20:18)
[2022-09-03] MEDS: Tamsulosin HCl 0.4 MG CAP PO SCH (20:18)
[2022-09-03] MEDS: Atorvastatin Calcium 20 MG TAB PO SCH (20:18)
[2022-09-03] MEDS: Fleet Enema 133 ML BOT PR PRN (20:41)
[2022-09-03] MEDS: Transdermal Patch Removal TOP SCH (23:08)
[2022-09-04] MEDS: Cefepime 1 GM in Sodium Chloride 0.9% 100 ML IVPB SCH ×3 (00:14→23:58)
[2022-09-04] MEDS: Ipratropium/Albuterol Sulfate 4 GM AER IH SCH ×6 (02:22→23:45)
[2022-09-04] MEDS: methylPREDNISolone Sod Succ 40 MG VIAL IVP SCH ×4 (05:06→23:58)
[2022-09-04 06:46] LABS: Hemoglobin 10.9 g/dL (14.0-18.0); Mean Corpuscular HGB CONC 30.3 g/dL (32.0-36.0); Mean Corpuscular Hemoglobin 33.7 pg (27.0-31.0); Mean Platelet Volume 8.7 fL (7.4-10.4); Platelet Count 262 10x3/uL (130-400); RBC Distribution Width 11.8 % (11.5-14.5); Red Blood Cell (RBC) Count 3.22 mill/uL (4.70-6.10)
[2022-09-04 07:06] LABS: BUN (Urea Nitrogen) 39 mg/dL (8.4-25.7); Calc. Creatinine Clearance 86 mL/min (70-130); Calcium 9.4 mg/dL (7.8-10.44); Estimated GFR 67; Glucose 143 mg/dL (83-110)
[2022-09-04 07:15] LABS: Anion Gap 10 mmol/L (10-20); Carbon Dioxide 39 mmol/L (23-31); Chloride 98 mmol/L (98-107); Potassium 5.2 mmol/L (3.5-5.1); Sodium 142 mmol/L (136-145)
[2022-09-04] MEDS: Acetaminophen 325 MG TAB PO PRN ×2 (07:29→12:51)
[2022-09-04] MEDS: Senokot S 8.6-50 MG TAB PO SCH ×2 (07:30→22:12)
[2022-09-04] MEDS: Gabapentin 300 MG CAP PO SCH ×2 (07:30→22:12)
[2022-09-04] MEDS: Ferrous Sulfate 325 MG TAB PO SCH (07:31)
[2022-09-04] MEDS: Amiodarone 200 MG TAB PO SCH (07:32)
[2022-09-04] MEDS: guaiFENesin/DM ER PO SCH ×2 (07:34→22:13)
[2022-09-04] MEDS: Apixaban 5 MG TAB PO SCH ×2 (07:34→22:13)
[2022-09-04] MEDS: Benzonatate 100 MG CAP PO PRN ×2 (07:35→17:11)
[2022-09-04] MEDS: Polyethylene Glycol 3350 17 GM Packet PO SCH (07:38)
[2022-09-04] MEDS: Fleet Enema 133 ML BOT PR PRN (07:41)
[2022-09-04 08:40] LABS: #Lymphocytes 0.4 thou/uL (1.20-3.40); #Monocytes 0.5 thou/uL (0.11-0.59); #Neutrophils 13.1 thou/uL (1.40-6.50); %Eosinophils 0.1 % (0.0-10.0); %Monocytes 3.4 % (0.0-10.0); %Neutrophils 93.5 % (42.0-75.0); Band 2 % (5-11); Eosinophils 1 % (0-10); Lymphocytes 5 % (21-51); MDiff Complete? YES; Macrocytosis SLIGHT = 6-15 cells (100X) (0-5/hpf); Monocytes 2 % (0-10); Neutrophil 90 % (42-75); Platelet Morphology Comment Appears Adequate; Polychromasia SLIGHT = 2-3 cells (100X) (0-2/hpf)
[2022-09-04] MEDS: VANCOMYCIN 1.25 GM/250 ML BAG 1.25 GM in Premix Bag 1 BAG IVPB SCH (15:41)
[2022-09-04] MEDS: Tamsulosin HCl 0.4 MG CAP PO SCH (22:12)
[2022-09-04] MEDS: Atorvastatin Calcium 20 MG TAB PO SCH (22:13)
[2022-09-04] MEDS: Transdermal Patch Removal TOP SCH (22:13)
[2022-09-05] MEDS: Ipratropium/Albuterol Sulfate 4 GM AER IH SCH ×6 (03:34→23:53)
[2022-09-05] MEDS: VANCOMYCIN 1.25 GM/250 ML BAG 1.25 GM in Premix Bag 1 BAG IVPB SCH ×2 (03:38→16:42)
[2022-09-05] MEDS ORDERED: methylPREDNISolone Sod Succ 40 MG VIAL IVP SCH (08:15)
[2022-09-05] MEDS: Gabapentin 300 MG CAP PO SCH ×2 (08:37→22:19)
[2022-09-05] MEDS: Polyethylene Glycol 3350 17 GM Packet PO SCH (08:37)
[2022-09-05] MEDS: Apixaban 5 MG TAB PO SCH ×2 (08:38→22:20)
[2022-09-05] MEDS: Ferrous Sulfate 325 MG TAB PO SCH (08:38)
[2022-09-05] MEDS: guaiFENesin/DM ER PO SCH ×2 (08:38→22:19)
[2022-09-05] MEDS: Amiodarone 200 MG TAB PO SCH (08:38)
[2022-09-05] MEDS: Senokot S 8.6-50 MG TAB PO SCH ×2 (08:38→22:19)
[2022-09-05] MEDS: methylPREDNISolone Sod Succ 40 MG VIAL IVP SCH ×3 (10:08→17:52)
[2022-09-05] MEDS ORDERED: Fleet Enema 133 ML BOT PR SCH (10:45)
[2022-09-05] MEDS: Cefepime 1 GM in Sodium Chloride 0.9% 100 ML IVPB SCH (13:54)
[2022-09-05] MEDS: Acetaminophen 325 MG TAB PO PRN (17:52)
[2022-09-05] MEDS: Atorvastatin Calcium 20 MG TAB PO SCH (22:19)
[2022-09-05] MEDS: Tamsulosin HCl 0.4 MG CAP PO SCH (22:19)
[2022-09-05] MEDS: Transdermal Patch Removal TOP SCH (22:20)
[2022-09-06] MEDS: methylPREDNISolone Sod Succ 40 MG VIAL IVP SCH ×3 (01:35→12:02)
[2022-09-06] MEDS: Cefepime 1 GM in Sodium Chloride 0.9% 100 ML IVPB SCH ×2 (01:36→12:01)
[2022-09-06 02:50] LABS: #Lymphocytes 0.5 thou/uL (1.20-3.40); #Monocytes 1.1 thou/uL (0.11-0.59); #Neutrophils 10.3 thou/uL (1.40-6.50); %Eosinophils 0.2 % (0.0-10.0); %Lymphocytes 3.8 % (21.0-51.0); Hemoglobin 10.5 g/dL (14.0-18.0); Mean Corpuscular HGB CONC 31.9 g/dL (32.0-36.0); Mean Corpuscular Hemoglobin 34.9 pg (27.0-31.0); Mean Platelet Volume 8.5 fL (7.4-10.4); Platelet Count 260 10x3/uL (130-400); RBC Distribution Width 11.7 % (11.5-14.5); Red Blood Cell (RBC) Count 3.01 mill/uL (4.70-6.10); White Blood Cell (WBC) Count 11.8 10x3/uL (4.8-10.8)
[2022-09-06 03:06] LABS: Vancomycin, Trough 19.2 ug/mL
[2022-09-06 03:25] LABS: Anion Gap 12 mmol/L (10-20); BUN (Urea Nitrogen) 32 mg/dL (8.4-25.7); Calc. Creatinine Clearance 93 mL/min (70-130); Calcium 9.3 mg/dL (7.8-10.44); Carbon Dioxide 36 mmol/L (23-31); Chloride 98 mmol/L (98-107); Estimated GFR 73; Glucose 135 mg/dL (83-110); Sodium 141 mmol/L (136-145)
[2022-09-06] MEDS: VANCOMYCIN 1.25 GM/250 ML BAG 1.25 GM in Premix Bag 1 BAG IVPB SCH (03:26)
[2022-09-06] MEDS: Ipratropium/Albuterol Sulfate 4 GM AER IH SCH ×3 (03:45→11:02)
[2022-09-06] MEDS: guaiFENesin/DM ER PO SCH (08:50)
[2022-09-06] MEDS: Ferrous Sulfate 325 MG TAB PO SCH (08:50)
[2022-09-06] MEDS: Gabapentin 300 MG CAP PO SCH (08:50)
[2022-09-06] MEDS: Amiodarone 200 MG TAB PO SCH (08:50)
[2022-09-06] MEDS: Apixaban 5 MG TAB PO SCH (08:50)
[2022-09-06] MEDS: Senokot S 8.6-50 MG TAB PO SCH (08:51)
[2022-09-06] MEDS: Polyethylene Glycol 3350 17 GM Packet PO SCH (08:51)
[2022-09-06] MEDS: Acetaminophen 325 MG TAB PO PRN (11:00)
[2022-09-06 11:37] VITALS: BP 143/78; TEMP 98.5
[2022-09-07] MEDS ORDERED: Cefepime 2 GM in Sodium Chloride 0.9% 100 ML IVPB SCH (01:00)
== END 2022-09-06 14:34 | DRG 177 ==
LOC: ERS 11:34 → T4-A 15:44 → OBSVTOIN 08-28 04:09 → CCU 08-28 04:51 → IMCU/EMU 08-29 09:46 → T4-B 08-31 18:36 → CCU 09-02 12:22 → T4-A 09-04 12:16
PROVIDERS: ADMIT Internal Medicine; ATTEND Hospitalist
PROC: 5A09457 Assistance with Respiratory Ventilation, 24-96 Consecutive Hours, Continuous Positive Airway Pressure (ICD-10-PCS; principal; 2022-08-28)
PROC: 3E0333Z Introduction of Anti-inflammatory into Peripheral Vein, Percutaneous Approach (ICD-10-PCS; 2022-08-28)
PROC: 8E0ZXY6 Isolation (ICD-10-PCS; 2022-08-28)
DX: U07.1 COVID-19 (principal); G93.41 Metabolic encephalopathy; J96.21 Acute and chronic respiratory failure with hypoxia; J12.82 Pneumonia due to coronavirus disease 2019; J96.02 Acute respiratory failure with hypercapnia; J44.1 Chronic obstructive pulmonary disease with (acute) exacerbation; N17.9 Acute kidney failure, unspecified; I50.32 Chronic diastolic (congestive) heart failure; N39.0 Urinary tract infection, site not specified; E87.29 Other acidosis; J44.0 Chronic obstructive pulmonary disease with (acute) lower respiratory infection; K21.9 Gastro-esophageal reflux disease without esophagitis; N18.30 Chronic kidney disease, stage 3 unspecified; I48.0 Paroxysmal atrial fibrillation; B96.4 Proteus (mirabilis) (morganii) as the cause of diseases classified elsewhere; F03.90 Unspecified dementia, unspecified severity, without behavioral disturbance, psychotic disturbance, mood disturbance, and anxiety; Z79.82 Long term (current) use of aspirin; Z79.899 Other long term (current) drug therapy; Z79.01 Long term (current) use of anticoagulants; Z90.49 Acquired absence of other specified parts of digestive tract; Z87.891 Personal history of nicotine dependence
CPT/HCPCS: 36415; 36416; 36600; 70450; 71045; 71250; 74176; 80048; 80053; 80076; 80202; 81003; 81015; 82550; 82553; 82805; 83605; 83690; 83735; 83880; 84145; 84443; 84484; 85025; 86140; 87040; 87070; 87077; 87086; 87186; 87205; 93005; 93010; 94640; 94660; 96365; 96367; 96375; C9113; G0378; J0456; J0692; J0696; J2060; J2920; J3370; J3490; J3535; J7512; J7620

== ENCOUNTER 2022-09-08 06:33 | Inpatient (IN) | payer MEDICARE, MEDICAID ==
[2022-09-08] MEDS ORDERED: NOREPINEPHRINE 8 MG/250 ML-D5W 250 ML ONE (06:40)
[2022-09-08 06:57] LABS: Actual Bicarbonate (HCO3a) 31.5 mEq/L (22-28); Analyzer IN Cardio ER; Base Excess (BEa) 4.9 mEq/L (-2.0 to +3.0); CO2 Tension 56.8 mmHg (35.0-45.0); Calcium, Ionized (arterial) 1.16 mmol/L (1.12-1.30); Carboxyhemoglobin (COHb) 0.2 gm% (0.0-3.0); Hemoglobin (Hb) 11.3 g/dL (14.0-18.0); O2 Tension (PaO2), arterial 132.3 mmHg (> 70.0); pH, Arterial 7.36 (7.35-7.45)
[2022-09-08 06:58] LABS: Puncture Site LRA
[2022-09-08] MEDS ORDERED: Fentanyl 100 MCG/2 ML VIAL ONE (07:05)
[2022-09-08] MEDS ORDERED: Albuterol 2.5 MG/0.5 ML NEB ONE (07:07)
[2022-09-08] MEDS ORDERED: Midazolam HCl 2 mg/2 ml Vial ONE (07:12)
[2022-09-08] MEDS ORDERED: Norepinephrine 8 MG/0.9% NS 250 ML IVPB SCH (07:30)
[2022-09-08] MEDS ORDERED: Cefepime 2 GM VIAL ONE (07:31)
[2022-09-08] MEDS ORDERED: Vancomycin 1 GM/200 ML (FROZEN) BAG ONE ×2 (07:31→08:34)
[2022-09-08 07:39] LABS: Hemoglobin 10.5 g/dL (14.0-18.0); Mean Corpuscular HGB CONC 29.9 g/dL (32.0-36.0); Mean Corpuscular Hemoglobin 33.9 pg (27.0-31.0); Mean Platelet Volume 8.7 fL (7.4-10.4); Platelet Count 278 10x3/uL (130-400); RBC Distribution Width 11.8 % (11.5-14.5); White Blood Cell (WBC) Count 12.5 10x3/uL (4.8-10.8)
[2022-09-08 07:42] LABS: ALT (SGPT) 24 U/L (8-55); AST (SGOT) 15 U/L (5-34); Albumin 3.6 g/dL (3.4-4.8); Alkaline Phosphatase 73 U/L (40-110); BUN (Urea Nitrogen) 38 mg/dL (8.4-25.7); Bilirubin, Total 0.6 mg/dL (0.2-1.2); Calc. Creatinine Clearance 0 mL/min (70-130); Calcium 9.1 mg/dL (7.8-10.44); Estimated GFR 35; Globulin 2.5 g/dL (2.4-3.5); Glucose 147 mg/dL (83-110); Magnesium 2.3 mg/dL (1.6-2.6); Protein, Total 6.1 g/dL (5.8-8.1)
[2022-09-08 07:48] LABS: Anion Gap 13 mmol/L (10-20)
[2022-09-08 07:52] LABS: Carbon Dioxide 37 mmol/L (23-31); Chloride 102 mmol/L (98-107); Potassium 5.5 mmol/L (3.5-5.1); Sodium 146 mmol/L (136-145)
[2022-09-08 08:02] LABS: CKMB 5.8 ng/mL (0-6.6)
[2022-09-08 08:19] LABS: #Eosinphils 0.1 thou/uL (0.0-0.7); #Lymphocytes 0.7 thou/uL (1.20-3.40); #Monocytes 1.8 thou/uL (0.11-0.59); %Eosinophils 0.5 % (0.0-10.0); %Lymphocytes 5.2 % (21.0-51.0); %Monocytes 14.2 % (0.0-10.0); %Neutrophils 80.1 % (42.0-75.0); Hypochromia SLIGHT = 6-15 cells (100X) (0-5/hpf); Large Platelets SLIGHT; MDiff Complete? YES; Platelet Morphology Comment Appears Adequate; Polychromasia SLIGHT = 2-3 cells (100X) (0-2/hpf)
[2022-09-08 08:28] LABS: Ovalocytes SLIGHT = 2-5 cells (100X) (0-1/hpf)
[2022-09-08 09:02] LABS: SARS-CoV-2 NAA Rapid Test Not Detected (NotDetected)
[2022-09-08] MEDS ORDERED: Lidocaine Jelly 2% Urojet 10 ML ONE ×2 (09:19→09:20)
[2022-09-08] MEDS ORDERED: NOREPINEPHRINE 8 MG/250 ML-D5W 250 ML IVPB PRN (09:29)
[2022-09-08] MEDS ORDERED: Ondansetron PF 4 MG/2 ML Vial IVP PRN (09:29)
[2022-09-08] MEDS ORDERED: Sterile Water 10 ML ONE (09:50)
[2022-09-08 10:30] LABS: Bilirubin Negative (Negative); Blood, Urine 3+ (Negative); Clarity Turbid (Clear); Glucose, Urine (Dipstick) Normal (Negative); Ketone, Urine Negative (Negative); Leukocyte Negative Leu/uL (Negative); Nitrite Negative (Negative); Protein, Urine (Dipstick) 100 mg/dL (Neg-Trace); RBC/HPF 21-50 HPF (0-3); Squamous Epithelial 0-3 HPF (0-3); Urobilinogen Normal mg/dL (Less than 2); pH, Urine 5.5 (5.0-9.0)
[2022-09-08] MEDS ORDERED: DISCONTINUE PREVIOUS NARCOTIC PAIN MEDICATIONS AND BENZODIAZEPINES FS SCH (10:30)
[2022-09-08] MEDS ORDERED: Propofol BOLUS 1,000 MG/100 ML VIAL IV PRN (10:30)
[2022-09-08] MEDS ORDERED: Fentanyl CADD 100 ML IV SCH (10:30)
[2022-09-08] MEDS ORDERED: Ipratropium/Albuterol 3 ML NEB NEB SCH (10:30)
[2022-09-08] MEDS ORDERED: Fentanyl BOLUS 250 ML IVPB PRN (10:30)
[2022-09-08] MEDS ORDERED: Meropenem 1 GM in Sodium Chloride 0.9% 100 ML IVPB SCH ×2 (10:30→14:00)
[2022-09-08] MEDS ORDERED: Morphine 4 MG/ML VIAL SLOW IVP PRN (10:30)
[2022-09-08] MEDS ORDERED: Lorazepam 2 MG/ML VIAL SLOW IVP PRN (10:30)
[2022-09-08 10:37] LABS: WBC/HPF 0-3 HPF (0-3)
[2022-09-08 10:38] LABS: Bacteria/HPF Rare-Few HPF (None Seen)
[2022-09-08 10:40] LABS: Troponin I 0.075 ng/mL (< 0.028)
[2022-09-08] MEDS ORDERED: Vecuronium 10 MG VIAL IVP PRN (11:01)
[2022-09-08] MEDS: methylPREDNISolone Sod Succ 40 MG VIAL IVP SCH ×2 (13:32→17:29)
[2022-09-08 13:42] LABS: Troponin I 0.086 ng/mL (< 0.028)
[2022-09-08] MEDS ORDERED: Iopamidol-370 76% 500 ML 1 ML ONE (14:14)
[2022-09-08] MEDS ORDERED: Hydrocortisone Sod Succ/PF 100 mg/2 ml Vial IVP SCH (15:00)
[2022-09-08] MEDS: Ipratropium/Albuterol 3 ML NEB NEB SCH ×4 (15:36→22:16)
[2022-09-08] MEDS: Budesonide 0.5 MG/2 ML NEB NEB SCH (18:28)
[2022-09-08] MEDS: Arformoterol 15 MCG/2 ML NEB NEB SCH (18:29)
[2022-09-08] MEDS ORDERED: Fentanyl CADD 100 ML ONE (18:45)
[2022-09-08] MEDS: Fentanyl CADD 100 ML IV SCH (18:51)
[2022-09-08] MEDS: Meropenem 1 GM in Sodium Chloride 0.9% 100 ML IVPB SCH (20:13)
[2022-09-08] MEDS ORDERED: Vancomycin HCl 1.5 GM in Sodium Chloride 0.9% 250 ML 300 ML IVPB SCH (21:00)
[2022-09-09] MEDS: methylPREDNISolone Sod Succ 40 MG VIAL IVP SCH ×5 (00:05→23:07)
[2022-09-09] MEDS: Ipratropium/Albuterol 3 ML NEB NEB SCH ×8 (01:04→22:24)
[2022-09-09 04:36] LABS: ALT (SGPT) 21 U/L (8-55); AST (SGOT) 9 U/L (5-34); Alkaline Phosphatase 55 U/L (40-110); Anion Gap 12 mmol/L (10-20); BUN (Urea Nitrogen) 41 mg/dL (8.4-25.7); Bilirubin, Total 0.6 mg/dL (0.2-1.2); Calc. Creatinine Clearance 69 mL/min (70-130); Calcium 8.6 mg/dL (7.8-10.44); Carbon Dioxide 32 mmol/L (23-31); Chloride 104 mmol/L (98-107); Estimated GFR 49; Globulin 2.5 g/dL (2.4-3.5); Glucose 168 mg/dL (83-110); Hemoglobin 9.6 g/dL (14.0-18.0); Mean Corpuscular HGB CONC 31.1 g/dL (32.0-36.0); Mean Corpuscular Hemoglobin 34.2 pg (27.0-31.0); Mean Platelet Volume 9.1 fL (7.4-10.4); Platelet Count 262 10x3/uL (130-400); Potassium 4.9 mmol/L (3.5-5.1); Protein, Total 5.5 g/dL (5.8-8.1); RBC Distribution Width 11.7 % (11.5-14.5); Red Blood Cell (RBC) Count 2.81 mill/uL (4.70-6.10); Sodium 143 mmol/L (136-145); White Blood Cell (WBC) Count 22.7 10x3/uL (4.8-10.8)
[2022-09-09 04:37] LABS: Band 2 % (5-11); Burr Cells SLIGHT = 2-5 cells (100X) (0-1/hpf); Hypochromia SLIGHT = 6-15 cells (100X) (0-5/hpf); Lymphocytes 1 % (21-51); MDiff Complete? YES; Macrocytosis SLIGHT = 6-15 cells (100X) (0-5/hpf); Monocytes 1 % (0-10); Neutrophil 96 % (42-75); Ovalocytes SLIGHT = 2-5 cells (100X) (0-1/hpf); Platelet Morphology Comment Appears Adequate
[2022-09-09] MEDS: Arformoterol 15 MCG/2 ML NEB NEB SCH ×2 (07:09→18:36)
[2022-09-09] MEDS: Budesonide 0.5 MG/2 ML NEB NEB SCH ×2 (07:09→18:36)
[2022-09-09] MEDS: Fentanyl CADD 100 ML IV SCH (07:40)
[2022-09-09] MEDS: Pantoprazole 40 MG VIAL IVP SCH (08:33)
[2022-09-09] MEDS: Propofol 1,000 MG/100 ML VIAL IV PRN ×2 (08:33→17:44)
[2022-09-09] MEDS: Meropenem 1 GM in Sodium Chloride 0.9% 100 ML IVPB SCH ×2 (08:33→19:47)
[2022-09-09] MEDS ORDERED: Vancomycin 1.5 GRAM/300 ML BAG 1.5 GM in Premix Bag 1 BAG IVPB SCH (09:00)
[2022-09-09] MEDS: Amiodarone 200 MG TAB PO SCH (20:00)
[2022-09-09] MEDS: Apixaban 5 MG TAB PO SCH (20:00)
[2022-09-09] MEDS: Atorvastatin Calcium 40 MG TAB PO SCH (20:00)
[2022-09-09] MEDS: Montelukast Sodium 10 mg Tablet PO SCH (20:00)
[2022-09-09] MEDS: Gabapentin 300 MG CAP PO SCH (20:01)
[2022-09-09] MEDS ORDERED: Tamsulosin HCl 0.4 MG CAP PO SCH (21:00)
[2022-09-10] MEDS: Ipratropium/Albuterol 3 ML NEB NEB SCH ×8 (01:00→22:18)
[2022-09-10 05:42] LABS: ALT (SGPT) 22 U/L (8-55); AST (SGOT) 22 U/L (5-34); Albumin 3.2 g/dL (3.4-4.8); Alkaline Phosphatase 55 U/L (40-110); Anion Gap 7 mmol/L (10-20); BUN (Urea Nitrogen) 50 mg/dL (8.4-25.7); Bilirubin, Total 0.4 mg/dL (0.2-1.2); Calc. Creatinine Clearance 74 mL/min (70-130); Carbon Dioxide 31 mmol/L (23-31); Chloride 108 mmol/L (98-107); Estimated GFR 54; Globulin 2.7 g/dL (2.4-3.5); Glucose 208 mg/dL (83-110); Potassium 4.9 mmol/L (3.5-5.1); Protein, Total 5.9 g/dL (5.8-8.1); Sodium 141 mmol/L (136-145)
[2022-09-10] MEDS: Propofol 1,000 MG/100 ML VIAL IV PRN ×4 (05:50→22:53)
[2022-09-10] MEDS: methylPREDNISolone Sod Succ 40 MG VIAL IVP SCH ×4 (05:52→23:03)
[2022-09-10 05:54] LABS: Band 8 % (5-11); Hemoglobin 9.8 g/dL (14.0-18.0); Hypochromia SLIGHT = 6-15 cells (100X) (0-5/hpf); Lymphocytes 6 % (21-51); MDiff Complete? YES; Macrocytosis SLIGHT = 6-15 cells (100X) (0-5/hpf); Mean Corpuscular HGB CONC 31.6 g/dL (32.0-36.0); Mean Corpuscular Hemoglobin 34.5 pg (27.0-31.0); Mean Platelet Volume 8.7 fL (7.4-10.4); Neutrophil 86 % (42-75); Platelet Count 208 10x3/uL (130-400); Platelet Morphology Comment Appears Adequate; RBC Distribution Width 12.1 % (11.5-14.5); Red Blood Cell (RBC) Count 2.84 mill/uL (4.70-6.10); White Blood Cell (WBC) Count 22.7 10x3/uL (4.8-10.8)
[2022-09-10] MEDS: cefTRIAXone\\ROCEPHIN 1 GM in Sodium Chloride 0.9% 100 ML IVPB SCH (06:03)
[2022-09-10 06:39] LABS: Actual Bicarbonate (HCO3a) 33.7 mEq/L (22-28); Base Excess (BEa) 7.4 mEq/L (-2.0 to +3.0); CO2 Tension 56.7 mmHg (35.0-45.0); Calcium, Ionized (arterial) 1.18 mmol/L (1.12-1.30); Carboxyhemoglobin (COHb) 0.1 gm% (0.0-3.0); Hemoglobin (Hb) 10.6 g/dL (14.0-18.0); Potassium - ABG Lab 4.81 mmol/L (3.70-5.30); pH, Arterial 7.39 (7.35-7.45)
[2022-09-10] MEDS: Arformoterol 15 MCG/2 ML NEB NEB SCH ×2 (07:40→18:40)
[2022-09-10] MEDS: Budesonide 0.5 MG/2 ML NEB NEB SCH ×2 (07:40→18:39)
[2022-09-10] MEDS: Gabapentin 300 MG CAP PO SCH ×2 (08:09→20:33)
[2022-09-10] MEDS: Apixaban 5 MG TAB PO SCH ×2 (08:09→20:33)
[2022-09-10] MEDS: Pantoprazole 40 MG VIAL IVP SCH (08:09)
[2022-09-10] MEDS: Atorvastatin Calcium 40 MG TAB PO SCH (20:33)
[2022-09-10] MEDS: Amiodarone 200 MG TAB PO SCH (20:33)
[2022-09-10] MEDS: Montelukast Sodium 10 mg Tablet PO SCH (20:33)
[2022-09-11] MEDS: Ipratropium/Albuterol 3 ML NEB NEB SCH ×9 (01:16→22:19)
[2022-09-11 05:09] LABS: ALT (SGPT) 22 U/L (8-55); AST (SGOT) 22 U/L (5-34); Albumin 3.2 g/dL (3.4-4.8); Alkaline Phosphatase 76 U/L (40-110); Anion Gap 10 mmol/L (10-20); BUN (Urea Nitrogen) 42 mg/dL (8.4-25.7); Bilirubin, Total 0.4 mg/dL (0.2-1.2); Calc. Creatinine Clearance 106 mL/min (70-130); Calcium 8.7 mg/dL (7.8-10.44); Carbon Dioxide 33 mmol/L (23-31); Chloride 105 mmol/L (98-107); Estimated GFR 81; Globulin 2.6 g/dL (2.4-3.5); Glucose 180 mg/dL (83-110); Potassium 4.9 mmol/L (3.5-5.1); Protein, Total 5.8 g/dL (5.8-8.1); Sodium 143 mmol/L (136-145)
[2022-09-11] MEDS: methylPREDNISolone Sod Succ 40 MG VIAL IVP SCH ×3 (05:18→20:42)
[2022-09-11] MEDS: Propofol 1,000 MG/100 ML VIAL IV PRN ×2 (05:18→10:29)
[2022-09-11] MEDS: cefTRIAXone\\ROCEPHIN 1 GM in Sodium Chloride 0.9% 100 ML IVPB SCH (05:18)
[2022-09-11 05:19] LABS: Band 5 % (5-11); Hemoglobin 10.1 g/dL (14.0-18.0); Hypochromia SLIGHT = 6-15 cells (100X) (0-5/hpf); MDiff Complete? YES; Macrocytosis MODERATE=16-30 cells (100X) (0-5/hpf); Mean Corpuscular HGB CONC 31.6 g/dL (32.0-36.0); Mean Corpuscular Hemoglobin 34.4 pg (27.0-31.0); Mean Platelet Volume 8.9 fL (7.4-10.4); Monocytes 5 % (0-10); Neutrophil 90 % (42-75); Ovalocytes MODERATE= 6-15 cells (100X) (0-1/hpf); Platelet Count 210 10x3/uL (130-400); Platelet Morphology Comment Appears Adequate; Polychromasia SLIGHT = 2-3 cells (100X) (0-2/hpf); Red Blood Cell (RBC) Count 2.95 mill/uL (4.70-6.10); White Blood Cell (WBC) Count 22.7 10x3/uL (4.8-10.8)
[2022-09-11] MEDS: Arformoterol 15 MCG/2 ML NEB NEB SCH ×2 (06:53→18:04)
[2022-09-11] MEDS: Budesonide 0.5 MG/2 ML NEB NEB SCH ×2 (06:53→18:04)
[2022-09-11 07:51] LABS: Actual Bicarbonate (HCO3a) 33.1 mEq/L (22-28); Base Excess (BEa) 6.5 mEq/L (-2.0 to +3.0); CO2 Tension 58.2 mmHg (35.0-45.0); Calcium, Ionized (arterial) 1.21 mmol/L (1.12-1.30); Carboxyhemoglobin (COHb) 0.2 gm% (0.0-3.0); Hemoglobin (Hb) 11.3 g/dL (14.0-18.0); O2 Tension (PaO2), arterial 68.8 mmHg (> 70.0); Potassium - ABG Lab 4.68 mmol/L (3.70-5.30); pH, Arterial 7.37 (7.35-7.45)
[2022-09-11] MEDS: Gabapentin 300 MG CAP PO SCH ×2 (08:53→20:41)
[2022-09-11] MEDS: Apixaban 5 MG TAB PO SCH ×2 (08:53→20:41)
[2022-09-11] MEDS: Pantoprazole 40 MG VIAL IVP SCH (08:54)
[2022-09-11] MEDS ORDERED: Electrolyte Replacement Protocol 1 EACH FS SCH (13:00)
[2022-09-11] MEDS: Montelukast Sodium 10 mg Tablet PO SCH (20:41)
[2022-09-11] MEDS: Atorvastatin Calcium 40 MG TAB PO SCH (20:42)
[2022-09-11] MEDS: Amiodarone 200 MG TAB PO SCH (20:42)
[2022-09-12] MEDS: Ipratropium/Albuterol 3 ML NEB NEB SCH ×8 (01:20→22:25)
[2022-09-12 04:43] LABS: Phosphorus 3.2 mg/dL (2.3-4.7)
[2022-09-12 04:48] LABS: ALT (SGPT) 24 U/L (8-55); AST (SGOT) 37 U/L (5-34); Alkaline Phosphatase 61 U/L (40-110); Anion Gap 8 mmol/L (10-20); BUN (Urea Nitrogen) 45 mg/dL (8.4-25.7); Bilirubin, Total 0.4 mg/dL (0.2-1.2); Calc. Creatinine Clearance 116 mL/min (70-130); Calcium 8.6 mg/dL (7.8-10.44); Carbon Dioxide 35 mmol/L (23-31); Chloride 105 mmol/L (98-107); Estimated GFR 91; Globulin 2.6 g/dL (2.4-3.5); Glucose 157 mg/dL (83-110); Magnesium 2.2 mg/dL (1.6-2.6); Protein, Total 5.6 g/dL (5.8-8.1); Sodium 142 mmol/L (136-145)
[2022-09-12 04:54] LABS: Potassium 6.1 mmol/L (3.5-5.1)
[2022-09-12] MEDS: cefTRIAXone\\ROCEPHIN 1 GM in Sodium Chloride 0.9% 100 ML IVPB SCH (05:02)
[2022-09-12 05:26] LABS: Band 1 % (5-11); Hemoglobin 9.7 g/dL (14.0-18.0); Lymphocytes 5 % (21-51); MDiff Complete? YES; Macrocytosis SLIGHT = 6-15 cells (100X) (0-5/hpf); Mean Corpuscular HGB CONC 30.8 g/dL (32.0-36.0); Mean Corpuscular Hemoglobin 33.8 pg (27.0-31.0); Mean Platelet Volume 9.1 fL (7.4-10.4); Microcytosis SLIGHT = 6-15 cells (100X) (0-5/hpf); Monocytes 13 % (0-10); Neutrophil 81 % (42-75); Platelet Count 203 10x3/uL (130-400); Platelet Morphology Comment Appears Adequate; RBC Distribution Width 12.2 % (11.5-14.5); Red Blood Cell (RBC) Count 2.86 mill/uL (4.70-6.10); White Blood Cell (WBC) Count 24.9 10x3/uL (4.8-10.8)
[2022-09-12] MEDS ORDERED: Insulin Regular 300 UNITS/3 ML VIAL IVP SCH (06:00)
[2022-09-12] MEDS ORDERED: Dextrose 50% Abboject 50 ML SYRINGE SLOW IVP SCH (06:00)
[2022-09-12] MEDS ORDERED: CALCIUM GLUC 1 GM/NS 50 ML 1 GM in Premix Bag 1 BAG IVPB SCH (06:00)
[2022-09-12] MEDS: Arformoterol 15 MCG/2 ML NEB NEB SCH ×2 (07:21→18:49)
[2022-09-12] MEDS: Budesonide 0.5 MG/2 ML NEB NEB SCH ×2 (07:21→18:49)
[2022-09-12] MEDS ORDERED: Bisacodyl 5 MG TAB PO PRN (08:30)
[2022-09-12] MEDS: Apixaban 5 MG TAB PO SCH ×2 (10:04→20:37)
[2022-09-12] MEDS: Gabapentin 300 MG CAP PO SCH ×2 (10:04→20:36)
[2022-09-12] MEDS: Pantoprazole 40 MG VIAL IVP SCH (10:06)
[2022-09-12] MEDS: methylPREDNISolone Sod Succ 40 MG VIAL IVP SCH ×2 (10:06→20:35)
[2022-09-12] MEDS ORDERED: Senokot 8.6 MG TAB PO PRN (10:28)
[2022-09-12 11:24] LABS: Actual Bicarbonate (HCO3v) 34 mEq/L (22-28); Base Excess 7.3 mEq/L (-2.0 to +3.0); Calcium, Ionized (venous) 1.19 mmol/L (1.16-1.32); Chloride (VBG) 103 mmol/L (98-106); Hemoglobin (Hb) 10.9 g/dL (12.6-17.4); Potassium (VBG) 5.16 mmol/L (3.70-5.30); Sodium 142.5 mmol/L (133-146); pH (venous) 7.39 (7.32-7.43)
[2022-09-12 11:56] LABS: Anion Gap 8 mmol/L (10-20); BUN (Urea Nitrogen) 41 mg/dL (8.4-25.7); Calc. Creatinine Clearance 117 mL/min (70-130); Calcium 9.3 mg/dL (7.8-10.44); Carbon Dioxide 37 mmol/L (23-31); Chloride 103 mmol/L (98-107); Estimated GFR 92; Glucose 112 mg/dL (83-110); Potassium 5.3 mmol/L (3.5-5.1); Sodium 143 mmol/L (136-145)
[2022-09-12 18:45] LABS: Potassium 5.9 mmol/L (3.5-5.1)
[2022-09-12] MEDS: Senokot S 8.6-50 MG TAB PO SCH (19:55)
[2022-09-12] MEDS: Amiodarone 200 MG TAB PO SCH (20:35)
[2022-09-12] MEDS: Atorvastatin Calcium 40 MG TAB PO SCH (20:36)
[2022-09-12] MEDS: Montelukast Sodium 10 mg Tablet PO SCH (20:37)
[2022-09-13] MEDS: Ipratropium/Albuterol 3 ML NEB NEB SCH ×5 (01:24→18:30)
[2022-09-13] MEDS: traZODone HCl 50 MG TAB PO PRN (01:31)
[2022-09-13 05:53] LABS: ALT (SGPT) 29 U/L (8-55); AST (SGOT) 31 U/L (5-34); Alkaline Phosphatase 59 U/L (40-110); Anion Gap 10 mmol/L (10-20); BUN (Urea Nitrogen) 40 mg/dL (8.4-25.7); Bilirubin, Total 0.7 mg/dL (0.2-1.2); Calc. Creatinine Clearance 103 mL/min (70-130); Carbon Dioxide 35 mmol/L (23-31); Chloride 101 mmol/L (98-107); Estimated GFR 80; Globulin 2.6 g/dL (2.4-3.5); Glucose 153 mg/dL (83-110); Potassium 5.4 mmol/L (3.5-5.1); Protein, Total 5.6 g/dL (5.8-8.1); Sodium 141 mmol/L (136-145)
[2022-09-13] MEDS: cefTRIAXone\\ROCEPHIN 1 GM in Sodium Chloride 0.9% 100 ML IVPB SCH (05:58)
[2022-09-13 06:04] LABS: Band 10 % (5-11); Hemoglobin 9.9 g/dL (14.0-18.0); Hypochromia SLIGHT = 6-15 cells (100X) (0-5/hpf); MDiff Complete? YES; Macrocytosis SLIGHT = 6-15 cells (100X) (0-5/hpf); Mean Corpuscular HGB CONC 31.1 g/dL (32.0-36.0); Mean Corpuscular Hemoglobin 34.2 pg (27.0-31.0); Mean Platelet Volume 9.3 fL (7.4-10.4); Monocytes 4 % (0-10); Neutrophil 86 % (42-75); Platelet Count 193 10x3/uL (130-400); Platelet Morphology Comment Appears Adequate; RBC Distribution Width 12.3 % (11.5-14.5); White Blood Cell (WBC) Count 21.4 10x3/uL (4.8-10.8)
[2022-09-13] MEDS: Arformoterol 15 MCG/2 ML NEB NEB SCH ×2 (06:40→18:30)
[2022-09-13] MEDS: Budesonide 0.5 MG/2 ML NEB NEB SCH ×2 (06:40→18:30)
[2022-09-13] MEDS: Pantoprazole 40 MG VIAL IVP SCH (09:05)
[2022-09-13] MEDS: methylPREDNISolone Sod Succ 40 MG VIAL IVP SCH (09:06)
[2022-09-13] MEDS: Gabapentin 300 MG CAP PO SCH ×2 (09:06→20:37)
[2022-09-13] MEDS: Apixaban 5 MG TAB PO SCH ×2 (09:07→20:39)
[2022-09-13] MEDS: Polyethylene Glycol 3350 17 GM Packet PER TUBE SCH (09:07)
[2022-09-13] MEDS: Senokot S 8.6-50 MG TAB PO SCH ×2 (09:07→20:48)
[2022-09-13] MEDS ORDERED: Labetalol HCl 100 MG/20 ML VIAL SLOW IVP PRN (09:10)
[2022-09-13] MEDS ORDERED: hydrALAZINE 20 MG/ML VIAL SLOW IVP PRN (09:10)
[2022-09-13] MEDS ORDERED: Metoprolol Tartrate 25 MG TAB PO SCH (09:15)
[2022-09-13 09:39] LABS: Base Excess 13.6 mEq/L (-2.0 to +3.0); Calcium, Ionized (venous) 1.15 mmol/L (1.16-1.32); Chloride (VBG) 101 mmol/L (98-106); Hemoglobin (Hb) 11.2 g/dL (12.6-17.4); Potassium (VBG) 5.15 mmol/L (3.70-5.30); Sodium 142.2 mmol/L (133-146); pH (venous) 7.43 (7.32-7.43)
[2022-09-13] MEDS: Simethicone Chewable 80 MG TAB PO PRN (10:34)
[2022-09-13] MEDS ORDERED: Albuterol 200 PUFF (6.7GM INHALER) INH PRN (15:41)
[2022-09-13] MEDS: Atorvastatin Calcium 40 MG TAB PO SCH (20:37)
[2022-09-13] MEDS: Amiodarone 200 MG TAB PO SCH (20:38)
[2022-09-13] MEDS: Montelukast Sodium 10 mg Tablet PO SCH (20:39)
[2022-09-13] MEDS: Metoprolol Tartrate 25 MG TAB PO SCH (20:39)
[2022-09-13] MEDS ORDERED: Metoprolol Tartrate 5 MG/5 ML VIAL IVP SCH (21:45)
[2022-09-14] MEDS ORDERED: Sodium Chloride 0.9% 500 ML IVPB SCH (01:00)
[2022-09-14 04:21] LABS: Hemoglobin 10.2 g/dL (14.0-18.0); Mean Corpuscular HGB CONC 31.4 g/dL (32.0-36.0); Mean Corpuscular Hemoglobin 34.4 pg (27.0-31.0); Platelet Count 181 10x3/uL (130-400); RBC Distribution Width 12.4 % (11.5-14.5); Red Blood Cell (RBC) Count 2.95 mill/uL (4.70-6.10); White Blood Cell (WBC) Count 21.2 10x3/uL (4.8-10.8)
[2022-09-14 04:44] LABS: Band 2 % (5-11); Lymphocytes 2 % (21-51); MDiff Complete? YES; Macrocytosis SLIGHT = 6-15 cells (100X) (0-5/hpf); Monocytes 8 % (0-10); Neutrophil 88 % (42-75); Schistocytes SLIGHT = 2-5 cells (100X) (0-1/hpf)
[2022-09-14] MEDS: cefTRIAXone\\ROCEPHIN 1 GM in Sodium Chloride 0.9% 100 ML IVPB SCH (06:36)
[2022-09-14 06:37] LABS: Albumin 2.9 g/dL (3.4-4.8)
[2022-09-14 06:39] LABS: Calcium 8.8 mg/dL (7.8-10.44); Chloride 100 mmol/L (98-107); Potassium 5.1 mmol/L (3.5-5.1); Sodium 142 mmol/L (136-145)
[2022-09-14 06:40] LABS: Globulin 2.6 g/dL (2.4-3.5); Glucose 100 mg/dL (83-110); Protein, Total 5.5 g/dL (5.8-8.1)
[2022-09-14 06:42] LABS: Bilirubin, Total 0.8 mg/dL (0.2-1.2)
[2022-09-14] MEDS: Ipratropium/Albuterol 3 ML NEB NEB SCH ×3 (06:42→19:10)
[2022-09-14 06:43] LABS: Alkaline Phosphatase 60 U/L (40-110); Calc. Creatinine Clearance 97 mL/min (70-130); Estimated GFR 73
[2022-09-14 06:44] LABS: BUN (Urea Nitrogen) 45 mg/dL (8.4-25.7)
[2022-09-14] MEDS: Budesonide 0.5 MG/2 ML NEB NEB SCH ×2 (06:44→19:09)
[2022-09-14] MEDS: Arformoterol 15 MCG/2 ML NEB NEB SCH ×2 (06:44→19:09)
[2022-09-14 06:45] LABS: AST (SGOT) 24 U/L (5-34)
[2022-09-14 06:46] LABS: ALT (SGPT) 32 U/L (8-55)
[2022-09-14 06:50] LABS: Carbon Dioxide 36 mmol/L (23-31)
[2022-09-14 06:56] LABS: Anion Gap 11 mmol/L (10-20)
[2022-09-14 09:21] LABS: Actual Bicarbonate (HCO3v) 40 mEq/L (22-28)
[2022-09-14] MEDS: Apixaban 5 MG TAB PO SCH ×2 (09:36→20:25)
[2022-09-14] MEDS: Gabapentin 300 MG CAP PO SCH ×2 (09:36→20:26)
[2022-09-14] MEDS: Metoprolol Tartrate 25 MG TAB PO SCH ×2 (09:38→20:26)
[2022-09-14] MEDS: methylPREDNISolone Sod Succ 40 MG VIAL IVP SCH (09:38)
[2022-09-14] MEDS: Simethicone Chewable 80 MG TAB PO PRN (09:42)
[2022-09-14] MEDS: Polyethylene Glycol 3350 17 GM Packet PER TUBE SCH (09:48)
[2022-09-14] MEDS: Senokot S 8.6-50 MG TAB PO SCH ×2 (11:14→20:26)
[2022-09-14] MEDS: Amiodarone 200 MG TAB PO SCH (20:25)
[2022-09-14] MEDS: Montelukast Sodium 10 mg Tablet PO SCH (20:26)
[2022-09-14] MEDS: Atorvastatin Calcium 40 MG TAB PO SCH (20:26)
[2022-09-15 04:36] LABS: Hemoglobin 10.2 g/dL (14.0-18.0); Mean Corpuscular HGB CONC 30.8 g/dL (32.0-36.0); Mean Corpuscular Hemoglobin 33.9 pg (27.0-31.0); Mean Platelet Volume 9.9 fL (7.4-10.4); Platelet Count 169 10x3/uL (130-400); RBC Distribution Width 12.2 % (11.5-14.5); White Blood Cell (WBC) Count 16.5 10x3/uL (4.8-10.8)
[2022-09-15 04:49] LABS: ALT (SGPT) 29 U/L (8-55); AST (SGOT) 18 U/L (5-34); Alkaline Phosphatase 63 U/L (40-110); Anion Gap 10 mmol/L (10-20); BUN (Urea Nitrogen) 37 mg/dL (8.4-25.7); Bilirubin, Total 0.7 mg/dL (0.2-1.2); Calc. Creatinine Clearance 104 mL/min (70-130); Calcium 8.6 mg/dL (7.8-10.44); Carbon Dioxide 36 mmol/L (23-31); Chloride 99 mmol/L (98-107); Estimated GFR 79; Globulin 2.6 g/dL (2.4-3.5); Glucose 86 mg/dL (83-110); Potassium 5.2 mmol/L (3.5-5.1); Protein, Total 5.6 g/dL (5.8-8.1); Sodium 140 mmol/L (136-145)
[2022-09-15 05:07] LABS: Band 1 % (5-11); Lymphocytes 3 % (21-51); MDiff Complete? YES; Monocytes 7 % (0-10); Neutrophil 89 % (42-75); Platelet Morphology Comment Appears Adequate; Schistocytes SLIGHT = 2-5 cells (100X) (0-1/hpf)
[2022-09-15] MEDS: cefTRIAXone\\ROCEPHIN 1 GM in Sodium Chloride 0.9% 100 ML IVPB SCH (05:49)
[2022-09-15] MEDS: Arformoterol 15 MCG/2 ML NEB NEB SCH ×2 (07:40→19:43)
[2022-09-15] MEDS: Budesonide 0.5 MG/2 ML NEB NEB SCH ×2 (07:44→19:43)
[2022-09-15] MEDS: Ipratropium/Albuterol 3 ML NEB NEB SCH ×3 (07:45→19:42)
[2022-09-15] MEDS: Gabapentin 300 MG CAP PO SCH ×2 (10:40→20:08)
[2022-09-15] MEDS: Apixaban 5 MG TAB PO SCH ×2 (10:40→20:09)
[2022-09-15] MEDS: Senokot S 8.6-50 MG TAB PO SCH ×2 (10:41→20:09)
[2022-09-15] MEDS: Polyethylene Glycol 3350 17 GM Packet PER TUBE SCH (10:41)
[2022-09-15] MEDS: Metoprolol Tartrate 25 MG TAB PO SCH ×2 (10:41→20:09)
[2022-09-15] MEDS: methylPREDNISolone Sod Succ 40 MG VIAL IVP SCH (10:41)
[2022-09-15] MEDS: Montelukast Sodium 10 mg Tablet PO SCH (20:09)
[2022-09-15] MEDS: Atorvastatin Calcium 40 MG TAB PO SCH (20:09)
[2022-09-15] MEDS: Amiodarone 200 MG TAB PO SCH (20:09)
[2022-09-16 05:21] LABS: #Lymphocytes 0.8 thou/uL (1.20-3.40); #Monocytes 1.4 thou/uL (0.11-0.59); %Basophils 0.1 % (0.0-1.0); %Eosinophils 0.1 % (0.0-10.0); %Lymphocytes 4.9 % (21.0-51.0); %Monocytes 9.3 % (0.0-10.0); %Neutrophils 85.6 % (42.0-75.0); Hemoglobin 9.2 g/dL (14.0-18.0); Mean Corpuscular HGB CONC 31.9 g/dL (32.0-36.0); Mean Corpuscular Hemoglobin 34.8 pg (27.0-31.0); Mean Platelet Volume 9.5 fL (7.4-10.4); Platelet Count 146 10x3/uL (130-400); RBC Distribution Width 12.1 % (11.5-14.5); Red Blood Cell (RBC) Count 2.63 mill/uL (4.70-6.10); White Blood Cell (WBC) Count 15.2 10x3/uL (4.8-10.8)
[2022-09-16 05:50] LABS: ALT (SGPT) 25 U/L (8-55); AST (SGOT) 12 U/L (5-34); Albumin 2.8 g/dL (3.4-4.8); Alkaline Phosphatase 64 U/L (40-110); BUN (Urea Nitrogen) 31 mg/dL (8.4-25.7); Bilirubin, Total 0.7 mg/dL (0.2-1.2); Calc. Creatinine Clearance 105 mL/min (70-130); Calcium 8.2 mg/dL (7.8-10.44); Estimated GFR 86; Globulin 2.2 g/dL (2.4-3.5); Glucose 101 mg/dL (83-110)
[2022-09-16 06:00] LABS: Chloride 98 mmol/L (98-107); Potassium 4.6 mmol/L (3.5-5.1); Sodium 140 mmol/L (136-145)
[2022-09-16 06:02] LABS: Anion Gap 14 mmol/L (10-20); Carbon Dioxide 33 mmol/L (23-31)
[2022-09-16] MEDS: Budesonide 0.5 MG/2 ML NEB NEB SCH ×2 (06:54→18:49)
[2022-09-16] MEDS: Ipratropium/Albuterol 3 ML NEB NEB SCH ×3 (06:58→21:48)
[2022-09-16] MEDS: Arformoterol 15 MCG/2 ML NEB NEB SCH ×2 (06:58→18:48)
[2022-09-16] MEDS: Metoprolol Tartrate 25 MG TAB PO SCH ×2 (09:22→20:40)
[2022-09-16] MEDS: Gabapentin 300 MG CAP PO SCH ×2 (09:22→20:41)
[2022-09-16] MEDS: Apixaban 5 MG TAB PO SCH ×2 (09:22→20:40)
[2022-09-16] MEDS: methylPREDNISolone Sod Succ 40 MG VIAL IVP SCH (09:23)
[2022-09-16] MEDS: Senokot S 8.6-50 MG TAB PO SCH ×2 (09:23→20:41)
[2022-09-16] MEDS: Polyethylene Glycol 3350 17 GM Packet PER TUBE SCH (09:25)
[2022-09-16] MEDS: Amiodarone 200 MG TAB PO SCH (20:40)
[2022-09-16] MEDS: Atorvastatin Calcium 40 MG TAB PO SCH (20:40)
[2022-09-16] MEDS: Montelukast Sodium 10 mg Tablet PO SCH (20:40)
[2022-09-17 04:47] LABS: Hemoglobin 9.3 g/dL (14.0-18.0); Mean Corpuscular HGB CONC 32.7 g/dL (32.0-36.0); Mean Corpuscular Hemoglobin 35.7 pg (27.0-31.0); Mean Platelet Volume 9.2 fL (7.4-10.4); Platelet Count 155 10x3/uL (130-400); RBC Distribution Width 12.1 % (11.5-14.5); Red Blood Cell (RBC) Count 2.59 mill/uL (4.70-6.10); White Blood Cell (WBC) Count 15.2 10x3/uL (4.8-10.8)
[2022-09-17 05:05] LABS: ALT (SGPT) 27 U/L (8-55); AST (SGOT) 17 U/L (5-34); Albumin 2.9 g/dL (3.4-4.8); Alkaline Phosphatase 88 U/L (40-110); Anion Gap 10 mmol/L (10-20); BUN (Urea Nitrogen) 25 mg/dL (8.4-25.7); Bilirubin, Total 0.6 mg/dL (0.2-1.2); Calc. Creatinine Clearance 113 mL/min (70-130); Calcium 8.1 mg/dL (7.8-10.44); Carbon Dioxide 37 mmol/L (23-31); Chloride 98 mmol/L (98-107); Estimated GFR 92; Globulin 2.3 g/dL (2.4-3.5); Glucose 142 mg/dL (83-110); Potassium 4.8 mmol/L (3.5-5.1); Protein, Total 5.2 g/dL (5.8-8.1); Sodium 140 mmol/L (136-145)
[2022-09-17 06:06] LABS: Crenated RBC SLIGHT = 1-5 cells (100X) (None Seen); Lymphocytes 6 % (21-51); MDiff Complete? YES; Monocytes 13 % (0-10); Neutrophil 81 % (42-75); Ovalocytes SLIGHT = 2-5 cells (100X) (0-1/hpf); Platelet Morphology Comment Appears Adequate; Polychromasia SLIGHT = 2-3 cells (100X) (0-2/hpf)
[2022-09-17] MEDS: Ipratropium/Albuterol 3 ML NEB NEB SCH ×3 (06:34→22:17)
[2022-09-17] MEDS: Budesonide 0.5 MG/2 ML NEB NEB SCH ×2 (06:34→19:17)
[2022-09-17] MEDS: Arformoterol 15 MCG/2 ML NEB NEB SCH ×2 (06:34→19:17)
[2022-09-17] MEDS: Metoprolol Tartrate 25 MG TAB PO SCH ×2 (08:56→21:07)
[2022-09-17] MEDS: Apixaban 5 MG TAB PO SCH ×2 (08:56→21:07)
[2022-09-17] MEDS: predniSONE 20 MG TAB PO SCH (08:56)
[2022-09-17] MEDS: Polyethylene Glycol 3350 17 GM Packet PER TUBE SCH (08:57)
[2022-09-17] MEDS: Gabapentin 300 MG CAP PO SCH ×2 (08:57→21:07)
[2022-09-17] MEDS: Senokot S 8.6-50 MG TAB PO SCH ×2 (08:57→21:08)
[2022-09-17] MEDS: Amiodarone 200 MG TAB PO SCH (21:06)
[2022-09-17] MEDS: Montelukast Sodium 10 mg Tablet PO SCH (21:07)
[2022-09-17] MEDS: Atorvastatin Calcium 40 MG TAB PO SCH (21:07)
[2022-09-18] MEDS: Arformoterol 15 MCG/2 ML NEB NEB SCH ×2 (06:30→18:51)
[2022-09-18] MEDS: Ipratropium/Albuterol 3 ML NEB NEB SCH ×3 (06:30→18:52)
[2022-09-18] MEDS: Budesonide 0.5 MG/2 ML NEB NEB SCH ×2 (06:30→18:52)
[2022-09-18] MEDS: Apixaban 5 MG TAB PO SCH ×2 (09:02→20:01)
[2022-09-18] MEDS: Gabapentin 300 MG CAP PO SCH ×2 (09:02→20:02)
[2022-09-18] MEDS: predniSONE 20 MG TAB PO SCH (09:02)
[2022-09-18] MEDS: Metoprolol Tartrate 25 MG TAB PO SCH ×2 (09:02→20:02)
[2022-09-18] MEDS: Polyethylene Glycol 3350 17 GM Packet PER TUBE SCH (09:03)
[2022-09-18] MEDS: Senokot S 8.6-50 MG TAB PO SCH ×2 (09:03→20:03)
[2022-09-18] MEDS: Montelukast Sodium 10 mg Tablet PO SCH (20:01)
[2022-09-18] MEDS: Atorvastatin Calcium 40 MG TAB PO SCH (20:01)
[2022-09-18] MEDS: Amiodarone 200 MG TAB PO SCH (20:01)
[2022-09-19 04:24] LABS: #Lymphocytes 0.9 thou/uL (1.20-3.40); #Monocytes 1.2 thou/uL (0.11-0.59); #Neutrophils 10.3 thou/uL (1.40-6.50); %Basophils 0.2 % (0.0-1.0); %Eosinophils 0.3 % (0.0-10.0); %Lymphocytes 6.8 % (21.0-51.0); %Monocytes 9.9 % (0.0-10.0); %Neutrophils 82.9 % (42.0-75.0); Mean Corpuscular HGB CONC 31.8 g/dL (32.0-36.0); Mean Platelet Volume 8.9 fL (7.4-10.4); Platelet Count 176 10x3/uL (130-400); RBC Distribution Width 12.4 % (11.5-14.5); Red Blood Cell (RBC) Count 2.57 mill/uL (4.70-6.10); White Blood Cell (WBC) Count 12.4 10x3/uL (4.8-10.8)
[2022-09-19] MEDS: Budesonide 0.5 MG/2 ML NEB NEB SCH ×2 (07:18→18:24)
[2022-09-19] MEDS: Ipratropium/Albuterol 3 ML NEB NEB SCH ×3 (07:18→23:40)
[2022-09-19] MEDS: Arformoterol 15 MCG/2 ML NEB NEB SCH ×2 (07:18→18:23)
[2022-09-19 07:31] LABS: Anion Gap 8 mmol/L (10-20); BUN (Urea Nitrogen) 19 mg/dL (8.4-25.7); Calc. Creatinine Clearance 129 mL/min (70-130); Calcium 8.1 mg/dL (7.8-10.44); Carbon Dioxide 37 mmol/L (23-31); Chloride 99 mmol/L (98-107); Estimated GFR 95; Glucose 108 mg/dL (83-110); Magnesium 1.9 mg/dL (1.6-2.6); Phosphorus 1.9 mg/dL (2.3-4.7); Potassium 3.9 mmol/L (3.5-5.1); Sodium 140 mmol/L (136-145)
[2022-09-19] MEDS ORDERED: predniSONE 20 MG TAB PO SCH (08:00)
[2022-09-19] MEDS ORDERED: Magnesium 2 GM/50 ML(in water) 2 GM in Premix Bag 1 BAG IVPB SCH (09:00)
[2022-09-19] MEDS: Gabapentin 300 MG CAP PO SCH ×2 (09:54→20:36)
[2022-09-19] MEDS: PHOS-NAK 1 PKT PACK PO SCH ×2 (09:55→15:31)
[2022-09-19] MEDS: predniSONE 5 MG TAB PO SCH (09:55)
[2022-09-19] MEDS: Metoprolol Tartrate 25 MG TAB PO SCH ×2 (09:55→20:36)
[2022-09-19] MEDS: Senokot S 8.6-50 MG TAB PO SCH ×2 (09:55→20:36)
[2022-09-19] MEDS: Apixaban 5 MG TAB PO SCH ×2 (09:56→20:36)
[2022-09-19] MEDS: Polyethylene Glycol 3350 17 GM Packet PER TUBE SCH (09:56)
[2022-09-19] MEDS: Montelukast Sodium 10 mg Tablet PO SCH (20:36)
[2022-09-19] MEDS: Amiodarone 200 MG TAB PO SCH (20:36)
[2022-09-19] MEDS: Atorvastatin Calcium 40 MG TAB PO SCH (20:36)
[2022-09-20] MEDS: Arformoterol 15 MCG/2 ML NEB NEB SCH ×2 (06:08→18:24)
[2022-09-20] MEDS: Budesonide 0.5 MG/2 ML NEB NEB SCH ×2 (06:11→18:24)
[2022-09-20] MEDS: Ipratropium/Albuterol 3 ML NEB NEB SCH ×3 (06:11→18:24)
[2022-09-20 08:20] LABS: Phosphorus 2.1 mg/dL (2.3-4.7)
[2022-09-20 08:21] LABS: BUN (Urea Nitrogen) 18 mg/dL (8.4-25.7); Calc. Creatinine Clearance 121 mL/min (70-130); Calcium 8.4 mg/dL (7.8-10.44); Estimated GFR 94; Glucose 103 mg/dL (83-110)
[2022-09-20 08:30] LABS: Anion Gap 12 mmol/L (10-20); Carbon Dioxide 36 mmol/L (23-31); Chloride 99 mmol/L (98-107); Potassium 4.1 mmol/L (3.5-5.1); Sodium 143 mmol/L (136-145)
[2022-09-20] MEDS: Polyethylene Glycol 3350 17 GM Packet PER TUBE SCH (08:45)
[2022-09-20] MEDS: Apixaban 5 MG TAB PO SCH ×2 (08:45→21:10)
[2022-09-20] MEDS: Metoprolol Tartrate 25 MG TAB PO SCH ×2 (08:45→21:10)
[2022-09-20] MEDS: predniSONE 5 MG TAB PO SCH (08:45)
[2022-09-20] MEDS: Gabapentin 300 MG CAP PO SCH ×2 (08:45→21:10)
[2022-09-20] MEDS: Senokot S 8.6-50 MG TAB PO SCH ×2 (08:47→21:10)
[2022-09-20] MEDS: Montelukast Sodium 10 mg Tablet PO SCH (21:10)
[2022-09-20] MEDS: Amiodarone 200 MG TAB PO SCH (21:10)
[2022-09-20] MEDS: Atorvastatin Calcium 40 MG TAB PO SCH (21:10)
[2022-09-21 07:03] LABS: Anion Gap 11 mmol/L (10-20); BUN (Urea Nitrogen) 14 mg/dL (8.4-25.7); Calc. Creatinine Clearance 124 mL/min (70-130); Calcium 8.4 mg/dL (7.8-10.44); Carbon Dioxide 34 mmol/L (23-31); Chloride 100 mmol/L (98-107); Estimated GFR 94; Glucose 98 mg/dL (83-110); Potassium 4.3 mmol/L (3.5-5.1); Sodium 141 mmol/L (136-145)
[2022-09-21] MEDS: Ipratropium/Albuterol 3 ML NEB NEB SCH ×2 (07:27→14:04)
[2022-09-21] MEDS: Budesonide 0.5 MG/2 ML NEB NEB SCH ×2 (07:29→18:40)
[2022-09-21] MEDS: Arformoterol 15 MCG/2 ML NEB NEB SCH ×2 (07:30→18:39)
[2022-09-21] MEDS: predniSONE 5 MG TAB PO SCH (08:01)
[2022-09-21] MEDS: Polyethylene Glycol 3350 17 GM Packet PER TUBE SCH (08:01)
[2022-09-21] MEDS: Gabapentin 300 MG CAP PO SCH ×2 (08:02→20:24)
[2022-09-21] MEDS: Senokot S 8.6-50 MG TAB PO SCH ×2 (08:02→20:26)
[2022-09-21] MEDS: Metoprolol Tartrate 25 MG TAB PO SCH ×2 (08:02→20:26)
[2022-09-21] MEDS: Apixaban 5 MG TAB PO SCH ×2 (08:02→20:25)
[2022-09-21 12:58] VITALS: BMI 31.3
[2022-09-21] MEDS: Amiodarone 200 MG TAB PO SCH (20:24)
[2022-09-21] MEDS: Montelukast Sodium 10 mg Tablet PO SCH (20:25)
[2022-09-21] MEDS: Atorvastatin Calcium 40 MG TAB PO SCH (20:25)
[2022-09-21] MEDS: traZODone HCl 50 MG TAB PO PRN (20:26)
[2022-09-22] MEDS: Ipratropium/Albuterol 3 ML NEB NEB SCH ×4 (00:46→19:00)
[2022-09-22] MEDS: Arformoterol 15 MCG/2 ML NEB NEB SCH ×2 (07:10→19:00)
[2022-09-22] MEDS: Budesonide 0.5 MG/2 ML NEB NEB SCH ×2 (07:10→19:00)
[2022-09-22] MEDS: Metoprolol Tartrate 25 MG TAB PO SCH ×2 (08:06→20:40)
[2022-09-22] MEDS: Polyethylene Glycol 3350 17 GM Packet PER TUBE SCH (08:06)
[2022-09-22] MEDS: Gabapentin 300 MG CAP PO SCH ×2 (08:07→20:42)
[2022-09-22] MEDS: predniSONE 5 MG TAB PO SCH (08:07)
[2022-09-22] MEDS: Apixaban 5 MG TAB PO SCH ×2 (08:07→20:40)
[2022-09-22] MEDS: Senokot S 8.6-50 MG TAB PO SCH ×2 (08:07→20:41)
[2022-09-22] MEDS: Amiodarone 200 MG TAB PO SCH (20:40)
[2022-09-22] MEDS: Montelukast Sodium 10 mg Tablet PO SCH (20:40)
[2022-09-22] MEDS: traZODone HCl 50 MG TAB PO PRN (20:40)
[2022-09-22] MEDS: Atorvastatin Calcium 40 MG TAB PO SCH (20:41)
[2022-09-23] MEDS: Ipratropium/Albuterol 3 ML NEB NEB SCH ×3 (07:21→18:35)
[2022-09-23] MEDS: Budesonide 0.5 MG/2 ML NEB NEB SCH ×2 (07:21→18:35)
[2022-09-23] MEDS: Arformoterol 15 MCG/2 ML NEB NEB SCH ×2 (07:21→18:35)
[2022-09-23 07:25] LABS: #Eosinphils 0.1 thou/uL (0.0-0.7); #Lymphocytes 0.7 thou/uL (1.20-3.40); #Monocytes 0.8 thou/uL (0.11-0.59); #Neutrophils 8.2 thou/uL (1.40-6.50); %Basophils 0.1 % (0.0-1.0); %Lymphocytes 7.3 % (21.0-51.0); %Monocytes 8.4 % (0.0-10.0); %Neutrophils 83.2 % (42.0-75.0); Hemoglobin 8.1 g/dL (14.0-18.0); Mean Corpuscular HGB CONC 31.3 g/dL (32.0-36.0); Mean Corpuscular Hemoglobin 35.1 pg (27.0-31.0); Mean Platelet Volume 7.8 fL (7.4-10.4); Platelet Count 175 10x3/uL (130-400); RBC Distribution Width 13.1 % (11.5-14.5); Red Blood Cell (RBC) Count 2.31 mill/uL (4.70-6.10); White Blood Cell (WBC) Count 9.9 10x3/uL (4.8-10.8)
[2022-09-23 07:43] LABS: BUN (Urea Nitrogen) 16 mg/dL (8.4-25.7); Calc. Creatinine Clearance 129 mL/min (70-130)
[2022-09-23 07:44] LABS: Calcium 8.4 mg/dL (7.8-10.44); Estimated GFR 94; Glucose 129 mg/dL (83-110)
[2022-09-23 07:55] LABS: Anion Gap 17 mmol/L (10-20); Carbon Dioxide 30 mmol/L (23-31); Chloride 100 mmol/L (98-107); Potassium 4.2 mmol/L (3.5-5.1); Sodium 143 mmol/L (136-145)
[2022-09-23] MEDS: Gabapentin 300 MG CAP PO SCH ×2 (08:05→20:47)
[2022-09-23] MEDS: Polyethylene Glycol 3350 17 GM Packet PER TUBE SCH (08:05)
[2022-09-23] MEDS: predniSONE 5 MG TAB PO SCH (08:05)
[2022-09-23] MEDS: Metoprolol Tartrate 25 MG TAB PO SCH ×2 (08:06→20:47)
[2022-09-23] MEDS: Senokot S 8.6-50 MG TAB PO SCH ×2 (08:06→20:47)
[2022-09-23] MEDS: Apixaban 5 MG TAB PO SCH ×2 (08:06→20:47)
[2022-09-23] MEDS: Montelukast Sodium 10 mg Tablet PO SCH (20:46)
[2022-09-23] MEDS: Atorvastatin Calcium 40 MG TAB PO SCH (20:46)
[2022-09-23] MEDS: Amiodarone 200 MG TAB PO SCH (20:46)
[2022-09-23] MEDS: Nystatin Powder 15 GM BOT TOP SCH (20:47)
[2022-09-23] MEDS: traZODone HCl 50 MG TAB PO PRN (20:47)
[2022-09-24] MEDS: Arformoterol 15 MCG/2 ML NEB NEB SCH ×2 (07:10→19:10)
[2022-09-24] MEDS: Budesonide 0.5 MG/2 ML NEB NEB SCH ×2 (07:13→19:10)
[2022-09-24] MEDS: Ipratropium/Albuterol 3 ML NEB NEB SCH ×3 (07:13→19:10)
[2022-09-24 08:11] LABS: #Eosinphils 0.1 thou/uL (0.0-0.7); #Lymphocytes 0.8 thou/uL (1.20-3.40); #Monocytes 0.8 thou/uL (0.11-0.59); #Neutrophils 6.3 thou/uL (1.40-6.50); %Basophils 0.1 % (0.0-1.0); %Lymphocytes 9.4 % (21.0-51.0); %Monocytes 10.3 % (0.0-10.0); %Neutrophils 79.1 % (42.0-75.0); Hemoglobin 8.9 g/dL (14.0-18.0); Mean Corpuscular HGB CONC 31.1 g/dL (32.0-36.0); Mean Corpuscular Hemoglobin 35.2 pg (27.0-31.0); Mean Platelet Volume 7.6 fL (7.4-10.4); Platelet Count 206 10x3/uL (130-400); RBC Distribution Width 13.1 % (11.5-14.5); Red Blood Cell (RBC) Count 2.51 mill/uL (4.70-6.10)
[2022-09-24] MEDS: Metoprolol Tartrate 25 MG TAB PO SCH ×2 (08:18→20:20)
[2022-09-24] MEDS: Gabapentin 300 MG CAP PO SCH ×2 (08:18→20:21)
[2022-09-24] MEDS: Apixaban 5 MG TAB PO SCH ×2 (08:18→20:20)
[2022-09-24] MEDS: Polyethylene Glycol 3350 17 GM Packet PER TUBE SCH (08:18)
[2022-09-24] MEDS: predniSONE 5 MG TAB PO SCH (08:19)
[2022-09-24] MEDS: Senokot S 8.6-50 MG TAB PO SCH ×2 (08:19→20:21)
[2022-09-24] MEDS: Nystatin Powder 15 GM BOT TOP SCH ×2 (08:20→20:26)
[2022-09-24 08:35] LABS: BUN (Urea Nitrogen) 15 mg/dL (8.4-25.7); Calc. Creatinine Clearance 127 mL/min (70-130); Calcium 8.7 mg/dL (7.8-10.44); Estimated GFR 94; Glucose 107 mg/dL (83-110)
[2022-09-24 08:44] LABS: Anion Gap 9 mmol/L (10-20); Carbon Dioxide 40 mmol/L (23-31); Chloride 99 mmol/L (98-107); Potassium 4.2 mmol/L (3.5-5.1); Sodium 144 mmol/L (136-145)
[2022-09-24] MEDS: Simethicone Chewable 80 MG TAB PO PRN (11:28)
[2022-09-24] MEDS: Atorvastatin Calcium 40 MG TAB PO SCH (20:19)
[2022-09-24] MEDS: Amiodarone 200 MG TAB PO SCH (20:20)
[2022-09-24] MEDS: Montelukast Sodium 10 mg Tablet PO SCH (20:21)
[2022-09-25 06:21] LABS: #Eosinphils 0.1 thou/uL (0.0-0.7); #Lymphocytes 0.6 thou/uL (1.20-3.40); #Monocytes 0.7 thou/uL (0.11-0.59); #Neutrophils 5.9 thou/uL (1.40-6.50); %Basophils 0.2 % (0.0-1.0); %Eosinophils 1.1 % (0.0-10.0); %Lymphocytes 8.6 % (21.0-51.0); %Monocytes 10.1 % (0.0-10.0); Hemoglobin 8.1 g/dL (14.0-18.0); Mean Corpuscular HGB CONC 31.1 g/dL (32.0-36.0); Mean Corpuscular Hemoglobin 34.8 pg (27.0-31.0); Mean Platelet Volume 7.5 fL (7.4-10.4); Platelet Count 188 10x3/uL (130-400); RBC Distribution Width 13.1 % (11.5-14.5); Red Blood Cell (RBC) Count 2.32 mill/uL (4.70-6.10); White Blood Cell (WBC) Count 7.3 10x3/uL (4.8-10.8)
[2022-09-25 06:40] LABS: BUN (Urea Nitrogen) 16 mg/dL (8.4-25.7); Calc. Creatinine Clearance 124 mL/min (70-130); Calcium 8.6 mg/dL (7.8-10.44); Estimated GFR 94; Glucose 130 mg/dL (83-110)
[2022-09-25 06:48] LABS: Anion Gap 17 mmol/L (10-20); Carbon Dioxide 31 mmol/L (23-31); Chloride 97 mmol/L (98-107); Sodium 141 mmol/L (136-145)
[2022-09-25] MEDS: Arformoterol 15 MCG/2 ML NEB NEB SCH (06:58)
[2022-09-25] MEDS: Budesonide 0.5 MG/2 ML NEB NEB SCH (06:59)
[2022-09-25] MEDS: Ipratropium/Albuterol 3 ML NEB NEB SCH (06:59)
[2022-09-25] MEDS: Polyethylene Glycol 3350 17 GM Packet PER TUBE SCH (08:57)
[2022-09-25] MEDS: Gabapentin 300 MG CAP PO SCH (08:58)
[2022-09-25] MEDS: Senokot S 8.6-50 MG TAB PO SCH (08:59)
[2022-09-25] MEDS: predniSONE 5 MG TAB PO SCH (08:59)
[2022-09-25] MEDS: Metoprolol Tartrate 25 MG TAB PO SCH (09:00)
[2022-09-25] MEDS: Apixaban 5 MG TAB PO SCH (09:00)
[2022-09-25] MEDS: Nystatin Powder 15 GM BOT TOP SCH (09:01)
[2022-09-25 11:58] VITALS: TEMP 98
[2022-09-25 13:19] VITALS: BP 117/69
== END 2022-09-25 12:24 | DRG 871 ==
LOC: ERS 06:33 → CCU 10:18 → IMCU/EMU 09-13 17:45 → T4-B 09-19 22:12
PROVIDERS: ADMIT Internal Medicine; ATTEND Internal Medicine
PROC: 5A1945Z Respiratory Ventilation, 24-96 Consecutive Hours (ICD-10-PCS; principal; 2022-09-08)
PROC: 0BH17EZ Insertion of Endotracheal Airway into Trachea, Via Natural or Artificial Opening (ICD-10-PCS; 2022-09-08)
PROC: 02HV33Z Insertion of Infusion Device into Superior Vena Cava, Percutaneous Approach (ICD-10-PCS; 2022-09-08)
PROC: B548ZZA Ultrasonography of Superior Vena Cava, Guidance (ICD-10-PCS; 2022-09-08)
PROC: 3E043XZ Introduction of Vasopressor into Central Vein, Percutaneous Approach (ICD-10-PCS; 2022-09-08)
PROC: 3E0433Z Introduction of Anti-inflammatory into Central Vein, Percutaneous Approach (ICD-10-PCS; 2022-09-08)
PROC: 4A133R1 Monitoring of Arterial Saturation, Peripheral, Percutaneous Approach (ICD-10-PCS; 2022-09-08)
DX: A41.9 Sepsis, unspecified organism (principal); G93.41 Metabolic encephalopathy; I21.A1 Myocardial infarction type 2; R65.21 Severe sepsis with septic shock; J96.21 Acute and chronic respiratory failure with hypoxia; J96.22 Acute and chronic respiratory failure with hypercapnia; J18.9 Pneumonia, unspecified organism; R57.8 Other shock; I13.0 Hypertensive heart and chronic kidney disease with heart failure and stage 1 through stage 4 chronic kidney disease, or unspecified chronic kidney disease; I50.32 Chronic diastolic (congestive) heart failure; N17.9 Acute kidney failure, unspecified; J44.1 Chronic obstructive pulmonary disease with (acute) exacerbation; J98.11 Atelectasis; J44.0 Chronic obstructive pulmonary disease with (acute) lower respiratory infection; E87.0 Hyperosmolality and hypernatremia; Z51.5 Encounter for palliative care; Z20.822 Contact with and (suspected) exposure to COVID-19; I48.91 Unspecified atrial fibrillation; I27.20 Pulmonary hypertension, unspecified; K21.9 Gastro-esophageal reflux disease without esophagitis; H40.9 Unspecified glaucoma; D50.9 Iron deficiency anemia, unspecified; E78.5 Hyperlipidemia, unspecified; N18.2 Chronic kidney disease, stage 2 (mild); E87.5 Hyperkalemia; E66.9 Obesity, unspecified; E88.09 Other disorders of plasma-protein metabolism, not elsewhere classified; E83.39 Other disorders of phosphorus metabolism; Z79.51 Long term (current) use of inhaled steroids; Z79.01 Long term (current) use of anticoagulants; Z95.5 Presence of coronary angioplasty implant and graft; Z90.09 Acquired absence of other part of head and neck; Z78.1 Physical restraint status; Z87.891 Personal history of nicotine dependence; Z68.31 Body mass index [BMI] 31.0-31.9, adult
CPT/HCPCS: 36415; 36416; 36556; 36600; 51702; 70450; 71045; 71275; 74230; 80048; 80053; 80202; 81003; 81015; 82553; 82805; 83605; 83735; 83880; 84100; 84484; 85025; 87086; 87811; 93005; 93010; 94002; 94003; 94640; 94644; 94660; 96365; 96366; 96368; 96375; 99292; C9113; J0611; J0692; J0696; J1815; J2001; J2185; J2250; J2704; J2920; J3010; J3370; J3370-JW; J3475; J3490; J7030; J7512; J7611; J7620; J7626; J7999; Q9967; U0002

== ENCOUNTER 2022-10-24 20:15 | Inpatient (IN) | payer MEDICARE, MEDICAID ==
[2022-10-24] MEDS ORDERED: Cefepime 2 GM VIAL ONE (21:15)
[2022-10-24] MEDS ORDERED: Vancomycin 1 GM/200 ML (FROZEN) BAG ONE (21:15)
[2022-10-24 21:16] LABS: #Basophils 0.1 thou/uL (0.0-0.2); #Lymphocytes 1.6 thou/uL (1.20-3.40); #Monocytes 0.6 thou/uL (0.11-0.59); #Neutrophils 10.8 thou/uL (1.40-6.50); %Basophils 0.4 % (0.0-1.0); %Eosinophils 0.3 % (0.0-10.0); %Lymphocytes 12.3 % (21.0-51.0); %Monocytes 4.9 % (0.0-10.0); %Neutrophils 82.1 % (42.0-75.0); Hemoglobin 9.6 g/dL (14.0-18.0); Mean Platelet Volume 7.7 fL (7.4-10.4); Platelet Count 292 10x3/uL (130-400); RBC Distribution Width 14.8 % (11.5-14.5); Red Blood Cell (RBC) Count 2.74 mill/uL (4.70-6.10); White Blood Cell (WBC) Count 13.1 10x3/uL (4.8-10.8)
[2022-10-24 21:28] LABS: ALT (SGPT) 11 U/L (8-55); AST (SGOT) 9 U/L (5-34); Albumin 3.5 g/dL (3.4-4.8); Alkaline Phosphatase 94 U/L (40-110); BUN (Urea Nitrogen) 12 mg/dL (8.4-25.7); Bilirubin, Total 0.6 mg/dL (0.2-1.2); Calc. Creatinine Clearance 0 mL/min (70-130); Calcium 9.4 mg/dL (7.8-10.44); Estimated GFR 72; Globulin 2.9 g/dL (2.4-3.5); Glucose 146 mg/dL (83-110); Protein, Total 6.4 g/dL (5.8-8.1)
[2022-10-24 21:38] LABS: Anion Gap 15 mmol/L (10-20); Carbon Dioxide 38 mmol/L (23-31); Chloride 96 mmol/L (98-107); Potassium 3.9 mmol/L (3.5-5.1); Sodium 145 mmol/L (136-145)
[2022-10-24 21:49] LABS: CKMB 1.5 ng/mL (0-6.6)
[2022-10-25] MEDS ORDERED: Simethicone Chewable 80 MG TAB PO PRN (00:30)
[2022-10-25] MEDS ORDERED: Senokot S 8.6-50 MG TAB PO PRN (00:37)
[2022-10-25] MEDS ORDERED: Acetaminophen 325 MG TAB PO PRN (00:37)
[2022-10-25] MEDS ORDERED: methylPREDNISolone Sod Succ 40 MG VIAL IVP SCH (00:45)
[2022-10-25 00:51] LABS: Lactic Acid 1.3 mmol/L (0.5-2.2)
[2022-10-25 01:17] LABS: Troponin I 0.052 ng/mL (< 0.028)
[2022-10-25] MEDS: Doxycycline 100 MG CAP PO SCH ×4 (01:19→21:31)
[2022-10-25 03:57] LABS: Troponin I 0.053 ng/mL (< 0.028)
[2022-10-25 04:42] LABS: #Lymphocytes 0.8 thou/uL (1.20-3.40); #Monocytes 0.1 thou/uL (0.11-0.59); #Neutrophils 12.2 thou/uL (1.40-6.50); %Eosinophils 0.3 % (0.0-10.0); %Monocytes 0.6 % (0.0-10.0); Hemoglobin 10.1 g/dL (14.0-18.0); Mean Corpuscular HGB CONC 31.4 g/dL (32.0-36.0); Mean Corpuscular Hemoglobin 35.2 pg (27.0-31.0); Mean Platelet Volume 7.6 fL (7.4-10.4); Platelet Count 317 10x3/uL (130-400); RBC Distribution Width 14.7 % (11.5-14.5); Red Blood Cell (RBC) Count 2.88 mill/uL (4.70-6.10); White Blood Cell (WBC) Count 13.1 10x3/uL (4.8-10.8)
[2022-10-25 04:58] LABS: BUN (Urea Nitrogen) 13 mg/dL (8.4-25.7); Calc. Creatinine Clearance 97 mL/min (70-130); Calcium 9.3 mg/dL (7.8-10.44); Estimated GFR 86; Glucose 225 mg/dL (83-110)
[2022-10-25 05:07] LABS: Anion Gap 18 mmol/L (10-20); Carbon Dioxide 32 mmol/L (23-31); Chloride 94 mmol/L (98-107); Potassium 4.6 mmol/L (3.5-5.1); Sodium 139 mmol/L (136-145)
[2022-10-25] MEDS ORDERED: Ferrous Sulfate 325 MG TAB PO SCH ×2 (08:00→14:30)
[2022-10-25] MEDS: Ipratropium/Albuterol 3 ML NEB NEB SCH ×3 (08:10→23:29)
[2022-10-25] MEDS: Mometasone 100 MCG/PUFF (1 INHALER) INH SCH ×2 (08:18→18:42)
[2022-10-25] MEDS ORDERED: Non-Formulary Item 1 EACH (Fluticasone/Umeclidin/Vilanter [Trelegy Ellipta 100-62.5-25] 1 INH SCH (09:00)
[2022-10-25] MEDS ORDERED: Doxycycline 100 MG CAP PO SCH (09:00)
[2022-10-25] MEDS: Polyethylene Glycol 3350 17 GM Packet PO SCH (10:20)
[2022-10-25] MEDS: Montelukast Sodium 10 mg Tablet PO SCH (10:20)
[2022-10-25] MEDS: Furosemide 40 MG TAB PO SCH (10:20)
[2022-10-25] MEDS: Famotidine 20 MG TAB PO SCH ×2 (10:22→21:30)
[2022-10-25] MEDS: Apixaban 2.5 MG TAB PO SCH ×2 (10:22→21:30)
[2022-10-25] MEDS: Gabapentin 300 MG CAP PO SCH ×2 (10:22→21:30)
[2022-10-25] MEDS: Amlodipine 5 MG TAB PO SCH (10:23)
[2022-10-25] MEDS: methylPREDNISolone Sod Succ 40 MG VIAL IVP SCH ×2 (10:24→21:31)
[2022-10-25] MEDS: Amiodarone 200 MG TAB PO SCH (21:29)
[2022-10-25] MEDS: Tamsulosin HCl 0.4 MG CAP PO SCH (21:30)
[2022-10-25] MEDS: Atorvastatin Calcium 20 MG TAB PO SCH (21:30)
[2022-10-25] MEDS: Melatonin 3 MG TAB PO PRN (21:35)
[2022-10-26] MEDS: Ipratropium/Albuterol 3 ML NEB NEB SCH ×2 (08:35→15:56)
[2022-10-26] MEDS: Mometasone 100 MCG/PUFF (1 INHALER) INH SCH ×2 (08:35→19:14)
[2022-10-26] MEDS: Polyethylene Glycol 3350 17 GM Packet PO SCH (09:16)
[2022-10-26] MEDS: Furosemide 40 MG TAB PO SCH (09:18)
[2022-10-26] MEDS: Ferrous Sulfate 325 MG TAB PO SCH (09:19)
[2022-10-26] MEDS: Amlodipine 5 MG TAB PO SCH (09:20)
[2022-10-26] MEDS: Apixaban 2.5 MG TAB PO SCH ×2 (09:21→20:48)
[2022-10-26] MEDS: Famotidine 20 MG TAB PO SCH ×2 (09:21→20:46)
[2022-10-26] MEDS: Gabapentin 300 MG CAP PO SCH ×2 (09:22→20:47)
[2022-10-26] MEDS: Montelukast Sodium 10 mg Tablet PO SCH (09:23)
[2022-10-26] MEDS: methylPREDNISolone Sod Succ 40 MG VIAL IVP SCH ×2 (09:23→20:49)
[2022-10-26] MEDS: Doxycycline 100 MG CAP PO SCH ×2 (09:24→20:46)
[2022-10-26] MEDS: Morphine 2 MG/ML VIAL SLOW IVP PRN ×2 (10:02→20:49)
[2022-10-26 14:42] VITALS: BMI 29.3
[2022-10-26] MEDS: Tamsulosin HCl 0.4 MG CAP PO SCH (20:47)
[2022-10-26] MEDS: Melatonin 3 MG TAB PO PRN (20:49)
[2022-10-26] MEDS: Atorvastatin Calcium 20 MG TAB PO SCH (20:49)
[2022-10-26] MEDS: Amiodarone 200 MG TAB PO SCH (20:49)
[2022-10-26] MEDS: Albuterol HFA (OR) 200 PUFF INH INH SCH (22:20)
[2022-10-26] MEDS: Ipratropium 200 Puff Oral Inhaler INH SCH (22:20)
[2022-10-27] MEDS: Mometasone 100 MCG/PUFF (1 INHALER) INH SCH ×2 (07:30→19:00)
[2022-10-27] MEDS: Ipratropium 200 Puff Oral Inhaler INH SCH ×3 (07:30→18:59)
[2022-10-27] MEDS: Albuterol HFA (OR) 200 PUFF INH INH SCH ×3 (07:30→18:59)
[2022-10-27] MEDS: Ferrous Sulfate 325 MG TAB PO SCH (08:30)
[2022-10-27] MEDS: Furosemide 40 MG TAB PO SCH (08:30)
[2022-10-27] MEDS: Gabapentin 300 MG CAP PO SCH ×2 (08:31→20:47)
[2022-10-27] MEDS: Montelukast Sodium 10 mg Tablet PO SCH (08:31)
[2022-10-27] MEDS: methylPREDNISolone Sod Succ 40 MG VIAL IVP SCH ×3 (08:31→20:47)
[2022-10-27] MEDS: Amlodipine 5 MG TAB PO SCH (08:31)
[2022-10-27] MEDS: Polyethylene Glycol 3350 17 GM Packet PO SCH (08:31)
[2022-10-27] MEDS: Apixaban 2.5 MG TAB PO SCH ×2 (08:31→20:45)
[2022-10-27] MEDS: Famotidine 20 MG TAB PO SCH ×2 (08:31→20:45)
[2022-10-27] MEDS: Doxycycline 100 MG CAP PO SCH ×2 (08:32→22:57)
[2022-10-27] MEDS: Amiodarone 200 MG TAB PO SCH (20:45)
[2022-10-27] MEDS: Atorvastatin Calcium 20 MG TAB PO SCH (20:45)
[2022-10-27] MEDS: Tamsulosin HCl 0.4 MG CAP PO SCH (20:46)
[2022-10-27] MEDS: HYDROcodone/Acetaminophen 10/325 mg Tablet PO PRN (23:43)
[2022-10-28] MEDS: Albuterol HFA (OR) 200 PUFF INH INH SCH ×3 (07:17→18:38)
[2022-10-28] MEDS: Ipratropium 200 Puff Oral Inhaler INH SCH ×3 (07:17→18:37)
[2022-10-28] MEDS: Mometasone 100 MCG/PUFF (1 INHALER) INH SCH ×2 (07:17→18:38)
[2022-10-28] MEDS: methylPREDNISolone Sod Succ 40 MG VIAL IVP SCH ×2 (09:03→20:48)
[2022-10-28] MEDS: Amlodipine 5 MG TAB PO SCH (09:04)
[2022-10-28] MEDS: Doxycycline 100 MG CAP PO SCH ×2 (09:04→20:49)
[2022-10-28] MEDS: Gabapentin 300 MG CAP PO SCH ×2 (09:04→20:48)
[2022-10-28] MEDS: Montelukast Sodium 10 mg Tablet PO SCH (09:04)
[2022-10-28] MEDS: Furosemide 40 MG TAB PO SCH (09:04)
[2022-10-28] MEDS: Polyethylene Glycol 3350 17 GM Packet PO SCH (09:05)
[2022-10-28] MEDS: Ferrous Sulfate 325 MG TAB PO SCH (09:05)
[2022-10-28] MEDS: Famotidine 20 MG TAB PO SCH ×2 (09:05→20:48)
[2022-10-28] MEDS: Apixaban 2.5 MG TAB PO SCH ×2 (09:05→20:48)
[2022-10-28] MEDS: HYDROcodone/Acetaminophen 10/325 mg Tablet PO PRN ×2 (11:11→20:52)
[2022-10-28] MEDS: Amiodarone 200 MG TAB PO SCH (20:48)
[2022-10-28] MEDS: Atorvastatin Calcium 20 MG TAB PO SCH (20:48)
[2022-10-28] MEDS: Melatonin 3 MG TAB PO PRN (20:49)
[2022-10-28] MEDS: Tamsulosin HCl 0.4 MG CAP PO SCH (20:49)
[2022-10-29] MEDS: Albuterol HFA (OR) 200 PUFF INH INH SCH (07:16)
[2022-10-29] MEDS: Mometasone 100 MCG/PUFF (1 INHALER) INH SCH (07:17)
[2022-10-29] MEDS: Ipratropium 200 Puff Oral Inhaler INH SCH (07:17)
[2022-10-29 07:27] VITALS: TEMP 97.4
[2022-10-29] MEDS ORDERED: predniSONE 20 MG TAB PO SCH (08:00)
[2022-10-29] MEDS: Furosemide 40 MG TAB PO SCH (08:47)
[2022-10-29] MEDS: Montelukast Sodium 10 mg Tablet PO SCH (08:47)
[2022-10-29] MEDS: Gabapentin 300 MG CAP PO SCH (08:48)
[2022-10-29] MEDS: Ferrous Sulfate 325 MG TAB PO SCH (08:48)
[2022-10-29] MEDS: Doxycycline 100 MG CAP PO SCH (08:48)
[2022-10-29] MEDS: Amlodipine 5 MG TAB PO SCH (08:48)
[2022-10-29] MEDS: Apixaban 2.5 MG TAB PO SCH (08:48)
[2022-10-29] MEDS: Famotidine 20 MG TAB PO SCH (08:49)
[2022-10-29] MEDS: Polyethylene Glycol 3350 17 GM Packet PO SCH (08:49)
[2022-10-29 17:04] VITALS: BP 118/62
== END 2022-10-29 13:45 | disposition home or self-care (01) | DRG 189 ==
LOC: ERS 20:15 → ERHOLD 23:43 → 2NO 10-25 02:26 → OBSVTOIN 10-25 15:11
PROVIDERS: ADMIT Student in an Organized Health Care Education/Training Program; ATTEND Family Medicine
PROC: 5A09357 Assistance with Respiratory Ventilation, Less than 24 Consecutive Hours, Continuous Positive Airway Pressure (ICD-10-PCS; principal; 2022-10-25)
DX: J96.21 Acute and chronic respiratory failure with hypoxia (principal); I50.32 Chronic diastolic (congestive) heart failure; J44.1 Chronic obstructive pulmonary disease with (acute) exacerbation; I11.0 Hypertensive heart disease with heart failure; N40.0 Benign prostatic hyperplasia without lower urinary tract symptoms; K21.9 Gastro-esophageal reflux disease without esophagitis; E78.5 Hyperlipidemia, unspecified; I48.0 Paroxysmal atrial fibrillation; Z79.899 Other long term (current) drug therapy; Z79.01 Long term (current) use of anticoagulants; Z99.81 Dependence on supplemental oxygen; Z90.49 Acquired absence of other specified parts of digestive tract; Z98.890 Other specified postprocedural states
CPT/HCPCS: 36415; 71045; 80048; 80053; 82553; 83605; 83880; 84484; 85025; 87040; 93005; 94640; 94660; 96365; 96367; 96375; 97139; G0378; J0692; J2272; J2920; J3370-JW; J7512; J7620

== ENCOUNTER 2023-07-15 13:39 | Inpatient (IN) | payer MEDICARE, MEDICAID ==
[2023-07-15] MEDS ORDERED: Furosemide 40 MG (4 mL) VIAL ONE (14:09)
[2023-07-15 15:29] LABS: #Monocytes 0.7 thou/uL (0.11-0.59); #Neutrophils 12.1 thou/uL (1.40-6.50); %Basophils 0.1 % (0.0-1.0); %Eosinophils 0.2 % (0.0-10.0); %Lymphocytes 6.6 % (21.0-51.0); %Monocytes 4.7 % (0.0-10.0); %Neutrophils 87.7 % (42.0-75.0); Hematocrit 35.6 % (42.0-52.0); Hemoglobin 10.5 g/dL (14.0-18.0); Mean Corpuscular HGB CONC 29.5 g/dL (32.0-36.0); Mean Corpuscular Hemoglobin 34.8 pg (27.0-31.0); Mean Corpuscular Volume 117.9 fl (78.0-98.0); Mean Platelet Volume 10.1 fL (7.4-10.4); Platelet Count 258 10x3/uL (130-400); RBC Distribution Width 12.9 % (11.5-14.5); Red Blood Cell (RBC) Count 3.02 mill/uL (4.70-6.10); White Blood Cell (WBC) Count 13.8 10x3/uL (4.8-10.8)
[2023-07-15 15:47] LABS: ALT (SGPT) 13 U/L (8-55); AST (SGOT) 24 U/L (5-34); Albumin 3.9 g/dL (3.4-4.8); Alkaline Phosphatase 114 U/L (40-110); Anion Gap 15 mmol/L (10-20); BUN (Urea Nitrogen) 20 mg/dL (8.4-25.7); Bilirubin, Total 0.5 mg/dL (0.2-1.2); Calc. Creatinine Clearance 0 mL/min (70-130); Carbon Dioxide 37 mmol/L (23-31); Chloride 93 mmol/L (98-107); Estimated GFR 46; Globulin 3.6 g/dL (2.4-3.5); Glucose 108 mg/dL (83-110); Potassium 4.1 mmol/L (3.5-5.1); Protein, Total 7.5 g/dL (5.8-8.1); Sodium 141 mmol/L (136-145)
[2023-07-15] MEDS ORDERED: Azithromycin 500 MG VIAL ONE (16:28)
[2023-07-15] MEDS ORDERED: Sodium Chloride 0.9% 100 ML ONE (16:28)
[2023-07-15] MEDS ORDERED: cefTRIAXone (ROCEPHIN) 2 GM VIAL ONE (16:28)
[2023-07-15 16:48] LABS: Macrocytosis MODERATE=16-30 cells (100X) (0-5/hpf)
[2023-07-15] MEDS ORDERED: Ipratropium/Albuterol 3 ML NEB ONE (16:56)
[2023-07-15] MEDS ORDERED: Albuterol 2.5 MG (3 mL) NEB ONE (16:57)
[2023-07-15] MEDS ORDERED: Ipratropium Bromide 2.5 ml Neb ONE (16:58)
[2023-07-15 17:02] LABS: Base Excess 15.3 mEq/L (-2.0 to +3.0); Calcium, Ionized (venous) 1.07 mmol/L (1.16-1.32); Chloride (VBG) 93 mmol/L (98-106); Hematocrit-VBG 34 % (42.0-52.0); Hemoglobin (Hb) 11.5 g/dL (12.6-17.4); Potassium (VBG) 4.87 mmol/L (3.70-5.30); Sodium 144 mmol/L (133-146); pH (venous) 7.311 (7.32-7.43)
[2023-07-15 17:05] LABS: Actual Bicarbonate (HCO3v) 45.2 mEq/L (22-28)
[2023-07-15] MEDS ORDERED: Etomidate 40 MG (20 mL) VIAL ONE (17:22)
[2023-07-15] MEDS ORDERED: Rocuronium Bromide 10 MG/ML (10ML VIAL) ONE (17:22)
[2023-07-15] MEDS ORDERED: Ondansetron PF 4 MG/2 ML Vial IVP PRN (17:28)
[2023-07-15] MEDS ORDERED: Electrolyte Replacement Protocol 1 EACH IVPB SCH (17:28)
[2023-07-15 17:51] LABS: Actual Bicarbonate (HCO3a) 39.8 mEq/L (22-28); Base Excess (BEa) 11.9 mEq/L (-2.0 to +3.0); Carboxyhemoglobin (COHb) 0.9 gm% (0.0-3.0); Hematocrit-ABG 34 % (42.0-52.0); Hemoglobin (Hb) 11.4 g/dL (14.0-18.0); Potassium - ABG Lab 4.56 mmol/L (3.70-5.30); pH, Arterial 7.365 (7.35-7.45)
[2023-07-15] MEDS ORDERED: Propofol 1,000 MG/100 ML VIAL IV ONE ×2 (17:51→20:53)
[2023-07-15 17:52] LABS: ALV-art Gradient 299.875 mmHg (0-20); CO2 Tension 71.3 mmHg (35.0-45.0); Puncture Site Right Radial
[2023-07-15] MEDS ORDERED: methylPREDNISolone Sod Succ 40 MG VIAL IVP SCH (18:00)
[2023-07-15 18:22] LABS: SARS-CoV-2 NAA Rapid Test Not Detected (NotDetected)
[2023-07-15] MEDS: Ipratropium/Albuterol 3 ML NEB NEB SCH ×2 (19:47→22:50)
[2023-07-15] MEDS ORDERED: Lorazepam 2 MG/ML VIAL ONE (20:48)
[2023-07-15] MEDS: Lorazepam 2 MG/ML VIAL SLOW IVP PRN (20:48)
[2023-07-15] MEDS: Propofol 1,000 MG/100 ML VIAL IV PRN (20:56)
[2023-07-15] MEDS: methylPREDNISolone Sod Succ 40 MG VIAL IVP SCH (20:57)
[2023-07-15] MEDS: Furosemide 40 MG (4 mL) VIAL SLOW IVP SCH (20:57)
[2023-07-15] MEDS: Apixaban 2.5 MG TAB PO SCH (20:57)
[2023-07-15] MEDS: Famotidine/PF 20 mg/2ml Vial SLOW IVP SCH (20:57)
[2023-07-15] MEDS: Amiodarone 200 MG TAB PO SCH (20:57)
[2023-07-15] MEDS: Tamsulosin HCl 0.4 MG CAP PO SCH (20:58)
[2023-07-15] MEDS ORDERED: Fentanyl BOLUS 250 ML IVPB PRN (21:00)
[2023-07-15] MEDS ORDERED: Morphine 2 MG/ML VIAL SLOW IVP PRN (21:00)
[2023-07-15] MEDS ORDERED: DISCONTINUE PREVIOUS NARCOTIC PAIN MEDICATIONS AND BENZODIAZEPINES FS SCH (21:00)
[2023-07-15] MEDS ORDERED: Propofol BOLUS 1,000 MG/100 ML VIAL IV PRN (21:00)
[2023-07-15] MEDS ORDERED: Fentanyl CADD 100 ML IV SCH (21:00)
[2023-07-16] MEDS: Propofol 1,000 MG/100 ML VIAL IV PRN ×7 (00:11→22:18)
[2023-07-16] MEDS: Lorazepam 2 MG/ML VIAL SLOW IVP PRN ×2 (00:25→14:37)
[2023-07-16] MEDS: Ipratropium/Albuterol 3 ML NEB NEB SCH ×6 (02:46→23:14)
[2023-07-16] MEDS: methylPREDNISolone Sod Succ 40 MG VIAL IVP SCH ×4 (03:14→21:10)
[2023-07-16] MEDS: Furosemide 40 MG (4 mL) VIAL SLOW IVP SCH ×2 (08:58→21:10)
[2023-07-16] MEDS: Apixaban 2.5 MG TAB PO SCH ×2 (08:59→21:10)
[2023-07-16 10:32] LABS: #Monocytes 0.7 thou/uL (0.11-0.59); #Neutrophils 9.3 thou/uL (1.40-6.50); %Basophils 0.1 % (0.0-1.0); %Monocytes 6.7 % (0.0-10.0); %Neutrophils 86.8 % (42.0-75.0); Hematocrit 30.9 % (42.0-52.0); Hemoglobin 9.4 g/dL (14.0-18.0); Mean Corpuscular HGB CONC 30.4 g/dL (32.0-36.0); Mean Corpuscular Hemoglobin 33.8 pg (27.0-31.0); Mean Platelet Volume 9.9 fL (7.4-10.4); Platelet Count 236 10x3/uL (130-400); RBC Distribution Width 12.8 % (11.5-14.5); Red Blood Cell (RBC) Count 2.78 mill/uL (4.70-6.10); White Blood Cell (WBC) Count 10.7 10x3/uL (4.8-10.8)
[2023-07-16 10:35] LABS: Mean Corpuscular Volume 111.2 fl (78.0-98.0)
[2023-07-16 10:52] LABS: Macrocytosis SLIGHT = 6-15 cells (100X) (0-5/hpf)
[2023-07-16 10:57] LABS: ALT (SGPT) 11 U/L (8-55); AST (SGOT) 16 U/L (5-34); Albumin 3.3 g/dL (3.4-4.8); Alkaline Phosphatase 94 U/L (40-110); BUN (Urea Nitrogen) 30 mg/dL (8.4-25.7); Bilirubin, Total 0.5 mg/dL (0.2-1.2); Calc. Creatinine Clearance 70 mL/min (70-130); Calcium 8.7 mg/dL (7.8-10.44); Estimated GFR 47; Globulin 3.2 g/dL (2.4-3.5); Glucose 158 mg/dL (83-110); Protein, Total 6.5 g/dL (5.8-8.1)
[2023-07-16 11:03] LABS: Carbon Dioxide Greater than 37 mmol/L (23-31); Chloride 95 mmol/L (98-107); Potassium 3.9 mmol/L (3.5-5.1); Sodium 144 mmol/L (136-145)
[2023-07-16] MEDS: Scopolamine 1 mg/72 hour Patch TD SCH (14:37)
[2023-07-16] MEDS: Azithromycin 500 MG in Sodium Chloride 0.9% 250 ML 250 ML IVPB SCH (14:44)
[2023-07-16] MEDS: cefTRIAXone\\ROCEPHIN 1 GM in Sodium Chloride 0.9% 100 ML IVPB SCH (16:42)
[2023-07-16] MEDS: Budesonide 0.25 MG/2 ML NEB INH SCH (18:36)
[2023-07-16] MEDS: Tamsulosin HCl 0.4 MG CAP PO SCH (21:10)
[2023-07-16] MEDS: Famotidine/PF 20 mg/2ml Vial SLOW IVP SCH (21:10)
[2023-07-16] MEDS: Amiodarone 200 MG TAB PO SCH (21:10)
[2023-07-16] MEDS: Insulin Regular 300 UNITS/3 ML VIAL SC PRN (22:22)
[2023-07-17] MEDS: Propofol 1,000 MG/100 ML VIAL IV PRN ×2 (01:57→05:45)
[2023-07-17] MEDS: Lorazepam 2 MG/ML VIAL SLOW IVP PRN (02:05)
[2023-07-17] MEDS: methylPREDNISolone Sod Succ 40 MG VIAL IVP SCH ×3 (02:06→20:36)
[2023-07-17] MEDS: Ipratropium/Albuterol 3 ML NEB NEB SCH ×6 (02:20→22:02)
[2023-07-17 04:26] LABS: ALT (SGPT) 11 U/L (8-55); AST (SGOT) 23 U/L (5-34); Albumin 3.3 g/dL (3.4-4.8); Alkaline Phosphatase 97 U/L (40-110); Anion Gap 19 mmol/L (10-20); BUN (Urea Nitrogen) 37 mg/dL (8.4-25.7); Bilirubin, Total 0.5 mg/dL (0.2-1.2); Calc. Creatinine Clearance 65 mL/min (70-130); Calcium 8.5 mg/dL (7.8-10.44); Carbon Dioxide 31 mmol/L (23-31); Chloride 97 mmol/L (98-107); Estimated GFR 43; Globulin 3.8 g/dL (2.4-3.5); Glucose 146 mg/dL (83-110); Potassium 4.5 mmol/L (3.5-5.1); Protein, Total 7.1 g/dL (5.8-8.1); Sodium 142 mmol/L (136-145)
[2023-07-17] MEDS: Budesonide 0.25 MG/2 ML NEB INH SCH ×2 (06:26→18:53)
[2023-07-17 07:11] LABS: #Neutrophils 13.9 thou/uL (1.40-6.50); %Basophils 0.2 % (0.0-1.0); %Lymphocytes 5.5 % (21.0-51.0); %Neutrophils 86.7 % (42.0-75.0); Hematocrit 36.9 % (42.0-52.0); Hemoglobin 11.8 g/dL (14.0-18.0); Mean Corpuscular Hemoglobin 33.9 pg (27.0-31.0); Platelet Count 275 10x3/uL (130-400); Red Blood Cell (RBC) Count 3.48 mill/uL (4.70-6.10)
[2023-07-17] MEDS: Apixaban 2.5 MG TAB PO SCH ×2 (09:07→20:36)
[2023-07-17] MEDS: Furosemide 40 MG (4 mL) VIAL SLOW IVP SCH ×2 (10:10→20:36)
[2023-07-17] MEDS: Azithromycin 500 MG in Sodium Chloride 0.9% 250 ML 250 ML IVPB SCH (14:45)
[2023-07-17] MEDS: cefTRIAXone\\ROCEPHIN 1 GM in Sodium Chloride 0.9% 100 ML IVPB SCH (15:53)
[2023-07-17] MEDS: Amiodarone 200 MG TAB PO SCH (20:36)
[2023-07-17] MEDS: Tamsulosin HCl 0.4 MG CAP PO SCH (20:36)
[2023-07-17] MEDS: Famotidine/PF 20 mg/2ml Vial SLOW IVP SCH (20:36)
[2023-07-18] MEDS: Ipratropium/Albuterol 3 ML NEB NEB SCH ×4 (02:24→14:10)
[2023-07-18] MEDS: Budesonide 0.25 MG/2 ML NEB INH SCH (06:57)
[2023-07-18 07:01] LABS: ALT (SGPT) 13 U/L (8-55); AST (SGOT) 29 U/L (5-34); Albumin 3.2 g/dL (3.4-4.8); Alkaline Phosphatase 104 U/L (40-110); Anion Gap 18 mmol/L (10-20); BUN (Urea Nitrogen) 31 mg/dL (8.4-25.7); Bilirubin, Total 0.7 mg/dL (0.2-1.2); Calc. Creatinine Clearance 77 mL/min (70-130); Calcium 8.4 mg/dL (7.8-10.44); Carbon Dioxide 28 mmol/L (23-31); Chloride 99 mmol/L (98-107); Estimated GFR 56; Globulin 3.8 g/dL (2.4-3.5); Glucose 120 mg/dL (83-110); Potassium 4.5 mmol/L (3.5-5.1); Sodium 140 mmol/L (136-145)
[2023-07-18 08:06] LABS: #Monocytes 1.3 thou/uL (0.11-0.59); #Neutrophils 13.1 thou/uL (1.40-6.50); %Basophils 0.1 % (0.0-1.0); %Lymphocytes 6.4 % (21.0-51.0); %Monocytes 8.2 % (0.0-10.0); %Neutrophils 84.3 % (42.0-75.0); Hematocrit 36.6 % (42.0-52.0); Hemoglobin 10.9 g/dL (14.0-18.0); Mean Corpuscular HGB CONC 29.8 g/dL (32.0-36.0); Mean Platelet Volume 10.4 fL (7.4-10.4); Platelet Count 276 10x3/uL (130-400); RBC Distribution Width 12.5 % (11.5-14.5); Red Blood Cell (RBC) Count 3.21 mill/uL (4.70-6.10); White Blood Cell (WBC) Count 15.5 10x3/uL (4.8-10.8)
[2023-07-18 08:27] LABS: Polychromasia SLIGHT = 2-3 cells (100X) (0-2/hpf)
[2023-07-18 08:28] LABS: Macrocytosis SLIGHT = 6-15 cells (100X) (0-5/hpf); Platelet Adequacy Comment Platelets Normal
[2023-07-18] MEDS: Amlodipine 5 MG TAB PO SCH (09:17)
[2023-07-18] MEDS: methylPREDNISolone Sod Succ 40 MG VIAL IVP SCH (09:19)
[2023-07-18] MEDS: Polyethylene Glycol 3350 17 GM Packet PO SCH (09:19)
[2023-07-18] MEDS: Apixaban 2.5 MG TAB PO SCH ×2 (09:19→21:23)
[2023-07-18] MEDS: Ipratropium/Albuterol Sulfate 4 GM AER IH SCH (14:14)
[2023-07-18] MEDS: Azithromycin 500 MG in Sodium Chloride 0.9% 250 ML 250 ML IVPB SCH (15:14)
[2023-07-18] MEDS: cefTRIAXone\\ROCEPHIN 1 GM in Sodium Chloride 0.9% 100 ML IVPB SCH (16:28)
[2023-07-18] MEDS: Bumetanide 1 MG TAB PO SCH (16:28)
[2023-07-18] MEDS: Amiodarone 200 MG TAB PO SCH (21:22)
[2023-07-18] MEDS: Atorvastatin Calcium 20 MG TAB PO SCH (21:22)
[2023-07-18] MEDS: Tamsulosin HCl 0.4 MG CAP PO SCH (21:22)
[2023-07-18] MEDS: Famotidine/PF 20 mg/2ml Vial SLOW IVP SCH (21:23)
[2023-07-18] MEDS: Montelukast Sodium 10 mg Tablet PO SCH (21:23)
[2023-07-18] MEDS ORDERED: FLU VACC QS2023(65UP)/MF59C/PF 60 MCG/0.5 ML SYRINGE IM ONE (22:30)
[2023-07-19] MEDS: Budesonide 0.25 MG/2 ML NEB INH SCH ×3 (03:03→19:56)
[2023-07-19] MEDS: Ipratropium/Albuterol Sulfate 4 GM AER IH SCH ×8 (03:03→23:23)
[2023-07-19] MEDS ORDERED: Albuterol 2.5 MG (3 mL) NEB NEB PRN (08:21)
[2023-07-19] MEDS: Bumetanide 1 MG TAB PO SCH ×2 (09:15→17:15)
[2023-07-19] MEDS: Amlodipine 5 MG TAB PO SCH (09:16)
[2023-07-19] MEDS: predniSONE 50 MG TAB PO SCH (09:17)
[2023-07-19] MEDS: Famotidine 20 MG TAB PO SCH ×2 (09:17→21:25)
[2023-07-19] MEDS: Apixaban 2.5 MG TAB PO SCH ×2 (09:17→21:24)
[2023-07-19] MEDS: Polyethylene Glycol 3350 17 GM Packet PO SCH (09:18)
[2023-07-19 09:27] LABS: #Monocytes 1.5 thou/uL (0.11-0.59); #Neutrophils 8.8 thou/uL (1.40-6.50); %Basophils 0.1 % (0.0-1.0); %Lymphocytes 10.3 % (21.0-51.0); %Monocytes 12.9 % (0.0-10.0); %Neutrophils 75.7 % (42.0-75.0); Hematocrit 35.5 % (42.0-52.0); Hemoglobin 10.6 g/dL (14.0-18.0); Mean Corpuscular HGB CONC 29.9 g/dL (32.0-36.0); Mean Corpuscular Hemoglobin 33.8 pg (27.0-31.0); Mean Corpuscular Volume 113.1 fl (78.0-98.0); Mean Platelet Volume 10.3 fL (7.4-10.4); Platelet Count 274 10x3/uL (130-400); RBC Distribution Width 12.5 % (11.5-14.5); Red Blood Cell (RBC) Count 3.14 mill/uL (4.70-6.10); White Blood Cell (WBC) Count 11.6 10x3/uL (4.8-10.8)
[2023-07-19 09:57] LABS: ALT (SGPT) 13 U/L (8-55); AST (SGOT) 20 U/L (5-34); Albumin 3.5 g/dL (3.4-4.8); Alkaline Phosphatase 86 U/L (40-110); Anion Gap 13 mmol/L (10-20); BUN (Urea Nitrogen) 28 mg/dL (8.4-25.7); Bilirubin, Total 0.7 mg/dL (0.2-1.2); Calc. Creatinine Clearance 88 mL/min (70-130); Calcium 8.7 mg/dL (7.8-10.44); Carbon Dioxide 37 mmol/L (23-31); Chloride 96 mmol/L (98-107); Estimated GFR 66; Globulin 3.2 g/dL (2.4-3.5); Glucose 142 mg/dL (83-110); Potassium 3.7 mmol/L (3.5-5.1); Protein, Total 6.7 g/dL (5.8-8.1); Sodium 142 mmol/L (136-145)
[2023-07-19 10:16] LABS: Macrocytosis SLIGHT = 6-15 cells (100X) (0-5/hpf); Polychromasia SLIGHT = 2-3 cells (100X) (0-2/hpf)
[2023-07-19] MEDS: Acetaminophen 325 MG TAB PO PRN (16:03)
[2023-07-19] MEDS: Scopolamine 1 mg/72 hour Patch TD SCH (17:16)
[2023-07-19] MEDS ORDERED: Electrolyte Replacement Protocol FS PRN (19:45)
[2023-07-19] MEDS: Atorvastatin Calcium 20 MG TAB PO SCH (21:24)
[2023-07-19] MEDS: Montelukast Sodium 10 mg Tablet PO SCH (21:24)
[2023-07-19] MEDS: Amiodarone 200 MG TAB PO SCH (21:24)
[2023-07-19] MEDS: Cefdinir 300 MG CAP PO SCH (21:24)
[2023-07-19] MEDS: Tamsulosin HCl 0.4 MG CAP PO SCH (21:24)
[2023-07-19] MEDS: traMADol HCl 50 MG TAB PO PRN (21:25)
[2023-07-19] MEDS: Latanoprost 0.005% Ophth Soln 2.5 ml Bottle L EYE SCH (23:55)
[2023-07-20] MEDS: Ipratropium/Albuterol Sulfate 4 GM AER IH SCH ×4 (04:19→19:17)
[2023-07-20] MEDS: Budesonide 0.25 MG/2 ML NEB INH SCH ×2 (07:53→19:17)
[2023-07-20 08:41] LABS: #Monocytes 1.3 thou/uL (0.11-0.59); %Basophils 0.4 % (0.0-1.0); %Eosinophils 0.1 % (0.0-10.0); %Monocytes 12.2 % (0.0-10.0); %Neutrophils 73.1 % (42.0-75.0); Hematocrit 36.1 % (42.0-52.0); Hemoglobin 10.7 g/dL (14.0-18.0); Mean Corpuscular HGB CONC 29.6 g/dL (32.0-36.0); Mean Corpuscular Hemoglobin 33.1 pg (27.0-31.0); Mean Corpuscular Volume 111.8 fl (78.0-98.0); Mean Platelet Volume 11.1 fL (7.4-10.4); Platelet Count 237 10x3/uL (130-400); RBC Distribution Width 12.3 % (11.5-14.5); Red Blood Cell (RBC) Count 3.23 mill/uL (4.70-6.10); White Blood Cell (WBC) Count 10.9 10x3/uL (4.8-10.8)
[2023-07-20] MEDS: Cefdinir 300 MG CAP PO SCH ×2 (08:43→20:46)
[2023-07-20] MEDS: Amlodipine 5 MG TAB PO SCH (08:43)
[2023-07-20] MEDS: Bumetanide 1 MG TAB PO SCH ×2 (08:45→15:34)
[2023-07-20] MEDS: Acetaminophen 325 MG TAB PO PRN ×2 (08:45→15:34)
[2023-07-20] MEDS: predniSONE 50 MG TAB PO SCH (08:46)
[2023-07-20] MEDS: Famotidine 20 MG TAB PO SCH ×2 (08:46→20:47)
[2023-07-20] MEDS: Apixaban 2.5 MG TAB PO SCH ×2 (08:46→20:45)
[2023-07-20 09:08] LABS: ALT (SGPT) 17 U/L (8-55); AST (SGOT) 23 U/L (5-34); Albumin 3.3 g/dL (3.4-4.8); Alkaline Phosphatase 83 U/L (40-110); Anion Gap 15 mmol/L (10-20); BUN (Urea Nitrogen) 25 mg/dL (8.4-25.7); Bilirubin, Total 0.7 mg/dL (0.2-1.2); Calc. Creatinine Clearance 84 mL/min (70-130); Calcium 8.3 mg/dL (7.8-10.44); Carbon Dioxide 35 mmol/L (23-31); Chloride 96 mmol/L (98-107); Estimated GFR 62; Globulin 3.3 g/dL (2.4-3.5); Glucose 159 mg/dL (83-110); Potassium 3.6 mmol/L (3.5-5.1); Protein, Total 6.6 g/dL (5.8-8.1); Sodium 142 mmol/L (136-145)
[2023-07-20] MEDS: Polyethylene Glycol 3350 17 GM Packet PO SCH (12:35)
[2023-07-20] MEDS: Amiodarone 200 MG TAB PO SCH (20:45)
[2023-07-20] MEDS: Latanoprost 0.005% Ophth Soln 2.5 ml Bottle L EYE SCH (20:45)
[2023-07-20] MEDS: Atorvastatin Calcium 20 MG TAB PO SCH (20:46)
[2023-07-20] MEDS: Montelukast Sodium 10 mg Tablet PO SCH (20:46)
[2023-07-20] MEDS: Tamsulosin HCl 0.4 MG CAP PO SCH (20:47)
[2023-07-20] MEDS ORDERED: Magnesium 2 GM/50 ML(in water) 2 GM in Premix 1 BAG IVPB SCH (21:30)
[2023-07-20] MEDS: traMADol HCl 50 MG TAB PO PRN (23:20)
[2023-07-21] MEDS: Ipratropium/Albuterol Sulfate 4 GM AER IH SCH ×6 (01:19→23:20)
[2023-07-21 07:35] LABS: #Monocytes 1.4 thou/uL (0.11-0.59); #Neutrophils 8.6 thou/uL (1.40-6.50); %Basophils 0.1 % (0.0-1.0); %Eosinophils 0.3 % (0.0-10.0); %Lymphocytes 13.8 % (21.0-51.0); %Monocytes 11.8 % (0.0-10.0); %Neutrophils 72.7 % (42.0-75.0); Hematocrit 34.8 % (42.0-52.0); Hemoglobin 10.7 g/dL (14.0-18.0); Mean Corpuscular HGB CONC 30.7 g/dL (32.0-36.0); Mean Corpuscular Volume 110.5 fl (78.0-98.0); Mean Platelet Volume 10.5 fL (7.4-10.4); Platelet Count 296 10x3/uL (130-400); RBC Distribution Width 12.2 % (11.5-14.5); Red Blood Cell (RBC) Count 3.15 mill/uL (4.70-6.10); White Blood Cell (WBC) Count 11.8 10x3/uL (4.8-10.8)
[2023-07-21] MEDS: Budesonide 0.25 MG/2 ML NEB INH SCH ×2 (07:42→18:36)
[2023-07-21 07:59] LABS: ALT (SGPT) 17 U/L (8-55); AST (SGOT) 21 U/L (5-34); Albumin 3.6 g/dL (3.4-4.8); Alkaline Phosphatase 84 U/L (40-110); BUN (Urea Nitrogen) 25 mg/dL (8.4-25.7); Bilirubin, Total 0.7 mg/dL (0.2-1.2); Calc. Creatinine Clearance 87 mL/min (70-130); Calcium 8.4 mg/dL (7.8-10.44); Estimated GFR 67; Globulin 3.3 g/dL (2.4-3.5); Glucose 106 mg/dL (83-110); Protein, Total 6.9 g/dL (5.8-8.1)
[2023-07-21 08:09] LABS: Anion Gap 14 mmol/L (10-20); Carbon Dioxide 39 mmol/L (23-31); Chloride 95 mmol/L (98-107); Potassium 3.7 mmol/L (3.5-5.1); Sodium 144 mmol/L (136-145)
[2023-07-21] MEDS: Bumetanide 1 MG TAB PO SCH ×2 (08:09→16:18)
[2023-07-21] MEDS: predniSONE 20 MG TAB PO SCH (08:09)
[2023-07-21] MEDS: Amlodipine 5 MG TAB PO SCH (08:09)
[2023-07-21] MEDS: Cefdinir 300 MG CAP PO SCH ×2 (08:09→20:43)
[2023-07-21] MEDS: Apixaban 2.5 MG TAB PO SCH ×2 (08:09→20:43)
[2023-07-21] MEDS: Famotidine 20 MG TAB PO SCH ×2 (08:09→20:43)
[2023-07-21] MEDS: Polyethylene Glycol 3350 17 GM Packet PO SCH (08:10)
[2023-07-21] MEDS: traMADol HCl 50 MG TAB PO PRN ×2 (08:25→20:43)
[2023-07-21] MEDS: Acetaminophen 325 MG TAB PO PRN ×2 (11:19→18:02)
[2023-07-21] MEDS: Insulin Regular 300 UNITS/3 ML VIAL SC PRN (18:07)
[2023-07-21] MEDS: Amiodarone 200 MG TAB PO SCH (20:42)
[2023-07-21] MEDS: Montelukast Sodium 10 mg Tablet PO SCH (20:42)
[2023-07-21] MEDS: Atorvastatin Calcium 20 MG TAB PO SCH (20:43)
[2023-07-21] MEDS: Tamsulosin HCl 0.4 MG CAP PO SCH (20:43)
[2023-07-21] MEDS: Latanoprost 0.005% Ophth Soln 2.5 ml Bottle L EYE SCH (20:44)
[2023-07-22 05:13] LABS: #Monocytes 1.2 thou/uL (0.11-0.59); #Neutrophils 7.8 thou/uL (1.40-6.50); %Basophils 0.2 % (0.0-1.0); %Eosinophils 0.3 % (0.0-10.0); %Monocytes 11.8 % (0.0-10.0); %Neutrophils 74.1 % (42.0-75.0); Hematocrit 38.5 % (42.0-52.0); Hemoglobin 11.5 g/dL (14.0-18.0); Mean Corpuscular HGB CONC 29.9 g/dL (32.0-36.0); Mean Corpuscular Hemoglobin 33.5 pg (27.0-31.0); Mean Corpuscular Volume 112.2 fl (78.0-98.0); Mean Platelet Volume 10.8 fL (7.4-10.4); Platelet Count 256 10x3/uL (130-400); RBC Distribution Width 12.3 % (11.5-14.5); Red Blood Cell (RBC) Count 3.43 mill/uL (4.70-6.10); White Blood Cell (WBC) Count 10.5 10x3/uL (4.8-10.8)
[2023-07-22 05:49] LABS: ALT (SGPT) 17 U/L (8-55); AST (SGOT) 18 U/L (5-34); Albumin 3.6 g/dL (3.4-4.8); Alkaline Phosphatase 81 U/L (40-110); Anion Gap 14 mmol/L (10-20); BUN (Urea Nitrogen) 27 mg/dL (8.4-25.7); Bilirubin, Total 0.6 mg/dL (0.2-1.2); Calc. Creatinine Clearance 81 mL/min (70-130); Calcium 8.3 mg/dL (7.8-10.44); Carbon Dioxide 37 mmol/L (23-31); Chloride 94 mmol/L (98-107); Estimated GFR 61; Globulin 3.1 g/dL (2.4-3.5); Glucose 95 mg/dL (83-110); Potassium 3.9 mmol/L (3.5-5.1); Protein, Total 6.7 g/dL (5.8-8.1); Sodium 141 mmol/L (136-145)
[2023-07-22] MEDS: Ipratropium/Albuterol Sulfate 4 GM AER IH SCH ×4 (07:43→23:02)
[2023-07-22] MEDS: Budesonide 0.25 MG/2 ML NEB INH SCH ×2 (07:45→19:13)
[2023-07-22] MEDS: Bumetanide 1 MG TAB PO SCH ×2 (08:35→17:07)
[2023-07-22] MEDS: predniSONE 20 MG TAB PO SCH (08:36)
[2023-07-22] MEDS: Apixaban 2.5 MG TAB PO SCH ×2 (08:36→20:49)
[2023-07-22] MEDS: Amlodipine 5 MG TAB PO SCH (08:36)
[2023-07-22] MEDS: Polyethylene Glycol 3350 17 GM Packet PO SCH (08:36)
[2023-07-22] MEDS: Cefdinir 300 MG CAP PO SCH ×2 (08:36→20:50)
[2023-07-22] MEDS: Famotidine 20 MG TAB PO SCH ×2 (08:36→20:50)
[2023-07-22 08:47] LABS: Macrocytosis MODERATE=16-30 cells (100X) (0-5/hpf)
[2023-07-22 08:48] LABS: Ovalocytes SLIGHT = 2-5 cells (100X) (0-1/hpf); Platelet Adequacy Comment Appears Adequate
[2023-07-22] MEDS: Acetaminophen 325 MG TAB PO PRN ×2 (11:25→17:07)
[2023-07-22] MEDS: Scopolamine 1 mg/72 hour Patch TD SCH (13:45)
[2023-07-22] MEDS: Insulin Regular 300 UNITS/3 ML VIAL SC PRN (18:01)
[2023-07-22] MEDS: Amiodarone 200 MG TAB PO SCH (20:49)
[2023-07-22] MEDS: Montelukast Sodium 10 mg Tablet PO SCH (20:50)
[2023-07-22] MEDS: Atorvastatin Calcium 20 MG TAB PO SCH (20:50)
[2023-07-22] MEDS: traMADol HCl 50 MG TAB PO PRN (20:50)
[2023-07-22] MEDS: Tamsulosin HCl 0.4 MG CAP PO SCH (20:50)
[2023-07-22] MEDS: Latanoprost 0.005% Ophth Soln 2.5 ml Bottle L EYE SCH (20:51)
[2023-07-23 06:27] LABS: #Monocytes 1.4 thou/uL (0.11-0.59); #Neutrophils 8.6 thou/uL (1.40-6.50); %Basophils 0.2 % (0.0-1.0); %Eosinophils 0.3 % (0.0-10.0); %Lymphocytes 13.2 % (21.0-51.0); %Monocytes 11.7 % (0.0-10.0); %Neutrophils 72.7 % (42.0-75.0); Hematocrit 33.9 % (42.0-52.0); Hemoglobin 10.2 g/dL (14.0-18.0); Mean Corpuscular HGB CONC 30.1 g/dL (32.0-36.0); Mean Corpuscular Hemoglobin 33.7 pg (27.0-31.0); Mean Corpuscular Volume 111.9 fl (78.0-98.0); Mean Platelet Volume 10.7 fL (7.4-10.4); Platelet Count 294 10x3/uL (130-400); RBC Distribution Width 12.3 % (11.5-14.5); Red Blood Cell (RBC) Count 3.03 mill/uL (4.70-6.10); White Blood Cell (WBC) Count 11.9 10x3/uL (4.8-10.8)
[2023-07-23 07:09] VITALS: BP 159/84; TEMP 98.2
[2023-07-23 07:36] LABS: ALT (SGPT) 16 U/L (8-55); AST (SGOT) 17 U/L (5-34); Albumin 3.6 g/dL (3.4-4.8); Alkaline Phosphatase 82 U/L (40-110); BUN (Urea Nitrogen) 24 mg/dL (8.4-25.7); Bilirubin, Total 0.5 mg/dL (0.2-1.2); Calc. Creatinine Clearance 76 mL/min (70-130); Calcium 8.6 mg/dL (7.8-10.44); Estimated GFR 57; Globulin 2.9 g/dL (2.4-3.5); Glucose 110 mg/dL (83-110); Protein, Total 6.5 g/dL (5.8-8.1)
[2023-07-23] MEDS: Ipratropium/Albuterol Sulfate 4 GM AER IH SCH ×3 (07:45→19:32)
[2023-07-23] MEDS: Budesonide 0.25 MG/2 ML NEB INH SCH ×2 (07:45→19:32)
[2023-07-23 07:52] LABS: Macrocytosis SLIGHT = 6-15 cells (100X) (0-5/hpf); Polychromasia SLIGHT = 2-3 cells (100X) (0-2/hpf)
[2023-07-23 07:55] LABS: Anion Gap 15 mmol/L (10-20); Carbon Dioxide 38 mmol/L (23-31); Chloride 91 mmol/L (98-107); Potassium 3.6 mmol/L (3.5-5.1); Sodium 140 mmol/L (136-145)
[2023-07-23] MEDS ORDERED: predniSONE 20 MG TAB PO SCH (08:00)
[2023-07-23] MEDS: Amlodipine 5 MG TAB PO SCH (08:52)
[2023-07-23] MEDS: Bumetanide 1 MG TAB PO SCH ×2 (08:52→16:44)
[2023-07-23] MEDS: traMADol HCl 50 MG TAB PO PRN ×2 (08:53→20:26)
[2023-07-23] MEDS: Famotidine 20 MG TAB PO SCH ×2 (08:53→20:25)
[2023-07-23] MEDS: Apixaban 2.5 MG TAB PO SCH ×2 (08:53→20:26)
[2023-07-23] MEDS: Polyethylene Glycol 3350 17 GM Packet PO SCH (08:54)
[2023-07-23] MEDS: Cefdinir 300 MG CAP PO SCH ×2 (08:54→20:26)
[2023-07-23] MEDS ORDERED: Dextrose 50% Abboject 50 ML SYRINGE IVP PRN (09:30)
[2023-07-23] MEDS ORDERED: Glucagon 1 MG/ML KIT IM PRN (09:30)
[2023-07-23] MEDS ORDERED: Dextrose 5% in Water 1,000 ML IV PRN (09:30)
[2023-07-23] MEDS: Acetaminophen 325 MG TAB PO PRN (11:25)
[2023-07-23 14:09] VITALS: BMI 31.6
[2023-07-23] MEDS: Amiodarone 200 MG TAB PO SCH (20:25)
[2023-07-23] MEDS: Atorvastatin Calcium 20 MG TAB PO SCH (20:25)
[2023-07-23] MEDS: Montelukast Sodium 10 mg Tablet PO SCH (20:25)
[2023-07-23] MEDS: Tamsulosin HCl 0.4 MG CAP PO SCH (20:26)
[2023-07-23] MEDS: Latanoprost 0.005% Ophth Soln 2.5 ml Bottle L EYE SCH (20:27)
== END 2023-07-23 20:40 | DRG 208 ==
LOC: ERS 13:39 → CCU 17:32 → MSONC 07-18 13:01
PROVIDERS: ADMIT Internal Medicine; ATTEND Internal Medicine
PROC: 5A1945Z Respiratory Ventilation, 24-96 Consecutive Hours (ICD-10-PCS; principal; 2023-07-15)
PROC: 0BH17EZ Insertion of Endotracheal Airway into Trachea, Via Natural or Artificial Opening (ICD-10-PCS; 2023-07-15)
PROC: 0DH67UZ Insertion of Feeding Device into Stomach, Via Natural or Artificial Opening (ICD-10-PCS; 2023-07-15)
PROC: 3E0G76Z Introduction of Nutritional Substance into Upper GI, Via Natural or Artificial Opening (ICD-10-PCS; 2023-07-15)
PROC: 4A133R1 Monitoring of Arterial Saturation, Peripheral, Percutaneous Approach (ICD-10-PCS; 2023-07-15)
DX: J96.21 Acute and chronic respiratory failure with hypoxia (principal); I50.33 Acute on chronic diastolic (congestive) heart failure; I13.0 Hypertensive heart and chronic kidney disease with heart failure and stage 1 through stage 4 chronic kidney disease, or unspecified chronic kidney disease; E87.29 Other acidosis; J44.1 Chronic obstructive pulmonary disease with (acute) exacerbation; J96.22 Acute and chronic respiratory failure with hypercapnia; Z66 Do not resuscitate; N40.0 Benign prostatic hyperplasia without lower urinary tract symptoms; N18.30 Chronic kidney disease, stage 3 unspecified; F03.90 Unspecified dementia, unspecified severity, without behavioral disturbance, psychotic disturbance, mood disturbance, and anxiety; D50.9 Iron deficiency anemia, unspecified; E78.5 Hyperlipidemia, unspecified; H40.9 Unspecified glaucoma; R53.81 Other malaise; I25.10 Atherosclerotic heart disease of native coronary artery without angina pectoris; H53.8 Other visual disturbances; Z79.899 Other long term (current) drug therapy; Z90.89 Acquired absence of other organs; Z87.891 Personal history of nicotine dependence; Z11.52 Encounter for screening for COVID-19; I48.0 Paroxysmal atrial fibrillation
CPT/HCPCS: 31500; 36415; 36416; 71045; 80053; 82805; 83605; 83880; 84484; 85025; 87040; 93005; 94002; 94003; 94640; 94760; 96374; 96375; J0456; J0696; J1815; J1940; J2060; J2272; J2704; J2920; J3475; J3490; J3535; J7050; J7512; J7611; J7620; J7626; S0028

== ENCOUNTER 2023-08-19 09:50 | Inpatient (IN) | payer MEDICARE, MEDICAID ==
[2023-08-19] MEDS ORDERED: Magnesium 2 GM/50 ML BAG (IN WATER) ONE (10:08)
[2023-08-19] MEDS ORDERED: Dexamethasone 10 MG/ML VIAL ONE (10:08)
[2023-08-19] MEDS ORDERED: LevoFLOXacin 750 mg/D5W 150 ml Premix Bag ONE (10:09)
[2023-08-19 10:30] LABS: #Eosinphils 0.1 thou/uL (0.0-0.7); #Monocytes 1.1 thou/uL (0.11-0.59); #Neutrophils 7.7 thou/uL (1.40-6.50); %Basophils 0.2 % (0.0-1.0); %Eosinophils 0.5 % (0.0-10.0); %Lymphocytes 14.4 % (21.0-51.0); %Monocytes 10.5 % (0.0-10.0); %Neutrophils 73.2 % (42.0-75.0); Hematocrit 32.6 % (42.0-52.0); Hemoglobin 9.9 g/dL (14.0-18.0); Mean Corpuscular HGB CONC 30.4 g/dL (32.0-36.0); Mean Corpuscular Hemoglobin 35.4 pg (27.0-31.0); Mean Corpuscular Volume 116.4 fl (78.0-98.0); Mean Platelet Volume 9.8 fL (7.4-10.4); Platelet Count 273 10x3/uL (130-400); RBC Distribution Width 13.6 % (11.5-14.5); White Blood Cell (WBC) Count 10.5 10x3/uL (4.8-10.8)
[2023-08-19] MEDS ORDERED: Ipratropium/Albuterol 3 ML NEB ONE (10:33)
[2023-08-19] MEDS ORDERED: Albuterol 2.5 MG (0.5 mL) NEB ONE (10:33)
[2023-08-19 10:53] LABS: ALT (SGPT) 14 U/L (8-55); AST (SGOT) 11 U/L (5-34); Albumin 3.8 g/dL (3.4-4.8); Alkaline Phosphatase 106 U/L (40-110); BUN (Urea Nitrogen) 17 mg/dL (8.4-25.7); Bilirubin, Total 0.5 mg/dL (0.2-1.2); Calc. Creatinine Clearance 0 mL/min (70-130); Calcium 9.1 mg/dL (7.8-10.44); Estimated GFR 59; Globulin 2.6 g/dL (2.4-3.5); Glucose 127 mg/dL (83-110); Lipase 30 U/L (8-78); Protein, Total 6.4 g/dL (5.8-8.1)
[2023-08-19 10:55] LABS: Actual Bicarbonate (HCO3a) 47.5 mEq/L (22-28); Analyzer IN Cardio ER; Base Excess (BEa) 18.7 mEq/L (-2.0 to +3.0); Calcium, Ionized (arterial) 1.12 mmol/L (1.12-1.30); Carboxyhemoglobin (COHb) 1.2 gm% (0.0-3.0); Hematocrit-ABG 31 % (42.0-52.0); Hemoglobin (Hb) 10.5 g/dL (14.0-18.0); Potassium - ABG Lab 3.27 mmol/L (3.70-5.30); pH, Arterial 7.365 (7.35-7.45)
[2023-08-19 10:56] LABS: CO2 Tension 85.1 mmHg (35.0-45.0); O2 Tension (PaO2), arterial 55.3 mmHg (> 70.0)
[2023-08-19 10:57] LABS: ALV-art Gradient 52.225 mmHg (0-20); Puncture Site RBA
[2023-08-19 10:58] LABS: Troponin I 0.027 ng/mL (< 0.028)
[2023-08-19 11:03] LABS: Anion Gap 17 mmol/L (10-20); Carbon Dioxide 40 mmol/L (23-31); Chloride 90 mmol/L (98-107); Potassium 3.2 mmol/L (3.5-5.1); Sodium 144 mmol/L (136-145)
[2023-08-19] MEDS ORDERED: Furosemide 40 MG (4 mL) VIAL ONE (11:29)
[2023-08-19 11:36] LABS: Macrocytosis SLIGHT = 6-15 cells HPF (0-5); Platelet Adequacy Comment Platelets Normal; Polychromasia SLIGHT = 2-3 cells HPF (0-2)
[2023-08-19 11:54] LABS: Bilirubin Negative (Negative); Blood, Urine Negative (Negative); CAUTI Indications for Culture Alt mental st,lethar; Clarity Clear (Clear); Glucose, Urine (Dipstick) Normal (Negative); Ketone, Urine Negative (Negative); Leukocyte Negative Leu/uL (Negative); Nitrite Negative (Negative); Protein, Urine (Dipstick) 10 mg/dL (Neg-Trace); RBC/HPF 0-3 HPF (0-3); Specific Gravity, Urine 1.017 (1.002-1.036); Squamous Epithelial 0-3 HPF (0-3); Urobilinogen Normal mg/dL (Less than 2); pH, Urine 5.5 (5.0-9.0)
[2023-08-19 12:13] LABS: Bacteria/HPF 2+ HPF (None Seen)
[2023-08-19 12:14] LABS: Urine Culture Reflex No No
[2023-08-19 12:37] LABS: SARS-CoV-2 NAA Rapid Test Not Detected (NotDetected)
[2023-08-19] MEDS ORDERED: Bisacodyl 5 MG TAB PO PRN (12:43)
[2023-08-19] MEDS ORDERED: Ondansetron PF 4 MG/2 ML Vial IVP PRN (12:43)
[2023-08-19] MEDS ORDERED: Acetaminophen 325 MG TAB PO PRN (12:43)
[2023-08-19] MEDS ORDERED: Bisacodyl 10 MG SUPP PR PRN (12:43)
[2023-08-19] MEDS ORDERED: Vancomycin 1 GM in Sodium Chloride 0.9% 500 ML IVPB SCH (12:45)
[2023-08-19] MEDS ORDERED: Electrolyte Replacement Protocol 1 EACH FS SCH (13:15)
[2023-08-19 13:49] LABS: Magnesium 1.9 mg/dL (1.6-2.6)
[2023-08-19 14:17] LABS: Hemoglobin A1c 5.5 % (4.0-6.0)
[2023-08-19] MEDS ORDERED: Electrolyte Replacement Protocol FS PRN (14:30)
[2023-08-19] MEDS: Potassium Chloride 20 MEQ TAB PO SCH (15:41)
[2023-08-19] MEDS: Cefepime 2 GM in Sodium Chloride 0.9% 100 ML IVPB SCH ×2 (15:41→21:15)
[2023-08-19] MEDS: methylPREDNISolone Sod Succ 40 MG VIAL IVP SCH (17:19)
[2023-08-19] MEDS: Vancomycin 2.5 GM in Sodium Chloride 0.9% 500 ML IVPB SCH (17:22)
[2023-08-19] MEDS: Ipratropium/Albuterol 3 ML NEB NEB SCH (19:24)
[2023-08-19] MEDS ORDERED: traMADol HCl 50 MG TAB PO SCH (20:45)
[2023-08-19 20:50] LABS: Legionella Urinary Ag Negative (Negative); Strep pneumo Urine Ag NEGATIVE (NEGATIVE)
[2023-08-19] MEDS ORDERED: Famotidine/PF 20 mg/2ml Vial SLOW IVP SCH (21:00)
[2023-08-19] MEDS: Tamsulosin HCl 0.4 MG CAP PO SCH (21:13)
[2023-08-19] MEDS: Gabapentin 300 MG CAP PO SCH (21:13)
[2023-08-19] MEDS: Atorvastatin Calcium 20 MG TAB PO SCH (21:13)
[2023-08-19] MEDS: Amiodarone 200 MG TAB PO SCH (21:14)
[2023-08-19] MEDS: traMADol HCl 50 MG TAB PO SCH (21:14)
[2023-08-19] MEDS: Apixaban 5 MG TAB PO SCH (21:14)
[2023-08-19] MEDS: Magnesium 2 GM/50 ML(in water) 2 GM in Premix 1 BAG IVPB SCH (23:38)
[2023-08-20 05:32] LABS: #Monocytes 0.4 thou/uL (0.11-0.59); #Neutrophils 11.1 thou/uL (1.40-6.50); %Basophils 0.1 % (0.0-1.0); %Lymphocytes 5.8 % (21.0-51.0); %Monocytes 3.3 % (0.0-10.0); %Neutrophils 89.7 % (42.0-75.0); Hematocrit 30.9 % (42.0-52.0); Hemoglobin 9.6 g/dL (14.0-18.0); Mean Corpuscular HGB CONC 31.1 g/dL (32.0-36.0); Mean Corpuscular Hemoglobin 35.2 pg (27.0-31.0); Mean Corpuscular Volume 113.2 fl (78.0-98.0); Mean Platelet Volume 9.7 fL (7.4-10.4); Platelet Count 278 10x3/uL (130-400); RBC Distribution Width 13.6 % (11.5-14.5); Red Blood Cell (RBC) Count 2.73 mill/uL (4.70-6.10); White Blood Cell (WBC) Count 12.3 10x3/uL (4.8-10.8)
[2023-08-20] MEDS: Vancomycin 1 GM in Premix 1 BAG IVPB SCH (05:42)
[2023-08-20] MEDS ORDERED: Cefepime 2 GM in Sodium Chloride 0.9% 100 ML IVPB SCH (06:00)
[2023-08-20 06:29] LABS: ALT (SGPT) 13 U/L (8-55); AST (SGOT) 10 U/L (5-34); Albumin 3.6 g/dL (3.4-4.8); Alkaline Phosphatase 101 U/L (40-110); BUN (Urea Nitrogen) 16 mg/dL (8.4-25.7); Bilirubin, Direct 0.2 mg/dL (0.1-0.3); Bilirubin, Total 0.5 mg/dL (0.2-1.2); Calc. Creatinine Clearance 83 mL/min (70-130); Estimated GFR 62; Glucose 164 mg/dL (83-110); Protein, Total 6.2 g/dL (5.8-8.1)
[2023-08-20 06:38] LABS: Anion Gap 15 mmol/L (10-20); Carbon Dioxide 36 mmol/L (23-31); Chloride 93 mmol/L (98-107); Potassium 4.1 mmol/L (3.5-5.1); Sodium 140 mmol/L (136-145)
[2023-08-20] MEDS: Mometasone 100 MCG HFA INHALER (RT USE) INH SCH (07:22)
[2023-08-20] MEDS: Montelukast Sodium 10 mg Tablet PO SCH (07:49)
[2023-08-20] MEDS: Furosemide 40 MG (4 mL) VIAL SLOW IVP SCH (07:49)
[2023-08-20] MEDS: Magnesium 2 GM/50 ML(in water) 2 GM in Premix 1 BAG IVPB SCH (07:49)
[2023-08-20] MEDS: traMADol HCl 50 MG TAB PO SCH (07:50)
[2023-08-20] MEDS ORDERED: Non-Formulary Item 1 EACH (Fluticasone/Umeclidin/Vilanter [Trelegy Ellipta 200-62.5-25] 1 PO SCH (09:00)
[2023-08-20] MEDS ORDERED: ROFLUMILAST 250 MCG PO SCH (09:00)
[2023-08-21 04:48] LABS: BUN (Urea Nitrogen) 21 mg/dL (8.4-25.7); Calc. Creatinine Clearance 99 mL/min (70-130); Calcium 9.1 mg/dL (7.8-10.44); Estimated GFR 76; Glucose 167 mg/dL (83-110)
[2023-08-21 04:49] LABS: Vancomycin, Trough 15.5 ug/mL
[2023-08-21 05:00] LABS: Chloride 91 mmol/L (98-107); Potassium 4.1 mmol/L (3.5-5.1); Sodium 139 mmol/L (136-145)
[2023-08-21 05:03] LABS: Anion Gap 15 mmol/L (10-20); Carbon Dioxide 37 mmol/L (23-31)
[2023-08-21] MEDS ORDERED: Vancomycin 1.25 GM in Sodium Chloride 0.9% 250 ML 250 ML IVPB SCH (16:00)
[2023-08-21] MEDS: Vancomycin (BATCH) 1.25 GM in Premix 1 BAG IVPB SCH (17:48)
[2023-08-21] MEDS: Budesonide 0.25 MG/2 ML NEB INH SCH (20:04)
[2023-08-22 06:47] LABS: #Monocytes 0.9 thou/uL (0.11-0.59); #Neutrophils 15.7 thou/uL (1.40-6.50); %Basophils 0.1 % (0.0-1.0); %Lymphocytes 2.8 % (21.0-51.0); %Monocytes 4.9 % (0.0-10.0); %Neutrophils 90.9 % (42.0-75.0); Hematocrit 34.9 % (42.0-52.0); Hemoglobin 10.7 g/dL (14.0-18.0); Mean Corpuscular HGB CONC 30.7 g/dL (32.0-36.0); Mean Corpuscular Hemoglobin 33.8 pg (27.0-31.0); Mean Corpuscular Volume 110.1 fl (78.0-98.0); Mean Platelet Volume 10.1 fL (7.4-10.4); Platelet Count 370 10x3/uL (130-400); RBC Distribution Width 13.2 % (11.5-14.5); Red Blood Cell (RBC) Count 3.17 mill/uL (4.70-6.10); White Blood Cell (WBC) Count 17.3 10x3/uL (4.8-10.8)
[2023-08-22 07:11] LABS: BUN (Urea Nitrogen) 26 mg/dL (8.4-25.7); Calc. Creatinine Clearance 95 mL/min (70-130); Calcium 9.2 mg/dL (7.8-10.44); Estimated GFR 70; Glucose 165 mg/dL (83-110)
[2023-08-22 07:20] LABS: Anion Gap 14 mmol/L (10-20); Carbon Dioxide 38 mmol/L (23-31); Chloride 92 mmol/L (98-107); Potassium 4.2 mmol/L (3.5-5.1); Sodium 140 mmol/L (136-145)
[2023-08-22 08:42] LABS: Anisocytosis MODERATE=16-30 cells HPF (0-5); CellaVision Operator ID LAB.KW3; Ovalocytes SLIGHT = 2-5 cells HPF (0-1); Platelet Adequacy Comment Platelets Normal; Polychromasia SLIGHT = 2-3 cells HPF (0-2); Schistocytes SLIGHT = 2-5 cells HPF (0-1)
[2023-08-22] MEDS: Amlodipine 5 MG TAB PO SCH (10:16)
[2023-08-22] MEDS ORDERED: Albuterol 200 PUFF (6.7GM INHALER) INH PRN (11:55)
[2023-08-22] MEDS: methylPREDNISolone Sod Succ 40 MG VIAL IVP SCH (13:38)
[2023-08-22 22:39] LABS: Mycoplasma pneumoniae IgG AB 335 U/mL (0-99); Mycoplasma pneumoniae IgM AB 1513 U/mL (0-769)
[2023-08-23] MEDS: Amlodipine 5 MG TAB PO SCH (09:25)
[2023-08-23 10:55] LABS: Hemoglobin 10.3 g/dL (14.0-18.0); Mean Corpuscular HGB CONC 31.2 g/dL (32.0-36.0); Mean Corpuscular Hemoglobin 34.7 pg (27.0-31.0); Mean Corpuscular Volume 111.1 fl (78.0-98.0); Mean Platelet Volume 9.6 fL (7.4-10.4); Platelet Count 364 10x3/uL (130-400); RBC Distribution Width 13.5 % (11.5-14.5); Red Blood Cell (RBC) Count 2.97 mill/uL (4.70-6.10); White Blood Cell (WBC) Count 17.7 10x3/uL (4.8-10.8)
[2023-08-23 11:00] LABS: Delete Auto Diff?? YES; Manual Diff?? YES
[2023-08-23 11:15] LABS: BUN (Urea Nitrogen) 29 mg/dL (8.4-25.7); Calc. Creatinine Clearance 94 mL/min (70-130); Calcium 9.1 mg/dL (7.8-10.44); Estimated GFR 68; Glucose 188 mg/dL (83-110)
[2023-08-23 11:22] LABS: Band 2 % (5-11); CellaVision Operator ID LAB.GE; Lymphocytes 3 % (21-51); Macrocytosis SLIGHT = 6-15 cells HPF (0-5); Monocytes 4 % (0-10); Neutrophil 91 % (42-75); Platelet Adequacy Comment Platelets Normal; Polychromasia SLIGHT = 2-3 cells HPF (0-2); Smudge Cells 2.9 %; Total Cell Count 102
[2023-08-23 11:24] LABS: Anion Gap 16 mmol/L (10-20); Carbon Dioxide 34 mmol/L (23-31); Chloride 93 mmol/L (98-107); Potassium 4.6 mmol/L (3.5-5.1); Sodium 138 mmol/L (136-145)
[2023-08-23] MEDS: methylPREDNISolone Sod Succ 40 MG VIAL IVP SCH (16:45)
[2023-08-23] MEDS: LevoFLOXacin 750 mg/D5W 750 MG in Premix 1 BAG IVPB SCH (16:46)
[2023-08-23] MEDS: Cefepime 2 GM in Sodium Chloride 0.9% 100 ML IVPB SCH (18:29)
[2023-08-23] MEDS ORDERED: Acetylcysteine 10% 100 MG/ML (30 ml) SOLN INH SCH (18:30)
[2023-08-23] MEDS: Acetylcysteine 20% 200 MG/ML 30 ML VIAL INH SCH (19:16)
[2023-08-23] MEDS: guaiFENesin ER 600 MG TAB PO SCH (20:33)
[2023-08-24 05:44] LABS: #Monocytes 1.2 thou/uL (0.11-0.59); #Neutrophils 15.2 thou/uL (1.40-6.50); %Basophils 0.2 % (0.0-1.0); %Lymphocytes 2.9 % (21.0-51.0); %Neutrophils 87.2 % (42.0-75.0); Hematocrit 36.2 % (42.0-52.0); Hemoglobin 11.2 g/dL (14.0-18.0); Mean Corpuscular HGB CONC 30.9 g/dL (32.0-36.0); Mean Corpuscular Hemoglobin 34.7 pg (27.0-31.0); Mean Corpuscular Volume 112.1 fl (78.0-98.0); Platelet Count 332 10x3/uL (130-400); RBC Distribution Width 13.1 % (11.5-14.5); Red Blood Cell (RBC) Count 3.23 mill/uL (4.70-6.10); White Blood Cell (WBC) Count 17.5 10x3/uL (4.8-10.8)
[2023-08-24 06:25] LABS: Calcium 9.3 mg/dL (7.8-10.44); Glucose 161 mg/dL (83-110)
[2023-08-24 06:35] LABS: Anion Gap 17 mmol/L (10-20); BUN (Urea Nitrogen) 32 mg/dL (8.4-25.7); Calc. Creatinine Clearance 93 mL/min (70-130); Carbon Dioxide 33 mmol/L (23-31); Chloride 95 mmol/L (98-107); Estimated GFR 68; Sodium 140 mmol/L (136-145)
[2023-08-24] MEDS: Ipratropium/Albuterol 3 ML NEB NEB PRN (09:06)
[2023-08-25] MEDS: LevoFLOXacin 750 MG TAB PO SCH (13:02)
[2023-08-25] MEDS: Sodium Chloride 0.9% 1,000 ML IV SCH (13:07)
[2023-08-26] MEDS: Senokot S 8.6-50 MG TAB PO PRN (03:47)
[2023-08-26 05:47] LABS: #Monocytes 1.7 thou/uL (0.11-0.59); %Basophils 0.3 % (0.0-1.0); %Eosinophils 0.1 % (0.0-10.0); %Monocytes 11.3 % (0.0-10.0); %Neutrophils 80.2 % (42.0-75.0); Hematocrit 33.3 % (42.0-52.0); Mean Corpuscular Hemoglobin 33.8 pg (27.0-31.0); Mean Corpuscular Volume 112.5 fl (78.0-98.0); Platelet Count 283 10x3/uL (130-400); RBC Distribution Width 13.1 % (11.5-14.5); Red Blood Cell (RBC) Count 2.96 mill/uL (4.70-6.10)
[2023-08-26 06:15] LABS: BUN (Urea Nitrogen) 26 mg/dL (8.4-25.7); Calc. Creatinine Clearance 111 mL/min (70-130); Calcium 8.7 mg/dL (7.8-10.44); Estimated GFR 83; Glucose 183 mg/dL (83-110)
[2023-08-26 06:25] LABS: Anion Gap 16 mmol/L (10-20); Carbon Dioxide 31 mmol/L (23-31); Chloride 97 mmol/L (98-107); Potassium 4.6 mmol/L (3.5-5.1); Sodium 139 mmol/L (136-145)
[2023-08-26] MEDS: predniSONE 50 MG TAB PO SCH (08:34)
[2023-08-26] MEDS: Albuterol 200 PUFF (6.7GM INHALER) INH PRN (22:18)
[2023-08-27 05:48] LABS: #Monocytes 1.5 thou/uL (0.11-0.59); #Neutrophils 12.9 thou/uL (1.40-6.50); %Basophils 0.1 % (0.0-1.0); %Eosinophils 0.2 % (0.0-10.0); %Lymphocytes 5.8 % (21.0-51.0); %Monocytes 9.7 % (0.0-10.0); %Neutrophils 82.9 % (42.0-75.0); Hemoglobin 9.3 g/dL (14.0-18.0); Mean Corpuscular Hemoglobin 33.6 pg (27.0-31.0); Mean Corpuscular Volume 111.9 fl (78.0-98.0); Mean Platelet Volume 10.2 fL (7.4-10.4); Platelet Count 264 10x3/uL (130-400); RBC Distribution Width 13.1 % (11.5-14.5); Red Blood Cell (RBC) Count 2.77 mill/uL (4.70-6.10); White Blood Cell (WBC) Count 15.5 10x3/uL (4.8-10.8)
[2023-08-27 06:20] LABS: BUN (Urea Nitrogen) 23 mg/dL (8.4-25.7); Calc. Creatinine Clearance 111 mL/min (70-130); Calcium 8.8 mg/dL (7.8-10.44); Estimated GFR 83; Glucose 154 mg/dL (83-110)
[2023-08-27 06:22] LABS: Anisocytosis SLIGHT = 6-15 cells HPF (0-5); CellaVision Operator ID lab.sh2; Hypochromia SLIGHT = 6-15 cells HPF (0-5); Macrocytosis SLIGHT = 6-15 cells HPF (0-5); Ovalocytes SLIGHT = 2-5 cells HPF (0-1); Platelet Adequacy Comment Platelets Normal; Polychromasia SLIGHT = 2-3 cells HPF (0-2)
[2023-08-27 06:30] LABS: Anion Gap 14 mmol/L (10-20); Carbon Dioxide 35 mmol/L (23-31); Chloride 95 mmol/L (98-107); Potassium 4.5 mmol/L (3.5-5.1); Sodium 139 mmol/L (136-145)
[2023-08-27 08:42] VITALS: BMI 32.1
[2023-08-28 04:23] VITALS: BP 128/75; TEMP 98.2
== END 2023-08-28 08:51 | DRG 291 ==
LOC: ERS 09:50 → ERHOLD 12:57 → IMCU/EMU 15:06 → MSONC 08-21 18:12
PROVIDERS: ADMIT Family Medicine; ATTEND Hospitalist
PROC: 4A033R1 Measurement of Arterial Saturation, Peripheral, Percutaneous Approach (ICD-10-PCS; principal; 2023-08-19)
DX: I13.0 Hypertensive heart and chronic kidney disease with heart failure and stage 1 through stage 4 chronic kidney disease, or unspecified chronic kidney disease (principal); I50.31 Acute diastolic (congestive) heart failure; J96.21 Acute and chronic respiratory failure with hypoxia; J96.22 Acute and chronic respiratory failure with hypercapnia; J44.1 Chronic obstructive pulmonary disease with (acute) exacerbation; F03.90 Unspecified dementia, unspecified severity, without behavioral disturbance, psychotic disturbance, mood disturbance, and anxiety; D50.9 Iron deficiency anemia, unspecified; N18.30 Chronic kidney disease, stage 3 unspecified; K21.9 Gastro-esophageal reflux disease without esophagitis; E78.5 Hyperlipidemia, unspecified; E87.6 Hypokalemia; I27.21 Secondary pulmonary arterial hypertension; D63.1 Anemia in chronic kidney disease; I48.0 Paroxysmal atrial fibrillation; I25.10 Atherosclerotic heart disease of native coronary artery without angina pectoris; G89.29 Other chronic pain; Z66 Do not resuscitate; Z11.52 Encounter for screening for COVID-19; Z87.891 Personal history of nicotine dependence; Z79.01 Long term (current) use of anticoagulants; Z79.899 Other long term (current) drug therapy; Z79.51 Long term (current) use of inhaled steroids
CPT/HCPCS: 36415; 36416; 36600; 71045; 80048; 80053; 80076; 80202; 81001; 82607; 82805; 83036; 83605; 83690; 83735; 83880; 84443; 84484; 85025; 86850; 86900; 86901; 87040; 87070; 87081; 87116; 87205; 87206; 87449; 87899; 93005; 93306; 93798; 94640; 94660; 94664; 96365; 96366; 96368; 96375; 97139; J0132; J0692; J1100; J1940; J1956; J2920; J3370; J3370-JW; J3475; J3490; J7030; J7050; J7512; J7611; J7620; J7626

== ENCOUNTER 2023-09-08 14:15 | Emergency (ER) | payer MEDICARE ==
[2023-09-08] MEDS ORDERED: Iopamidol-370 76% 500 ML MDV (1 ML CHARGE) ONE (15:46)
== END 2023-09-08 18:10 ==
LOC: ERS 14:15
DX: L03.116 Cellulitis of left lower limb (principal); I13.0 Hypertensive heart and chronic kidney disease with heart failure and stage 1 through stage 4 chronic kidney disease, or unspecified chronic kidney disease; N18.30 Chronic kidney disease, stage 3 unspecified; I50.9 Heart failure, unspecified; I48.91 Unspecified atrial fibrillation; J44.9 Chronic obstructive pulmonary disease, unspecified; H40.9 Unspecified glaucoma; D50.9 Iron deficiency anemia, unspecified; F03.90 Unspecified dementia, unspecified severity, without behavioral disturbance, psychotic disturbance, mood disturbance, and anxiety; Z87.891 Personal history of nicotine dependence
CPT/HCPCS: 71275; Q9967

== ENCOUNTER 2024-03-08 14:27 | Inpatient (IN) | payer MEDICARE, MEDICAID, OTHER ==
[2024-03-08 15:51] LABS: #Basophils Less than 0.03 10x3/uL (0.0-0.2); %Basophils 0.2 % (0.0-1.0); %Eosinophils 1.3 % (0.0-10.0); %Lymphocytes 15.4 % (21.0-51.0); %Monocytes 13.1 % (0.0-10.0); %Neutrophils 69.3 % (42.0-75.0); Hematocrit 29.2 % (42.0-52.0); Hemoglobin 8.7 g/dL (14.0-18.0); Mean Corpuscular HGB CONC 29.8 g/dL (32.0-36.0); Mean Corpuscular Hemoglobin 34.5 pg (27.0-31.0); Mean Corpuscular Volume 115.9 fL (78.0-98.0); Mean Platelet Volume 9.6 fL (7.4-10.4); Platelet Count 314 10x3/uL (130-400); RBC Distribution Width 14.5 % (11.5-14.5); Red Blood Cell (RBC) Count 2.52 mill/uL (4.70-6.10)
[2024-03-08 15:58] LABS: INR-International Normal Ratio 1.1; PTT 32.9 sec (22.9-36.1); Prothrombin Time 14.5 sec (12.0-14.7)
[2024-03-08 15:59] LABS: ALT (SGPT) 10 U/L (8-55); AST (SGOT) 17 U/L (5-34); Albumin 3.6 g/dL (3.4-4.8); Alkaline Phosphatase 111 U/L (40-110); Anion Gap 11 mmol/L (10-20); BUN (Urea Nitrogen) 22 mg/dL (8.4-25.7); Bilirubin, Total 0.4 mg/dL (0.2-1.2); Calc. Creatinine Clearance 0 mL/min (70-130); Calcium 9.1 mg/dL (7.8-10.44); Carbon Dioxide 45 mmol/L (23-31); Chloride 90 mmol/L (98-107); Estimated GFR 58; Globulin 2.9 g/dL (2.4-3.5); Glucose 129 mg/dL (83-110); Potassium 3.9 mmol/L (3.5-5.1); Protein, Total 6.5 g/dL (5.8-8.1); Sodium 142 mmol/L (136-145)
[2024-03-08 16:04] LABS: Troponin I 0.029 ng/mL (< 0.028)
[2024-03-08 16:09] LABS: Hypochromia SLIGHT = 6-15 cells HPF (0-5); Macrocytosis MODERATE=16-30 cells HPF (0-5); Ovalocytes SLIGHT = 2-5 cells HPF (0-1); Platelet Adequacy Comment Platelets Normal; Poikilocytosis SLIGHT = 6-15 cells HPF (0-5); Polychromasia SLIGHT = 2-3 cells HPF (0-2); Tear Drops SLIGHT = 2-5 cells HPF (0-1)
[2024-03-08] MEDS ORDERED: Sodium Chloride 0.9% 100 ML ONE (16:53)
[2024-03-08] MEDS ORDERED: cefTRIAXone (ROCEPHIN) 2 GM VIAL ONE (16:53)
[2024-03-08 17:41] LABS: Bilirubin Negative (Negative); Blood, Urine Negative (Negative); CAUTI Indications for Culture Alt mental st,lethar; Clarity Clear (Clear); Glucose, Urine (Dipstick) Normal (Negative); Ketone, Urine Negative (Negative); Leukocyte Negative Leu/uL (Negative); Nitrite Negative (Negative); Protein, Urine (Dipstick) Negative (Neg-Trace); RBC/HPF 0-3 HPF (0-3); Specific Gravity, Urine 1.009 (1.002-1.036); Squamous Epithelial None Seen HPF (0-3); Urobilinogen Normal mg/dL (Less than 2); WBC/HPF 0-3 HPF (0-3)
[2024-03-08 17:44] LABS: Urine Culture Reflex No No
[2024-03-08 18:09] LABS: SARS-CoV-2 E Target Negative; SARS-CoV-2 N2 Target Negative; SARS-CoV-2 NAA Rapid Test Not Detected (NotDetected); SARS-CoV-2 RdRP gene Negative
[2024-03-08] MEDS: Ipratropium/Albuterol 3 ML NEB NEB SCH (18:58)
[2024-03-08] MEDS: Apixaban 5 MG TAB PO SCH (20:34)
[2024-03-08 22:56] VITALS: BMI 30.7
[2024-03-09 05:07] LABS: #Basophils Less than 0.03 10x3/uL (0.0-0.2); %Basophils 0.2 % (0.0-1.0); %Eosinophils 1.2 % (0.0-10.0); %Lymphocytes 11.2 % (21.0-51.0); %Monocytes 10.9 % (0.0-10.0); %Neutrophils 76.1 % (42.0-75.0); Hematocrit 28.4 % (42.0-52.0); Hemoglobin 8.4 g/dL (14.0-18.0); Mean Corpuscular HGB CONC 29.6 g/dL (32.0-36.0); Mean Corpuscular Hemoglobin 34.1 pg (27.0-31.0); Mean Corpuscular Volume 115.4 fL (78.0-98.0); Mean Platelet Volume 9.3 fL (7.4-10.4); Platelet Count 289 10x3/uL (130-400); RBC Distribution Width 14.3 % (11.5-14.5); Red Blood Cell (RBC) Count 2.46 mill/uL (4.70-6.10)
[2024-03-09 05:16] LABS: Anion Gap 11 mmol/L (10-20); BUN (Urea Nitrogen) 18 mg/dL (8.4-25.7); Calc. Creatinine Clearance 90 mL/min (70-130); Carbon Dioxide 43 mmol/L (23-31); Chloride 92 mmol/L (98-107); Estimated GFR 68; Glucose 132 mg/dL (83-110); Potassium 4.1 mmol/L (3.5-5.1); Sodium 142 mmol/L (136-145)
[2024-03-09] MEDS: cefTRIAXone\\ROCEPHIN 1 GM in Sodium Chloride 0.9% 100 ML IVPB SCH (17:30)
[2024-03-09] MEDS: Azithromycin 500 MG in Sodium Chloride 0.9% 250 ML 250 ML IVPB SCH (18:00)
[2024-03-09] MEDS: Melatonin 3 MG TAB PO PRN (23:50)
[2024-03-09] MEDS: traZODone HCl 50 MG TAB PO PRN (23:50)
[2024-03-10 07:43] LABS: Actual Bicarbonate (HCO3a) 40.6 mEq/L (22-28); Base Excess (BEa) 10.5 mEq/L (-2.0 to +3.0); Calcium, Ionized (arterial) 1.23 mmol/L (1.12-1.30); Carboxyhemoglobin (COHb) 1.1 gm% (0.0-3.0); Hematocrit-ABG 30 % (42.0-52.0); Hemoglobin (Hb) 10.1 g/dL (14.0-18.0); O2 Tension (PaO2), arterial 72.6 mmHg (> 70.0); Potassium - ABG Lab 4.35 mmol/L (3.70-5.30)
[2024-03-10 07:47] LABS: CO2 Tension 96.9 mmHg (35.0-45.0); Puncture Site Right Radial artery
[2024-03-10 08:30] LABS: #Basophils Less than 0.03 10x3/uL (0.0-0.2); %Basophils 0.2 % (0.0-1.0); %Eosinophils 0.8 % (0.0-10.0); %Lymphocytes 11.3 % (21.0-51.0); %Monocytes 10.5 % (0.0-10.0); %Neutrophils 76.8 % (42.0-75.0); Hematocrit 31.7 % (42.0-52.0); Hemoglobin 9.3 g/dL (14.0-18.0); Mean Corpuscular HGB CONC 29.3 g/dL (32.0-36.0); Mean Corpuscular Hemoglobin 34.1 pg (27.0-31.0); Mean Corpuscular Volume 116.1 fL (78.0-98.0); Mean Platelet Volume 9.5 fL (7.4-10.4); Platelet Count 286 10x3/uL (130-400); RBC Distribution Width 14.3 % (11.5-14.5); Red Blood Cell (RBC) Count 2.73 mill/uL (4.70-6.10)
[2024-03-10 09:06] LABS: Anion Gap 19 mmol/L (10-20); BUN (Urea Nitrogen) 13 mg/dL (8.4-25.7); Calc. Creatinine Clearance 113 mL/min (70-130); Calcium 9.1 mg/dL (7.8-10.44); Carbon Dioxide 31 mmol/L (23-31); Chloride 99 mmol/L (98-107); Estimated GFR 90; Glucose 103 mg/dL (83-110); Potassium 4.6 mmol/L (3.5-5.1); Sodium 144 mmol/L (136-145)
[2024-03-10] MEDS: Ipratropium/Albuterol 3 ML NEB NEB SCH (13:42)
[2024-03-10] MEDS: Acetaminophen 325 MG TAB PO PRN (13:46)
[2024-03-10] MEDS: Furosemide 40 MG (4 mL) VIAL SLOW IVP SCH (15:16)
[2024-03-10] MEDS: methylPREDNISolone Sod Succ 40 MG VIAL IVP SCH (17:31)
[2024-03-11 06:45] LABS: Anion Gap 12 mmol/L (10-20); BUN (Urea Nitrogen) 22 mg/dL (8.4-25.7); Calc. Creatinine Clearance 100 mL/min (70-130); Calcium 8.8 mg/dL (7.8-10.44); Carbon Dioxide 39 mmol/L (23-31); Chloride 98 mmol/L (98-107); Estimated GFR 77; Glucose 111 mg/dL (83-110); Potassium 5.2 mmol/L (3.5-5.1); Sodium 144 mmol/L (136-145)
[2024-03-11] MEDS: methylPREDNISolone Sod Succ 40 MG VIAL IVP SCH (20:49)
[2024-03-12 05:28] LABS: Hematocrit 28.4 % (42.0-52.0); Hemoglobin 8.5 g/dL (14.0-18.0); Mean Corpuscular HGB CONC 29.9 g/dL (32.0-36.0); Mean Corpuscular Hemoglobin 33.9 pg (27.0-31.0); Mean Corpuscular Volume 113.1 fL (78.0-98.0); Mean Platelet Volume 9.9 fL (7.4-10.4); Platelet Count 289 10x3/uL (130-400); RBC Distribution Width 13.8 % (11.5-14.5); Red Blood Cell (RBC) Count 2.51 mill/uL (4.70-6.10)
[2024-03-12 05:54] LABS: Anion Gap 13 mmol/L (10-20); BUN (Urea Nitrogen) 21 mg/dL (8.4-25.7); Calc. Creatinine Clearance 118 mL/min (70-130); Carbon Dioxide 37 mmol/L (23-31); Chloride 97 mmol/L (98-107); Estimated GFR 92; Sodium 142 mmol/L (136-145)
[2024-03-12 05:55] LABS: Calcium 8.9 mg/dL (7.8-10.44); Glucose 113 mg/dL (83-110)
[2024-03-12] MEDS ORDERED: Docusate 100 MG CAP PO PRN (08:55)
[2024-03-12] MEDS: Polyethylene Glycol 3350 17 GM Packet PO PRN (09:21)
[2024-03-12] MEDS: LevoFLOXacin 750 MG TAB PO SCH (16:40)
[2024-03-12 16:52] VITALS: TEMP 98.7
[2024-03-12 17:07] VITALS: BP 132/74
== END 2024-03-12 16:55 | DRG 193 ==
LOC: ERS 14:27 → 2NO 16:54 → OBSVTOIN 03-09 15:54 → CCU 03-10 08:19 → MSONC 03-11 16:12
PROVIDERS: ADMIT Family Medicine; ATTEND Internal Medicine
PROC: 4A033R1 Measurement of Arterial Saturation, Peripheral, Percutaneous Approach (ICD-10-PCS; principal; 2024-03-10)
PROC: 5A09357 Assistance with Respiratory Ventilation, Less than 24 Consecutive Hours, Continuous Positive Airway Pressure (ICD-10-PCS; 2024-03-10)
DX: J18.9 Pneumonia, unspecified organism (principal); I21.A1 Myocardial infarction type 2; J96.21 Acute and chronic respiratory failure with hypoxia; J96.22 Acute and chronic respiratory failure with hypercapnia; I13.0 Hypertensive heart and chronic kidney disease with heart failure and stage 1 through stage 4 chronic kidney disease, or unspecified chronic kidney disease; I50.32 Chronic diastolic (congestive) heart failure; J96.10 Chronic respiratory failure, unspecified whether with hypoxia or hypercapnia; I48.20 Chronic atrial fibrillation, unspecified; N18.30 Chronic kidney disease, stage 3 unspecified; E78.5 Hyperlipidemia, unspecified; J44.9 Chronic obstructive pulmonary disease, unspecified; Z79.899 Other long term (current) drug therapy; Z79.01 Long term (current) use of anticoagulants; Z87.891 Personal history of nicotine dependence; E87.5 Hyperkalemia; K21.9 Gastro-esophageal reflux disease without esophagitis
CPT/HCPCS: 36415; 36416; 36600; 70450; 71045; 72125; 80048; 80053; 81001; 82805; 83605; 83880; 84484; 85025; 85027; 85610; 85730; 93005; 94640; 94660; 96374; G0378; J0456; J0696; J1940; J2919; J7050; J7620; U0002

== ENCOUNTER 2024-03-24 07:36 | Inpatient (IN) | payer MEDICARE, MEDICAID ==
[2024-03-24] MEDS ORDERED: Rocuronium Bromide 10 MG/ML (10ML VIAL) ONE (07:46)
[2024-03-24] MEDS ORDERED: Etomidate 40 MG (20 mL) VIAL ONE (07:46)
[2024-03-24] MEDS ORDERED: Fentanyl CADD 100 ML IV SCH (08:00)
[2024-03-24] MEDS ORDERED: Dexamethasone 10 MG/ML VIAL ONE (08:01)
[2024-03-24] MEDS ORDERED: LevoFLOXacin 750 mg/D5W 150 ml Premix Bag ONE (08:01)
[2024-03-24] MEDS ORDERED: Magnesium 2 GM/50 ML BAG (IN WATER) ONE (08:01)
[2024-03-24] MEDS ORDERED: Sodium Chloride 0.9% 100 ML ONE (08:02)
[2024-03-24] MEDS ORDERED: Cefepime 2 GM VIAL ONE (08:02)
[2024-03-24 08:08] LABS: Hematocrit 37.9 % (42.0-52.0); Hemoglobin 11.3 g/dL (14.0-18.0); Mean Corpuscular HGB CONC 29.8 g/dL (32.0-36.0); Mean Corpuscular Hemoglobin 33.4 pg (27.0-31.0); Mean Corpuscular Volume 112.1 fL (78.0-98.0); Mean Platelet Volume 10.4 fL (7.4-10.4); Platelet Count 357 10x3/uL (130-400); RBC Distribution Width 13.9 % (11.5-14.5); Red Blood Cell (RBC) Count 3.38 mill/uL (4.70-6.10)
[2024-03-24 08:12] LABS: Bacteria/HPF None Seen HPF (None Seen); Bilirubin Negative (Negative); Blood, Urine Negative (Negative); CAUTI Indications for Culture Dysuria,urgency,freq; Clarity Clear (Clear); Glucose, Urine (Dipstick) Normal (Negative); Ketone, Urine Negative (Negative); Leukocyte Negative Leu/uL (Negative); Nitrite Negative (Negative); Protein, Urine (Dipstick) 30 mg/dL (Neg-Trace); RBC/HPF None Seen HPF (0-3); Specific Gravity, Urine 1.013 (1.002-1.036); Squamous Epithelial 0-3 HPF (0-3); Urobilinogen Normal mg/dL (Less than 2); WBC/HPF 0-3 HPF (0-3); pH, Urine 5.5 (5.0-9.0)
[2024-03-24 08:16] LABS: Actual Bicarbonate (HCO3a) 37.5 mEq/L (22-28); Analyzer IN Cardio ER; Base Excess (BEa) 8.1 mEq/L (-2.0 to +3.0); Calcium, Ionized (arterial) 1.16 mmol/L (1.12-1.30); Carboxyhemoglobin (COHb) 0.8 gm% (0.0-3.0); Hematocrit-ABG 34 % (42.0-52.0); Hemoglobin (Hb) 11.5 g/dL (14.0-18.0); O2 Tension (PaO2), arterial 184.4 mmHg (> 70.0); Potassium - ABG Lab 4.57 mmol/L (3.70-5.30); pH, Arterial 7.276 (7.35-7.45)
[2024-03-24 08:18] LABS: Urine Culture Reflex No No
[2024-03-24 08:19] LABS: CO2 Tension 82.4 mmHg (35.0-45.0); Puncture Site Left Radial artery
[2024-03-24 08:23] LABS: Amphetamine Not Detected (NotDetected); Barbiturates Screen Not Detected (NotDetected); Benzodiazepine Screen Not Detected (NotDetected); Cocaine Metabolite Screen Not Detected (NotDetected); Methadone Not Detected (NotDetected); Methamphetamine Not Detected (NotDetected); Opiate Screen Not Detected (NotDetected); Oxycodone Screen Not Detected (NotDetected); Phencyclidine (PCP) Not Detected (NotDetected); THC/Cannabinoid Screen Not Detected (NotDetected); Tricyclic Screen Not Detected (NotDetected)
[2024-03-24 08:30] LABS: Band 1 % (5-11); Eosinophils 3 % (0-10); Lymphocytes 8 % (21-51); Macrocytosis SLIGHT = 6-15 cells HPF (0-5); Metamyelocyte 3 % (0-0); Monocytes 4 % (0-10); Neutrophil 81 % (42-75); Platelet Adequacy Comment Platelets Normal; Polychromasia SLIGHT = 2-3 cells HPF (0-2); Schistocytes SLIGHT = 2-5 cells HPF (0-1); Stomatocytes SLIGHT = 2-5 cells HPF (0-1)
[2024-03-24 08:55] LABS: ALT (SGPT) 12 U/L (8-55); AST (SGOT) 13 U/L (5-34); Albumin 3.6 g/dL (3.4-4.8); Alkaline Phosphatase 103 U/L (40-110); Anion Gap 14 mmol/L (10-20); BUN (Urea Nitrogen) 40 mg/dL (8.4-25.7); Bilirubin, Total 0.5 mg/dL (0.2-1.2); CK (CPK) 129 U/L (30-200); Calc. Creatinine Clearance 0 mL/min (70-130); Calcium 9.1 mg/dL (7.8-10.44); Carbon Dioxide 37 mmol/L (23-31); Chloride 97 mmol/L (98-107); Estimated GFR 64; Globulin 3.1 g/dL (2.4-3.5); Glucose 134 mg/dL (83-110); Potassium 4.5 mmol/L (3.5-5.1); Protein, Total 6.7 g/dL (5.8-8.1); Sodium 143 mmol/L (136-145)
[2024-03-24 09:00] LABS: SARS-CoV-2 E Target Positive; SARS-CoV-2 N2 Target Negative; SARS-CoV-2 NAA Rapid Test DETECTED (NotDetected); SARS-CoV-2 RdRP gene Negative
[2024-03-24] MEDS ORDERED: Propofol 1,000 MG/100 ML VIAL IV ONE (09:00)
[2024-03-24 09:03] LABS: Lipase 40 U/L (8-78)
[2024-03-24 09:05] LABS: Acetaminophen Less than 10 mcg/mL (Less than 10); Alcohol Less than 10.0 mg/dL (Less than 10); Salicylate Less than 8.0 mg/dL (Less than 8.0)
[2024-03-24] MEDS ORDERED: Acetaminophen 650 MG Suppository PR PRN (10:08)
[2024-03-24] MEDS ORDERED: Vancomycin (BATCH) 2 GM/500 ML BAG ONE (10:24)
[2024-03-24] MEDS ORDERED: Fentanyl BOLUS 250 ML IVPB PRN (11:30)
[2024-03-24] MEDS ORDERED: Propofol BOLUS 1,000 MG/100 ML VIAL IV PRN (11:30)
[2024-03-24] MEDS ORDERED: Morphine 2 MG/ML VIAL SLOW IVP PRN (11:30)
[2024-03-24] MEDS: Albuterol 2.5 MG (3 mL) NEB ONE (11:41)
[2024-03-24] MEDS: Ipratropium/Albuterol 3 ML NEB NEB PRN (11:41)
[2024-03-24] MEDS: Lorazepam 2 MG/ML VIAL SLOW IVP PRN (11:43)
[2024-03-24] MEDS: Sodium Chloride 0.9% 1,000 ML IV SCH (11:44)
[2024-03-24] MEDS: Magnesium 2 GM/50 ML(in water) 2 GM in Premix 1 BAG IVPB SCH (12:17)
[2024-03-24] MEDS: Ventilator Sedation Protocol 1 EACH FS ONE (12:17)
[2024-03-24] MEDS: Ipratropium/Albuterol 3 ML NEB ONE (14:47)
[2024-03-24] MEDS: Propofol 1,000 MG/100 ML VIAL IV PRN (15:50)
[2024-03-24] MEDS: methylPREDNISolone Sod Succ 40 MG VIAL IVP SCH (15:50)
[2024-03-24] MEDS: Fentanyl CADD 100 ML IV SCH (17:19)
[2024-03-24] MEDS: Ipratropium/Albuterol 3 ML NEB NEB SCH (18:39)
[2024-03-24] MEDS: Famotidine/PF 20 mg/2ml Vial SLOW IVP SCH (20:21)
[2024-03-24] MEDS: Cefepime 1 GM in Sodium Chloride 0.9% 100 ML IVPB SCH (20:21)
[2024-03-25 04:55] LABS: Anion Gap 9 mmol/L (10-20); BUN (Urea Nitrogen) 32 mg/dL (8.4-25.7); Calc. Creatinine Clearance 114 mL/min (70-130); Calcium 8.4 mg/dL (7.8-10.44); Carbon Dioxide 35 mmol/L (23-31); Chloride 105 mmol/L (98-107); Estimated GFR 91; Glucose 142 mg/dL (83-110); Sodium 145 mmol/L (136-145)
[2024-03-25 06:04] LABS: #Basophils Less than 0.03 10x3/uL (0.0-0.2); #Eosinphils Less than 0.03 10x3/uL (0.0-0.7); %Basophils 0.1 % (0.0-1.0); %Lymphocytes 4.1 % (21.0-51.0); %Monocytes 10.7 % (0.0-10.0); %Neutrophils 83.3 % (42.0-75.0); Hematocrit 25.3 % (42.0-52.0); Hemoglobin 7.8 g/dL (14.0-18.0); Mean Corpuscular HGB CONC 30.8 g/dL (32.0-36.0); Mean Corpuscular Hemoglobin 33.5 pg (27.0-31.0); Mean Corpuscular Volume 108.6 fL (78.0-98.0); Mean Platelet Volume 10.7 fL (7.4-10.4); Platelet Count 291 10x3/uL (130-400); RBC Distribution Width 14.1 % (11.5-14.5); Red Blood Cell (RBC) Count 2.33 mill/uL (4.70-6.10)
[2024-03-25 07:49] LABS: Actual Bicarbonate (HCO3a) 31.4 mEq/L (22-28); Base Excess (BEa) 5.8 mEq/L (-2.0 to +3.0); CO2 Tension 51.3 mmHg (35.0-45.0); Calcium, Ionized (arterial) 1.18 mmol/L (1.12-1.30); Carboxyhemoglobin (COHb) 0.4 gm% (0.0-3.0); Hematocrit-ABG 25 % (42.0-52.0); Hemoglobin (Hb) 8.5 g/dL (14.0-18.0); O2 Tension (PaO2), arterial 78.3 mmHg (> 70.0); Potassium - ABG Lab 3.95 mmol/L (3.70-5.30); pH, Arterial 7.404 (7.35-7.45)
[2024-03-25 07:50] LABS: ALV-art Gradient 142.775 mmHg (0-20); Puncture Site Right Radial artery
[2024-03-25] MEDS: methylPREDNISolone Sod Succ 40 MG VIAL IVP SCH (08:41)
[2024-03-25] MEDS: Enoxaparin 40 MG (0.4 mL) SYRINGE SC SCH (08:41)
[2024-03-25] MEDS: Piperacillin/Tazobactam 3.375 GM in Sodium Chloride 0.9% 100 ML IVPB SCH ×2 (11:47→16:06)
[2024-03-25] MEDS: Dexmedetomidine In 0.9 % NaCl 100 ML IVPB SCH (11:48)
[2024-03-25 11:56] LABS: Hematocrit 26.8 % (42.0-52.0); Hemoglobin 8.2 g/dL (14.0-18.0); Mean Corpuscular HGB CONC 30.6 g/dL (32.0-36.0); Mean Corpuscular Hemoglobin 33.5 pg (27.0-31.0); Mean Corpuscular Volume 109.4 fL (78.0-98.0); Mean Platelet Volume 10.5 fL (7.4-10.4); Platelet Count 293 10x3/uL (130-400); RBC Distribution Width 14.5 % (11.5-14.5); Red Blood Cell (RBC) Count 2.45 mill/uL (4.70-6.10)
[2024-03-26 04:46] LABS: #Basophils Less than 0.03 10x3/uL (0.0-0.2); #Eosinphils Less than 0.03 10x3/uL (0.0-0.7); %Basophils 0.1 % (0.0-1.0); %Eosinophils 0.1 % (0.0-10.0); %Lymphocytes 5.6 % (21.0-51.0); %Monocytes 10.7 % (0.0-10.0); %Neutrophils 82.6 % (42.0-75.0); Hematocrit 27.2 % (42.0-52.0); Hemoglobin 8.1 g/dL (14.0-18.0); Mean Corpuscular HGB CONC 29.8 g/dL (32.0-36.0); Mean Corpuscular Hemoglobin 33.2 pg (27.0-31.0); Mean Corpuscular Volume 111.5 fL (78.0-98.0); Mean Platelet Volume 10.6 fL (7.4-10.4); Platelet Count 296 10x3/uL (130-400); RBC Distribution Width 14.5 % (11.5-14.5); Red Blood Cell (RBC) Count 2.44 mill/uL (4.70-6.10)
[2024-03-26 04:54] LABS: Anion Gap 12 mmol/L (10-20); BUN (Urea Nitrogen) 28 mg/dL (8.4-25.7); Calc. Creatinine Clearance 119 mL/min (70-130); Calcium 8.5 mg/dL (7.8-10.44); Carbon Dioxide 31 mmol/L (23-31); Chloride 107 mmol/L (98-107); Estimated GFR 93; Glucose 122 mg/dL (83-110); Sodium 146 mmol/L (136-145)
[2024-03-26] MEDS: Scopolamine 1 mg/72 hour Patch TD SCH (14:04)
[2024-03-26] MEDS: Haloperidol Lactate 5 MG/ML VIAL IVPB SCH (16:50)
[2024-03-26] MEDS: Ziprasidone 20 MG VIAL IM SCH (17:30)
[2024-03-26] MEDS: Sterile Water 10 ML ONE (17:30)
[2024-03-26] MEDS ORDERED: Sterile Water 10 ML VIAL FS PRN (18:00)
[2024-03-26] MEDS: Mometasone 100 MCG HFA INHALER (RT USE) INH SCH (18:33)
[2024-03-26] MEDS: DC Sedation Protocol FS ONE (18:39)
[2024-03-26] MEDS: Ziprasidone 20 MG VIAL ONE (18:39)
[2024-03-26] MEDS: Haloperidol Lactate 5 MG/ML VIAL ONE (18:47)
[2024-03-26] MEDS: Amiodarone 200 MG TAB PO SCH (20:58)
[2024-03-26] MEDS: Apixaban 5 MG TAB PO SCH (20:58)
[2024-03-26] MEDS: Famotidine 20 MG TAB PO SCH (20:58)
[2024-03-26] MEDS: Atorvastatin Calcium 20 MG TAB PO SCH (20:58)
[2024-03-27 04:26] LABS: #Basophils Less than 0.03 10x3/uL (0.0-0.2); #Eosinphils Less than 0.03 10x3/uL (0.0-0.7); %Eosinophils 0.1 % (0.0-10.0); %Lymphocytes 7.2 % (21.0-51.0); %Monocytes 9.6 % (0.0-10.0); %Neutrophils 82.5 % (42.0-75.0); Hemoglobin 8.5 g/dL (14.0-18.0); Mean Corpuscular HGB CONC 30.4 g/dL (32.0-36.0); Mean Corpuscular Hemoglobin 32.9 pg (27.0-31.0); Mean Corpuscular Volume 108.5 fL (78.0-98.0); Mean Platelet Volume 10.5 fL (7.4-10.4); Platelet Count 284 10x3/uL (130-400); RBC Distribution Width 14.1 % (11.5-14.5); Red Blood Cell (RBC) Count 2.58 mill/uL (4.70-6.10)
[2024-03-27 04:48] LABS: Anion Gap 12 mmol/L (10-20); BUN (Urea Nitrogen) 24 mg/dL (8.4-25.7); Calc. Creatinine Clearance 124 mL/min (70-130); Calcium 8.7 mg/dL (7.8-10.44); Carbon Dioxide 30 mmol/L (23-31); Chloride 111 mmol/L (98-107); Estimated GFR 94; Glucose 97 mg/dL (83-110); Potassium 4.8 mmol/L (3.5-5.1); Sodium 148 mmol/L (136-145)
[2024-03-27] MEDS: Montelukast Sodium 10 mg Tablet PO SCH (08:45)
[2024-03-27] MEDS: Ferrous Sulfate 325 MG TAB PO SCH (08:45)
[2024-03-27] MEDS: Amlodipine 5 MG TAB PO SCH (08:45)
[2024-03-27] MEDS ORDERED: Non-Formulary Item 1 EACH (Fluticasone/Umeclidin/Vilanter [Trelegy Ellipta 200-62.5-25] 1 PO SCH (09:00)
[2024-03-27] MEDS: Famotidine/PF 20 mg/2ml Vial SLOW IVP SCH (21:04)
[2024-03-28 04:27] LABS: #Basophils Less than 0.03 10x3/uL (0.0-0.2); #Eosinphils Less than 0.03 10x3/uL (0.0-0.7); %Eosinophils 0.1 % (0.0-10.0); %Lymphocytes 7.3 % (21.0-51.0); %Neutrophils 84.9 % (42.0-75.0); Hematocrit 29.7 % (42.0-52.0); Hemoglobin 8.9 g/dL (14.0-18.0); Mean Corpuscular Hemoglobin 32.7 pg (27.0-31.0); Mean Corpuscular Volume 109.2 fL (78.0-98.0); Mean Platelet Volume 10.5 fL (7.4-10.4); Platelet Count 287 10x3/uL (130-400); RBC Distribution Width 13.7 % (11.5-14.5); Red Blood Cell (RBC) Count 2.72 mill/uL (4.70-6.10)
[2024-03-28 04:52] LABS: Anion Gap 15 mmol/L (10-20); BUN (Urea Nitrogen) 23 mg/dL (8.4-25.7); Calc. Creatinine Clearance 132 mL/min (70-130); Calcium 8.8 mg/dL (7.8-10.44); Carbon Dioxide 29 mmol/L (23-31); Chloride 109 mmol/L (98-107); Estimated GFR 96; Glucose 100 mg/dL (83-110); Potassium 4.8 mmol/L (3.5-5.1); Sodium 148 mmol/L (136-145)
[2024-03-29 05:10] LABS: #Basophils Less than 0.03 10x3/uL (0.0-0.2); #Eosinphils Less than 0.03 10x3/uL (0.0-0.7); %Eosinophils 0.2 % (0.0-10.0); %Lymphocytes 9.3 % (21.0-51.0); %Monocytes 9.1 % (0.0-10.0); %Neutrophils 80.8 % (42.0-75.0); Hematocrit 26.2 % (42.0-52.0); Mean Corpuscular HGB CONC 30.5 g/dL (32.0-36.0); Mean Corpuscular Hemoglobin 32.5 pg (27.0-31.0); Mean Corpuscular Volume 106.5 fL (78.0-98.0); Platelet Count 250 10x3/uL (130-400); RBC Distribution Width 13.7 % (11.5-14.5); Red Blood Cell (RBC) Count 2.46 mill/uL (4.70-6.10)
[2024-03-29 05:29] LABS: Phosphorus 2.1 mg/dL (2.3-4.7)
[2024-03-29 05:33] LABS: Anion Gap 13 mmol/L (10-20); BUN (Urea Nitrogen) 18 mg/dL (8.4-25.7); Calc. Creatinine Clearance 139 mL/min (70-130); Calcium 8.4 mg/dL (7.8-10.44); Carbon Dioxide 28 mmol/L (23-31); Chloride 107 mmol/L (98-107); Estimated GFR 97; Glucose 87 mg/dL (83-110); Magnesium 1.8 mg/dL (1.6-2.6); Potassium 3.9 mmol/L (3.5-5.1); Sodium 144 mmol/L (136-145)
[2024-03-29] MEDS ORDERED: Ondansetron PF 4 MG/2 ML Vial IVP PRN (09:45)
[2024-03-29] MEDS ORDERED: Ondansetron ODT 4 MG TAB PO PRN (09:45)
[2024-03-29] MEDS: Amoxicillin/Potassium Clav 875 MG TAB PO SCH (20:40)
[2024-03-29] MEDS: Acetaminophen 325 MG TAB PO PRN (21:59)
[2024-03-29] MEDS: traMADol HCl 50 MG TAB PO PRN (22:00)
[2024-03-30 05:36] LABS: #Basophils Less than 0.03 10x3/uL (0.0-0.2); #Eosinphils Less than 0.03 10x3/uL (0.0-0.7); %Basophils 0.1 % (0.0-1.0); %Eosinophils 0.1 % (0.0-10.0); %Lymphocytes 12.3 % (21.0-51.0); %Monocytes 8.7 % (0.0-10.0); %Neutrophils 78.2 % (42.0-75.0); Hematocrit 28.6 % (42.0-52.0); Hemoglobin 8.8 g/dL (14.0-18.0); Mean Corpuscular HGB CONC 30.8 g/dL (32.0-36.0); Mean Corpuscular Hemoglobin 32.4 pg (27.0-31.0); Mean Corpuscular Volume 105.1 fL (78.0-98.0); Mean Platelet Volume 10.4 fL (7.4-10.4); Platelet Count 214 10x3/uL (130-400); RBC Distribution Width 13.5 % (11.5-14.5); Red Blood Cell (RBC) Count 2.72 mill/uL (4.70-6.10)
[2024-03-30 06:02] LABS: Anion Gap 10 mmol/L (10-20); BUN (Urea Nitrogen) 14 mg/dL (8.4-25.7); Calc. Creatinine Clearance 135 mL/min (70-130); Calcium 8.5 mg/dL (7.8-10.44); Carbon Dioxide 31 mmol/L (23-31); Chloride 106 mmol/L (98-107); Estimated GFR 96; Glucose 94 mg/dL (83-110); Sodium 143 mmol/L (136-145)
[2024-03-30] MEDS: predniSONE 20 MG TAB PO SCH (08:01)
[2024-03-31 06:02] LABS: #Basophils Less than 0.03 10x3/uL (0.0-0.2); %Basophils 0.1 % (0.0-1.0); %Eosinophils 0.6 % (0.0-10.0); %Lymphocytes 16.1 % (21.0-51.0); %Monocytes 12.1 % (0.0-10.0); %Neutrophils 70.5 % (42.0-75.0); Hematocrit 30.9 % (42.0-52.0); Hemoglobin 9.6 g/dL (14.0-18.0); Mean Corpuscular HGB CONC 31.1 g/dL (32.0-36.0); Mean Corpuscular Hemoglobin 32.4 pg (27.0-31.0); Mean Corpuscular Volume 104.4 fL (78.0-98.0); Mean Platelet Volume 10.3 fL (7.4-10.4); Platelet Count 188 10x3/uL (130-400); RBC Distribution Width 13.3 % (11.5-14.5); Red Blood Cell (RBC) Count 2.96 mill/uL (4.70-6.10)
[2024-03-31 06:24] LABS: Anion Gap 9 mmol/L (10-20); BUN (Urea Nitrogen) 9 mg/dL (8.4-25.7); Calc. Creatinine Clearance 145 mL/min (70-130); Calcium 8.6 mg/dL (7.8-10.44); Carbon Dioxide 33 mmol/L (23-31); Chloride 103 mmol/L (98-107); Estimated GFR 98; Glucose 88 mg/dL (83-110); Potassium 3.6 mmol/L (3.5-5.1); Sodium 141 mmol/L (136-145)
[2024-04-01 04:35] LABS: #Basophils Less than 0.03 10x3/uL (0.0-0.2); #Eosinphils Less than 0.03 10x3/uL (0.0-0.7); %Basophils 0.1 % (0.0-1.0); %Lymphocytes 14.1 % (21.0-51.0); %Monocytes 8.7 % (0.0-10.0); %Neutrophils 76.4 % (42.0-75.0); Hematocrit 29.6 % (42.0-52.0); Hemoglobin 9.2 g/dL (14.0-18.0); Mean Corpuscular HGB CONC 31.1 g/dL (32.0-36.0); Mean Corpuscular Hemoglobin 32.5 pg (27.0-31.0); Mean Corpuscular Volume 104.6 fL (78.0-98.0); Mean Platelet Volume 10.6 fL (7.4-10.4); Platelet Count 177 10x3/uL (130-400); RBC Distribution Width 13.2 % (11.5-14.5); Red Blood Cell (RBC) Count 2.83 mill/uL (4.70-6.10)
[2024-04-01 04:50] LABS: Anion Gap 8 mmol/L (10-20); BUN (Urea Nitrogen) 8 mg/dL (8.4-25.7); Calc. Creatinine Clearance 141 mL/min (70-130); Calcium 8.7 mg/dL (7.8-10.44); Carbon Dioxide 36 mmol/L (23-31); Chloride 102 mmol/L (98-107); Estimated GFR 97; Glucose 102 mg/dL (83-110); Sodium 142 mmol/L (136-145)
[2024-04-01] MEDS: Bumetanide 1 MG TAB PO SCH (09:46)
[2024-04-01] MEDS: Gabapentin 300 MG CAP PO SCH (09:46)
[2024-04-01] MEDS: Tamsulosin HCl 0.4 MG CAP PO SCH (19:59)
[2024-04-01] MEDS: Famotidine 20 MG TAB PO SCH (19:59)
[2024-04-02 05:11] LABS: Anion Gap 9 mmol/L (10-20); BUN (Urea Nitrogen) 12 mg/dL (8.4-25.7); Calc. Creatinine Clearance 128 mL/min (70-130); Carbon Dioxide 44 mmol/L (23-31); Chloride 93 mmol/L (98-107); Estimated GFR 95; Glucose 140 mg/dL (83-110); Sodium 142 mmol/L (136-145)
[2024-04-02 05:26] LABS: #Basophils Less than 0.03 10x3/uL (0.0-0.2); #Eosinphils Less than 0.03 10x3/uL (0.0-0.7); %Monocytes 5.8 % (0.0-10.0); %Neutrophils 85.4 % (42.0-75.0); Hematocrit 29.5 % (42.0-52.0); Mean Corpuscular HGB CONC 30.5 g/dL (32.0-36.0); Mean Corpuscular Hemoglobin 32.4 pg (27.0-31.0); Mean Corpuscular Volume 106.1 fL (78.0-98.0); Platelet Count 169 10x3/uL (130-400); RBC Distribution Width 13.3 % (11.5-14.5); Red Blood Cell (RBC) Count 2.78 mill/uL (4.70-6.10)
[2024-04-02] MEDS: Bumetanide 1 MG TAB PO SCH (20:24)
[2024-04-04 10:39] LABS: Actual Bicarbonate (HCO3a) 63.1 mEq/L (22-28); Calcium, Ionized (arterial) 1.15 mmol/L (1.12-1.30); Carboxyhemoglobin (COHb) 1.1 gm% (0.0-3.0); Hematocrit-ABG 29 % (42.0-52.0); Hemoglobin (Hb) 9.9 g/dL (14.0-18.0); O2 Tension (PaO2), arterial 70.7 mmHg (> 70.0); Potassium - ABG Lab 3.35 mmol/L (3.70-5.30); pH, Arterial 7.388 (7.35-7.45)
[2024-04-04 10:42] LABS: Base Excess (BEa) 32.8 mEq/L (-2.0 to +3.0); CO2 Tension 107.2 mmHg (35.0-45.0); Puncture Site Right Radial artery
[2024-04-04 12:25] LABS: Actual Bicarbonate (HCO3a) 45.3 mEq/L (22-28); CO2 Tension 55.6 mmHg (35.0-45.0); Calcium, Ionized (arterial) 1.13 mmol/L (1.12-1.30); Carboxyhemoglobin (COHb) 0.7 gm% (0.0-3.0); Hematocrit-ABG 31 % (42.0-52.0); Hemoglobin (Hb) 10.5 g/dL (14.0-18.0); Potassium - ABG Lab 3.44 mmol/L (3.70-5.30); pH, Arterial 7.529 (7.35-7.45)
[2024-04-04 12:32] LABS: O2 Tension (PaO2), arterial 35.8 mmHg (> 70.0); Puncture Site Right Brachial art
[2024-04-05 04:28] LABS: #Basophils Less than 0.03 10x3/uL (0.0-0.2); #Eosinphils Less than 0.03 10x3/uL (0.0-0.7); %Basophils 0.2 % (0.0-1.0); %Eosinophils 0.2 % (0.0-10.0); %Lymphocytes 17.8 % (21.0-51.0); %Neutrophils 68.4 % (42.0-75.0); Hemoglobin 9.1 g/dL (14.0-18.0); Mean Corpuscular HGB CONC 31.4 g/dL (32.0-36.0); Mean Corpuscular Hemoglobin 33.6 pg (27.0-31.0); Mean Platelet Volume 11.2 fL (7.4-10.4); Platelet Count 232 10x3/uL (130-400); Red Blood Cell (RBC) Count 2.71 mill/uL (4.70-6.10)
[2024-04-05 04:54] LABS: BUN (Urea Nitrogen) 15 mg/dL (8.4-25.7); Calc. Creatinine Clearance 109 mL/min (70-130); Calcium 9.1 mg/dL (7.8-10.44); Carbon Dioxide 41 mmol/L (23-31); Chloride 87 mmol/L (98-107); Estimated GFR 92; Glucose 120 mg/dL (83-110); Potassium 3.4 mmol/L (3.5-5.1); Sodium 143 mmol/L (136-145)
[2024-04-05 04:56] LABS: Anion Gap 18 mmol/L (10-20)
[2024-04-05 06:17] VITALS: BMI 29.2
[2024-04-06 05:38] LABS: #Basophils Less than 0.03 10x3/uL (0.0-0.2); #Eosinphils Less than 0.03 10x3/uL (0.0-0.7); %Eosinophils 0.2 % (0.0-10.0); %Lymphocytes 15.6 % (21.0-51.0); %Monocytes 11.1 % (0.0-10.0); %Neutrophils 72.7 % (42.0-75.0); Hematocrit 27.4 % (42.0-52.0); Hemoglobin 8.5 g/dL (14.0-18.0); Mean Corpuscular Hemoglobin 33.3 pg (27.0-31.0); Mean Corpuscular Volume 107.5 fL (78.0-98.0); Mean Platelet Volume 10.7 fL (7.4-10.4); Platelet Count 214 10x3/uL (130-400); Red Blood Cell (RBC) Count 2.55 mill/uL (4.70-6.10)
[2024-04-06 05:51] LABS: Anion Gap 10 mmol/L (10-20); BUN (Urea Nitrogen) 19 mg/dL (8.4-25.7); Calc. Creatinine Clearance 104 mL/min (70-130); Calcium 9.4 mg/dL (7.8-10.44); Carbon Dioxide 47 mmol/L (23-31); Chloride 87 mmol/L (98-107); Estimated GFR 91; Glucose 115 mg/dL (83-110); Potassium 3.2 mmol/L (3.5-5.1); Sodium 141 mmol/L (136-145)
[2024-04-06] MEDS ORDERED: Electrolyte Replacement Protocol 1 EACH FS PRN (05:59)
[2024-04-06] MEDS ORDERED: Potassium Chloride 20 MEQ TAB PO SCH (06:15)
[2024-04-06] MEDS: Potassium Chloride 20 MEQ in Premix 1 BAG IVPB SCH (06:45)
[2024-04-06] MEDS: Haloperidol Lactate 5 MG/ML VIAL SLOW IVP SCH (15:56)
[2024-04-07 03:54] LABS: #Basophils Less than 0.03 10x3/uL (0.0-0.2); %Basophils 0.1 % (0.0-1.0); %Eosinophils 0.3 % (0.0-10.0); %Lymphocytes 14.6 % (21.0-51.0); %Monocytes 7.9 % (0.0-10.0); %Neutrophils 76.8 % (42.0-75.0); Hematocrit 28.7 % (42.0-52.0); Mean Corpuscular HGB CONC 31.4 g/dL (32.0-36.0); Mean Corpuscular Hemoglobin 32.8 pg (27.0-31.0); Mean Corpuscular Volume 104.7 fL (78.0-98.0); Mean Platelet Volume 10.7 fL (7.4-10.4); Platelet Count 236 10x3/uL (130-400); RBC Distribution Width 14.3 % (11.5-14.5); Red Blood Cell (RBC) Count 2.74 mill/uL (4.70-6.10)
[2024-04-07 04:14] LABS: Anion Gap 13 mmol/L (10-20); BUN (Urea Nitrogen) 21 mg/dL (8.4-25.7); Calc. Creatinine Clearance 103 mL/min (70-130); Calcium 9.3 mg/dL (7.8-10.44); Carbon Dioxide 41 mmol/L (23-31); Chloride 90 mmol/L (98-107); Estimated GFR 91; Glucose 116 mg/dL (83-110); Potassium 3.7 mmol/L (3.5-5.1); Sodium 140 mmol/L (136-145)
[2024-04-07] MEDS: predniSONE 20 MG TAB PO SCH (09:04)
[2024-04-09 11:16] VITALS: BP 119/58
[2024-04-09 11:58] VITALS: TEMP 97.5
== END 2024-04-09 15:15 | DRG 871 ==
LOC: ERS 07:36 → CCU 11:15 → IMCU/EMU 03-29 13:13
PROVIDERS: ADMIT Internal Medicine; ATTEND Family Medicine
PROC: 8E0ZXY6 Isolation (ICD-10-PCS; principal; 2024-03-24)
PROC: 4A133R1 Monitoring of Arterial Saturation, Peripheral, Percutaneous Approach (ICD-10-PCS; 2024-03-24)
PROC: 3E03329 Introduction of Other Anti-infective into Peripheral Vein, Percutaneous Approach (ICD-10-PCS; 2024-03-24)
PROC: 3E0333Z Introduction of Anti-inflammatory into Peripheral Vein, Percutaneous Approach (ICD-10-PCS; 2024-03-24)
PROC: 0BH17EZ Insertion of Endotracheal Airway into Trachea, Via Natural or Artificial Opening (ICD-10-PCS; 2024-03-24)
PROC: 5A1945Z Respiratory Ventilation, 24-96 Consecutive Hours (ICD-10-PCS; 2024-03-24)
PROC: 5A09457 Assistance with Respiratory Ventilation, 24-96 Consecutive Hours, Continuous Positive Airway Pressure (ICD-10-PCS; 2024-03-26)
DX: A41.89 Other specified sepsis (principal); J18.9 Pneumonia, unspecified organism; J96.21 Acute and chronic respiratory failure with hypoxia; J96.22 Acute and chronic respiratory failure with hypercapnia; U07.1 COVID-19; I13.0 Hypertensive heart and chronic kidney disease with heart failure and stage 1 through stage 4 chronic kidney disease, or unspecified chronic kidney disease; I50.32 Chronic diastolic (congestive) heart failure; J44.1 Chronic obstructive pulmonary disease with (acute) exacerbation; J44.0 Chronic obstructive pulmonary disease with (acute) lower respiratory infection; E66.2 Morbid (severe) obesity with alveolar hypoventilation; F03.90 Unspecified dementia, unspecified severity, without behavioral disturbance, psychotic disturbance, mood disturbance, and anxiety; K21.9 Gastro-esophageal reflux disease without esophagitis; Z66 Do not resuscitate; E78.5 Hyperlipidemia, unspecified; I48.0 Paroxysmal atrial fibrillation; N18.30 Chronic kidney disease, stage 3 unspecified; D63.1 Anemia in chronic kidney disease; Z99.81 Dependence on supplemental oxygen; Z79.899 Other long term (current) drug therapy; Z98.890 Other specified postprocedural states; Z68.29 Body mass index [BMI] 29.0-29.9, adult
CPT/HCPCS: 31500; 36415; 36556; 36600; 43753; 51702; 70450; 71045; 80048; 80053; 80306; 80307; 81001; 82140; 82306; 82550; 82805; 83605; 83690; 83735; 83880; 84100; 84439; 84443; 84484; 85025; 87040; 87086; 93005; 94002; 94003; 94640; 94660; 96365; 96366; 96368; 96375; J0692; J1100; J1630; J1650; J1956; J2060; J2543; J2704; J2919; J3010; J3370; J3475; J3480; J3486; J3490; J7030; J7512; J7611; J7620; U0002

== ENCOUNTER 2024-04-14 15:40 | Inpatient (IN) | payer MEDICARE, MEDICAID ==
[2024-04-14 16:23] LABS: Actual Bicarbonate (HCO3a) 37.2 mEq/L (22-28); Analyzer IN Cardio ER; Base Excess (BEa) 8.1 mEq/L (-2.0 to +3.0); Calcium, Ionized (arterial) 1.17 mmol/L (1.12-1.30); Carboxyhemoglobin (COHb) 1.1 gm% (0.0-3.0); Hematocrit-ABG 28 % (42.0-52.0); Hemoglobin (Hb) 9.4 g/dL (14.0-18.0); O2 Tension (PaO2), arterial 78.7 mmHg (> 70.0); pH, Arterial 7.254 (7.35-7.45)
[2024-04-14 16:41] LABS: Puncture Site Right Radial artery
[2024-04-14 16:46] LABS: ALV-art Gradient 99.125 mmHg (0-20)
[2024-04-14 17:08] LABS: Actual Bicarbonate (HCO3a) 37.9 mEq/L (22-28); Analyzer IN Cardio ER; Base Excess (BEa) 9.2 mEq/L (-2.0 to +3.0); Calcium, Ionized (arterial) 1.16 mmol/L (1.12-1.30); Carboxyhemoglobin (COHb) 0.6 gm% (0.0-3.0); Hematocrit-ABG 27 % (42.0-52.0); Hemoglobin (Hb) 9.1 g/dL (14.0-18.0); O2 Tension (PaO2), arterial 62.4 mmHg (> 70.0); Potassium - ABG Lab 4.99 mmol/L (3.70-5.30); pH, Arterial 7.276 (7.35-7.45)
[2024-04-14] MEDS ORDERED: KETAMINE 100 MG/ML (5ML VIAL) ONE (17:12)
[2024-04-14] MEDS ORDERED: Rocuronium Bromide 10 MG/ML (10ML VIAL) ONE (17:13)
[2024-04-14] MEDS ORDERED: Ipratropium/Albuterol 3 ML NEB ONE (17:32)
[2024-04-14 17:33] LABS: #Basophils Less than 0.03 10x3/uL (0.0-0.2); #Eosinphils Less than 0.03 10x3/uL (0.0-0.7); %Basophils 0.2 % (0.0-1.0); %Eosinophils 0.1 % (0.0-10.0); %Lymphocytes 5.2 % (21.0-51.0); %Monocytes 5.1 % (0.0-10.0); %Neutrophils 88.5 % (42.0-75.0); Hematocrit 29.6 % (42.0-52.0); Hemoglobin 8.7 g/dL (14.0-18.0); Mean Corpuscular HGB CONC 29.4 g/dL (32.0-36.0); Mean Corpuscular Hemoglobin 33.1 pg (27.0-31.0); Mean Corpuscular Volume 112.5 fL (78.0-98.0); Platelet Count 287 10x3/uL (130-400); RBC Distribution Width 14.3 % (11.5-14.5); Red Blood Cell (RBC) Count 2.63 mill/uL (4.70-6.10)
[2024-04-14 17:40] LABS: ALV-art Gradient 118.675 mmHg (0-20); Puncture Site Left Radial artery
[2024-04-14 17:46] LABS: ALT (SGPT) 19 U/L (8-55); AST (SGOT) 27 U/L (5-34); Albumin 3.5 g/dL (3.4-4.8); Alkaline Phosphatase 90 U/L (40-110); Anion Gap 11 mmol/L (10-20); BUN (Urea Nitrogen) 27 mg/dL (8.4-25.7); Bilirubin, Total 0.6 mg/dL (0.2-1.2); Calc. Creatinine Clearance 0 mL/min (70-130); Carbon Dioxide 37 mmol/L (23-31); Chloride 98 mmol/L (98-107); Estimated GFR 61; Globulin 3.5 g/dL (2.4-3.5); Glucose 139 mg/dL (83-110); Sodium 140 mmol/L (136-145)
[2024-04-14 17:48] LABS: Troponin I 0.294 ng/mL (< 0.028)
[2024-04-14 17:52] LABS: Macrocytosis SLIGHT = 6-15 cells HPF (0-5); Platelet Adequacy Comment Platelets Normal; Polychromasia SLIGHT = 2-3 cells HPF (0-2); Schistocytes SLIGHT = 2-5 cells HPF (0-1)
[2024-04-14] MEDS ORDERED: fentaNYL 50 mcg/mL 1 mL Vial ONE (18:03)
[2024-04-14] MEDS ORDERED: Fentanyl CADD 100 ML IV SCH (18:15)
[2024-04-14] MEDS ORDERED: Acetaminophen 325 MG TAB PO PRN (18:38)
[2024-04-14] MEDS ORDERED: Ventilator Sedation Protocol 1 EACH FS SCH (18:43)
[2024-04-14] MEDS ORDERED: Ipratropium/Albuterol 3 ML NEB NEB PRN ×2 (18:44→19:48)
[2024-04-14 18:54] LABS: Actual Bicarbonate (HCO3a) 30.9 mEq/L (22-28); Analyzer IN Cardio ER; Base Excess (BEa) 7.4 mEq/L (-2.0 to +3.0); CO2 Tension 39.1 mmHg (35.0-45.0); Carboxyhemoglobin (COHb) 0.5 gm% (0.0-3.0); Hematocrit-ABG 29 % (42.0-52.0); Hemoglobin (Hb) 9.8 g/dL (14.0-18.0); O2 Tension (PaO2), arterial 81.9 mmHg (> 70.0); Potassium - ABG Lab 4.17 mmol/L (3.70-5.30); pH, Arterial 7.515 (7.35-7.45)
[2024-04-14] MEDS ORDERED: Morphine 2 MG/ML VIAL SLOW IVP PRN (19:00)
[2024-04-14] MEDS ORDERED: Propofol BOLUS 1,000 MG/100 ML VIAL IV PRN (19:00)
[2024-04-14] MEDS ORDERED: Fentanyl BOLUS 250 ML IVPB PRN (19:00)
[2024-04-14] MEDS ORDERED: Propofol 1,000 MG/100 ML VIAL IV ONE (19:22)
[2024-04-14] MEDS ORDERED: Dextrose 50% Abboject 50 ML SYRINGE SLOW IVP PRN (19:52)
[2024-04-14] MEDS ORDERED: Insulin Lispro 100 UNIT/ML 10 ML VIAL SC PRN (19:52)
[2024-04-14] MEDS ORDERED: Dextrose 5% in Water 1,000 ML IV PRN (19:52)
[2024-04-14] MEDS ORDERED: Glucagon 1 MG/ML KIT IM PRN (19:52)
[2024-04-14] MEDS ORDERED: Electrolyte Replacement Protocol 1 EACH FS SCH (19:53)
[2024-04-14 20:43] LABS: ALV-art Gradient 154.425 mmHg (0-20); Puncture Site Left Brachial artery
[2024-04-14] MEDS ORDERED: Apixaban 5 MG TAB PO SCH (21:00)
[2024-04-14] MEDS: cefTRIAXone\\ROCEPHIN 2 GM in Sodium Chloride 0.9% 100 ML IVPB SCH (21:44)
[2024-04-14] MEDS: Pantoprazole 40 MG VIAL IVP SCH (21:45)
[2024-04-14] MEDS: Azithromycin 500 MG in Sodium Chloride 0.9% 250 ML 250 ML IVPB SCH (21:45)
[2024-04-14] MEDS: Lactated Ringer's 1,000 ML IV SCH (21:46)
[2024-04-14] MEDS: Amiodarone 200 MG TAB PO SCH (21:46)
[2024-04-14] MEDS: Enoxaparin 100 MG (1 mL) SYRINGE SC SCH (21:47)
[2024-04-14] MEDS: Bumetanide 1 MG TAB PO SCH (21:47)
[2024-04-14] MEDS: Tamsulosin HCl 0.4 MG CAP PO SCH (21:47)
[2024-04-14] MEDS: Gabapentin 300 MG CAP PO SCH (21:47)
[2024-04-14] MEDS: Ipratropium/Albuterol 3 ML NEB NEB SCH ×2 (21:52→22:08)
[2024-04-14 23:26] LABS: Critical Call Chem Troponin I RESULT DECREASING; Troponin I 0.208 ng/mL (< 0.028)
[2024-04-15] MEDS: methylPREDNISolone Sod Succ 40 MG VIAL IVP SCH (00:09)
[2024-04-15] MEDS: Acetaminophen 650 MG Suppository PR PRN (01:01)
[2024-04-15] MEDS: Cefepime 2 GM in Sodium Chloride 0.9% 100 ML IVPB SCH (02:06)
[2024-04-15 02:28] LABS: Bilirubin Negative (Negative); Blood, Urine Trace (Negative); CAUTI Indications for Culture Fever or rigors; Clarity Clear (Clear); Glucose, Urine (Dipstick) Normal (Negative); Ketone, Urine Negative (Negative); Leukocyte Negative Leu/uL (Negative); Nitrite Negative (Negative); Protein, Urine (Dipstick) Negative (Neg-Trace); RBC/HPF 0-3 HPF (0-3); Specific Gravity, Urine 1.007 (1.002-1.036); Squamous Epithelial None Seen HPF (0-3); Urobilinogen Normal mg/dL (Less than 2); pH, Urine 7.5 (5.0-9.0)
[2024-04-15 02:30] LABS: Bacteria/HPF Rare-Few HPF (None Seen)
[2024-04-15 02:31] LABS: Urine Culture Reflex No No
[2024-04-15 02:44] LABS: #Basophils Less than 0.03 10x3/uL (0.0-0.2); #Eosinphils Less than 0.03 10x3/uL (0.0-0.7); %Basophils 0.1 % (0.0-1.0); %Lymphocytes 5.4 % (21.0-51.0); %Monocytes 5.9 % (0.0-10.0); %Neutrophils 88.1 % (42.0-75.0); Hematocrit 24.9 % (42.0-52.0); Hemoglobin 7.5 g/dL (14.0-18.0); Mean Corpuscular HGB CONC 30.1 g/dL (32.0-36.0); Mean Corpuscular Hemoglobin 32.9 pg (27.0-31.0); Mean Corpuscular Volume 109.2 fL (78.0-98.0); Mean Platelet Volume 10.6 fL (7.4-10.4); Platelet Count 227 10x3/uL (130-400); RBC Distribution Width 14.5 % (11.5-14.5); Red Blood Cell (RBC) Count 2.28 mill/uL (4.70-6.10)
[2024-04-15 03:28] LABS: Troponin I 0.279 ng/mL (< 0.028)
[2024-04-15 04:20] LABS: Influenza A by NAA Not Detected (NotDetected); Influenza B by NAA Not Detected (NotDetected); SARS-CoV-2 NAA Rapid Test Not Detected (NotDetected)
[2024-04-15 04:55] LABS: Anion Gap 17 mmol/L (10-20); BUN (Urea Nitrogen) 23 mg/dL (8.4-25.7); Calc. Creatinine Clearance 89 mL/min (70-130); Calcium 8.7 mg/dL (7.8-10.44); Carbon Dioxide 28 mmol/L (23-31); Chloride 100 mmol/L (98-107); Estimated GFR 76; Glucose 135 mg/dL (83-110); Magnesium 1.8 mg/dL (1.6-2.6); Potassium 4.2 mmol/L (3.5-5.1); Sodium 141 mmol/L (136-145)
[2024-04-15] MEDS: Propofol 1,000 MG/100 ML VIAL IV PRN (05:14)
[2024-04-15 06:21] LABS: Base Excess (BEa) 5.8 mEq/L (-2.0 to +3.0); CO2 Tension 31.7 mmHg (35.0-45.0); Calcium, Ionized (arterial) 1.09 mmol/L (1.12-1.30); Carboxyhemoglobin (COHb) 0.3 gm% (0.0-3.0); Hematocrit-ABG 27 % (42.0-52.0); Hemoglobin (Hb) 9.3 g/dL (14.0-18.0); O2 Tension (PaO2), arterial 82.8 mmHg (> 70.0); Potassium - ABG Lab 4.14 mmol/L (3.70-5.30); pH, Arterial 7.564 (7.35-7.45)
[2024-04-15 06:33] LABS: Puncture Site Right Radial artery
[2024-04-15 06:34] LABS: ALV-art Gradient 162.775 mmHg (0-20)
[2024-04-15 06:50] LABS: Phosphorus 0.9 mg/dL (2.3-4.7)
[2024-04-15] MEDS: Potassium Phosphate 30 MMOL in Sodium Chloride 0.9% 250 ML 250 ML IVPB SCH (07:59)
[2024-04-15] MEDS: Magnesium 2 GM/50 ML(in water) 2 GM in Premix 1 BAG IVPB SCH (07:59)
[2024-04-15] MEDS: Montelukast Sodium 10 mg Tablet PER TUBE SCH (08:00)
[2024-04-15] MEDS: Amlodipine 5 MG TAB PER TUBE SCH (08:00)
[2024-04-15] MEDS: Bumetanide 1 MG TAB PER TUBE SCH (08:00)
[2024-04-15] MEDS: Gabapentin 300 MG CAP PER TUBE SCH (08:00)
[2024-04-15] MEDS: Pantoprazole 40 MG VIAL IVP SCH (08:01)
[2024-04-15] MEDS ORDERED: Enoxaparin 40 MG (0.4 mL) SYRINGE SC SCH (09:00)
[2024-04-15] MEDS ORDERED: ROFLUMILAST 250 MCG PO SCH (09:00)
[2024-04-15 10:20] LABS: CO2 Tension 85.9 mmHg (35.0-45.0)
[2024-04-15 10:22] LABS: CO2 Tension 83.3 mmHg (35.0-45.0)
[2024-04-15] MEDS: Insulin Lispro 100 UNIT/ML 10 ML VIAL SC PRN (11:00)
[2024-04-15] MEDS: Lorazepam 2 MG/ML VIAL SLOW IVP PRN (13:40)
[2024-04-15] MEDS: Fentanyl CADD 100 ML IV SCH (13:40)
[2024-04-15 17:02] LABS: Phosphorus 1.9 mg/dL (2.3-4.7)
[2024-04-15] MEDS: Amiodarone 200 MG TAB PER TUBE SCH (20:52)
[2024-04-16] MEDS: Potassium Phosphate 15 MMOL in Sodium Chloride 0.9% 100 ML IVPB SCH (01:19)
[2024-04-16 04:01] LABS: #Basophils Less than 0.03 10x3/uL (0.0-0.2); #Eosinphils Less than 0.03 10x3/uL (0.0-0.7); %Lymphocytes 3.8 % (21.0-51.0); %Monocytes 2.8 % (0.0-10.0); %Neutrophils 92.4 % (42.0-75.0); Hematocrit 27.7 % (42.0-52.0); Hemoglobin 8.9 g/dL (14.0-18.0); Mean Corpuscular HGB CONC 32.1 g/dL (32.0-36.0); Mean Corpuscular Volume 102.6 fL (78.0-98.0); Mean Platelet Volume 10.6 fL (7.4-10.4); Platelet Count 305 10x3/uL (130-400); RBC Distribution Width 15.2 % (11.5-14.5)
[2024-04-16 04:48] LABS: Anion Gap 17 mmol/L (10-20); BUN (Urea Nitrogen) 21 mg/dL (8.4-25.7); Calc. Creatinine Clearance 87 mL/min (70-130); Calcium 8.6 mg/dL (7.8-10.44); Carbon Dioxide 27 mmol/L (23-31); Chloride 98 mmol/L (98-107); Estimated GFR 73; Glucose 162 mg/dL (83-110); Potassium 3.9 mmol/L (3.5-5.1); Sodium 138 mmol/L (136-145)
[2024-04-16 05:19] LABS: Phosphorus 3.2 mg/dL (2.3-4.7)
[2024-04-16] MEDS: Magnesium 2 GM/50 ML(in water) 2 GM in Premix 1 BAG IVPB SCH (05:34)
[2024-04-16 07:18] LABS: Actual Bicarbonate (HCO3a) 28.4 mEq/L (22-28); Base Excess (BEa) 6.4 mEq/L (-2.0 to +3.0); CO2 Tension 32.5 mmHg (35.0-45.0); Calcium, Ionized (arterial) 1.09 mmol/L (1.12-1.30); Carboxyhemoglobin (COHb) 0.5 gm% (0.0-3.0); Hematocrit-ABG 36 % (42.0-52.0); Hemoglobin (Hb) 12.3 g/dL (14.0-18.0); Potassium - ABG Lab 3.84 mmol/L (3.70-5.30)
[2024-04-16 07:20] LABS: ALV-art Gradient 157.575 mmHg (0-20); Puncture Site Left Radial artery
[2024-04-16] MEDS: Apixaban 5 MG TAB PO SCH (09:49)
[2024-04-16] MEDS: cefTRIAXone\\ROCEPHIN 2 GM in Sodium Chloride 0.9% 100 ML IVPB SCH (09:50)
[2024-04-17 03:52] LABS: #Basophils Less than 0.03 10x3/uL (0.0-0.2); #Eosinphils Less than 0.03 10x3/uL (0.0-0.7); %Basophils 0.1 % (0.0-1.0); %Lymphocytes 2.8 % (21.0-51.0); %Monocytes 4.2 % (0.0-10.0); %Neutrophils 92.2 % (42.0-75.0); Hematocrit 27.3 % (42.0-52.0); Hemoglobin 8.7 g/dL (14.0-18.0); Mean Corpuscular HGB CONC 31.9 g/dL (32.0-36.0); Mean Corpuscular Volume 103.4 fL (78.0-98.0); Mean Platelet Volume 10.7 fL (7.4-10.4); Platelet Count 316 10x3/uL (130-400); RBC Distribution Width 15.3 % (11.5-14.5); Red Blood Cell (RBC) Count 2.64 mill/uL (4.70-6.10)
[2024-04-17 04:11] LABS: Anion Gap 14 mmol/L (10-20); BUN (Urea Nitrogen) 21 mg/dL (8.4-25.7); Calc. Creatinine Clearance 96 mL/min (70-130); Calcium 8.5 mg/dL (7.8-10.44); Carbon Dioxide 29 mmol/L (23-31); Chloride 98 mmol/L (98-107); Estimated GFR 84; Glucose 142 mg/dL (83-110); Potassium 4.1 mmol/L (3.5-5.1); Sodium 137 mmol/L (136-145)
[2024-04-17 06:54] VITALS: BMI 29.2
[2024-04-17 07:02] LABS: Actual Bicarbonate (HCO3a) 30.8 mEq/L (22-28); Base Excess (BEa) 6.3 mEq/L (-2.0 to +3.0); CO2 Tension 44.3 mmHg (35.0-45.0); Calcium, Ionized (arterial) 1.08 mmol/L (1.12-1.30); Carboxyhemoglobin (COHb) 0.3 gm% (0.0-3.0); Hematocrit-ABG 31 % (42.0-52.0); Hemoglobin (Hb) 10.6 g/dL (14.0-18.0); O2 Tension (PaO2), arterial 95.7 mmHg (> 70.0); Potassium - ABG Lab 4.07 mmol/L (3.70-5.30)
[2024-04-17 07:03] LABS: ALV-art Gradient 134.125 mmHg (0-20); Puncture Site Left Radial artery
[2024-04-17] MEDS: methylPREDNISolone Sod Succ 40 MG VIAL IVP SCH (09:05)
[2024-04-17] MEDS: Lansoprazole 30 MG/10 ML UDCUP PER TUBE SCH (10:19)
[2024-04-18 05:05] LABS: #Basophils Less than 0.03 10x3/uL (0.0-0.2); #Eosinphils Less than 0.03 10x3/uL (0.0-0.7); %Basophils 0.1 % (0.0-1.0); %Lymphocytes 2.2 % (21.0-51.0); %Monocytes 4.8 % (0.0-10.0); Hematocrit 27.4 % (42.0-52.0); Hemoglobin 8.5 g/dL (14.0-18.0); Mean Corpuscular Hemoglobin 33.3 pg (27.0-31.0); Mean Corpuscular Volume 107.5 fL (78.0-98.0); Mean Platelet Volume 10.3 fL (7.4-10.4); Platelet Count 310 10x3/uL (130-400); RBC Distribution Width 14.9 % (11.5-14.5); Red Blood Cell (RBC) Count 2.55 mill/uL (4.70-6.10)
[2024-04-18 05:21] LABS: Anion Gap 16 mmol/L (10-20); BUN (Urea Nitrogen) 30 mg/dL (8.4-25.7); Calc. Creatinine Clearance 100 mL/min (70-130); Calcium 8.2 mg/dL (7.8-10.44); Carbon Dioxide 29 mmol/L (23-31); Chloride 97 mmol/L (98-107); Estimated GFR 87; Glucose 156 mg/dL (83-110); Phosphorus 3.7 mg/dL (2.3-4.7); Potassium 4.5 mmol/L (3.5-5.1); Sodium 137 mmol/L (136-145)
[2024-04-19 05:35] LABS: Anion Gap 14 mmol/L (10-20); BUN (Urea Nitrogen) 40 mg/dL (8.4-25.7); Calc. Creatinine Clearance 85 mL/min (70-130); Calcium 8.7 mg/dL (7.8-10.44); Carbon Dioxide 34 mmol/L (23-31); Chloride 95 mmol/L (98-107); Estimated GFR 71; Glucose 186 mg/dL (83-110); Potassium 4.5 mmol/L (3.5-5.1); Sodium 138 mmol/L (136-145)
[2024-04-20 05:06] LABS: Anion Gap 11 mmol/L (10-20); BUN (Urea Nitrogen) 33 mg/dL (8.4-25.7); Calc. Creatinine Clearance 110 mL/min (70-130); Carbon Dioxide 35 mmol/L (23-31); Chloride 95 mmol/L (98-107); Estimated GFR 93; Glucose 204 mg/dL (83-110); Potassium 4.8 mmol/L (3.5-5.1); Sodium 136 mmol/L (136-145)
[2024-04-20] MEDS ORDERED: Haloperidol Lactate 5 MG/ML VIAL SLOW IVP PRN (07:34)
[2024-04-20] MEDS: DC Sedation Protocol FS ONE (08:28)
[2024-04-20] MEDS: Pantoprazole DR 40 MG TAB PO SCH (09:16)
[2024-04-20] MEDS: methylPREDNISolone Sod Succ 40 MG VIAL IVP SCH (09:16)
[2024-04-20 13:50] VITALS: BMI 29.6
[2024-04-20] MEDS: Amiodarone 200 MG TAB PO SCH (20:38)
[2024-04-21] MEDS: Acetaminophen 325 MG TAB PER TUBE PRN (09:47)
[2024-04-21 13:54] VITALS: BP 156/77; TEMP 98.1
== END 2024-04-21 15:58 | DRG 207 ==
LOC: ERS 15:40 → ERHOLD 18:26 → CCU 19:46 → MSONC 04-21 11:45
PROVIDERS: ADMIT Family Medicine; ATTEND Internal Medicine
PROC: 5A1955Z Respiratory Ventilation, Greater than 96 Consecutive Hours (ICD-10-PCS; 2024-04-14)
PROC: 4A133R1 Monitoring of Arterial Saturation, Peripheral, Percutaneous Approach (ICD-10-PCS; 2024-04-14)
PROC: 0BH17EZ Insertion of Endotracheal Airway into Trachea, Via Natural or Artificial Opening (ICD-10-PCS; 2024-04-14)
PROC: 4A00X4Z Measurement of Central Nervous Electrical Activity, External Approach (ICD-10-PCS; principal; 2024-04-15)
PROC: 5A09457 Assistance with Respiratory Ventilation, 24-96 Consecutive Hours, Continuous Positive Airway Pressure (ICD-10-PCS; 2024-04-20)
DX: J18.9 Pneumonia, unspecified organism (principal); I21.A1 Myocardial infarction type 2; J96.22 Acute and chronic respiratory failure with hypercapnia; J96.21 Acute and chronic respiratory failure with hypoxia; I50.32 Chronic diastolic (congestive) heart failure; J44.1 Chronic obstructive pulmonary disease with (acute) exacerbation; J44.0 Chronic obstructive pulmonary disease with (acute) lower respiratory infection; I13.0 Hypertensive heart and chronic kidney disease with heart failure and stage 1 through stage 4 chronic kidney disease, or unspecified chronic kidney disease; N18.9 Chronic kidney disease, unspecified; F03.90 Unspecified dementia, unspecified severity, without behavioral disturbance, psychotic disturbance, mood disturbance, and anxiety; I48.91 Unspecified atrial fibrillation; K21.9 Gastro-esophageal reflux disease without esophagitis; E87.5 Hyperkalemia
CPT/HCPCS: 36415; 36416; 36600; 51702; 70450; 71045; 80048; 80053; 81001; 82805; 83605; 83735; 83880; 84100; 84145; 84484; 85025; 87040; 87070; 87205; 93005; 94002; 94003; 94640; 94660; 96361; 96365; 96375; 96376; J0456; J0692; J0696; J1650; J1815; J2060; J2470; J2704; J2919; J3010; J3475; J7050; J7120; J7620